=== PATIENT | female | born 1960 | race Caucasian/White ===

== ENCOUNTER 2021-05-31 09:22 | Outpatient (CLI) | payer BC, SELFPAY ==
[2021-05-31 10:22] LABS: Vitamin D,25 Hydroxy 66.5 ng/mL
[2021-05-31 10:47] LABS: AST(SGOT) 18 U/L (15-37); Alanine Aminotransfer ALT/SGPT 33 U/L (13-56); Albumin, Serum 3.8 g/dL (3.2-5.0); Alkaline Phosphatase 76 U/L (45-117); Anion Gap 8 (5-15); BUN 18 mg/dL (7-18); BUN/Creat Ratio 20.9 RATIO (10-20); Calcium,Total 8.7 mg/dL (8.5-10.1); Chloride 105 mmol/L (98-107); Cholesterol 179 mg/dL (200); Creatinine, Serum 0.86 mg/dL (0.55-1.02); EST Glomerular Filtration Rate 71 mL/min (>60); Est Glom Filt Rate - Afr Amer 86 mL/min (>60); Globulin 3.7 g/dL (2.2-4.2); Glucose 132 mg/dL (74-106); High Density Lipoprotein 64 mg/dL; Potassium 4.4 mmol/L (3.5-5.1); Protein, Total 7.5 g/dL (6.4-8.2); Sodium Level 139 mmol/L (136-145); Thyroid Stim Hormone (TSH) 3.06 uIU/mL (0.358-3.74); Triglycerides 79 mg/dL; Very Low Density Lipoprotein 16 mg/dL (5-40)
== END 2021-05-31 23:59 | disposition home or self-care (01) ==
LOC: BIMLAB 09:23
PROVIDERS: Referring Provider Nurse Practitioner Family; Visit Provider Nurse Practitioner Family
DX: E11.65 Type 2 diabetes mellitus with hyperglycemia (principal); E66.01 Morbid (severe) obesity due to excess calories; Z68.41 Body mass index [BMI] 40.0-44.9, adult
CPT/HCPCS: 36415; 80053; 80061; 82306; 84443

== ENCOUNTER → 2022-01-10 | Outpatient (CLI) | payer BC, SELFPAY ==
--- NOTE | 2022-01-10 11:36 | BD_ITS ---
STUDY: DUAL ENERGY X-RAY ABSORPTIOMETRY / DXA REASON FOR EXAM: Female, 61 years old. Post menopause TECHNIQUE: Bone Mineral Density (BMD) measurements of lumbar spine and bilateral hips were obtained. COMPARISON: None. FINDINGS: Lumbar Spine (L1-L4): g/cm2 (1.170) / T-score (1.1) / Z-score (2.7) Findings are suggestive of normal bone density with a low fracture risk. Left Femur Total: g/cm2 (1.243) / T-score (2.5) / Z-score (3.6) Left Femoral Neck: g/cm2 (0.947) / T-score (0.9) / Z-score (2.3) Right Femur Total: g/cm2 (1.181) / T-score (2.0) / Z-score (3.1) Right Femoral Neck: g/cm2 (0.978) / T-score (1.2) / Z-score (2.6) BD/Dexa Bone Density Study IMPRESSION: The patient is considered normal as outlined below according to World Radu Organization (WHO) criteria with a low fracture risk. Reference Information: The T-score is the number of standard deviations above or below the standard which is normal for young adults at their peak bone mineral density. The World Health Organization (WHO) interprets the T-scores as follows: Above -1 Normal bone density Between -1 and -2.5 Osteopenia Equal to / or below -2.5 Osteoporosis As a practical clinical guideline, osteopenia may be graded as follows: Mild -1 through -1.5 Moderate -1.6 through -2.0 Severe -2.1 through -2.4 The Z-score is the number of standard deviations above or below age-matched controls. A Z-score of less than -1.5 would be considered abnormal. References: 1. NIH Osteoporosis and Related Bone Diseases www osteo.org 2. International Society for Clinical Densitometry www iscd.org 3. National Osteoporosis Foundation www nof.org Electronically Signed: Ry Singh MD at 11:58 EDT ,
== END | disposition home or self-care (01) ==
LOC: OPBD 11:30
PROVIDERS: Referring Provider Nurse Practitioner Family; Visit Provider Nurse Practitioner Family
DX: Z78.0 Asymptomatic menopausal state (principal)
CPT/HCPCS: 77080

== ENCOUNTER → 2022-06-11 | Outpatient (CLI) | payer BC, SELFPAY ==
[2022-06-11 10:06] LABS: Microalbumin,Random Urine 27.6 mg/L (NO RANGE EST.); Microalbumin:Creatinine Ratio 42.1 mg/g CRE (<30 mg/g CRE)
[2022-06-11 10:24] LABS: Vitamin D,25 Hydroxy 46.9 ng/mL
[2022-06-11 10:45] LABS: ALB/GLOB Ratio 1.1 RATIO (0.9-2.4); AST(SGOT) 19 U/L (15-37); Alanine Aminotransfer ALT/SGPT 40 U/L (13-56); Alkaline Phosphatase 133 U/L (45-117); Anion Gap 9 (5-15); BUN 23 mg/dL (7-18); Calcium,Total 9.8 mg/dL (8.5-10.1); Chloride 97 mmol/L (98-107); Cholesterol 264 mg/dL (200); Creatinine, Serum 0.92 mg/dL (0.55-1.02); EST Glomerular Filtration Rate 65 mL/min (>60); Est Glom Filt Rate - Afr Amer 79 mL/min (>60); Globulin 3.8 g/dL (2.2-4.2); Glucose 390 mg/dL (74-106); High Density Lipoprotein 60 mg/dL; Potassium 4.7 mmol/L (3.5-5.1); Protein, Total 7.8 g/dL (6.4-8.2); Sodium Level 132 mmol/L (136-145); Thyroid Stim Hormone (TSH) 2.57 uIU/mL (0.358-3.74); Triglycerides 281 mg/dL; Very Low Density Lipoprotein 56 mg/dL (5-40)
== END | disposition home or self-care (01) ==
LOC: LAB 09:15
PROVIDERS: Referring Provider Nurse Practitioner Family; Visit Provider Nurse Practitioner Family
DX: E11.9 Type 2 diabetes mellitus without complications (principal)
CPT/HCPCS: 36415; 80053; 80061; 82043; 82306; 82570; 84443

== ENCOUNTER 2023-03-07 16:30 | Outpatient (RCR) | payer BC, SELFPAY ==
--- NOTE | 2023-01-21 08:15 | HP.PTEVAL ---
Patient's Visit Information Visit Information Visit Information: ROSE MARY NARANJO is a 62 year old F referred to Physical Therapy by Dr. Gus Marquez DO with a diagnosis of R hip OA. Date of Evaluation: 01/21/23 Physical Therapist: Sylvain Nguyen, DPT, OCS, CSCS Visit Plan Frequency: 2x /Week Duration: 4-6 Weeks Plan: 2x/week for 4-6 weeks starting with aquatic therapy for R hip ROm, stretch psoas and HS, strenvgth and funciton to I pool or HEP based on patient desire. Will continue manual therapy after pool if needed. Subjective Subjective: Arhtritis and bone spurs in R hip for two years bothering her. Worsening. Pain to 6/10 in am is worse. Standing too long is painful, sitting too long. Sleep is rough as it constantly wakes her up. Tries to sleep on l side but wakes up on R. She has pain meds at home and doc suggested glucosamine. Had injections with chiropractor in august which did not help. Employed at [employer] and is not bad but has to get up and walk around. limps much of time right now, sometimes not too bad usually when pain pill has kicked in. After moving for a while is better, dormancy bothers her. Basic ADLs, all getting done but sock on R foot is difficult, IR crossing leg is tough. Hobbies, gardening but has been unable to get on knees or use shovel b/c it hurts. Getting off ground is tough. Tried some ex with chrioppractor ROM legs and hips and back, SKC, was painful to do. Pain R hip lateral: Pain Intensity (Out of 10): 1 Pain Intensity Range: 0 and 6 Objective Objective: Walks I with R antalgia back to [facility] room. Trasers chair and bed I with a groan. Steps are reciprocal with one rail, poor confidence but able. R hip AROM IR 8 pain, er 45 pain, flexion 90 pain, extension 5 L hip IR 15, ER 65, flexion 110. tightness present in hip flexors B, HS -20 90/90 B. reflexes 1/3 patella and achilles sensation WNL to gross light touch in B LE strength ankle anad knee 4/5 B without pain, hip flexion 4- R and 4 L, abduction 3+ B, hip ext 3+ B, no real pain. + R hip scour. + FADDIR R , Slight + Jonathan. Balance/Special Test Scores Lower Extremity Functional Score: 29 Goals Goal 1:: sleep through night without waking due to pain Goal Time Frame: 4-6 Weeks Goal 2:: I appropriate HEP to minimize future problems(pool or gym or Home) Goal Time Frame: 4-6 Weeks Goal 3:: Put on R shoes and socks without pain Goal Time Frame: 4-6 Weeks Goal 4:: Pt feel 80% better in overall pain and funciton Goal Time Frame: 4-6 Weeks Goal 5:: LEFS score 55 Goal Time Frame: 4-6 Weeks Rehabilitation Potential Physical Therapy Diagnosis: Degenerative changes R hip effecting function Rehabilitation Potential: Good Anticipated Interventions Patient/Client Instruction: Educate patient on: Condition and Plan of Care For the Purpose of:: To decrease pain, To improve nutrient delivery to tissue, To improve muscle performance and motor function, To increase tolerance to activity/condition/position, To improve ability of physical actions for home/community/work/leisure and To improve gait and locomotor functions Therapeutic Exercise to Include: Strength training, Flexibilty training, Gait and locomotor training, In an aquatic setting , Passive ROM and Active ROM For the Purpose of:: To decrease pain, To increase ROM, To improve nutrient delivery to tissue, To improve muscle performance and motor function, To increase tolerance to activity/condition/position, To improve ability of physical actions for home/community/work/leisure, To improve gait and locomotor functions and To improve health of tissue Manual Therapy Techniques to Include: Mobilization and Passive ROM For the Purpose of:: To decrease pain, To increase ROM and To improve nutrient delivery to tissue Text: Thank you for the opportunity to evaluate your patient. For Medicare and Medicare HMO plans, please review the plan of care and approve it. It will need to be FAXED BACK to us at [phone] for Medicare purposes. For Medicare only, by signing this I certify the plan of care. Please let me know if there are questions or concerns regarding this plan of care. Physician Signature: Date:
--- NOTE | 2023-03-07 17:03 | HP.PTREVAL_ITS ---
Re-Evaluation Intro: Dr. Gus Marquez, DO, It has been my pleasure to treat ROSE MARY NARANJO over the last 10 visits for R hip OA. Please see the progress note below for an update on the physical therapy plan of care! Subjective Subjective: Not feeling a whole lot better overall. Still pretty bad in am. Got home exercises but not compliant alot. Feels good when gets out the pool. Lasts day or so. Sleeps better after exercises. can cross legs to put sock on now. Not alot of time for exercises. No f/u with doctor. Pt withouit a lot of time to exercise at home and is very busy, hard to commit to exercise but realizes she needs to find time to take care of herself. sleeping is still the main problem. Objective Objective/Function: R hip ROM very limited R compared to L in hip flexion 90 and ir barely neutral,both painful, also er painful. Tender just a bit over trochanter. Walks without antalgia today. Steps with pain R hip ascend and desending. Feels better after manual leg pull Plan Plan Plan: Pt to schedule/call doctor regarding main problem of night pain and lack of improvement. Will attempt to do HEP or possibly join a pool and continue2- 3x/week but noncommittal. Might beenfit from continued land based manual therapy and more aggressiv ehip strength if no other options from doctor(injection/meds etc) pt to call after doctor [place] [facility] [place] for 2-4 weeks if no other options for manual therapy and land ex. Balance/Gait/Functional tests Balance/Special Test Scores Lower Extremity Functional Score: 41 Goals Goals Goal 1:: sleep through night without waking due to pain Goal Time Frame: 4-6 Weeks Goal Progress: Not Progressing Goal 2:: I appropriate HEP to minimize future problems(pool or gym or Home) Goal Time Frame: 4-6 Weeks Goal Progress: Goal Met Goal 3:: Put on R shoes and socks without pain Goal Time Frame: 4-6 Weeks Goal Progress: still painful Goal 4:: Pt feel 80% better in overall pain and funciton Goal Time Frame: 4-6 Weeks Goal Progress: Slow Goal 5:: LEFS score 55 Goal Time Frame: 4-6 Weeks Goal Progress: Slow Anticipated Interventions Anticipated Interventions Patient/Client Instruction: Educate patient on: Condition and Plan of Care For the Purpose of:: To decrease pain, To improve nutrient delivery to tissue, To improve muscle performance and motor function, To increase tolerance to act ivity/condition/position, To improve ability of physical actions for home/community/work/leisure and To improve gait and locomotor functions Therapeutic Exercise to Include: Strength training, Flexibilty training, Gait and locomotor training, In an aquatic setting , Passive ROM and Active ROM For the Purpose of:: To decrease pain, To increase ROM, To improve nutrient delivery to tissue, To improve muscle performance and motor function, To increase tolerance to activity/condition/position, To improve ability of physical actions for home/community/work/leisure, To improve gait and locomotor functions and To improve health of tissue Manual Therapy Techniques to Include: Mobilization and Passive ROM For the Purpose of:: To decrease pain, To increase ROM and To improve nutrient delivery to tissue Re-Evaluation Ending Re-evaluation ending: Please do not hesitate to contact me at [phone] by phone or if you have questions or concerns regarding this new plan of care! Sincerely, Sylvain Nguyen, DPT, OCS, CSCS
--- NOTE | 2023-05-03 12:54 | HP.PT.NRP ---
Patient Information Patient Information: ROSE MARY NARANJO was seen in my office for initial evaluation on 01/21/23. The following Plan of Care was established for this patient: POC Established Initial Frequency: 2x /Week Initial Duration: 4-6 Weeks Anticipated Interventions Patient/Client Instruction: Educate patient on: Condition and Plan of Care For the Purpose of:: To decrease pain, To improve nutrient delivery to tissue, To improve muscle performance and motor function, To increase tolerance to activity/condition/position, To improve ability of physical actions for home/community/work/leisure and To improve gait and locomotor functions Therapeutic Exercise to Include: Strength training, Flexibilty training, Gait and locomotor training, In an aquatic setting , Passive ROM and Active ROM For the Purpose of:: To decrease pain, To increase ROM, To improve nutrient delivery to tissue, To improve muscle performance and motor function, To increase tolerance to activity/condition/position, To improve ability of physical actions for home/community/work/leisure, To improve gait and locomotor functions and To improve health of tissue Manual Therapy Techniques to Include: Mobilization and Passive ROM For the Purpose of:: To decrease pain, To increase ROM and To improve nutrient delivery to tissue Last Seen Last Seen: This patient was last seen in our office 03/04/23. Pertinent comments regarding their Physical therapy will appear below: Pt seen 9 visits of plan of care for aquatic therapy. She did not schedule or attend any further visits or her re-assessment. at this point, it has been over 6 weeks and I will discontinue due to nonattendance. At this point I will be discontinuing this patient from physical therapy. I would be happy to see this patient again in the future if found appropriate by the physician. Thank you! Sylvain Nguyen, DPT, OCS, CSCS Balance/Gait/Functional tests Balance/Special Test Scores Lower Extremity Functional Score: 41
== END 2023-03-07 19:00 | disposition home or self-care (01) ==
LOC: PT 16:30
PROVIDERS: Referring Provider Orthopaedic Surgery; Visit Provider Orthopaedic Surgery
DX: M16.11 Unilateral primary osteoarthritis, right hip (principal)
CPT/HCPCS: 97113; 97161; 97164

== ENCOUNTER → 2023-03-20 | Outpatient (CLI) | payer BC, SELFPAY ==
--- NOTE | 2023-03-20 07:47 | ECHOD_ITS ---
Reason For Study: CAD/ASHD Procedure This was a 2D Doppler, Color Flow transthoracic echocardiogram. Exam performed in department. Left Ventricle Normal LV size. Left ventricular systolic function is normal. The estimated ejection fraction is 65 %. Stage 2 diastolic dysfunction. No regional wall motion abnormalities noted. Right Ventricle Normal RV size. Normal systolic function. Atria Normal left atrium. Normal right atrium. Mitral Valve Normal mitral valve. Tricuspid Valve Normal tricuspid valve. Mild tricuspid valve insufficiency. Pulmonary artery systolic pressure is 24 mmHg. Aortic Valve Normal aortic valve. Pulmonic Valve Normal pulmonic valve. Great Vessels Normal aortic root. The pulmonary artery is normal size. Normal inferior vena cava. Pericardium/Pleural No pericardial effusion. MMode/2D Measurements & Calculations LVIDd: 4.4 cm IVSd: 1.1 cm LVOT diam: 1.9 cm LVIDs: 2.9 cm LVPWd: 1.1 cm LVOT area: 2.8 cm2 RVDd: 3.4 cm FS: 34.0 % Ao root diam: 3.5 cm LAV(MOD-bp): 53.5 ml LVAd ap4: 23.4 cm2 LAV(MOD-bp) Indexed: 24.7 ml/m2 LVLd ap4: 7.0 cm LAV(MOD-sp2): 76.6 ml EDV(MOD-sp4): 65.2 ml LAV(MOD-sp4): 37.8 ml EDV(sp4-el): 66.2 ml LVAs ap4: 11.8 cm2 LVLs ap4: 5.8 cm ESV(MOD-sp4): 21.9 ml ESV(sp4-el): 20.5 ml EF(MOD-sp4): 66.4 % EF(sp4-el): 69.0 % LVAd ap2: 23.2 cm2 SV(MOD-sp4): 43.3 ml SV(MOD-sp2): 42.7 ml LVLd ap2: 7.3 cm EDV(MOD-sp2): 66.6 ml EDV(sp2-el): 62.3 ml LVAs ap2: 12.4 cm2 LVLs ap2: 6.1 cm ESV(MOD-sp2): 24.0 ml ESV(sp2-el): 21.4 ml EF(MOD-sp2): 64.0 % SV(sp4-el): 45.6 ml LA dimension(2D): 3.3 cm LA A4 area: 16.5 cm2 RA A4 area: 17.3 cm2 TAPSE: 2.5 cm Time Measurements MV dec time: 0.21 sec Doppler Measurements & Calculations MV E max marquis: 70.0 cm/sec Lat Peak E' Marquis: 10.8 cm/sec Med Peak E' Marquis: 9.6 cm/sec MV A max marquis: 70.0 cm/sec E/E' lat: 6.5 E/E' med: 7.3 MV E/A: 1.0 Ao V2 max: 122.5 cm/sec LV V1 max: 83.5 cm/sec MV dec slope: 328.3 cm/sec2 Ao max P.0 mmHg LV V1 max P.8 mmHg Ao V2 mean: 88.5 cm/sec LV V1 mean P.5 mmHg Ao mean P.5 mmHg LV V1 mean: 58.2 cm/sec Ao V2 VTI: 33.3 cm LV V1 VTI: 20.6 cm AV (velocity ratio): 0.62 BEE(I,D): 1.7 cm2 BEE(V,D): 1.9 cm2 SV(LVOT): 57.5 ml PA V2 max: 88.8 cm/sec PI end-d marquis: 66.3 cm/sec PA max PG (full): 1.4 mmHg TR max marquis: 231.3 cm/sec TR max P.4 mmHg ECHO/Echo Complete Interpretation Summary Normal LV size. Left ventricular systolic function is normal. The estimated ejection fraction is 65 %. Stage 2 diastolic dysfunction. Ordering Physician: Guerrero Vera Referring Physician: Guerrero Vera MD Performed By: Karlee Lozoya, RUST
== END | disposition home or self-care (01) ==
LOC: CVS 07:45
PROVIDERS: PCP Internal Medicine Endocrinology, Diabetes & Metabolism; Referring Provider Internal Medicine Cardiovascular Disease; Visit Provider Internal Medicine Cardiovascular Disease
DX: I25.10 Atherosclerotic heart disease of native coronary artery without angina pectoris (principal); I25.84 Coronary atherosclerosis due to calcified coronary lesion; I10 Essential (primary) hypertension
CPT/HCPCS: 93306

== ENCOUNTER → 2023-04-03 | Outpatient (CLI) | payer BC, SELFPAY ==
--- OUTSIDE RECORDS SUMMARY | 2023-04-03 06:50 | XMS RPT_ITS | CCD ---
Author Name Unknown Address [address] [place] [address] Organization [facility] Care Team Providers Care Skiver Operator Name Role Phone Val Valadez Attending Unavailable Val Valadez Referring Unavailable Val Valadez Primary Care Unavailable Dalton, Rosamaria Unavailable Unavailable [place], Val Unavailable Unavailable Prasanna Bailon Unavailable Unavailable Prasanna Bailon Unavailable Unavailable Philip Gonzales Unavailable Unavailable Philip Clark Unavailable Unavailable Wilma López Unavailable Unavailable David Brooks Unavailable Unavailable Rupal Booker Unavailable Unavailable MonheimVal M Unavailable Unavailable [place], Rosamaria Unavailable Unavailable Monheim, Val Unavailable Unavailable Monheim, Val M Unavailable Unavailable Tourlas, Lambert Unavailable [phone] Unavailable Unavailable FLACO MULLINS Primary Care Unavailable SHIMA CHISHOLM Attending Unavailable Flaco Mullins APRN.CNP Primary Care Provider FLACO MULLINS Primary Care Unavailable Allergies Allergy Classification Reported Allergen(s) Allergy Type Date of Onset Reaction(s) Facility Fenofibrate (2 sources) Fenofibrate; Translations: [Antara CAPS] [facility]: HMG-CoA Reductase Inhibitors (statins) (4 sources) rosuvastatin; Translations: [Crestor TABS] [facility]: Sulfamethoxazole / Trimethoprim (2 sources) Sulfamethoxazole / Trimethoprim; Translations: [Bactrim TABS] Drug [facility]ergy [facility]a [facility] Work [facility]: Sulfonamides (antibiotic) (2 sources) Sulfamethoxazole; Translations: [sulfa] Drug Allergy [facility] Work Phone: (4 sources) Fenofibrate [facility] Work Phone: (4 sources) fluvastatin Drug [facility] Work Phone: (4 sources) rosuvastatin Drug Allergy [facility] Work Phone: (5 sources) Sulfamethoxazole / Trimethoprim Drug Allergy 03-11-20 22 Nausea, GI Upset [facility] (2 sources) Sulfonamides (Antibiotic) Allergy to drug (finding) [facility] Work Phone: (3 sources) Aspirin; Translations: [ASPIRIN] Drug Allergy 12-27-19 23 Intolerance [facility] (2 sources) Sulfamethoxazole / Trimethoprim; Translations: [SULFAMETHOXAZOLE-TR IMETHOPRIM] Drug Allergy 03-11-20 22 [facility] Medications Current Medications Medication Drug Class(es) Dates Sig (Normalized) Sig (Original) acetic acid 20 mg/ml otic solution (1 source) Start: 02-15-2023 End: 02-22-2023 acetic acid (VOSOL) 2 % otic solution Indications: Scaly skin Use 4 Drops in the right ear three times a day for 7 days. 5 mL 0 02/15/2023 02/22/2023 Active Completed/Discontinued Medications Medication Drug Class(es) Dates Sig (Normalized) Sig (Original) 200 actuat albuterol 0.09 mg/actuat metered dose inhaler (2 sources) beta2-Adrenergic Agonist Start: 06-10-2018 Ventolin HFA 108 (90 Base) MCG/ACT Inhalation Aerosol Solution use q4-6 hours if needed for wheezing Quantity: 1 Refills: 0 Val Valadez MD Start : 10-Jun-2018 Active 8 GM Inhaler azithromycin 250 mg oral tablet (1 source) Macrolide Antimicrobial Start: 05-29-2019 take 2 tablets by mouth once daily, then take 1 tablet by mouth, then take 1 tablet by mouth once daily Azithromycin 250 MG Oral Tablet TAKE 2 TABLETS ON DAY 1 THEN TAKE 1 TABLET A DAY FOR 4 DAYS. Quantity: 1 Refills: 0 Clif Bailon DOvaleria Start : 29-May-2019 Active 6 Tablet Box benzonatate 100 mg oral capsule (1 source) Non-narcotic Antitussive Start: 03-11-2022 take 1 capsule by mouth three times daily as needed benzonatate (TESSALON PERLE) 100 mg capsule Indications: Acute otitis media, right Take 1 capsule by mouth three times daily as needed. 30 capsule 0 03/11/2022 Active Problems Active Problems Problem Classification Problem Date Documented Da te Episodic/Chronic Adjustment disorders (2 sources) Family tension; Translations: [Unspecified family circumstance] Chronic Administrative/social admission (6 sources) Family tension; Translations: [Patient encounter status] Episodic Allergic reactions (6 sources) Allergy to substance; Translations: [Other allergy, other than to medicinal agents] Episodic Anal and rectal conditions (4 sources) Anal fissure; Translations: [Anal fissure] Episodic Coma; stupor; and brain damage (6 sources) Daytime somnolence; Translations: [Hypersomnia, unspecified] Episodic Diabetes mellitus without complication (12 sources) High hemoglobin A1c level; Translations: [Type 2 diabetes mellitus without complication] Chronic Disorders of lipid metabolism (20 sources) Hyperlipidemia; Translations: [Mixed hyperlipidemia] Resolved: 06-01-2014 Chronic Esophageal disorders (6 sources) Mehta's esophagus; 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] Chronic Essential hypertension (6 sources) Benign essential hypertension; Translations: [Benign essential hypertension] Chronic Influenza (1 source) Influenza due to unidentified influenza virus with other respiratory manifestations; Translations: [Influenza-like illness] Onset: 12-26-2022 Episodic Menopausal disorders (2 sources) Long-term current use of testosterone cypionate; Translations: [Long-term (current) use of other medications] Episodic Miscellaneous mental health disorders (6 sources) Dream anxiety disorder; Translations: [Other dysfunctions of sleep stages or arousal from sleep] Chronic Nonspecific chest pain (7 sources) Atypical chest pain; Translations: [Other chest pain] Onset: 12-26-2022 Resolved: 09-08-2013 Episodic Nutritional deficiencies (6 sources) Vitamin D deficiency; Translations: [Unspecified vitamin D deficiency] Chronic Nutritional deficiencies (6 sources) Cobalamin deficiency; Translations: [Other B-complex deficiencies] Episodic Other aftercare (2 sources) Drug therapy finding; Translations: [Long-term (current) use of other medications] Episodic Other and unspecified benign neoplasm (8 sources) History of polyp of colon; Translations: [History of colonic polyps] Episodic Other connective tissue disease (3 sources) Spasm of cervical paraspinous muscle; Translations: [Cervical paraspinal muscle spasm] Episodic Other connective tissue disease (3 sources) Disorder of abdominal wall; Translations: [Abdominal wall bulge] Episodic Other connective tissue disease (6 sources) Pain in thumb ; Translations: [History of Chronic thumb pain, bilateral] Episodic Other connective tissue disease (6 sources) Pain in toe; Translations: [Pain in limb] Episodic Other gastrointestinal disorders (6 sources) Constipation; Translations: [Constipation, unspecified] Episodic Other gastrointestinal disorders (4 sources) Diarrhea; Translations: [Diarrhea] Episodic Other lower respiratory disease (6 sources) Apnea; Translations: [Apnea] Episodic Other lower respiratory disease (2 sources) Cough; Translations: [Cough] Episodic Other nervous system disorders (6 sources) Carpal tunnel syndrome; Translations: [Carpal tunnel syndrome] Chronic Past or Other Problems Problem Classification Problem Date Documented Da te Episodic/Chronic Abdominal pain (6 sources) Tenderness of epigastrium; Translations: [Abdominal tenderness, epigastric] Resolved: 05-05-2018 Episodic Acute bronchitis (2 sources) Acute bronchitis; Translations: [Acute bronchitis] Episodic Conditions associated with dizziness or vertigo (8 sources) Benign paroxysmal positional vertigo; Translations: [Dizziness] Resolved: 06-01-2014 Episodic Diabetes mellitus with complications (4 sources) Type II diabetes mellitus uncontrolled; Translations: [Diabetes mellitus without mention of complication, type II or unspecified type, uncontrolled] Resolved: 08-19-2014 Chronic Gastrointestinal hemorrhage (6 sources) Rectal hemorrhage; Translations: [Hemorrhage of rectum and anus] Resolved: 06-01-2014 Episodic Genitourinary symptoms and ill-defined conditions (6 sources) Microscopic hematuria; Translations: [Microscopic hematuria] Resolved: 04-21-2014 Episodic Nausea and vomiting (6 sources) Nausea; Translations: [Nausea alone] Resolved: 06-01-2014 Episodic Other and unspecified benign neoplasm (10 sources) Benign neoplastic disease; Translations: [Benign neoplasm of unspecified site] Resolved: 06-01-2014 Episodic Other liver diseases (6 sources) Enzyme level - finding; Translations: [Nonspecific elevation of levels of transaminase or lactic acid dehydrogenase [LDH]] Resolved: 02-03-2018 Episodic Other lower respiratory disease (6 sources) H/O: pneumonia; Translations: [Personal history of pneumonia (recurrent)] Resolved: 06-10-2018 Episodic Other lower respiratory disease (18 sources) H/O: respiratory disease; Translations: [Personal history of other diseases of respiratory system] Resolved: 08-05-2018 Episodic Other lower respiratory disease (10 sources) H/O: bronchitis; Translations: [Personal history of other diseases of respiratory system] Resolved: 12-10-2018 Episodic Other nervous system disorders (6 sources) H/O: vertigo; Translations: [Personal history of other disorders of nervous system and sense organs] Resolved: 06-01-2014 Episodic Other nutritional; endocrine; and metabolic disorders (6 sources) Abnormal weight gain; Translations: [Abnormal weight gain] Resolved: 09-08-2013 Episodic Other screening for suspected conditions (not mental disorders or infectious disease) (2 sources) Elevated C-reactive protein; Translations: [Elevated high sensitivity C-reactive protein] Other upper respiratory disease (4 sources) Polyp of nasal cavity and/or nasal sinus; Translations: [Nasal polyp] Other upper respiratory infections (7 sources) Acute maxillary sinusitis; Translations: [Acute frontal sinusitis] Resolved: 05-22-2016 Episodic Residual codes; unclassified (4 sources) H/O: Disorder; Translations: [Personal history of other specified diseases] Resolved: 12-10-2018 Episodic Residual codes; unclassified (6 sources) Personal history of other specified conditions; Translations: [History of chest pain] Resolved: 05-28-2013 Episodic Results Test Name Value Interpretation Reference Range Facil ity Vital Signs Date Time Vital Sign Value Performing Clinician Facility 02-15-2023 11:29-0500 Body height 175.3 cm Lydia Oliva APRN.CNP Work Phone: [facility] 02-15-2023 11:29-0500 Body temperature 96.91 [degF] Lydia Oliva APRN.CNP Work Phone: [facility] 02-15-2023 11:29-0500 Body weight 106.41 kg Lydia Oliva GLOBAL CHIEF CREATIVE OFFICER.MACHINIST INSTRUCTOR Work Phone: [facility] 02-15-2023 11:29-0500 Diastolic blood pressure 84 mm[Hg] Lydia Oliva GLOBAL CHIEF CREATIVE OFFICER.MACHINIST INSTRUCTOR Work Phone: [facility] 02-15-2023 11:29-0500 Heart rate 57 /min Lydia Oliva GLOBAL CHIEF CREATIVE OFFICER.MACHINIST INSTRUCTOR Work Phone: [facility] 02-15-2023 11:29-0500 Respiratory rate 18 /min Lydia Oliva GLOBAL CHIEF CREATIVE OFFICER.MACHINIST INSTRUCTOR Work Phone: [facility] 02-15-2023 11:29-0500 SaO2% (BldA) [Mass fraction] 97 % Lydia Oliva GLOBAL CHIEF CREATIVE OFFICER.MACHINIST INSTRUCTOR Work Phone: [facility] 02-15-2023 11:29-0500 Systolic blood pressure 151 mm[Hg] Lydia Oliva GLOBAL CHIEF CREATIVE OFFICER.[facility] Work Phone: [facility] 09-09-2019 18:21-0400 BMI (Body Mass Index) 40.63 kg/m2 Rosamaria [place] [facility] Work Phone: 09-09-2019 18:21-0400 Body Temperature 98.5 [degF] Rosamaria [place] [facility] Work Phone: 09-09-2019 18:21-0400 Body weight 121.2 kg Rosamaria [place] [facility] Work Phone: 09-09-2019 18:21-0400 BP Diastolic 70 mm[Hg] Rosamaria [place] [facility] Work Phone: 09-09-2019 18:21-0400 BP Systolic 142 mm[Hg] Rosamaria [place] [facility] Work Phone: 09-09-2019 18:21-0400 BSA (Body Surface Area) 2.31 m2 Rosamaria [place] [facility] Work Phone: 09-09-2019 18:21-0400 Pulse (Heart Rate) 68 /min Rosamaria [place] [facility] Work Phone: 05-29-2019 13:13-0500 BMI (Body Mass Index) 42.27 kg/m2 Rosamaria [place] [facility] Work Phone: 05-29-2019 13:13-0500 Body Temperature 97.3 [degF] Rosamaria [place] [facility] Work Phone: 05-29-2019 13:13-0500 Body weight 126.1 kg Rosamaria [place] [facility] Work Phone: 05-29-2019 13:13-0500 BP Diastolic 78 mm[Hg] Rosamaria [place] [facility] Work Phone: 05-29-2019 13:13-0500 BP Systolic 124 mm[Hg] Rosamaria [place] [facility] Work Phone: 05-29-2019 13:13-0500 BSA (Body Surface Area) 2.35 m2 Rosamaria [place] [facility] Work Phone: 05-29-2019 13:13-0500 Pulse (Heart Rate) 72 /min Rosamaria [place] [facility] Work Phone: 08-05-2018 14:09-0400 BP Diastolic 84 mm[Hg] Rosamaria [place] [facility] Work Phone: Encounters Encounter Date Encounter Type Care Provider Facility Start: 02-15-2023 End: 02-15-2023 ambulatory [facility] Facility:[facility] Start: 02-15-2023 End: 02-15-2023 Patient encounter procedure Lydia Oliva APRN.MACHINIST INSTRUCTOR Work Phone: [facility] Procedures Date Procedure Procedure Detail Performing Clinician Start: 02-26-2020 Lipid 1996 panel - S isaiah or Plasma Lydia Oliva APRN.CNP Work Phone: Start: 09-09-2019 Follow-up visit Start: 09-09-2019 25 hydroxy includes fractions if performed Rosamaria Dalton Start: 09-09-2019 Albumin, Urine Spot Ali ce [place] Start: 09-09-2019 Blood count complete auto&auto difrntl wbc Rosamaria [place] Start: 09-09-2019 Comprehensive metabo lic 2000 panel Rosamaria Dalton Start: 09-09-2019 Hemoglobin glycosylated a1c Rosamaria [place] Start: 09-09-2019 Lipid panel Rosamaria Alfalfa on Start: 09-09-2019 MG Breast screening Ali ce Dalton Start: 09-09-2019 TSH WITH REFLEX TO F REE T4 IF ABNORMAL Rosamaria [place] Start: 09-09-2019 Urnls dip stick/tabl et rgnt auto w/o microscopy Rosamaria [place] Start: 05-29-2019 Follow-up visit Anal fissurectomy Rosamaria Alfalfa on Biopsy of breast Rosamaria Dento n Colonoscopy Rosamaria [place] Hysterectomy Rosamaria [place] Plan of Treatment Date Care Activity Detail Author Start: 03-07-2030 Urine microalbumin profile DTaP,Tdap,Td Vaccine (2 - Td or Tdap) [facility] Start: 12-26-2025 Diabetes Screening Diabetes Screenin g [facility] Start: 02-25-2025 Lipid 1996 panel - Serum or Plasma Lipid Screening [facility] Start: 11-23-2022 Covid-19 Vaccine ( season) Covid-19 Vaccine ( season) [facility] Start: 11-23-2022 Influenza vaccination Influenza Vacc ine (#1) [facility] Start: 03-25-2022 Depression Assessment Depression Ass essment [facility] Start: 09-09-2019 MG Breast screening Mamm - Scr eening Mammogram w/ Tomosynthesis -[facility] Work Phone: Start: 2018 RSV Vaccine (1 - 1-d ose 60+ series) RSV Vaccine (1 - 1-dose 60+ series) [facility] Start: 2008 Shingrix Vaccine (1 of 2) Shingrix Vaccine (1 of 2) [facility] Start: 11-27-2003 Cologuard (FIT-DNA) Cologuard (FIT-D NA) [facility] Start: 11-27-2003 Colonoscopy Colonoscopy [facility] Start: 11-27-2003 Colorectal Cancer Screening Colorectal Cancer Screening [facility] Start: 11-27-[address] [facility] Start: 11-27-2003 Fecal Occult Blood Fecal Occult Bloo d [facility] Start: 11-27-2003 Sigmoidoscopy Sigmoidoscopy [facility] Start: 1998 Mammography Mammogram Screening [facility] Start: 1988 HPV Testing HPV Testing [facility] Start: 11-27-1979 Pap Testing Pap Testing [facility] Start: 1976 Hepatitis C Screening Hepatitis C Sc reening [facility] Start: 1976 [facility] Work Phone: NEGATED: Highlighted row has been ruled out! Planned Goals not documented [facility] Work Phone: Immunizations Immunization Date Immunization Notes Care Provider Kody de la rosa 04-05-2022 influenza virus vaccine, unspecified formulation Lydia Oliva APRN.[facility] Work Phone: [facility] 03-07-2020 influenza, injectabl e, quadrivalent, preservative free; Translations: [Fluarix Quadrivalent 0.5 ML Intramuscular Suspension Prefilled Syringe] Lambert Colón Work Phone: [facility] Work Phone: Payers Date Payer Category Payer Unknown 2020 Unknown [id number] 1960 Unknown [id number] Private Health Insurance [id number] Social History Date Type Detail Facility Start: 12-27-2022 End: 02-15-2023 Orthodox Affiliation Baptism Orthodox Affiliation [facility] Work Phone: Medical Equipment Procedure Code Equipment Code Equipment Origin al Text Equipment Identifier Dates OneTouch Verio I n Vitro Strip Refills: 0 Start : 31-Mar-2018 Active Start: 03-31-2018 OneTouch Verio I n Vitro Strip Refills: 0 Start : 31-Mar-2018 Active Start: 03-31-2018 OneTouch Verio I n Vitro Strip Refills: 0 Start : 31-Mar-2018 Active Start: 03-31-2018 OneTouch Verio I n Vitro Strip Refills: 0 DO Start : 31-Mar-2018 Active Start: 03-31-2018 Functional Status Date Assessment Result Facility NEGATED: Highlighted row Functional performance Functional status health issues are not documented Disease [facility] Work Phone: Mental Status Date Assessment Result Facility NEGATED: Highlighted row Cognitive function [Interpretation] Cognitive status health issues are not documented Disease [facility] Work Phone: Progress note 02-15-2023 Note Date & Type Note Facility 02-15-2023 Note HNO ID: [id number] Author: Daria Daniels Service: ? Author Type: ? Type: Progress Notes Filed: 02/15/2023 12:01 PM Note Text: This note was created using Agileriter. Subjective Rose Mary Naranjo is a 62 year old female. HPI by patient: Rose Mary is a 62r year old presenting to the office with the complaint of right ear pain for 2 days Associated symptoms include fullness, pain, headache, ear burning, and recent blood on her pillow Denies Loss of hearing Covid Immunization Dates Overdue - Covid-19 Vaccine ( season) Overdue since 11/23/2022 04/05/2022 Imm Admin: COVID-19 vaccine, age 12+ yr, bivalent (PFIZER-BIONTECH) 02/18/2021 Imm Admin: COVID-19 original vaccine, age 12+ yr, monovalent (PFIZER-BIONTECH - PURPLE TOP) 07/01/2020 Imm Admin: COVID-19 original vaccine, age 12+ yr, monovalent (PFIZER-BIONTECH - PURPLE TOP) 06/10/2020 Imm Admin: COVID-19 original vaccine, age 12+ yr, monovalent (Apokalyyis-DiJiPOP - PURPLE TOP) Sick contacts: Denies Smoking history/second hand smoke: Former OTC ibuprofen, frequent peroxide rinses, tylenol, lavender oil N/a antibiotic use in the last 60 days. ALLERGIES Aspirin Intolerance Comment:Says she breaks out in sweat Sulfamethoxazole-Tr* GI Upset No family history on file. Social History Tobacco Use Smoking status: Former Types: Cigarettes Smokeless tobacco: Never Ear Pain Pertinent negatives include no chills or fever. Review of Systems Constitutional: Negative for chills and fever. HENT: Negative for sinus pressure and sinus pain. Objective BP 151/84 (BP Site: Right Arm, BP Position: Sitting, BP Cuff Size: Regular Adult) Pulse (!) 57 Temp 36.1 ?C (96.9 ?F) (Left Tympanic) Resp 18 Ht 175.3 cm (5' 9 ) Wt 106.4 kg (234 lb 9.6 oz) SpO2 97% BMI 34.64 kg/m? Physical Exam Constitutional: Appearance: Normal appearance. HENT: Left Ear: Tympanic membrane, ear canal and external ear normal. Ears: Comments: Erythematous and white scaly canal on right side. No noted drainage bilaterally Nose: Nose normal. Mouth/Throat: Mouth: Mucous membranes are dry. Cardiovascular: Rate and Rhythm: Normal rate. Pulmonary: Effort: Pulmonary effort is normal. Breath sounds: Normal breath sounds. Neurological: Mental Status: She is alert. Assessment and Plan (H66.91) Acute otitis media, right (primary encounter diagnosis) Plan: amoxicillin (AMOXIL) 875 mg tablet (R23.4) Scaly skin Plan: acetic acid (VOSOL) 2 % otic solution Patient with 2 day history of right ear pain with multiple home treatments. Patient to be provided amoxicillin for right otitis media and encouraged acetic acid to treat canal. The patient will pursue further outpatient evaluation with the primary care physician or another Urgent Care/Express Care as outlined in the after visit summary. The patient is agreeable to this plan of care and follow-up instructions have been explained in detail. The patient has received these instructions in written format and have expressed an understanding of the after visit summary. Education on viral vs bacterial infections. Most viral infections will last 10 days, sometimes 14. It is possible to have back to back viral infections. An antibiotic will not treat a virus. -Drink lots of fluids and get plenty of rest. -Make follow up with primary care for monitoring and resolution in symptoms. -Signs that warrant an ER evaluation: Sudden change/worsening in condition, lethargy, signs of dehydration, fever greater than 102 F that is not responding to Tylenol or ibuprofen (Motrin, Advil), drooling, difficulty swallowing, difficulty breathing, shortness of breath, chest pain, evidence of airway compromise (tripod position, neck extension, retractions), seizures, changes in mental status, or other concerns. Medical Decision Making: Medical Decision Making Level: 1 - N/A I spent a total of 20 minutes on the date of the service which included preparing to see the patient, [id number] patient care, completing clinical documentation, and communicating results to the patient/family/caregiver. Remove COVID19 association [facility] Progress note 02-15-2023 Note Date & Type Note Facility 02-15-2023 Note HNO ID: [id number] Author: Lydia Oliva APRN.MACHINIST INSTRUCTOR Service: ? Author Type: Nurse Practitioner Type: Progress Notes Filed: 02/15/2023 12:01 PM Note Text: This note was created using Agileriter. Subjective Rose Mary Naranjo is a 62 year old female. HPI by patient: Rose Mary Naranjo is a 62 year old presenting to the office with the complaint of right sided ear pain. Started several days ago. Associated symptoms include pain some bloody drainage from the ear. Has had a headache and some dizziness. Denies cough, uri symptoms, fever, and gi symptoms. Covid Immunization Dates Overdue - Covid-19 Vaccine ( season) Overdue since 11/23/2022 04/05/2022 Imm Admin: COVID-19 vaccine, age 12+ yr, bivalent (PFIZER-BIONTECH) 02/18/2021 Imm Admin: COVID-19 original vaccine, age 12+ yr, monovalent (PFIZER-BIONTECH - PURPLE TOP) 07/01/2020 Imm Admin: COVID-19 original vaccine, age 12+ yr, monovalent (PFIZER-BIONTECH - PURPLE TOP) 06/10/2020 Imm Admin: COVID-19 original vaccine, age 12+ yr, monovalent (PFIZER-BIONTECH - PURPLE TOP) Sick contacts: none. Smoking history/second hand smoke: none. OTC not helping. Is using peroxide and lavender oil in the ear. No antibiotic use in the last 60 days. ALLERGIES Aspirin Intolerance Comment:Says she breaks out in sweat Sulfamethoxazole-Tr* GI Upset No family history on file. Social History Tobacco Use Smoking status: Former Types: Cigarettes Smokeless tobacco: Never Active Ambulatory Problems No Active Ambulatory Problems Resolved Ambulatory Problems No Resolved Ambulatory Problems No Additional Past Medical History Review of Systems Constitutional: Negative. HENT: Positive for ear pain. Eyes: Negative. Respiratory: Negative. Cardiovascular: Negative. Gastrointestinal: Negative. Endocrine: Negative. Genitourinary: Negative. Musculoskeletal: Negative. Skin: Negative. Neurological: Negative. Hematological: Negative. Objective BP 151/84 (BP Site: Right Arm, BP Position: Sitting, BP Cuff Size: Regular Adult) Pulse (!) 57 Temp 36.1 ?C (96.9 ?F) (Left Tympanic) Resp 18 Ht 175.3 cm (5' 9 ) Wt 106.4 kg (234 lb 9.6 oz) SpO2 97% BMI 34.64 kg/m? Physical Exam Vitals reviewed. Constitutional: General: She is not in acute distress. Appearance: She is not ill-appearing, toxic-appearing or diaphoretic. HENT: Head: Normocephalic and atraumatic. Right Ear: Ear canal and external ear normal. Swelling (some swelling with white scaling/flakes to the canal) present. Tympanic membrane is erythematous. Left Ear: Tympanic membrane, ear canal and external ear normal. Nose: Nose normal. Right Sinus: No maxillary sinus tenderness or frontal sinus tenderness. Left Sinus: No maxillary sinus tenderness or frontal sinus tenderness. Mouth/Throat: Mouth: Mucous membranes are moist. Pharynx: Oropharynx is clear. No oropharyngeal exudate or posterior oropharyngeal erythema. Cardiovascular: Rate and Rhythm: Normal rate and regular rhythm. Pulmonary: Effort: Pulmonary effort is normal. Breath sounds: Normal breath sounds. Lymphadenopathy: Head: Right side of head: No submandibular or tonsillar adenopathy. Left side of head: No submandibular or tonsillar adenopathy. Cervical: No cervical adenopathy. Psychiatric: Behavior: Behavior is cooperative. Assessment and Plan (H66.91) Acute otitis media, right (primary encounter diagnosis) Plan: amoxicillin (AMOXIL) 875 mg tablet (R23.4) Scaly skin Plan: acetic acid (VOSOL) 2 % otic solution Right otitis media, will treat with amoxicillin. White scaly/flakes in canal. Stop using oil and peroxide in the ears. Use acetic acid to the right ear. -OTC tylenol/ibuprofen as directed on the bottle. -Make follow up with primary care for monitoring and resolution in symptoms, call today for a follow up appointment. May need to see ENT. -Signs that warrant an ER evaluation: Sudden change/worsening in condition, lethargy, signs of dehydration, fever greater than 102 F that is not responding to Tylenol or ibuprofen (Motrin, Advil), drooling, difficulty swallowing, difficulty breathing, shortness of breath, chest pain, evidence of airway compromise (tripod position, neck extension, retractions), seizures, changes in mental status, or other concerns. The patient will pursue further outpatient evaluation with the primary care physician or another Urgent Care/Express Care as outlined in the after visit summary. The patient is agreeable to this plan of care and follow-up instructions have been explained in detail. The patient has received these instructions in written format and have expressed an understanding of the after visit summary. Medical Decision Making: Level: 4 - Moderate I spent a total of 20 minutes on the date of the service which included preparing to see the patient, [id number] patient care, completing clinical documentation, obta (more content not included)... [facility] History of Present illness Narrative 02-15-2023 Draia Daniels - 02/15/2023 11:53 AM Lydia Izaguirre APRN.DOREEN - 02/15/2023 11:38 AM EST Note Date & Type Note Facility 02-15-2023 History of Presen t illness Narrative This note was created using Agileriter. Subjective Rose Mary Naranjo is a 62 year old female. HPI by patient: Rose Mary is a 62r year old presenting to the office with the complaint of right ear pain for 2 days Associated symptoms include fullness, pain, headache, ear burning, and recent blood on her pillow Denies Loss of hearing Covid Immunization Dates Overdue - Covid-19 Vaccine (5 - 2023-24 season) Overdue since 11/23/2022 04/05/2022 Imm Admin: COVID-19 vaccine, age 12+ yr, bivalent (PFIZER-BIONTECH) 02/18/2021 Imm Admin: COVID-19 original vaccine, age 12+ yr, monovalent (PFIZER-BIONTECH - PURPLE TOP) 07/01/2020 Imm Admin: COVID-19 original vaccine, age 12+ yr, monovalent (PFIZER-BIONTECH - PURPLE TOP) 06/10/2020 Imm Admin: COVID-19 original vaccine, age 12+ yr, monovalent (PFIZER-BIONTECH - PURPLE TOP) Sick contacts: Denies Smoking history/second hand smoke: Former OTC ibuprofen, frequent peroxide rinses, tylenol, lavender oil N/a antibiotic use in the last 60 days. ALLERGIES Aspirin Intolerance Comment:Says she breaks out in sweat Sulfamethoxazole-Tr* GI Upset No family history on file. Social History Tobacco Use Smoking status: Former Types: Cigarettes Smokeless tobacco: Never Ear Pain Pertinent negatives include no chills or fever. Review of Systems Constitutional: Negative for chills and fever. HENT: Negative for sinus pressure and sinus pain. Objective BP 151/84 (BP Site: Right Arm, BP Position: Sitting, BP Cuff Size: Regular Adult) Pulse (!) 57 Temp 36.1 C (96.9 F) (Left Tympanic) Resp 18 Ht 175.3 cm (5' 9 ) Wt 106.4 kg (234 lb 9.6 oz) SpO2 97% BMI 34.64 kg/m Physical Exam Constitutional: Appearance: Normal appearance. HENT: Left Ear: Tympanic membrane, ear canal and external ear normal. Ears: Comments: Erythematous and white scaly canal on right side. No noted drainage bilaterally Nose: Nose normal. Mouth/Throat: Mouth: Mucous membranes are dry. Cardiovascular: Rate and Rhythm: Normal rate. Pulmonary: Effort: Pulmonary effort is normal. Breath sounds: Normal breath sounds. Neurological: Mental Status: She is alert. Assessment and Plan (H66.91) Acute otitis media, right (primary encounter diagnosis) Plan: amoxicillin (AMOXIL) 875 mg tablet (R23.4) Scaly skin Plan: acetic acid (VOSOL) 2 % otic solution Patient with 2 day history of right ear pain with multiple home treatments. Patient to be provided amoxicillin for right otitis media and encouraged acetic acid to treat canal. The patient will pursue further outpatient evaluation with the primary care physician or another Urgent Care/Express Care as outlined in the after visit summary. The patient is agreeable to this plan of care and follow-up instructions have been explained in detail. The patient has received these instructions in written format and have expressed an understanding of the after visit summary. Education on viral vs bacterial infections. Most viral infections will last 10 days, sometimes 14. It is possible to have back to back viral infections. An antibiotic will not treat a virus. -Drink lots of fluids and get plenty of rest. -Make follow up with primary care for monitoring and resolution in symptoms. -Signs that warrant an ER evaluation: Sudden change/worsening in condition, lethargy, signs of dehydration, fever greater than 102 F that is not responding to Tylenol or ibuprofen (Motrin, Advil), drooling, difficulty swallowing, difficulty breathing, shortness of breath, chest pain, evidence of airway compromise (tripod position, neck extension, retractions), seizures, changes in mental status, or other concerns. Medical Decision Making: Medical Decision Making Level: 1 - N/A I spent a total of 20 minutes on the date of the service which included preparing to see the patient, [id number] patient care, completing clinical documentation, and communicating results to the patient/family/caregiver. Remove COVID19 association This note was created using Agileriter. Subjective Rose Mary Naranjo is a 62 year old female. HPI by patient: Rose Mary Naranjo is a 62 year old presenting to the office with the complaint of right sided ear pain. Started several days ago. Associated symptoms include pain some bloody drainage from the ear. Has had a headache and some dizziness. Denies cough, uri symptoms, fever, and gi symptoms. Covid Immunization Dates Overdue - Covid-19 Vaccine ( season) Overdue since 11/23/2022 04/05/2022 Imm Admin: COVID-19 vaccine, age 12+ yr, bivalent (e-Zassi) 02/18/2021 Imm Admin: COVID-19 original vaccine, age 12+ yr, monovalent (Apokalyyis-DiJiPOP - PURPLE TOP) 07/01/2020 Imm Admin: COVID-19 original vaccine, age 12+ yr, monovalent (PFIZER-BIONTECH - PURPLE TOP) 06/10/2020 Imm Admin: COVID-19 original vaccine, age 12+ yr, monovalent (PFIZER-BIONTECH - PURPLE TOP) Sick contacts: none. Smoking history/second hand smoke: none. OTC not helping. Is using peroxide and lavender oil in the ear. No antibiotic use in the last 60 days. ALLERGIES Aspirin Intolerance Comment:Says she breaks out in sweat Sulfamethoxazole-Tr* GI Upset No family history on file. Social History Tobacco Use Smoking status: Former Types: Cigarettes Smokeless tobacco: Never Active Ambulatory Problems No Active Ambulatory Problems Resolved Ambulatory Problems No Resolved Ambulatory Problems No Additional Past Medical History Review of Systems Constitutional: Negative. HENT: Positive for ear pain. Eyes: Negative. Respiratory: Negative. Cardiovascular: Negative. Gastrointestinal: Negative. Endocrine: Negative. Genitourinary: Negative. Musculoskeletal: Negative. Skin: Negative. Neurological: Negative. Hematological: Negative. Objective BP 151/84 (BP Site: Right Arm, BP Position: Sitting, BP Cuff Size: Regular Adult) Pulse (!) 57 Temp 36.1 C (96.9 F) (Left Tympanic) Resp 18 Ht 175.3 cm (5' 9 ) Wt 106.4 kg (234 lb 9.6 oz) SpO2 97% BMI 34.64 kg/m Physical Exam Vitals reviewed. Constitutional: General: She is not in acute distress. Appearance: She is not ill-appearing, toxic-appearing or diaphoretic. HENT: Head: Normocephalic and atraumatic. Right Ear: Ear canal and external ear normal. Swelling (some swelling with white scaling/flakes to the canal) present. Tympanic membrane is erythematous. Left Ear: Tympanic membrane, ear canal and external ear normal. Nose: Nose normal. Right Sinus: No maxillary sinus tenderness or frontal sinus tenderness. Left Sinus: No maxillary sinus tenderness or frontal sinus tenderness. Mouth/Throat: Mouth: Mucous membranes are moist. Pharynx: Oropharynx is clear. No oropharyngeal exudate or posterior oropharyngeal erythema. Cardiovascular: Rate and Rhythm: Normal rate and regular rhythm. Pulmonary: Effort: Pulmonary effort is normal. Breath sounds: Normal breath sounds. Lymphadenopathy: Head: Right side of head: No submandibular or tonsillar adenopathy. Left side of head: No submandibular or tonsillar adenopathy. Cervical: No cervical adenopathy. Psychiatric: Behavior: Behavior is cooperative. Assessment and Plan (H66.91) Acute otitis media, right (primary encounter diagnosis) Plan: amoxicillin (AMOXIL) 875 mg tablet (R23.4) Scaly skin Plan: acetic acid (VOSOL) 2 % otic solution Right otitis media, will treat with amoxicillin. White scaly/flakes in canal. Stop using oil and peroxide in the ears. Use acetic acid to the right ear. -OTC tylenol/ibuprofen as directed on the bottle. -Make follow up with primary care for monitoring and resolution in symptoms, call today for a follow up appointment. May need to see ENT. -Signs that warrant an ER evaluation: Sudden change/worsening in condition, lethargy, signs of dehydration, fever greater than 102 F that is not responding to Tylenol or ibuprofen (Motrin, Advil), drooling, difficulty swallowing, difficulty breathing, shortness of breath, chest pain, evidence of airway compromise (tripod position, neck extension, retractions), seizures, changes in mental status, or other concerns. The patient will pursue further outpatient evaluation with the primary care physician or another Urgent Care/Express Care as outlined in the after visit summary. The patient is agreeable to this plan of care and follow-up instructions have been explained in detail. The patient has received these instructions in written format and have expressed an understanding of the after visit summary. Medical Decision Making: Level: 4 - Moderate I spent a total of 20 minutes on the date of the service which included preparing to see the patient, [id number] patient care, completing clinical documentation, obtaining and/or reviewing separately obtained history, performing a medically appropriate examination, counseling and educating the patient/family/caregiver, and ordering medications, tests, or procedures. documented in this encounter [facility] Instructions 02-15-2023 Patient Instructions Note Date & Type Note Facility 02-15-2023 Instructions Lydia Oliva APRN.CNP - 02/15/2023 11:38 AM EST (H66.91) Acute otitis media, right (primary encounter diagnosis) Plan: amoxicillin (AMOXIL) 875 mg tablet (R23.4) Scaly skin Plan: acetic acid (VOSOL) 2 % otic solution Right otitis media, will treat with amoxicillin. White scaly/flakes in canal. Stop using oil and peroxide in the ears. Use acetic acid to the right ear. -OTC tylenol/ibuprofen as directed on the bottle. -Make follow up with primary care for monitoring and resolution in symptoms, call today for a follow up appointment. May need to see ENT. -Signs that warrant an ER evaluation: Sudden change/worsening in condition, lethargy, signs of dehydration, fever greater than 102 F that is not responding to Tylenol or ibuprofen (Motrin, Advil), drooling, difficulty swallowing, difficulty breathing, shortness of breath, chest pain, evidence of airway compromise (tripod position, neck extension, retractions), seizures, changes in mental status, or other concerns. documented in this encounter [facility] Progress note 01-05-2023 Note Date & Type Note Facility 01-05-2023 Note HNO ID: [id number] Author: Note, Interface Service: ? Author Type: ? Type: Progress Notes Filed: 01/05/2023 2:56 AM Note Text: Epic Scheduled Downtime: 01/05/2023 1:00:00 AM to 01/05/2023 1:28:00 AM [facility] Influenza virus A and B RNA and SARS-CoV-2 (COVID-19) N gene panel DARELL+probe (Resp) 03-11-2022 Note Date & Type Note Facility 03-11-2022 Influenza virus A and B RNA and SARS-CoV-2 (COVID-19) N gene panel DARELL+probe (Resp) COVID 19 RESULT: SARS-CoV-2 (Agent of COVID-19) Detected by RT-PCR or equivalent method. raghu [id number]_Irxtq [employer] (GIOVANNI)_EUA This test was developed and its performance characteristics determined by [facility] [place]. This test has been authorized by FDA under an Emergency Use Authorization (EUA). This test has been validated in accordance with the FDA's Guidance Document Policy for Diagnostics Testing in Laboratories Certified to Perform High Complexity Testing under CLIA prior to Emergency use Authorization for Coronavirus Disease 2019 during the Public Health Emergency issued on May 23, 2019. Test performed by [facility], [facility] [place], [address] [place] [address]. INFLUENZA A PCR: Negative for Influenza A by RT-PCR INFLUENZA B PCR: Negative for Influenza B by RT-PCR [facility] Progress note 03-11-2022 Note Date & Type Note Facility 03-11-2022 Note HNO ID: [id number] Author: Claudia Kelley PA-C Service: ? Author Type: Physician Manager Wound Care Type: Progress Notes Filed: 03/11/2022 10:33 AM Note Text: Surgical mask, face shield, N95, and gloves worn for all in-person care. 03/11/2022 Patient presents with: Cough: X 3 days headache ear ache sore throat SUBJECTIVE: This is a 61 year old that is here today for concern for runny nose, congestion, pressure, sore throat, PATEL, and cough x 3 days. Denies fever, chills, sweats, or fatigue. Patient denies wheezing, shortness of breath, increased WOB, or chest pain. Now complains of right ear pain. Left feels full. COVID exposure: none Influenza exposure: none RSV exposure: none Covid Immunization Dates Overdue - COVID-19 VACCINE (4 - Booster for Pfizer series) Overdue since 04/15/2021 02/18/2021 Imm Admin: COVID-19 original vaccine, age 12+ yr, monovalent (PFIZER-BIONTECH - PURPLE TOP) 07/01/2020 Imm Admin: COVID-19 original vaccine, age 12+ yr, monovalent (PFIZER-BIONTECH - PURPLE TOP) 06/10/2020 Imm Admin: COVID-19 original vaccine, age 12+ yr, monovalent (PFIZER-BIONTECH - PURPLE TOP) COVID vaccine: yes History of COVID: - Influenza vaccine: yes Asthma: none Pneumonia: none Tobacco: none Pain on scale of 0-10 with 0 being no pain and 10 being greatest pain: 0 Nothing makes the symptoms better. Nothing makes them worse. Self-treatment:. Tylenol sinus, mucinex The severity is mild and the symptoms are not improving. The patient did not have a similar problem in the last 3 months. The patient did not take any antibiotics in the last 3 months. Barriers to learning: none. Reviewed meds, OTCs, herbals or supplements. Reviewed allergies, medications, social history, and past medical history. No past medical history on file. ALLERGIES Sulfamethoxazole-Trimethoprim MEDICATIONS Current Outpatient Medications Medication Sig cholecalciferol (VITAMIN D3) 50 mcg (2,000 unit) tablet Take 2,000 Int'l Units by mouth once daily. TRULICITY 3 mg/0.5 mL pen injector Inject 0.5 mL subcutaneously one time a week. losartan (COZAAR) 100 mg tablet Take 100 mg by mouth once daily. metFORMIN (GLUCOPHAGE) 1,000 mg tablet Take 1,000 mg by mouth twice daily. No current facility-administered medications for this visit. Medications and allergies reviewed by this provider. SOCIAL HISTORY Social History Tobacco Use Smoking status: Former Types: Cigarettes Smokeless tobacco: Never REVIEW OF SYSTEMS Review of Systems ROS: constitutional: fatigue, HENT-sinus symptoms, Eyes- neg, heart-neg, respiratory-Cough, GI-neg, -neg, skin-neg, Allergy- neg, lymph-neg, neuro-neg, psych-neg- All systems neg except as noted above in HPI. OBJECTIVE: BP 145/85 Pulse 79 Temp 36.7 ?C (98.1 ?F) (Temporal) Wt 122.5 kg (270 lb) SpO2 95% . Vital signs reviewed by this provider. Physical Exam Vitals reviewed. Constitutional: General: She is not in acute distress. Appearance: Normal appearance. She is well-developed and normal weight. She is not ill-appearing, toxic-appearing or diaphoretic. HENT: Head: Normocephalic and atraumatic. No right periorbital erythema or left periorbital erythema. Salivary Glands: Right salivary gland is not diffusely enlarged or tender. Left salivary gland is not diffusely enlarged or tender. Right Ear: Ear canal and external ear normal. A middle ear effusion is present. Tympanic membrane is injected, erythematous and bulging. Left Ear: Tympanic membrane, ear canal and external ear normal. Nose: Congestion and rhinorrhea present. Rhinorrhea is clear. Right Sinus: No maxillary sinus tenderness or frontal sinus tenderness. Left Sinus: No maxillary sinus tenderness or frontal sinus tenderness. Mouth/Throat: Lips: No lesions. Mouth: Mucous membranes are moist. No oral lesions. Dentition: No gum lesions. Tongue: No lesions. Tongue does not deviate from midline. Palate: No mass and lesions. Pharynx: Oropharynx is clear. No pharyngeal swelling, oropharyngeal exudate, posterior oropharyngeal erythema or uvula swelling. Tonsils: No tonsillar exudate or tonsillar abscesses. Eyes: General: Lids are normal. No scleral icterus. Right eye: No discharge. Left eye: No discharge. Extraocular Movements: Extraocular movements intact. Conjunctiva/sclera: Conjunctivae normal. Pupils: Pupils are equal, round, and reactive to light. Cardiovascular: Rate and Rhythm: Normal rate and regular rhythm. Heart sounds: Normal heart sounds. Pulmonary: Effort: Pulmonary effort is normal. Breath sounds: Normal breath sounds and air entry. Musculoskeletal: Cervical back: Full passive range of motion without pain. No spinous process tenderness or muscular tenderness. Lymphadenopathy: Head: Right side of head: No submental, submandibular, tonsillar, preauricular or posterior auricular adenopathy. Left side of head: No submental, submandibu (more content not included)... [facility] Evaluation note Note Date & Type Note Facility documented in this encounter [facility] Summary Purpose Family History No Family History Records Found Grandmother Name Dates Details Family history of Hearing lo ss, mixed, bilateral(389.22, H90.6) Status:Active Family history of malignant neoplasm of cervix uteri(V16.49, Z80.49) Status:Active Grandmother Name Dates Details Family history of type 2 jimbo betes mellitus(V18.0, Z83.3) Status:Active uncle Name Dates Details Family history of Hearing lo ss, mixed, bilateral(389.22, H90.6) Status:Active cousin Name Dates Details Family history of type 1 jimbo betes mellitus(V18.0, Z83.3) Status:Active Mother Name Dates Details Family history of Hearing lo ss, mixed, bilateral(389.22, H90.6) Status:Active Family history of hypothyroi dism(V18.19, Z83.49) Status:Active Family history of hyperthyro idism(V18.19, Z83.49) Status:Active Family history of Parkinson' s disease dementia(332.0, G20) Status:Active Father Name Dates Details Family history of malignant neoplasm of urinary bladder(V16.52, Z80.52) Status:Active Family history of chronic ob structive pulmonary disease(V17.6, Z82.5) Status:Active Brother Name Dates Details Family history of colon canc er(V16.0, Z80.0) Status:Active Grandmother Name Dates Details Family history of Hearing lo ss, mixed, bilateral(389.22, H90.6) Status:Active Family history of malignant neoplasm of cervix uteri(V16.49, Z80.49) Status:Active Grandmother Name Dates Details Family history of type 2 jimbo betes mellitus(V18.0, Z83.3) Status:Active uncle Name Dates Details Family history of Hearing lo ss, mixed, bilateral(389.22, H90.6) Status:Active cousin Name Dates Details Family history of type 1 jimbo betes mellitus(V18.0, Z83.3) Status:Active Mother Name Dates Details Family history of Parkinson' s disease dementia(332.0, G20) Status:Active Family history of Hearing lo ss, mixed, bilateral(389.22, H90.6) Status:Active Family history of hypothyroi dism(V18.19, Z83.49) Status:Active Family history of hyperthyro idism(V18.19, Z83.49) Status:Active Father Name Dates Details Family history of malignant neoplasm of urinary bladder(V16.52, Z80.52) Status:Active Family history of chronic ob structive pulmonary disease(V17.6, Z82.5) Status:Active Brother Name Dates Details Family history of colon canc er(V16.0, Z80.0) Status:Active Grandmother Name Dates Details Family history of Hearing lo ss, mixed, bilateral(389.22, H90.6) Status:Active Family history of malignant neoplasm of cervix uteri(V16.49, Z80.49) Status:Active Grandmother Name Dates Details Family history of type 2 jimbo betes mellitus(V18.0, Z83.3) Status:Active uncle Name Dates Details Family history of Hearing lo ss, mixed, bilateral(389.22, H90.6) Status:Active cousin Name Dates Details Family history of type 1 jimbo betes mellitus(V18.0, Z83.3) Status:Active Mother Name Dates Details Family history of Hearing lo ss, mixed, bilateral(389.22, H90.6) Status:Active Family history of hypothyroi dism(V18.19, Z83.49) Status:Active Family history of hyperthyro idism(V18.19, Z83.49) Status:Active Family history of Parkinson' s disease dementia(332.0, G20) Status:Active Father Name Dates Details Family history of malignant neoplasm of urinary bladder(V16.52, Z80.52) Status:Active Family history of chronic ob structive pulmonary disease(V17.6, Z82.5) Status:Active Brother Name Dates Details Family history of colon canc er(V16.0, Z80.0) Status:Active Grandmother Name Dates Details Family history of Hearing lo ss, mixed, bilateral(389.22, H90.6) Status:Active Family history of malignant neoplasm of cervix uteri(V16.49, Z80.49) Status:Active Grandmother Name Dates Details Family history of type 2 jimbo betes mellitus(V18.0, Z83.3) Status:Active uncle Name Dates Details Family history of Hearing lo ss, mixed, bilateral(389.22, H90.6) Status:Active cousin Name Dates Details Family history of type 1 jimbo betes mellitus(V18.0, Z83.3) Status:Active Mother Name Dates Details Family history of Hearing lo ss, mixed, bilateral(389.22, H90.6) Status:Active Family history of hypothyroi dism(V18.19, Z83.49) Status:Active Family history of hyperthyro idism(V18.19, Z83.49) Status:Active Family history of Parkinson' s disease dementia(332.0, G20) Status:Active Father Name Dates Details Family history of malignant neoplasm of urinary bladder(V16.52, Z80.52) Status:Active Family history of chronic ob structive pulmonary disease(V17.6, Z82.5) Status:Active Brother Name Dates Details Family history of colon canc er(V16.0, Z80.0) Status:Active Unknown Family Member Name Dates Details Hearing loss, mixed, bilater al: Mother, Maternal Grandmother, Maternal Uncle Status:Active Denies Family history of Men iere's disease: Grandparent(V19.3, Z83.52) Status: Family history of malignant neoplasm of urinary bladder: Father(V16.52, Z80.52) Status:Active Family history of chronic ob structive pulmonary disease: Father(V17.6, Z82.5) Status:Active Family history of type 2 jimbo betes mellitus: Paternal Grandmother(V18.0, Z83.3) Status:Active Family history of type 1 jmibo betes mellitus: Cousin(V18.0, Z83.3) Status:Active Family history of hypothyroi dism: Mother(V18.19, Z83.49) Status:Active Family history of hyperthyro idism: Mother(V18.19, Z83.49) Status:Active Family history of colon canc er: Brother(V16.0, Z80.0) Status:Active Family history of malignant neoplasm of cervix uteri: Maternal Grandmother(V16.49, Z80.49) Status:Active Parkinson's disease dementia : Mother Status:Active Unknown Family Member Name Dates Details Hearing loss, mixed, bilater al: Mother, Maternal Grandmother, Maternal Uncle Status:Active Denies Family history of Men iere's disease: Grandparent(V19.3, Z83.52) Status: Family history of malignant neoplasm of urinary bladder: Father(V16.52, Z80.52) Status:Active Family history of chronic ob structive pulmonary disease: Father(V17.6, Z82.5) Status:Active Family history of type 2 jimbo betes mellitus: Paternal Grandmother(V18.0, Z83.3) Status:Active Family history of type 1 jimbo betes mellitus: Cousin(V18.0, Z83.3) Status:Active Family history of hypothyroi dism: Mother(V18.19, Z83.49) Status:Active Family history of hyperthyro idism: Mother(V18.19, Z83.49) Status:Active Family history of colon canc er: Brother(V16.0, Z80.0) Status:Active Family history of malignant neoplasm of cervix uteri: Maternal Grandmother(V16.49, Z80.49) Status:Active Parkinson's disease dementia : Mother Status:Active Advance Directives No Advanced Directives Records FoundNo Advanced Directives Records FoundNo Advanced Directives Records FoundNo Advanced Directives Records FoundNo Advanced Directives Records FoundNo Advanced Directives Records Found Additional Source Comments INFORMATION SOURCE (unrecogn ized section and content) DATE CREATED AUTHOR AUTHOR'S ORGANIZ ATION 11/28/2018 [facility] DATE CREATED AUTHOR AUTHOR'S ORGANIZ ATION 03/15/2020 [employer] DATE CREATED AUTHOR AUTHOR'S ORGANIZ ATION 04/01/2020 [facility] DATE CREATED AUTHOR AUTHOR'S ORGANIZ ATION 01/06/2023 [facility] DATE CREATED AUTHOR AUTHOR'S ORGANIZ ATION 02/16/2023 [facility] Source Comments (unrecognize d section and content) In the event this informatio n is protected by the Federal Confidentiality of Alcohol and Drug Abuse Patient Records regulations: The Federal rules restrict any use of the information to criminally investigate or prosecute any alcohol or drug abuse patient.[facility] Reason for Visit (unrecogniz ed section and content) Care Teams (unrecognized sec tion and content) FOR RECORDS PERTAINING TO PATIENTS WHO ARE OR HAVE BEEN ENROLLED IN A CHEMICAL DEPENDENCY/SUBSTANCEABUSE PROGRAM, SOME INFORMATION MAY BE OMITTED. This clinical summary was aggregated from multiple sources. Caution should be exercised in using it in the provision of clinical care. This summary normalizes information from multiple sources, and as a consequence, information in this document may materially change the coding, format and clinical context of patient data. In addition, data may be omitted in some cases. CLINICAL DECISIONS SHOULD BE BASED ON THE PRIMARY CLINICAL RECORDS. [facility] [employer] [facility]. provides no warranty or guarantee of the accuracy or completeness of information in this document.
--- NOTE | 2023-04-03 13:19 | STRESSREP ---
Stress Test Report Pharmacologic myocardial perfusion stress test. 62-year-old lady with a history of chest pain Resting EKG demonstrates [sinus bradycardia] with a rate of 51 bpm. Resting blood pressure is 138/94 mmHg. 0.4 mg of regadenoson was infused per usual protocol followed by rapid intravenous saline flush injection. Continuous EKG monitoring was performed. The maximum heart rate was 77 bpm which was 49% of max impacted heart rate the maximum workload was 1 metabolic equivalent. At rest there were no ST or T wave changes noted to suggest ischemia and at peak infusion nonspecific ST changes were noted which did not meet the criteria for ischemia. No clinical angina is noted. The final blood pressure was 130/82 mmHg. Myocardial perfusion protocol. 14.3 mCi of technetium 99m sestamibi was injected at rest. 0.4 mg of regadenoson was infused per usual protocol. At peak infusion 44.6 mCi of technetium 99m sestamibi was injected stress images were obtained stress and rest images were reconstructed and compared in the short axis vertical long and horizontal long axis. Gated images were also obtained. Perfusion SPECT analysis: Review of the stress images demonstrate normal uptake of tracer noted in all areas of the myocardium. The resting images similar demonstrated normal uptake of tracer noted in all areas of the myocardium. No areas of reversibility are noted to suggest ischemia and no previous infarct is noted. Gated SPECT analysis: The gated ejection fraction is 74%. Conclusion: [Normal] pharmacologic myocardial perfusion stress test. Preserved ejection fraction.
== END | disposition home or self-care (01) ==
PROVIDERS: PCP Internal Medicine Endocrinology, Diabetes & Metabolism; Referring Provider Internal Medicine Cardiovascular Disease; Visit Provider Internal Medicine Cardiovascular Disease
DX: I25.10 Atherosclerotic heart disease of native coronary artery without angina pectoris (principal); I25.84 Coronary atherosclerosis due to calcified coronary lesion
CPT/HCPCS: 78452; 93017; A9500; A4216; J2785

== ENCOUNTER → 2023-09-24 | Outpatient (CLI) | payer BC, SELFPAY ==
--- NOTE | 2023-09-24 10:06 | ART_ITS ---
Reason For Study: PVD Procedure A bilateral lower extremity continuous wave Doppler with analog waveform analysis,segmental pressures,and ankle brachial indexes without exercise. Left Segmental Pressures Left brachial= 144mmHg. Left posterior tibial artery = 180mmHg. Left dorsalis pedis artery = 171mmHg. Left digit = 129 mmHg. The left dorsalis pedis waveforms are triphasic. The left posterior tibial artery waveforms are triphasic. Right Segmental Pressures Right brachial= 148mmHg. Right posterior tibial artery = 178mmHg. Right dorsalis pedis artery = 174mmHg. Right digit = 118 mmHg. The right dorsalis pedis waveforms are triphasic. The right posterior tibial artery waveforms are triphasic. Indices The right ankle brachial index by the dorsalis pedis is 1.18. The right ankle brachial index by the posterior tibial artery is 1.2. The right digital-brachial index is .8. The left ankle brachial index by the dorsalis pedis is 1.16. The left ankle brachial index by the posterior tibial artery is 1.22. The left digital-brachial index is .87. VL/Lower Ext Art Exam w/o Exercis Interpretation Summary Right GARETT 1.2, normal. TBI and Doppler/PVR waveforms of the right leg normal at rest. Left GARETT 1.22, normal. TBI and Doppler/PVR waveforms of the left leg normal at rest. Ordering Physician: Damian Grover Referring Physician: DAMIAN GROVER DPM Performed By: Eduin Martinez RVT
--- NOTE | 2023-09-24 10:06 | VDLE_ITS ---
Reason For Study: pain RIGHT LEFT CFV is compressible, spontaneous, phasic, CFV is compressible, spontaneous, phasic, competent and demonstrates normal competent, and demonstrates normal augmentation. augmentation. FV is compressible, spontaneous, phasic, FV is compressible, spontaneous, phasic, competent and demonstrates normal competent and demonstrates normal augmentation. augmentation. POP V is compressible, spontaneous, phasic, POP V is compressible, spontaneous, phasic, competent and demonstrates normal competent and demonstrates normal augmentation. augmentation. T/P Trunk is compressible. T/P Trunk is compressible. PTV is compressible. PTV is compressible. RT PerV is compressible. LT PerV is compressible. SFJ is competent and measures .65 cm. SFJ is competent and measures .61 cm. GSV proximal thigh measures .52 x .49 cm. GSV proximal thigh measures .4 x .44 cm. GSV at knee measures .42 x .41 cm. GSV at knee measures .32 x .31 cm. GSV INCOMPETENT throughout for greater than GSV above knee is competent. 0.5 seconds. GSV below knee is INCOMPETENT for greater SSV proximal calf is competent and than 0.5 seconds. measures .26 x .28 cm. SSV proximal calf is competent and ASV proximal thigh is INCOMPETENT for greater measures .25 x .24 cm. than 0.5 seconds and measures .42 x .41 cm. ASV proximal calf is INCOMPETENT for greater ASV proximal calf is INCOMPETENT for greater than 0.5 seconds and measures .19 x .19 cm. than 0.5 seconds and measures .3 x .32 cm. Procedure This is a venous duplex using B-mode, color flow and spectral Doppler. Exam performed in department. The exam was diagnostic. VL/Venous Duplex US - Anibal Extrem Interpretation Summary Deep veins of the bilateral lower extremities are patent and compressible segme ntally. There is no evidence of bilateral lower extremity deep vein thrombosis. The bilateral great saphenous veins appear patent and compressible segmentally. Positive for reflux in the right great saphenous vein throughout, accessory sap henous vein in the thigh, accessory saphenous vein in the calf. Positive for reflux in the left great saphenous vein below the knee, accessory saphenous vein in the calf. Ordering Physician: Ander Grover Referring Physician: Andre Grover Performed By: Eduin Martinez RVT
== END | disposition home or self-care (01) ==
LOC: CVS 10:04
PROVIDERS: Referring Provider Podiatrist Foot & Ankle Surgery; Visit Provider Podiatrist Foot & Ankle Surgery
DX: I73.89 Other specified peripheral vascular diseases (principal); M79.662 Pain in left lower leg; M79.661 Pain in right lower leg
CPT/HCPCS: 93923; 93970

== ENCOUNTER → 2023-11-04 | Outpatient (CLI) | payer BC, SELFPAY ==
[2023-11-04 10:38] LABS: Vitamin D,25 Hydroxy 51.4 ng/mL
[2023-11-04 11:50] LABS: ALB/GLOB Ratio 1.1 RATIO (0.9-2.4); AST(SGOT) 21 U/L (15-37); Alanine Aminotransfer ALT/SGPT 23 U/L (13-56); Albumin, Serum 3.6 g/dL (3.2-5.0); Alkaline Phosphatase 81 U/L (45-117); Anion Gap 5 (5-15); BUN 16 mg/dL (7-18); BUN/Creat Ratio 21.5 RATIO (10-20); Chloride 106 mmol/L (98-107); Cholesterol 179 mg/dL (200); Creatinine, Serum 0.74 mg/dL (0.55-1.02); EST Glomerular Filtration Rate 83 mL/min (>60); Est Glom Filt Rate - Afr Amer 101 mL/min (>60); Globulin 3.4 g/dL (2.2-4.2); Glucose 101 mg/dL (74-106); High Density Lipoprotein 78 mg/dL; Potassium 4.6 mmol/L (3.5-5.1); Sodium Level 137 mmol/L (136-145); Thyroid Stim Hormone (TSH) 2.72 uIU/mL (0.358-3.74); Triglycerides 176 mg/dL; Very Low Density Lipoprotein 35 mg/dL (5-40)
[2023-11-04 12:24] LABS: Microalbumin,Random Urine < 5.0 mg/L (NO RANGE EST.)
== END | disposition home or self-care (01) ==
LOC: LAB 09:22
PROVIDERS: Referring Provider Nurse Practitioner Family; Visit Provider Nurse Practitioner Family
DX: E11.9 Type 2 diabetes mellitus without complications (principal)
CPT/HCPCS: 36415; 80053; 80061; 82043; 82306; 82570; 84443

== ENCOUNTER → 2023-12-10 | Outpatient (CLI) | payer MEDICARE, OTHER, SELFPAY ==
--- NOTE | 2023-12-10 13:26 | CT_ITS ---
CT BILATERAL LOWER EXTREMITY WITH 3-D IMAGING CLINICAL INDICATION: Templating for right EUGENIO TECHNIQUE: Axial CT images of the bilateral lower extremity was performed without IV contrast material. Coronal and sagittal reformats were provided. The protocol utilizes one or more of the following dose reduction techniques: automated exposure control, adjustment of mA and/or kV according to patient size, and/or use of iterative reconstruction technique. RADIATION DOSAGE (If Supplied By Facility): CTDIvol = ( 13.88 ) mGy, DLP = ( 977.51 ) mGycm COMPARISON: Pelvis and right hip radiographs dated 08/28/2023. FINDINGS: Bones: There is severe degenerative arthrosis of the right hip joint with severe joint space narrowing, marginal osteophyte formation, and subchondral sclerosis. There is a chronic appearing nondisplaced sagittally oriented fracture through the superolateral rim of the right acetabulum (axial series 2 images 292-301). Unremarkable knee joints bilaterally. Osseous structures are intact without evidence of acute fracture or dislocation. No lytic or blastic osseous masses. There is degenerative disc disease at L5-S1. Soft Tissues: The deep soft tissue structures are unremarkable. The superficial soft tissues are unremarkable without evidence of edema, hematoma, or foreign body. CT/Extremity Lower without Contra IMPRESSION: Severe degenerative arthrosis of the right hip joint. Chronic appearing nondisplaced sagittally oriented fracture through the superolateral rim of the right acetabulum. Electronically Signed: Elvin Abreu MD at 14:08 EDT ,
== END | disposition home or self-care (01) ==
LOC: CT 13:25
PROVIDERS: PCP Family Medicine; Referring Provider Orthopaedic Surgery; Visit Provider Orthopaedic Surgery
DX: M16.11 Unilateral primary osteoarthritis, right hip (principal)
CPT/HCPCS: 73700

== ENCOUNTER 2024-01-07 05:26 | Day surgery (SDC) | payer MEDICARE, OTHER, SELFPAY ==
--- NOTE | 2023-12-19 10:34 | EKG12_ITS ---
Test Reason : PRE OP Blood Pressure : / mmHG Vent. Rate : 057 BPM Atrial Rate : 057 BPM P-R Int : 182 ms QRS Dur : 088 ms QT Int : 394 ms P-R-T Axes : 026 -22 024 degrees QTc Int : 383 ms Sinus bradycardia Otherwise normal ECG Confirmed by Matthew Jeknins ([id number]), state editor KERRI SERNA ([id number]) on 12/20/2023 6:02:56 AM Referred By: Gus Marquez Confirmed By:Matthew Jenkins
[2023-12-19 11:25] LABS: Absolute Lymphocyte Count 2.01 X10^3/uL (0.83-4.51); Absolute Neutrophil Count 2.9 X10^3/uL (2.0-7.7); Basophil# 0.04 X10^3/uL; Basophil% 0.7 % (0-1); Eosinophil# 0.08 X10^3/uL; Eosinophils% 1.5 % (0-5); Hematocrit 40.4 % (37-47); Hemoglobin 13.7 g/dL (12.0-15.0); Lymphocyte # 2.01 X10^3/ul (0.83-4.51); Lymphocyte % 37.2 % (19-41); Mean Corp Hgb Conc 33.9 g/dL (32-36); Mean Corpuscular Volume 94.4 fL (81-99); Mean Platelet Vol. 8.9 fl (6.2-12.0); Monocyte# 0.36 X10^3/uL; Monocyte% 6.7 % (0-10); NRBC Flagged by Analyzer 0 % (0-5); Neutrophil # 2.89 X10^3/uL (2.7-7.7); Neutrophil % 53.5 % (47-70); Platelet Count 284 K/mm3 (150-450); RBC Distribution Width CV 11.9 % (11.6-14.6); Red Blood Count 4.28 M/mm3 (4.2-5.4); White Blood Count 5.4 K/mm3 (4.4-11.0)
[2023-12-19 11:45] LABS: Anion Gap 4 (5-15); BUN 19 mg/dL (7-18); BUN/Creat Ratio 21.3 RATIO (10-20); Calcium,Total 9.2 mg/dL (8.5-10.1); Chloride 105 mmol/L (98-107); Creatinine, Serum 0.89 mg/dL (0.55-1.02); EST Glomerular Filtration Rate 68 mL/min (>60); Est Glom Filt Rate - Afr Amer 82 mL/min (>60); Glucose 113 mg/dL (74-106); Magnesium 2.3 mg/dL (1.6-2.6); Potassium 4.6 mmol/L (3.5-5.1); Sodium Level 137 mmol/L (136-145)
[2023-12-19 11:53] LABS: Hemoglobin A1c 5.6 % (3.8-5.6)
[2023-12-19 12:23] LABS: International Normalized Ratio 1.1; Prothrombin Time (Protime)PT. 13.8 SECONDS (11.7-14.9)
[2023-12-19 12:24] LABS: Partial Thromboplast Time 27.5 Seconds (24.1-36.2)
[2023-12-20 04:07] LABS: Fructosamine 239 umol/L (0-285)
[2024-01-07] VITALS (14 sets, daily range): BP systolic 97–114; BP diastolic 58–78; PULSE 52–77; RESP 11–18; TEMP 36.1–36.3; O2SAT 95–100; BMI 34.2
--- NOTE | 2024-01-07 | IMM_PTH ---
PATHOLOGY RESULTS PATIENT: ROSE MARY NARANJO LOC: [facility] [place] U#:[id number] AGE/SX: 63/F ROOM: RE01/07/[address]: Dr. Gus Marquez DO : 1960 BED: DIS: 01/07/2024 SPEC #: [id number] RECD: 01/10/24 11:42 STATUS: DONNA REQ #: [id number] NICK: 01/07/24 00:[address]: Gus Marquez DEPT: IMMUNOHISTOCHEMISTRY RECD BY: Manuel Oropeza ENTERED: 01/10/24 11:43 SP TYPE: IMMUNO OTHR DR: Isabela Blank MD Tissues: Hip, NOS Procedures: BCL-2 (add) CD20 (add) CD45 (add) CD5 (add) CD79A (add) CD3 (initial) PHYSICIAN & INSTITUTION [address] [address] SPECIMEN INFORMATION: Tissue Source: Right hip Clinical Info: Osteoarthritis of right hip Specimen Number: [id number] CPT code: 41339,79373t5 METHODOLOGY: Deparaffinized sections of prefer/formalin-fixed tissue or PAP/DQ stained slides are incubated with monoclonal/polyclonal antibodies/oligonucleotide probes. Localization is made via biotin free immunoperoxidase method. Appropriate controls are performed and reacted as expected. Results on target cell population are indicated in the following table: RESULTS: ANTIBODY / CLONE RESULT Block # 12 CD3 (PS1) positive CD5 (SP10) positive CD20 (L26) positive, focal CD45 (RP2/18) positive CD79a (11E3) positive, focal BCL-2 (bcl-2/100/D5) negative These tests were developed and their performance characteristics determined by [facility]. They may not have been cleared or approved by the U.S. Food and Drug Administration. The FDA has determined that such clearance or approval is not necessary. The above immunohistochemical/dualISH markers are ordered and reviewed by the Pathologist. INTERPRETATION: Right hip, bone and tissue, total hip replacement: Polytypical (benign) lymphoid aggregates. 01/13/2024
--- NOTE | 2024-01-07 | HIP_PTH ---
PATHOLOGY RESULTS PATIENT: ROSE MARY NARANJO LOC: [facility] – [place] U#:[id number] AGE/SX: 63/F ROOM: RE01/07/[address]: Dr. Gus Marquez DO : 1960 BED: DIS: 01/07/2024 SPEC #: [id number] RECD: 01/07/24 10:11 STATUS: DONNA REMely #: [id number] NICK: 01/07/24 00:[address]: Gus Marquez DEPT: SURGICAL PATHOLOGY RECD BY: Abdullahi Dos Santos ENTERED: 01/07/24 11:15 SP TYPE: TOTAL HIP OTHR DR: Isabela Blank MD Tissues: Hip, NOS Procedures: Decalcification bone/plaque Surgery Specimen Level IV HEADER OPERATION: Right total hip replacement robotic arm assist PRE-OP DIAGNOSIS: Osteoarthritis of right hip TISSUE SUBMITTED: Bone and soft tissue right hip MICROSCOPIC DIAGNOSIS Bone and tissue of right hip, total hip resection: Severe degenerative joint disease. Rare benign lymphoid aggregates. See comment. AM: 01/10/2024 COMMENT Immunohistochemistry ([id number]) supports the above diagnosis. MICROSCOPIC DESCRIPTION Slides are reviewed. GROSS DESCRIPTION Received is one container labeled with the patient's name and designated bone and soft tissue right hip. The specimen consists of a murphy femoral head with portion of femoral neck. The femoral head measures 4.5 x 4.5 x 4.5 cm and the femoral neck measures up to 1.5 cm in length. The articular surface displays prominent osteophyte formation, eburnation and bone erosion. Also present in the specimen container is soft tissue that entirely consists of bone reamings measuring in aggregate 4.5 x 4.5 x 1.0 cm. Cyber Security Instructor sections are submitted in two cassettes as follows: 1 - bone remaining after decalcification, 2 - femoral head after decalcification. 01/07/2024 TC:5 CPT: 62513, 69079
--- OUTSIDE RECORDS SUMMARY | 2024-01-07 05:29 | XMS RPT_ITS | CCD ---
Author Organization [facility] Care Team Providers Care Microphone Boom Operator Name Role Phone Val Willams Attending Unavailable Val Willams Referring Unavailable Val Willams Primary Care Unavailable Dalton, Rosamaria Unavailable Unavailable Emiheim, Val Unavailable Unavailable Prasanna Bailon Unavailable Unavailable Prasanna Bailon Unavailable Unavailable Philip Gonzales Unavailable Unavailable Philip Clark Unavailable Unavailable Wilma López Unavailable Unavailable David Brooks Unavailable Unavailable Rupal Booker Unavailable Unavailable EmiheimVal Unavailable Unavailable [place], Rosamaria Unavailable Unavailable Monheim, Val Unavailable Unavailable MonRobby daleen M Unavailable Unavailable Tourchiki, Lambert Unavailable [phone] Unavailable Unavailable FLACO MULLINS Primary Care Unavailable SHIMA CHISHOLM Attending Unavailable Harpreet ARRIETA.Flaco LOGAN Primary Care Provider FLACO MULLINS Primary Care Unavailable SELF Referring Unavailable FLACO MULLINS Primary Care Unavailable Allergies Allergy Classification Reported Allergen(s) Allergy Type Date of Onset Reaction(s) Facility Fenofibrate (2 sources) Fenofibrate; Translations: [Antara CAPS] Drug Allergy [facility] Work Phone: HMG-CoA Reductase Inhibitors (statins) (4 sources) rosuvastatin; Translations: [Crestor TABS] Drug Allergy [facility] Work Phone: Sulfamethoxazole / Trimethoprim (2 sources) Sulfamethoxazole / Trimethoprim; Translations: [Bactrim TABS] [email or web address] Work Phone: Sulfonamides (antibiotic) (2 sources) Sulfamethoxazole; Translations: [sulfa] Drug Allergy [facility] [employer] Work Phone: (4 sources) Fenofibrate Drug [facility]ergy [facility] Work Phone: (4 sources) fluvastatin Drug Allergy [facility] Work Phone: (4 sources) rosuvastatin Drug Allergy [facility] Work Phone: (6 sources) Sulfamethoxazole / Trimethoprim Drug Allergy 03-11-20 22 Nausea, GI Upset [facility] (2 sources) Sulfonamides (Antibiotic) Allergy to drug (finding) [facility] Work Phone: (4 sources) Aspirin; Translations: [ASPIRIN] Drug Allergy 12-27-19 23 Intolerance [facility] (2 sources) Sulfamethoxazole / Trimethoprim; Translations: [SULFAMETHOXAZOLE-TR IMETHOPRIM] Drug Allergy 03-11-20 22 [facility] Rep[facility] Medications Current Medications Medication Drug Class(es) Dates Sig (Normalized) Sig (Original) acetic acid 20 mg/ml otic solution (1 source) Start: 02-15-2023 End: 02-22-2023 acetic acid (VOSOL) 2 % otic solution Indications: Scaly skin Use 4 Drops in the right ear three times a day for 7 days. 5 mL 0 02/15/2023 02/22/2023 Active Comment on above: Use 4 Drops in the r ight ear three times a day for 7 days. amoxicillin 875 mg oral tablet (1 source) Penicillin-class Antibacterial Start: 02-15-2023 End: 02-25-2023 take 1 tablet by mouth twice daily amoxicillin (AMOXIL) 875 mg tablet Indications: Acute otitis media, right Take 1 tablet by mouth two times a day for 10 days. 20 tablet 0 02/15/2023 02/25/2023 Active Comment on above: Take 1 tablet by arleth th two times a day for 10 days. Inhalational Spacing Device (1 source) Start: 06-12-2023 End: 06-12-2023 Inhalational Spacing Device Indications: URI with cough and congestion 1 Device one time only for 1 dose. 1 Each 0 06/12/2023 06/12/2023 Active Comment on above: 1 Device one time on ly for 1 dose. Completed/Discontinued Medications Medication Drug Class(es) Dates Sig (Normalized) Sig (Original) [id number] 200 actuat albuterol 0.09 mg/actuat metered dose inhaler (3 sources) beta2-Adrenergic Agonist Start: 06-12-2023 take 2 puff(s) by inhalation every four hours as needed for wheezing albuterol HFA (PROVENTIL HFA, VENTOLIN HFA) 90 mcg/actuation inhaler Indications: URI with cough and congestion Inhale 2 Puffs as instructed every 4 hours as needed for wheezing/shortnes s of breath. 1 Each 0 06/12/2023 Active Start: 06-10-2018 Ventolin HFA 1 08 (90 Base) MCG/ACT Inhalation Aerosol Solution use q4-6 hours if needed for wheezing Quantity: 1 Refills: 0 Val Willams MD Start : 10-Jun-2018 Active 8 GM Inhaler Comment on above: Inhale 2 Puffs as in structed every 4 hours as needed for wheezing/shortness of breath. azithromycin 250 mg oral tablet (1 source) Macrolide Antimicrobial Start: 2019 take 2 tablets by mouth once daily, then take 1 tablet by mouth, then take 1 tablet by mouth once daily Azithromycin 250 MG Oral Tablet TAKE 2 TABLETS ON DAY 1 THEN TAKE 1 TABLET A DAY FOR 4 DAYS. Quantity: 1 Refills: 0 Prasanna Bailon DO Start : 29-May-2019 Active 6 Tablet Box benzocaine 15 mg / menthol 3.6 mg oral lozenge (1 source) Standardized Chemical Allergen Start: 2023 benzocaine-menthol (CEPACOL) 15-3.6 mg lozg Indications: URI with cough and congestion Use 1 Lozenge as instructed every 2 hours as needed. 18 Lozenge 0 06/12/2023 Active Comment on above: Use 1 Lozenge as ins tructed every 2 hours as needed. benzonatate 100 mg oral capsule (2 sources) Non-narcotic Antitussive Start: 2021 take 1 capsule by mouth three times daily as needed benzonatate (TESSALON PERLE) 100 mg capsule Indications: Acute otitis media, right Take 1 capsule by mouth three times daily as needed. 30 capsule 0 03/11/2022 Active Comment on above: Take 1 capsule by [facility] three times daily as needed. cholecalciferol 0.05 mg oral tablet (8 sources) Vitamin D Start: 2018 cholecalciferol (VITAMIN D3) 50 mcg (2,000 unit) tablet Take 2,000 Int'l Units by mouth once daily. 0 11/25/2018 Active take 1 capsule by mouth once yojana ly Vitamin D3 50 MCG (2000 UT) Oral Capsule TAKE 1 CAPSULE Daily Quantity: 0 Refills: 0 Ordered: 01-Sep-2013 DO Active Comment on above: Take 2,000 Int'l Uni ts by mouth once daily. codeine phosphate 2 mg/ml / promethazine hydrochloride 1.25 mg/ml oral solution (1 source) Opioid Agonist, Phenothiazine Start: 020 take 5 mL by mouth every six hours as needed Promethazine-Codei ne 6.25-10 MG/5ML Oral Syrup TAKE 5 ML EVERY 6 HOURS NEEDED. Quantity: 120 Refills: 0 Prasanna Bailon DO Start : 29-May-2019 Active 0.5 ml dulaglutide 3 mg/ml auto-injector (2 sources) GLP-1 Receptor Agonist Start: 019 inject 1.5 mg by subcutaneous injection every week Trulicity 1.5 MG/0.5ML Subcutaneous Solution Pen-injector Inject 1.5mg once per week, subcutaneous. Quantity: 1 Refills: 5 Prasanna Bailon DO Start : 10-Dec-2018 Active 4 x 0.5 ML Pen esomeprazole 20 mg delayed release oral capsule (6 sources) Proton Pump Inhibitor Start: 016 take 1 capsule by mouth once Esomeprazole Magnesium 20 MG Oral Capsule Delayed Release TAKE 1 CAPSULE ONCE DAILY.she buys otc Quantity: 30 Refills: 11 Ordered: 03-Feb-2018 Val Willams MD Start : 12-Jan-2016 Active for barretts esophagus fexofenadine hydrochloride 180 mg oral tablet (6 sources) Histamine-1 Receptor Antagonist Start: 017 take 1 tablet by mouth once daily as needed Fexofenadine HCl - 180 MG Oral Tablet TAKE 1 TABLET DAILY NEEDED FOR ALLERGIES. Quantity: 90 Refills: 3 Ordered: 03-Feb-2018 Val Willams MD Start : 22-May-2016 Active fluticasone propionate 0.05 mg/actuat metered dose nasal spray (9 sources) Corticosteroid Start: 024 take 1 spray(s) nasal route twice daily fluticasone (FLONASE) 50 mcg/actuation nasal spray Indications: URI with cough and congestion Use 1 Lyons in each nostril two times a day. 1 Each 0 06/12/2023 Active Start: 03-11-2022 End: 06-12-2023 take 2 spray(s) nasal route once daily fluticasone (FLONASE) 50 mcg/actuation nasal spray Indications: Acute otitis media, right Use 2 Sprays in each nostril once daily. 1 Each 0 03/11/2022 06/12/2023 Discontinued Start: 01-22-2012 take 2 spray(s) nasa l route once daily Fluticasone Propionate 50 MCG/ACT Nasal Suspension USE 2 SPRAYS IN EACH NOSTRIL ONCE DAILY Quantity: 1 Refills: 5 Ordered: 19-Apr-2016 Val Willams MD Start : 22-Jan-2012 Active Comment on above: Use 2 Sprays in each nostril once daily. Use 1 Lyons in each nostril two times a day. glutamine 500 mg oral capsule (6 sources) Amino Acid Start: 8 take 1 capsule by mouth twice daily L-Glutamine 500 MG Oral Capsule she takes from dr calr jiménez do 1 bid Quantity: 60 Refills: 0 Ordered: 05-Aug-2018 Val Willams MD Start : 07-Oct-2017 Active loratadine 10 mg oral tablet (1 source) Start: 4 take 1 tablet by mouth once daily as needed loratadine (CLARITIN) 10 mg tablet Indications: URI with cough and congestion Take 1 tablet by mouth once daily as needed (for allergy symptoms). 14 tablet 0 06/12/2023 Active Comment on above: Take 1 tablet by arleth th once daily as needed (for allergy symptoms). losartan potassium 100 mg oral tablet (8 sources) Angiotensin 2 Receptor Sangeeta Start: 2 take 1 tablet by mouth once daily losartan (COZAAR) 100 mg tablet Take 100 mg by mouth once daily. 0 02/12/2022 Active Start: 06-01-2014 take 1 tablet by arleth th once daily Losartan Potassium 100 MG Oral Tablet TAKE 1 TABLET BY MOUTH EVERY DAY Quantity: 90 Refills: 1 Ordered: 25-Aug-2020 Lambert Colón MD Start : 01-Jun-2014 Active Comment on above: Take 100 mg by mouth once daily. magnesium oxide 500 mg oral capsule (4 sources) Start: 12-10-2018 Magnesium 500 MG CAPS TAKE 1 CAPSULE Daily Quantity: 0 Refills: 0 Ordered: 10-Dec-2018 DO Start : 10-Dec-2018 Active metFORMIN hydrochloride 1000 mg oral tablet (8 sources) Biguanide Start: 02-02-2022 take 1 tablet by mouth twice daily metFORMIN (GLUCOPHAGE) 1,000 mg tablet Take 1,000 mg by mouth twice daily. 0 02/02/2022 Active Start: 02-04-2017 take 4 tablets by mo uth once daily in the evening metFORMIN HCl ER 500 MG Oral Tablet Extended Release 24 Hour TAKE 4 TABLETS BY MOUTH DAILY IN THE EVENING Quantity: 360 Refills: 1 Ordered: 22-Sep-2020 Lambert Colón MD Start : 04-Feb-2017 Active Comment on above: Take 1,000 mg by arleth th twice daily. MOUNJARO 7.5 mg/0.5 mL pen injector (2 sources) Start: 023 inject 7.5 mg by subcutaneous injection every week MOUNJARO 7.5 mg/0.5 mL pen injector 7.5 mg (0.5 mL) subcutaneously every week 0 01/04/2023 Active Comment on above: 7.5 mg (0.5 mL) subc utaneously every week pitavastatin calcium 2 mg oral tablet (6 sources) HMG-CoA Reductase Inhibitor Start: 018 take 1 tablet by mouth once daily Livalo 2 MG Oral Tablet 1 tablet daily Quantity: 90 Refills: 1 Ordered: 09-Sep-2019 Prasanna Sanderson DO Start : 03-Feb-2018 Active Start: 02-03-2018 take 1 tablet by arleth th every other day Livalo 2 MG Oral Tablet 1 tab every other day, takes 4 days per week Quantity: 30 Refills: 5 Prasanna Bailon DO Start : 03-Feb-2018 Active polyethylene glycol 3350 49275 mg powder for oral solution (4 sources) Osmotic Laxative Start: 12-10-2018 MiraLax 17 GM /SCOOP Oral Powder 2 capfuls with 1 tpsp metamucil daily per dr talavera Quantity: 1 Refills: 3 Ordered: 10-Dec-2018 Val Willams MD Start : 10-Dec-2018 Active Start: 12-10-2018 MiraLax 17 GM/ SCOOP Oral Powder 2 capfuls with 1 tpsp metamucil daily per dr talavera Quantity: 1 Refills: 3 Val Willams MD Start : 10-Dec-2018 Active 765 GM Bottle Start: 12-10-2018 MiraLax Oral P owder 2 capfuls with 1 tpsp metamucil daily per dr talavera Quantity: 1 Refills: 3 Val Willams MD Start : 10-Dec-2018 Active 765 GM Bottle Precision Xtra w/Device Kit (4 sources) Start: 03-27-2018 Precision Xtra w/Device Kit USE DIRECTED. TESTS ONCE DAILY Quantity: 1 Refills: 0 Rosamaria Hoffman MD Start : 27-Mar-2018 Active psyllium 3400 mg powder for oral suspension (4 sources) Start: 12-10-2018 Metamucil 48.5 7 % Oral Powder 1 tbsp daily with 2 caps of miralax daily er dr gonzales Quantity: 1 Refills: 1 Ordered: 10-Dec-2018 Val Willams MD Start : 10-Dec-2018 Active Start: 12-10-2018 take 2 capsules by m out once daily Metamucil 48.57 % Oral Powder 1 tbsp daily with 2 caps of miralax daily er dr gonzales Quantity: 1 Refills: 1 Val Willams MD Start : 10-Dec-2018 Active 822 GM Bottle TRULICITY 3 mg/0.5 mL pen injector (2 sources) Start: 02-16-2022 inject 0.5 mL by subcutaneous injection every week TRULICITY 3 mg/0.5 mL pen injector Inject 0.5 mL subcutaneously one time a week. 0 02/16/2022 Active Comment on above: Inject 0.5 mL subcutaneously one time a week. vitamin b12 1 mg oral tablet (6 sources) Vitamin B12 Start: 02-22-2012 Vitamin B-12 1000 MCG Oral Tablet TAKE 1 TABLET DAILY.. Quantity: 30 Refills: 6 Ordered: 03-Feb-2018 Val Willams MD Start : 22-Feb-2012 Active Problems Active Problems Problem Classification Problem [...] tunnel syndrome; Translations: [Carpal tunnel syndrome] Chronic Comment on above: Bilateral; Other nervous system disorders (6 sources) Tingling of skin; Translations: [Disturbance of skin sensation] Episodic Other nervous system disorders (6 sources) Numbness of hand; Translations: [Disturbance of skin sensation] Episodic Other non-traumatic joint disorders (6 sources) Mass of knee; Translations: [Other symptoms referable to joint, lower leg] Episodic Other nutritional; endocrine; and metabolic disorders (3 sources) Severe obesity; Translations: [Morbid obesity] Chronic Other nutritional; endocrine; and metabolic disorders (1 source) Morbid (severe) obesity due to excess calories; Translations: [Class 3 severe obesity due to excess calories with serious comorbidity and body mass index (BMI) of 40.0 to 44.9 in adult] Chronic Other nutritional; endocrine; and metabolic disorders (4 sources) Morbid obesity; Translations: [Morbid obesity] Chronic Other nutritional; endocrine; and metabolic disorders (2 sources) Body mass index 40+ - severely obese; Translations: [Body Mass Index 40.0-44.9, adult] Chronic Other nutritional; endocrine; and metabolic disorders (6 sources) History of clinical finding in subject; Translations: [Personal history of other endocrine, metabolic, and immunity disorders] Resolved: 08-05-2018 Episodic Other screening for suspected conditions (not mental disorders or infectious disease) (11 sources) Encounter for screening mammogram for malignant neoplasm of breast; Translations: [C-reactive protein abnormal] Onset: 04-07-2018 Episodic Other skin disorders (6 sources) Loss of hair; Translations: [Alopecia, unspecified] Episodic Other skin disorders (1 source) Scaly skin; Translations: [Changes in skin texture] 02-15-2023 Episodic Other upper respiratory disease (3 sources) Allergic rhinitis; Translations: [Allergic rhinitis] Chronic Other upper respiratory disease (3 sources) Nasal congestion; Translations: [Chronic nasal congestion] Episodic Other upper respiratory disease (2 sources) Polyp of nasal cavity and/or nasal sinus; Translations: [Unspecified nasal polyp] Episodic Other upper respiratory infections (8 sources) Acute maxillary sinusitis; Translations: [Acute frontal sinusitis] Resolved: 05-22-2016 06-12-2023 Episodic Otitis media and related conditions (20 sources) Dysfunction of eustachian tube; Translations: [Acute right otitis media] Resolved: 05-22-2016 02-15-2023 Episodic Residual codes; unclassified (6 sources) Obstructive sleep apnea syndrome; Translations: [Obstructive sleep apnea (adult)(pediatric)] Chronic Comment on above: Uses CPAP; Residual codes; unclassified (6 sources) Needs influenza immunization; Translations: [Need for prophylactic vaccination and inoculation against influenza] Episodic Residual codes; unclassified (6 sources) Other specified health status; Translations: [Statin intolerance] Episodic Residual codes; unclassified (6 sources) Disturbance in sleep behavior; Translations: [Sleep disturbance, unspecified] Episodic Viral infection (1 source) Acute viral disease; Translations: [Acute viral syndrome] Episodic Past or Other Problems Problem Classification Problem [...] cavity and/or nasal sinus; Translations: [Nasal polyp] Residual codes; unclassified (4 sources) H/O: Disorder; Translations: [Personal history of other specified diseases] Resolved: 12-10-2018 Episodic Residual codes; unclassified (6 sources) Personal history of other specified conditions; Translations: [History of chest pain] Resolved: 05-28-2013 Episodic Comment on above: right up neear shoul koko, thru to back-post prandial -checking gb us; Superficial injury; contusion (6 sources) Blister of foot; Translations: [Blister of foot without infection] Resolved: 01-21-2014 Episodic Unclassified (20 sources) History of clinical finding in subject; Translations: [History of cough] Resolved: 05-29-2019 Unclassified (10 sources) Patient encounter status; Translations: [Visit for screening mammogram] Unclassified (4 sources) Drug therapy finding; Translations: [High risk medication use] Unclassified (4 sources) Long-term current use of testosterone cypionate; Translations: [Long-term current use of testosterone cypionate] NEGATED: Highlighted row has not occurred!Residual codes; unclassified (20 sources) Disease Episodic Results Test Name Value Interpretation Reference Range Facility CNOV 06-12-2023 CNOV Office Visit ([facility] ) -- ROSE MARY NARANJO ([id number]) 1960 F Date Time Provider Department 06/12/23 9:50 AM ALISIA POWERS During your visit today, we recorded the following information about you: Temperature Pulse Blood pressure Weight 100.7 degrees 84/minute 143/77 102.9 kg Alisia Powers APRN.BREAD PACKER 06/12/2023 10:20 AM Addendum [facility] ADDRESS: [address] [place] [address] PHONE: [phone] FOLLOW UP: Call your primary care provider today or tomorrow to establish a follow up appointment. Should your symptoms worsen, report to the emergency department for re-evaluation. -Cepacol cough drops for sore throat -OTC analgesics like Tylenol and Ibuprofen for pain -Intranasal saline irrigation to provide symptomatic relief -Intranasal corticosteroids like Flonase to decrease inflammation in nasal passages -Use humidifiers at night time -Increase fluid intake -OTC antihistamines like Claritin or Zyrtec as directed on the box to dry up nasal secretion ER precautions for worsening symptoms Patient education: Cough, runny nose, and the common cold (The Basics) What causes cough, runny nose, and other symptoms of the common cold? -- These symptoms are usually caused by a viral infection. Lots of viruses can take hold inside your nose, mouth, throat, or lungs, and cause cold symptoms. Most people get over a cold without lasting problems. Even so, having a cold can be uncomfortable. And if your child has a cold, it can be hard to know when the symptoms call for a trip to the doctor. What are the symptoms of the common cold? -- The symptoms include: ?Sneezing ?Coughing ?Sniffling and runny nose ?Sore throat ?Chest congestion In children, the common cold can also cause a fever. But adults do not usually get a fever when they have a cold. How can I tell if I have a cold or the flu? -- The common cold and the flu both cause many of the same symptoms. But they also have some important differences. This table can help you tell the difference between a cold and the flu. Is it a cold or the flu? Cold Flu Symptoms Fever Rare Usual; high (100?F to 102?F; occasionally higher, especially in young children); lasts 3 to 4 days Headache Rare Common General aches, pains Slight Usual; often severe Fatigue, weakness Sometimes Usual; can last up to 2 to 3 weeks Extreme exhaustion Never Usual; at the beginning of the illness Stuffy nose Common Sometimes Sneezing Usual Sometimes Sore throat Common Sometimes Chest discomfort, cough Mild to moderate; hacking cough Common; can become severe When should I call the doctor or nurse? -- Most people who have a cold do not need to see the doctor or nurse. But you should call your doctor or nurse if you have: ?A fever of more than 100.4? F (38? C) that comes with shaking chills, loss of appetite, or trouble breathing ?A fever and also have lung disease, such as emphysema or asthma ?A cough that lasts longer than 10 days ?Chest pain when you cough, trouble breathing, or coughing up blood If you are older than 75, you should also call your doctor or nurse any time you get a long-lasting cough. Take your child to the emergency room if he or she: ?Becomes confused or stops responding to you ?Has trouble breathing or has to work hard to breathe Call your child's doctor or nurse if he or she: ?Refuses to drink anything for a long time ?Is younger than 4 months ?Has a fever and is not acting like him- or herself ?Has a cough that lasts for more than 2 weeks and is not getting any better ?Has a stuffed or runny nose that gets worse or does not get better after 2 weeks ?Has red eyes or yellow goop coming out of his or her eyes ?Has ear pain, pulls at his or her ears, or shows other signs of having an ear infection What can I do to feel better? -- If you are a teenager or an adult, you can try cough and cold medicines that you can get without a prescription. These medicines might help with your symptoms. But they won't cure your cold, or help you get well faster. If you decide to try nonprescription cold medicines, be sure to follow the directions on the label. Do not combine 2 or more medicines that have acetaminophen in them. If you take too much acetaminophen, the drug can damage your liver. Also, if you have a heart condition, or you take prescription medicines, ask your pharmacist if it is safe to take the cold medicine you have in mind. What should I know if my child has a cold? -- In children, the common cold is often more severe than it is in adults. It also lasts longer. Plus, children often get a fever during the first 3 days of a cold. Are cough and cold medicines safe for children? -- If your child is younger than 6, you should not give him or her any cold medicines. These medicines (more content not included)... Normal [facility] COVID AND INFLUENZA A/B AND RSV NAAT, ROUTINEon 06-12-2023 SARS-CoV-2 (COVID-19) RNA DARELL+probe Ql (Unsp spec) COVID 19 RESULT: Not detected The method used is RT-PCR or an equivalent NAAT method. Reference Range (the expected result in uninfected individuals): Not detected INFLUENZA A PCR: Not detected INFLUENZA B PCR: Not detected RSV PCR: Not detected Normal [facility] Comment on above: Performed By: #### C VFLRS #### [facility] CLIA [id number] [address] [place] [address] [place] COVID & INFLUENZA A/B & RSV NAAT, ROUTINEon 06-12-2023 FLUAV RNA DARELL+probe Ql (Unsp spec) Not detected Not Detected [facility] FLUBV RNA DARELL+probe Ql (Unsp spec) Not detected Not Detected [facility] RSV A RNA DARELL+probe Ql (Unsp spec) Not detected Not Detected [facility] SARS-CoV-2 (COVID-19) RNA DARELL+probe Ql (Resp) Not detected See comment [facility] CNOVon 02-15-2023 CNOV Office Visit ([facility] ) -- ROSE MARY NARANJO ([id number]) 1960 F Date Time Provider Department 02/15/23 11:25 AM LYDIA OLIVA During your visit today, we recorded the following information about you: Temperature Pulse Respiration Blood pressure 96.9 degrees 57/minute 18/minute 151/84 Weight Height 106.4 kg 1.753 m Lydia Oliva APRN.BREAD PACKER 02/15/2023 11:48 AM Addendum (H66.91) Acute otitis media, right (primary encounter [...] changes in mental status, or other concerns. Lydia Oliva APRN.BREAD PACKER 02/15/2023 12:01 PM Signed This note was created using Communication Scienceriter. Subjective Rose Mary Naranjo is a 62 [...] scaly/flakes in canal. Stop using oil and p (more content not included)... Normal [facility] 12-26-2022 [facility] HNO ID: [id number] Author: Mimi Marx RT(R) Service: Radiology Author Type: Technologist Type: Allied [facility] Filed: 12/26/2022 12:41 PM Note Text: Radiology Service Progress Note PATIENT NAME: Rose Mary Naranjo DATE OF SERVICE: December 26, 2022 TIME: 12:41 PM PATIENT IDENTITY VERIFICATION COMPLETED USING TWO (2) IDENTIFIERS: Name and Date of confirmed by patient verbally and Name and Date of confirmed by identification band. FALL SCREENING: Has the patient had 2 falls in the last year or 1 fall with injury or currently using an Ambulatory Assistive Device (Walker, Cane, Wheelchair, Crutches, etc.)? Emergency Room Patient: Screened in ED PATIENT GENDER DATA: Female. status: : No status: NO. PATIENT RELEVANT IMPLANT DATA REVIEWED: Not Applicable RADIOLOGY DEPARTMENT: CT; Exam(s) Completed: PE Study PERIPHERAL IV DATA: Inpatient: see LDA documentation SIGNED BY: RT Crystal(R) December 26, 2022 12:41 PM [facility] HNO ID: [id number] Author: Shani Tariq Tech Service: ? Author Type: Seed Cleaning Machine Operator Type: Allied Health Filed: 12/26/2022 11:35 AM Note Text: Radiology Service Progress Note PATIENT NAME: Rose Mary Naranjo DATE OF SERVICE: December 26, 2022 TIME: 11:35 AM PATIENT IDENTITY VERIFICATION COMPLETED USING TWO (2) IDENTIFIERS: Name and Date of confirmed by patient verbally and Name and Date of confirmed by identification band. FALL SCREENING: Has the patient had 2 falls in the last year or 1 fall with injury or currently using an Ambulatory Assistive Device (Walker, Cane, Wheelchair, Crutches, etc.)? Emergency Room Patient: Screened in ED PATIENT GENDER DATA: Female. status: : No status: N/A PATIENT RELEVANT IMPLANT DATA REVIEWED: Not Applicable RADIOLOGY DEPARTMENT: General X-ray: Exam(s) Completed: Chest X-Ray PERIPHERAL IV DATA: Not applicable SIGNED BY: Alvino Corbin December 26, 2022 11:35 AM [facility] CBC W Auto Differential pane l (Bld)on 12-26-2022 Basophils (Bld) [#/Vol] 10*3/uL Normal <0.11 [facility] Comment on above: Order Comment: Speci men Type: BLOOD SPECIMENOrdering Facility: [facility] Address: [address] [place] [address] Performed By: #### 5 7021-8 ####[facility]ATORYCLIA [id number] [address] [place] Basophils/100 WBC (Bld) 0.3 % Normal [facility] Comment on above: Order Comment: Speci men Type: BLOOD SPECIMENOrdering Facility: [facility] Address: [address] [place] [address] Performed By: #### 5 7021-8 ####[facility]ORATORYCLIA [id number] [address] [place] Differential cell count method Nom (Bld) Auto Normal [facility] Comment on above: Order Comment: Speci men Type: BLOOD SPECIMENOrdering Facility: [facility] Address: [address] [address] Performed By: #### 5 7021-8 ####[facility] LABORATORYCLIA [id number] [place] [address] [place] Eosinophils (Bld) [#/Vol] 0.14 10*3/uL Normal <0.46 [facility] Comment on above: Order Comment: Speci men Type: BLOOD SPECIMENOrdering Facility: [facility] Address: [address] [place] [address] Performed By: #### 5 7021-8 ####[facility]ORATORYCLIA [id number] [address] [place] Eosinophils/100 WBC (Bld) 2.0 % Normal [facility] Comment on above: Order Comment: Speci men Type: BLOOD SPECIMENOrdering Facility: [facility] Address: [address] [place] [address] Performed By: #### 5 7021-8 ####[facility]ORATORYCLIA [id number] [address] [place] Erythrocyte distribution width (RBC) [Ratio] 11.9 % Normal 11.5-15.0 [facility] Comment on above: Order Comment: Speci men Type: BLOOD SPECIMENOrdering Facility: [facility] Address: [address] [place] [address] Performed By: #### 5 7021-8 ####[facility]ORATORYCLIA [id number] [address] [place] Hematocrit (Bld) [Volume fraction] 40.1 % Normal 36.0-46.0 [facility] Comment on above: Order Comment: Speci men Type: BLOOD SPECIMENOrdering Facility: [facility] Address: [address] [place] [address] Performed By: #### 5 7021-8 ####[facility]ORATORYCLIA [id number] [address] [place] Hemoglobin (Bld) [Mass/Vol] 14.1 g/dL Normal 11.5-15.5 [facility] Comment on above: Order Comment: Speci men Type: BLOOD SPECIMENOrdering Facility: [facility] Address: [address] [address] Performed By: #### 5 7021-8 ####[facility]ORATORYCLIA [id number] [address] [place] Immature granulocytes (Bld) [#/Vol] 10*3/uL Normal <0.10 [facility] Comment on above: Order Comment: Speci men Type: BLOOD SPECIMENOrdering Facility: [facility] Address: [address] [place] [address] Performed By: #### 5 7021-8 ####[facility] LABORATORYCLIA [id number] [address] Immature granulocytes/100 WBC (Bld) 0.3 % Normal [facility] Comment on above: Order Comment: Speci men Type: BLOOD SPECIMENOrdering Facility: [facility] Address: [address] [place] [address] Performed By: #### 5 7021-8 ####[facility] LABORATORYCLIA [id number] [place] [address] [place] Lymphocytes (Bld) [#/Vol] 1.69 10*3/uL Normal 1.00-4.00 [facility] Comment on above: Order Comment: Speci men Type: BLOOD SPECIMENOrdering Facility: [facility] Address: [address] [place] [address] Performed By: #### 5 7021-8 ####[facility] LABORATORYCLIA [id number] [address] [place] Lymphocytes/100 WBC (Bld) 24.1 % Normal [facility] Comment on above: Order Comment: Speci men Type: BLOOD SPECIMENOrdering Facility: [facility] Address: [address] [place] [address] Performed By: #### 5 7021-8 ####[facility] LABORATORYCLIA [id number] [place] [address] [place] MCH (RBC) [Entitic mass] 32.9 pg Normal 26.0-34.0 [facility] Comment on above: Order Comment: Speci men Type: BLOOD SPECIMENOrdering Facility: [facility] Address: [address] [place] [address] Performed By: #### 5 7021-8 ####[facility] LABORATORYCLIA [id number] [address] MCHC (RBC) [Mass/Vol] 35.2 g/dL Normal 30.5-36.0 [facility] Comment on above: Order Comment: Speci men Type: BLOOD SPECIMENOrdering Facility: [facility] Address: [address] [place] [address] Performed By: #### 5 7021-8 ####[facility] LABORATORYCLIA [id number] [address] MCV (RBC) [Entitic vol] 93.7 fL Normal 80.0-100.0 [facility] Comment on above: Order Comment: Speci men Type: BLOOD SPECIMENOrdering Facility: [facility] Address: [address] [place] [address] Performed By: #### 5 7021-8 ####[facility] LABORATORYCLIA [id number] [address] Monocytes (Bld) [#/Vol] 0.39 10*3/uL Normal <0.87 [facility] Comment on above: Order Comment: Speci men Type: BLOOD SPECIMENOrdering Facility: [facility] Address: [address] [place] [address] Performed By: #### 5 7021-8 ####[facility] LABORATORYCLIA [id number] [address] Monocytes/100 WBC (Bld) 5.6 % Normal [facility] Comment on above: Order Comment: Speci men Type: BLOOD SPECIMENOrdering Facility: [facility] Address: [address] [place] [address] Performed By: #### 5 7021-8 ####[facility] LABORATORYCLIA [id number] [address] [place] Neutrophils (Bld) [#/Vol] 4.75 10*3/uL Normal 1.45-7.50 [facility] Comment on above: Order Comment: Speci men Type: BLOOD SPECIMENOrdering Facility: [facility] Address: [address] [place] [address] Performed By: #### 5 7021-8 ####[facility] LABORATORYCLIA [id number] [place] [address] [place] Neutrophils/100 WBC (Bld) 67.7 % Normal [facility] Comment on above: Order Comment: Speci men Type: BLOOD SPECIMENOrdering Facility: [facility] Address: [address] [place] [address] Performed By: #### 5 7021-8 ####[facility]ORATORYCLIA [id number] [address] [place] Nucleated RBC (Bld) [#/Vol] 10*3/uL Normal <0.01 [facility] Comment on above: Order Comment: Speci men Type: BLOOD SPECIMENOrdering Facility: [facility] Address: [address] [place] [address] Performed By: #### 5 7021-8 ####[facility] LABORATORYCLIA [id number] [address] Nucleated RBC/100 WBC (Bld) [Ratio] 0.0 /100 WBC Normal [facility] Comment on above: Order Comment: Speci men Type: BLOOD SPECIMENOrdering Facility: [facility] Address: [address] [place] [address] Performed By: #### 5 7021-8 ####[facility]ORATORYCLIA [id number] [address] [place] Platelet mean volume (Bld) [Entitic vol] 9.1 fL Normal 9.0-12.7 [facility] Comment on above: Order Comment: Speci men Type: BLOOD SPECIMENOrdering Facility: [facility] Address: [address] [place] [address] Performed By: #### 5 7021-8 ####[facility] LABORATORYCLIA [id number] [place] [address] [place] Platelets (Bld) [#/Vol] 274 10*3/uL Normal 150-400 [facility] Comment on above: Order Comment: Speci men Type: BLOOD SPECIMENOrdering Facility: [facility] Address: [address] [address] Performed By: #### 5 7021-8 ####[facility]ATORYCLIA [id number] [place] [address] [place] RBC (Bld) [#/Vol] 4.28 10*6/uL Normal 3.90-5.20 [facility] Comment on above: Order Comment: Speci men Type: BLOOD SPECIMENOrdering Facility: [facility] Address: [address] [place] [address] Performed By: #### 5 7021-8 ####[facility]ATORYCLIA [id number] [address] WBC (Bld) [#/Vol] 7.01 10*3/uL Normal 3.70-11.00 [facility] Comment on above: Order Comment: Speci men Type: BLOOD SPECIMENOrdering Facility: [facility] Address: [address] [place] [address] Performed By: #### 5 7021-8 ####[facility]ATORYCLIA [id number] [address] [place] CK SerPl-cCncon 12-26-2022 CK [Catalytic activity/Vol] 54 U/L Normal 42-196 [facility] Comment on above: Order Comment: Speci men Type: BLOOD SPECIMEN [facility] Address: [address] [address] Performed By: #### 2 157-6, 16368-2, [id number], 14783-0 #### [facility] CLIA [id number] [address] OF [facility] CT CHEST W IVCON PEon 2022 CT CHEST W IVCON PE * * *Final Report* * * DATE OF EXAM: Dec 26 2022 12:44PM [facility] 0540 - CT CHEST W IVCON PE / PROCEDURE REASON: Pulmonary embolism (PE) suspected, high prob * * * * Physician Interpretation * * * * EXAMINATION: CHEST CT WITH CONTRAST (PULMONARY EMBOLISM PROTOCOL) CLINICAL HISTORY: Pulmonary embolism suspected Technique: Spiral CT acquisition of the chest from the thoracic inlet to the upper abdomen following IV contrast. Axial 1 and 3 mm thick slices plus coronal and sagittal reformatted images. MQ: CTCP_5 Contrast: [address] Radiation dose: Integrated Dose-length product (DLP) for this visit = 830 mGy*cm CT Dose Reduction Employed: Automated exposure control(AEC) and iterative recon Comparison: Same day chest x-ray RESULT: Limitations: None. Evaluation for thromboembolic disease: - Right heart chambers: No thromboembolic disease. - Main pulmonary arteries: No thromboembolic disease. - Lobar pulmonary arteries: No thromboembolic disease. - Segmental pulmonary arteries: No thromboembolic disease. - Subsegmental pulmonary arteries: No thromboembolic disease. - Additional pulmonary artery findings: The main pulmonary artery is normal in caliber. Lines, tubes, and devices: None. Lung parenchyma and airways: Subcentimeter calcified right mid cranial. Mild scattered air trapping and atelectatic changes. No consolidation. No suspicious pulmonary nodule. The central airways are patent. Pleural space: No pleural effusion. No pleural thickening. Lower neck, lymph nodes, and mediastinum: The imaged thyroid gland is normal. No lymphadenopathy in the supraclavicular, axillary, mediastinal, or hilar regions. Heart, pericardium, and thoracic vessels: The thoracic aorta is normal in caliber. The cardiac chambers are normal in size. Coronary artery atherosclerotic calcifications are noted, although the study is not optimized for coronary assessment. No pericardial effusion or thickening. Bones and soft tissues: Degenerative changes. Upper abdomen: No abnormality in the imaged upper abdomen. Technology Project Manager (topogram) images: No additional findings. IMPRESSION: No CT evidence of pulmonary embolism. Research Programmer: PSCB Transcribe Date/Time: Dec 26 2022 1:02P Dictated by : JOSEFINA MILES MD This examination was interpreted and the report reviewed and electronically signed by: JOSEFINA MILES MD on Dec 26 2022 1:07PM EST [id number] Normal [facility] Comprehensive metabolic 2000 panelon 12-26-2022 Albumin [Mass/Vol] 4.1 g/dL Normal 3.9-4.9 [facility] Comment on above: Order Comment: Speci men Type: BLOOD SPECIMEN [facility] Address: [address] [address] Performed By: #### 2 157-6, 32042-6, [id number], #### [facility] CLIA [id number] [address] [place] ALP [Catalytic activity/Vol] 67 U/L Normal 34-123 [facility] Comment on above: Order Comment: Speci men Type: BLOOD SPECIMEN [facility] Address: [address] [address] Performed By: #### 2 157-6, 35651-5, [id number], #### [facility] CLIA [id number] [address] STATES OF [facility] ALT [Catalytic activity/Vol] 15 U/L Normal 7-38 [facility] Comment on above: Order Comment: Speci men Type: BLOOD SPECIMEN [facility] Address: [address] [address] Performed By: #### 2 157-6, 92905-0, [id number], #### [facility] CLIA [id number] [address] Anion gap [Moles/Vol] 8 mmol/L Low 9-18 [facility] Comment on above: Order Comment: Speci men Type: BLOOD SPECIMEN [facility] Address: [address] [address] Performed By: #### 2 157-6, 47481-5, [id number], 47628-1 #### [facility] CLIA [id number] [address] [place] AST [Catalytic activity/Vol] 17 U/L Normal 13-35 [facility] Comment on above: Order Comment: Speci men Type: BLOOD SPECIMEN [facility] Address: [address] [address] Performed By: #### 2 157-6, 03855-3, [id number], 88327-1 #### [facility] CLIA [id number] [address] [place] [address] [place] Bilirubin [Mass/Vol] 0.6 mg/dL Normal 0.2-1.3 [facility] Comment on above: Order Comment: Speci men Type: BLOOD SPECIMEN [facility] Address: [address] [place] [address] Performed By: #### 2 157-6, 14178-8, [id number], #### [facility] CLIA [id number] [address] [place] [address] [place] Calcium [Mass/Vol] 9.3 mg/dL Normal 8.5-10.2 [facility] Comment on above: Order Comment: Speci men Type: BLOOD SPECIMEN [facility] Address: [address] [place] [address] Performed By: #### 2 157-6, 96229-3, [id number], #### [facility] CLIA [id number] [address] [place] [address] [place] Chloride [Moles/Vol] 105 mmol/L Normal 97-105 [facility] Comment on above: Order Comment: Speci men Type: BLOOD SPECIMEN [facility] Address: [address] [place] [address] Performed By: #### 2 157-6, 85815-6, [id number], #### [facility] CLIA [id number] [address] [place] [address] [place] CO2 [Moles/Vol] 26 mmol/L Normal 22-30 [facility] Comment on above: Order Comment: Speci men Type: BLOOD SPECIMEN [facility] Address: [address] [place] [address] Performed By: #### 2 157-6, 55689-2, [id number], 99974-3 #### [facility] CLIA [id number] [address] [place] [address] [place] Creatinine [Mass/Vol] 0.79 mg/dL Normal 0.58-0.96 [facility] Comment on above: Order Comment: Speci men Type: BLOOD SPECIMEN [facility] Address: [address] [id number] Performed By: #### 2 157-6, 63234-1, [id number], 92238-6 #### [facility] CLIA [id number] [address] OF [facility] Creatinine and Glomerular filtration rate.predicted panel (S/P/Bld) 84 mL/min/1.73m??? Normal >=60 [facility] Comment on above: Order Comment: Isak bales Type: BLOOD SPECIMEN [facility] Address: [address] [place], [place] [id number] Result Comment: Radha mated Glomerular Filtration Rate (eGFR) is calculated using the 2020 CKD-EPI creatinine equation. This equation utilizes serum creatinine, sex, and age as parameters. The creatinine assay has traceable calibration to isotope dilution-mass spectrometry. Refer to KDIGO guidelines for clinical interpretation. In patients with unstable renal function, e.g. those with acute kidney injury, the eGFR may not accurately reflect actual GFR. Performed By: #### 2 157-6, 87791-5, [id number], 77599-5 #### [facility] CLIA [id number] [address] [place] [address] [place] Glucose [Mass/Vol] 103 mg/dL High 74-99 [facility] Comment on above: Order Comment: Isak bales Type: BLOOD SPECIMEN [facility] Address: [address] [place], [place] [id number] Result Comment: The [place] Diabetes Association (ADA) provides guidance for cutoff values for fasting glucose and random glucose. The ADA defines fasting as no caloric intake for at least 8 hours. Fasting plasma glucose results between 100 to 125 mg/dL indicate increased risk for diabetes (prediabetes). Fasting plasma glucose results greater than or equal to 126 mg/dL meet the criteria for diagnosis of diabetes. In the absence of unequivocal hyperglycemia, results should be confirmed by repeat testing. In a patient with classic symptoms of hyperglycemia or hyperglycemic crisis, random plasma glucose results greater than or equal to 200 mg/dL meet the criteria for diagnosis of diabetes. Reference: Standards of Medical Care in Diabetes 2016, [place] [employer] Association. Diabetes Care. 2016.39(Suppl 1). Performed By: #### 2 157-6, 47417-5, KWS8134, 58387-6 #### [facility] CLIA [id number] [address] [place] [address] [place] Potassium [Moles/Vol] 4.2 mmol/L Normal 3.7-5.1 [facility] Comment on above: Order Comment: Speci men Type: BLOOD SPECIMEN [facility] Address: [address] [place] [address] Performed By: #### 2 157-6, 74799-4, [id number], 71155-9 #### [facility] CLIA [id number] [address] [place] [address] [place] Protein [Mass/Vol] 6.9 g/dL Normal 6.3-8.0 [facility] Comment on above: Order Comment: Speci men Type: BLOOD SPECIMEN [facility] Address: [address] [place] [address] Performed By: #### 2 157-6, 32681-8, [id number], 20562-3 #### [facility] CLIA [id number] [address] [place] [address] [place] Sodium [Moles/Vol] 139 mmol/L Normal 136-144 [facility] Comment on above: Order Comment: Speci men Type: BLOOD SPECIMEN [facility] Address: [address] [place] [address] Performed By: #### 2 157-6, 90156-7, [id number], 45026-1 #### [facility] CLIA [id number] [address] [place] [address] [place] Urea nitrogen [Mass/Vol] 17 mg/dL Normal 7-21 [facility] Comment on above: Order Comment: Speci men Type: BLOOD SPECIMEN [facility] Address: [address] [place] [address] Performed By: #### 2 157-6, 18658-7, [id number], 42923-8 #### [facility] CLIA [id number] [address] [place] D dimer FEU PPP-mCncon 12-26 Fibrin D-dimer FEU (PPP) [Mass/Vol] 800 ng/mL FEU High <500 [facility] Comment on above: Order Comment: Speci men Type: BLOOD SPECIMENOrdering Facility: [facility] Address: [address] [place] [address] Performed By: #### 4 8065-7, 03588-7 ####[facility]ORYCLIA [id number] [place], [place] [address] [place] [address] [place] ECG COMPLETEon 12-26-2022 ECG COMPLETE Ventricular Rate : 6 9 BPM Atrial Rate : 69 BPM P-R Interval : 192 ms QRS Duration : 90 ms Q-T Interval : 392 ms QTC Calculation(Bazett) : 420 ms Calculated P [place] : 15 degrees Calculated R [place] : -17 degrees Calculated T [place] : -3 degrees NORMAL SINUS RHYTHM POSSIBLE ANTERIOR INFARCT , AGE UNDETERMINED ABNORMAL ECG 1125 12/26/22 NO OLD EKGS Confirmed by DO CHISHOLM ALAN ([id number]), multimedia editor LARA RAMON ([id number]) on 12/27/2022 6:21:58 AM NAME : ROSE MARY NARANJO PID : [id number] : 1960 Gender : Female Race : ORD : [id number] Procedure Date : Dec 26 2022 11:20:44 Edit Date : Dec 27 2022 06:22:01 Diagnosis: NORMAL SINUS RHYTHM POSSIBLE ANTERIOR INFARCT , AGE UNDETERMINED ABNORMAL ECG 1125 12/26/22 NO OLD EKGS Confirmed by DO CHISHOLM ALAN ([id number]), multimedia editor LARA RAMON ([id number]) on 12/27/2022 6:21:58 AM Test Reason : Chest Pain Location : 1 : ER ED Overread By : DO CHISHOLM ALAN Edited By : LARA RAMON Referred By : , Acquired by : Aliyah maria [facility] ED NOTEon 12-26-2022 ED NOTE HNO ID: [id number] Author: Jay Rutledge RN Service: ? Author Type: Registered Nurse Type: ED Notes Filed: 12/26/2022 11:29 AM Note Text: Pt presents to ED with chest pain from urgent care. Pt reports she has had a sore throat for a few days associated with cough and chest pain. Went to urgent care and was sent here. Stss he has a hx of barretts esophagus but that this pain is more consistent with her previous pneumonia. Pt reports her pain also goes to her back. Denies SOB with it. [facility] ED PROV NOTEon 12-26-2022 ED PROV NOTE HNO ID: [id number] Author: Shima Chisholm DO Service: Emergency Medicine Author Type: Physician Type: ED Provider Notes Filed: 12/26/2022 1:30 PM Note Text: ED Provider Note Patient Name: Rose Mary Naranjo : 1960 SERVICE DATE: 12/26/22 History No chief complaint on file. This pleasant 62-year-old female patient referred to ED from [facility] for chest pain. She actually is a burning sensation. She has congestion. Some pain in her back. No history of aneurysm in self or her father had an aneurysm. She has never had a DVT or PE. Nor has she had any hemoptysis with this episode of illness. One of her coworkers was ill with COVID. However she did do home test which were negative. No abdominal pain. No extremity pain or swelling. No significant dyspnea. She does have chest pain. No past medical history on file. No past surgical history on file. No family history on file. Social History Tobacco Use - Smoking status: Former Types: Cigarettes - Smokeless tobacco: Never Substance and Sexual Activity - Alcohol use: Not on file - Drug use: Not on file - Sexual activity: Not on file ALLERGIES Allergen Reactions - Sulfamethoxazole-Tr* GI Upset Review of Systems Constitutional: Negative for activity change and appetite change. HENT: Negative for congestion, drooling, rhinorrhea, sore throat, trouble swallowing and voice change. Eyes: Negative for photophobia, pain and visual disturbance. Respiratory: Positive for cough. Negative for chest tightness and shortness of breath. Cardiovascular: Positive for chest pain. Negative for leg swelling. Gastrointestinal: Negative for abdominal pain, blood in stool, constipation, diarrhea, nausea and vomiting. Genitourinary: Negative for decreased urine volume, dysuria, flank pain, frequency, hematuria and urgency. Musculoskeletal: Positive for myalgias. Negative for back pain, joint swelling and neck pain. Skin: Negative for rash. Neurological: Negative for dizziness, weakness, light-headedness and headaches. Hematological: Negative for adenopathy. Psychiatric/Behavioral: The patient is not nervous/anxious. Physical Exam Vitals BP Pulse Temp Temp src Resp SpO2 Weight Height -- -- -- -- -- -- -- -- Physical Exam Vitals and nursing note reviewed. Constitutional: General: She is not in acute distress. Appearance: She is well-developed. HENT: Head: Normocephalic. Nose: Nose normal. Eyes: General: No scleral icterus. Right eye: No discharge. Left eye: No discharge. Conjunctiva/sclera: Conjunctivae normal. Pupils: Pupils are equal, round, and reactive to light. Neck: Trachea: No tracheal deviation. Cardiovascular: Rate and Rhythm: Normal rate and regular rhythm. Heart sounds: Normal heart sounds. No murmur heard. Pulmonary: Effort: Pulmonary effort is normal. No respiratory distress. Breath sounds: Normal breath sounds. No wheezing. Chest: Chest wall: No tenderness. Abdominal: General: Bowel sounds are normal. There is no distension. Palpations: Abdomen is soft. There is no mass. Tenderness: There is no abdominal tenderness. There is no guarding or rebound. Musculoskeletal: General: No tenderness. Normal range of motion. Cervical back: Normal range of motion and neck supple. Right upper leg: No tenderness. Left upper leg: No tenderness. Lymphadenopathy: Cervical: No cervical adenopathy. Skin: General: Skin is warm and dry. Findings: No rash. Neurological: Mental Status: She is alert and oriented to person, place, and time. Cranial Nerves: Cranial nerves 2-12 are intact. Sensory: Sensation is intact. Motor: Motor function is intact. Coordination: Coordination is intact. Deep Tendon Reflexes: Reflexes are normal and symmetric. Diagnostic Testing ED Labs Ordered and Reviewed - No data to display Procedures ED Course / Clinical Impression Clinical Impressions as of 12/26/22 1328 Chest pain, unspecified type Influenza-like illness COVID-19 test performed per [facility] [place] policy for suspected COVID community exposure. MDM / Disposition / Plan 62-year-old female patient presents ED. Referred to ED from [facility] for evaluation. She has influenza-like illness. But also has some chest pain. No history of DVT or PE. Work-up will be initiated including chest x-ray, EKG laboratory studies. Patient will closely observed in the ED pending results. Viral swabs ordered. EKG as below with no old EKGs available to her comparison Results for orders placed or performed during the hospital encounter of 12/26/22 -COMP METABOLIC PANEL: Result Value Ref Range Protein, Total 6.9 6.3 - 8.0 g/dL Albumin 4.1 3.9 - 4.9 g/dL Calcium, Total 9.3 8.5 - 10.2 mg/dL Bilirubin, Total 0.6 0.2 - 1.3 mg/dL Alkaline Phosphatase 67 34 - 123 U/L AST 17 13 - 35 U/L ALT 15 7 - 38 U/L Glucose 103 (H) 74 - 99 mg/dL BUN 17 7 - 21 m (more content not included)... Normal [facility] FLUABV+SARS-CoV-2+RSV Pnl Re sp DARELL+probeon 12-26-2022 FLUABV+SARS-CoV-2 +RSV Pnl Resp DARELL+probe COVID 19 RESULT: Not detected The method used is RT-PCR or an equivalent NAAT method. Reference Range(the expected result in uninfected individuals): Not detected INFLUENZA A PCR: Not detected INFLUENZA B PCR: Not detected RSV PCR: Not detected Normal [facility] Comment on above: Performed By: #### 9 5941-1 #### [facility] CLIA [id number] [address] [place] Fibrin D-dimer FEU (PPP) [Ma ss/Vol]on 12-26-2022 D DIMER AGE-RELATED CUTOFF 640 ng/mL FEU Normal [facility] Comment on above: Order Comment: Isak bales Type: BLOOD SPECIMENOrdering Facility: [facility] Address: [address] [place] [address] Performed By: #### 4 8065-7, 79538-8 ####[facility] [id number] [address] OF [place] HIGH SENSITIVITY TROPONIN T (INITIAL)on 12-26-2022 Troponin T.cardiac High sensitivity method [Mass/Vol] <6 Normal <12 [facility] Comment on above: Order Comment: Isak bales Type: BLOOD SPECIMEN [facility] Address: [address] Result Comment: When assessing risk for acute coronary syndromes: In patients undergoing blood draw greater than or equal to 2 hours from symptom onset, with history of very low to moderate risk and non-ischemic ECG, an initial hs-Troponin T less than 12 ng/L AND a 1 hour delta hs-Troponin T less than 3 ng/L should be considered very low risk for 30 day MACE. Performed By: #### 2 157-6, 61937-0, [id number], 96557-0 #### [facility] CLIA [id number] [address] [place] [address] [place] HIGH SENSITIVITY TROPONIN T (SECOND)on 12-26-2022 Troponin T.cardiac High sensitivity method [Mass/Vol] <6 Normal <12 [facility] Comment on above: Order Comment: Isak bales Type: BLOOD SPECIMENOrdering Facility: [facility] Address: [address] [place] [address] Result Comment: When assessing risk for acute coronary syndromes: In patients undergoing blood draw greater than or equal to 2 hours from symptom onset, with history of very low to moderate risk and non-ischemic ECG, an initial hs-Troponin T less than 12 ng/L AND a 1 hour delta hs-Troponin T less than 3 ng/L should be considered very low risk for 30 day MACE. Performed By: #### L [id number] ####[facility] [id number] [place] [address] OF [place] Magnesium SerPl-mCncon 12-26 Magnesium [Mass/Vol] 2.1 mg/dL Normal 1.7-2.3 [facility] Comment on above: Order Comment: Isak bales Type: BLOOD SPECIMEN [facility] Address: [address] [place] [id number] Performed By: #### 2 157-6, 63903-6, [id number], 09995-4 #### [facility] CLIA [id number] [address] [place] [address] [place] PT panel Coag (PPP)on 2022 INR Coag (PPP) [Relative time] 1.0 {INR} Normal 0.9-1.3 [facility] Comment on above: Order Comment: Isak bales Type: BLOOD SPECIMENOrdering Facility: [facility] Address: [place] [address] Result Comment: Loida min K Antagonist (VKA) Therapeutic Range: INR 2 to 3 (Target INR of 2.5) Note: For patients treated with VKA drugs, such as warfarin, the [place] [employer] 2012 Guideline recommends a therapeutic INR range of 2 to 3 (target INR of 2.5). This recommendation includes high-risk patients with antiphospholipid syndrome with previous arterial or venous thromboembolism, current-generation mechanical or bioprosthetic aortic heart valve replacement. Note: Patients with mechanical aortic valve replacement and additional risk factors for thromboembolic events (atrial fibrillation, previous thromboembolism, LV dysfunction, hypercoagulable conditions) or an older generation mechanical AVR (i.e., ball in-Cage) or any mechanical MVR should have a INR therapeutic range of 2.5 to 3.5 (target INR of 3). Bella GH, et al. Chest 2012, 141:7S-47S Poli RA, et al. [facility] 2017, 70: 252-289 Performed By: #### 4 8065-7, 77854-8 ####[facility] [id number] [place] [address] [place] PT Coag (PPP) [Time] 10.9 s Normal 9.7-13.0 [facility] Comment on above: Order Comment: Isak bales Type: BLOOD SPECIMENOrdering Facility: [facility] Address: [place] [address] Performed By: #### 4 8065-7, 38379-2 ####[facility] [id number] [place] [id number] [place] XR CHEST 1V FRONTAL PORTon 1 XR CHEST 1V FRONTAL PORT * * *Final Report* * * DATE OF EXAM: Dec 26 2022 11:32AM MDX [id number] - XR CHEST 1V FRONTAL PORT / PROCEDURE REASON: Chest pain * * * * Physician Interpretation * * * * EXAMINATION: CHEST RADIOGRAPH (PORTABLE SINGLE VIEW AP) Exam Date/Time: 12/26/2022 11:32 AM CLINICAL HISTORY: Chest pain MQ: XCPR_5 Comparison: None RESULT: Lines, tubes, and devices: None. Lungs and pleura: No focal consolidation. No discernible pleural effusion or pneumothorax. Cardiomediastinal silhouette: Normal cardiomediastinal silhouette. IMPRESSION: No acute radiographic abnormality Research Programmer: AVA Transcribe Date/Time: Dec 26 2022 11:50A Dictated by : JOSEFINA MILES MD This examination was interpreted and the report reviewed and electronically signed by: JOSEFINA MILES MD on Dec 26 2022 11:50AM EST [id number] Normal [facility] THYROXINE,FREEon 04-01-2020 THYROXINE,FREE 1.03 ng/dL Normal 0.78 - 1.48 [facility] Comment on above: Result Comment: Thyr oxine Free testing is performed using different testing methodology at [facility] than at other [facility]. Direct result comparisons should only be made within the same method. Performed By: #### T 4FRE #### [facility] [address] [place] [address] TRIIODOTHYRONINE,FREEon TRIIODOTHYRONINE, FREE 3.3 pg/mL Normal 2.3 - 4.2 [facility] Comment on above: Performed By: #### T 3FRE #### [facility] [address] [place] [address] 50+ Yearson 03-07-2020 50+ Years Diagnoses/Problems Assessed Annual physical exam (V70.0) (Z00.00) Mehta's esophagus (530.85) (K22.70) Type 2 diabetes mellitus (250.00) (E11.9) Benign essential hypertension (401.1) (I10) Obstructive apnea (327.23) (G47.33) Uses CPAP Hyperlipidemia (272.4) (E78.5) Morbid obesity (278.01) (E66.01) Body mass index (BMI) of 40.0 to 44.9 in adult (V85.41) (Z68.41) Orders Hyperlipidemia LDL, Direct, Serum; Status:Active; Requested for:13Jun2020; Perform:Lab Services - Lab To Draw (Blood Test); Due:11Sep2020;Ordered; For:Hyperlipidemia; Ordered By:Lambert Colón; Morbid obesity, Type 2 diabetes mellitus T3 - Free Triiodothyronine, Serum; Status:Active; Requested for:07Mar2020; Perform:Lab Services - Lab To Draw (Blood Test); Due:05Jun2020;Ordered; For:Morbid obesity, Type 2 diabetes mellitus; Ordered By:Lambert Colón; T4 - Free Thyroxine, Serum; Status:Active; Requested for:07Mar2020; Perform:Lab Services - Lab To Draw (Blood Test); Due:05Jun2020;Ordered; For:Morbid obesity, Type 2 diabetes mellitus; Ordered By:Lambert Colón; PMH: Flu vaccine need Administered: Fluarix Quadrivalent 0.5 ML Intramuscular Suspension Prefilled Syringe For: PMH: Flu vaccine need; Ordered By:Lambert Colón; Effective Date:07Mar2020; Administered by: Carol Oleary SECOND STEWARD: 03/07/2020 4:56:00 PM; Last Updated By: Carol Oleary; 03/07/2020 5:01:23 PM Administered: Pneumococcal polysaccharide vaccine, 23 valent For: PMH: Flu vaccine need; Ordered By:Lambert Colón; Effective Date:07Mar2020; Administered by: Carol Oleary SECOND STEWARD: 03/07/2020 4:58:00 PM; Last Updated By: Carol Oleary; 03/07/2020 5:01:23 PM Administered: Tdap (Boostrix) For: PMH: Flu vaccine need; Ordered By:Lambert Colón; Effective Date:07Mar2020; Administered by: Carol Oleary SECOND STEWARD: 03/07/2020 4:57:00 PM; Last Updated By: Carol Oleary; 03/07/2020 5:01:23 PM Type 2 diabetes mellitus Hemoglobin A1C; Status:Active; Requested for:13Jun2020; Perform:Lab Services - Lab To Draw (Blood Test); Due:11Sep2020;Ordered; For:Type 2 diabetes mellitus; Ordered By:Lambert Colón; Provider Impressions Pt would like FT4 and FT3 checked Counseled pt on foods to eat and foods to avoid + 150 min of exercise per week Instructed pt to make a f/u appt in 4 mos Labs prior next appt Counseled pt on warning signs of when to present back to clinic earlier and/or ER Tdap, flu shot and PPSV23 were given to pt today Chief Complaint Annual physical History of Present Illness Pt here for annual exam She denies any vision changes Counseled pt on seeing the eye dr at least once a yr Would like flu shot, PPSV23 and Tdap today UTD on colonoscopy - last one 2018 - follows w/ Dr Gonzales UTD on mammo - last 2018 - wants to do them every 2 yrs She denies any adverse rxns to any of her meds - she states to be complaint w/ her meds Reviewed recent labs w/ pt LDL slightly elevated DM2 has worsened - A1c 7.2 - previously 6.2 - pt states her diet has been poor Mehta's stable - follows w/ GI Dr Gonzales HTN - controlled Denies headaches, vision changes, lightheadedness, dizziness, chest pain, palpitations or dyspnea SAL[place]OR stable Using CPAP Helps her sleep through the night Review of Systems A complete ROS is neg, except as stated above. Active Problems Problems Anal fissure (565.0) (K60.2) Mehta's esophagus (530.85) (K22.70) Benign essential hypertension (401.1) (I10) Carpal tunnel syndrome (354.0) (G56.00) Bilateral Class 3 severe obesity due to excess calories with serious comorbidity and body mass index (BMI) of 40.0 to 44.9 in adult (278.01,V85.41) (E66.01,Z68.41) Constipation (564.00) (K59.00) Daytime somnolence (780.54) (R40.0) Diarrhea (787.91) (R19.7) Dysfunction of right eustachian tube (381.81) (H69.81) Elevated high sensitivity C-reactive protein (790.95) (R79.82) Encounter for weight loss counseling (V65.3) (Z71.3) History of Essential hypertriglyceridemia (272.1) (E78.1) Eustachian tube dysfunction (381.81) (H69.80) Hair thinning (704.00) (L65.9) Has stopped breathing (786.03) (R06.81) High risk medication use (V58.69) (Z79.899) History of edema (V13.89) (Z87.898) Hyperlipidemia (272.4) (E78.5) Long-term current use of testosterone cypionate (V58.69) (Z79.890) Mixed hyperlipidemia (272.2) (E78.2) History of Multiple adenomatous polyps (229.9) (D36.9) Nasal polyp (471.9) (J33.9) Need for prophylactic vaccination and inoculation against influenza (V04.81) (Z23) Nightmares (307.47) (F51.5) Obstructive apnea (327.23) (G47.33) Uses CPAP Pain in toes of both feet (729.5) (M79.674,M79.675) History of Right acute serous otitis media (381.01) (H65.01) Screening for breast cancer (V76.10) (Z12.39) Sleep disturbances (780.50) (G47.9) Statin intolerance (995.27) (Z78.9) Stress at home (V61.9) (F43.9) Thumb numbness (782.0) (R20.0) Tingling (782.0) (R20.2) Visit for screening mammogram (V76.12) (Z12.31) Vitamin B12 deficiency (266.2) (E53.8) Vitamin D deficiency (268.9) (E55.9) Past Medical History Problems History of Abnormal weight gain (783.1) (R63.5) Resolved Date: 08 Sep 2013 History of Acute frontal sinusitis (461.1) (J01.10) Resolved Date: 22 May 2016 History of Acute right otitis media (382.9) (H66.91) Resolved Date: 22 May 2016 History of Allergy to poison susana (V15.09) (Z91.09) History of Atypical chest pain (786.59) (R07.89) Resolved Date: 08 Sep 2013 History of Benign paroxysmal positional vertigo (386.11) (H81.10) Resolved Date: 01 Jun 2014 History of Blister of foot, right (917.2) (S90.821A) Resolved Date: 21 Jan 2014 History of Diabetes mellitus type II, uncontrolled (250.02) (E11.65) Resolved Date: 19 Aug 2014 History of Elevated transaminase level (790.4) (R74.01) Resolved Date: 03 Feb 2018 cem mildly elevated ast alt at outside lab fall 2016 when weight and a1c were up History of Epigastric abdominal tenderness without rebound tenderness (789.66) (R10.816) Resolved Date: 05 May 2018 History of Essential hypertriglyceridemia (272.1) (E78.1) Resolved Date: 01 Jun 2014 History of acute bronchitis (V12.69) (Z87.09) Resolved Date: 08 Sep 2013 History of acute bronchitis (V12.69) (Z87.09) Resolved Date: 10 Dec 2018 History of acute sinusitis (V12.69) (Z87.09) Resolved Date: 21 Apr 2014 History of chest pain (V13.89) (Z87.898) Resolved Date: 28 May 2013 right up neear shoulder, thru to back-post prandial -checking us History of cough Resolved Date: 07 Oct 2017 History of cough Resolved Date: 05 Aug 2018 History of cough Resolved Date: 29 May 2019 History of dizziness (V13.89) (Z87.898) Resolved Date: 10 Dec 2018 History of edema (V13.89) (Z87.898) Resolved Date: 14 Jun 2015 History of fever (V13.89) (Z87.898) Resolved Date: 05 Aug 2018 History of hyperglycemia (V12.29) (Z86.39) History of paranasal sinus congestion (V12.69) (Z87.09) Resolved Date: 05 Aug 2018 History of pneumonia (V12.61) (Z87.01) Resolved Date: 10 Jun 2018 History of postnasal drip (V13.89) (Z87.898) Resolved Date: 05 Aug 2018 History of vertigo (V12.49) (Z87.898) Resolved Date: 01 Jun 2014 History of Mass of knee, left (719.66) (R22.42) History of Microscopic hematuria (599.72) (R31.29) Resolved Date: 21 Apr 2014 History of Mild nausea (787.02) (R11.0) Resolved Date: 01 Jun 2014 History of Multiple adenomatous polyps (229.9) (D36.9) Resolved Date: 01 Jun 2014 History of Rectal bleeding (569.3) (K62.5) Resolved Date: 01 Jun 2014 History of Right acute serous otitis media (381.01) (H65.01) Resolved Date: 22 May 2016 Surgical History Problems History of Anal fissurectomy History of Breast biopsy History of Colonoscopy History of Hysterectomy Total - everyone gone per pt - due to fibroids History of Tonsillectomy Family History Mother Family history of hyperthyroidism (V18.19) (Z83.49) Family history of hypothyroidism (V18.19) (Z83.49) Family history of Hearing loss, mixed, bilateral Family history of Parkinson's disease dementia Father Family history of chronic obstructive pulmonary disease (V17.6) (Z82.5) Family history of malignant neoplasm of urinary bladder (V16.52) (Z80.52) Brother Family history of colon cancer (V16.0) (Z80.0) Grandparent Denied: Family history of Meniere's disease Maternal Grandmother Family history of malignant neoplasm of cervix uteri (V16.49) (Z80.49) Family history of Hearing loss, mixed, bilateral Paternal Grandmother Family history of type 2 diabetes mellitus (V18.0) (Z83.3) Maternal Uncle Family history of Hearing loss, mixed, bilateral Cousin Family history of type 1 diabetes mellitus (V18.0) (Z83.3) Social History Problems Former smoker (V15.82) (Z87.891) 1ppd for 5-6 years, stopped in the Occasional alcohol use Worship Affiliation [employer] does not want a blood transfusion-will bring in paper Stress at home (V61.9) (F43.9) Allergies Medication Antara CAPS Adverse Reaction; Myalgia; Recorded By: Val Willams; 01/22/2012 11:10:07 AM Bactrim TABS Suspect; Nausea; Recorded By: Val Willams; 01/22/2012 10:47:12 AM said she had a sulfa drug for sinuses and it caused nausea Crestor TABS Adverse Reaction; Myalgia; Recorded By: Val Willams; 02/11/2013 11:03:09 AM fluvastatin Adverse Reaction; Myalgia; Recorded By: Val Willams; 06/01/2014 9:31:45 AM achy on thei even at 20mg 5 days per week, and 2 days off sulfa Recorded By: Carol Oleary; 01/21/2019 3:23:54 PM Current Meds Medication NameInstruction Esomeprazole Magnesium 20 MG Oral Capsule Delayed ReleaseTAKE 1 CAPSULE ONCE DAILY.she buys otc Fexofenadine HCl - 180 MG Oral TabletTAKE 1 TABLET DAILY NEEDED FOR ALLERGIES. Fluticasone Propionate 50 MCG/ACT Nasal SuspensionUSE 2 SPRAYS IN EACH NOSTRIL ONCE DAILY L-Glutamine 500 MG Oral Capsuleshe takes from dr carl jiménez do 1 bid Livalo 2 MG Oral Tablet1 tablet daily Losartan Potassium 100 MG Oral TabletTAKE 1 TABLET BY MOUTH EVERY DAY Magnesium 500 MG CAPSTAKE 1 CAPSULE Daily Metamucil 48.57 % Oral Powder1 tbsp daily with 2 caps of miralax daily er dr gonzales metFORMIN HCl ER 500 MG Oral Tablet Extended Release 24 HourTake 4 tabs po daily in the evening MiraLax 17 GM/SCOOP Oral Powder2 capfuls with 1 tpsp metamucil daily per dr sadaf Yusuf In Vitro Strip Precision Xtra w/Device KitUSE DIRECTED. TESTS ONCE DAILY Vitamin B-12 1000 MCG Oral TabletTAKE 1 TABLET DAILY.. Vitamin D3 50 MCG (1999 [place]) Oral CapsuleTAKE 1 CAPSULE Daily Vitals Vital Signs Recorded: [id number] 03:22PM Heart Rate60 Yxnxydsj524 Nxwpkxmbu74 Height5 ft 7.75 in Nhuqlm091 lb BMI Vsakcguuvn55.35 BSA Calculated2.36 Physical Exam Documented vital signs: Reviewed. General: No acute distress. Eye: Pupils are equal, round and reactive to light, Extraocular movements are intact, Normal conjunctiva. HENT: Normocephalic, Oral mucosa is moist, No pharyngeal erythema. Neck: Supple, Non-tender, No lymphadenopathy. Respiratory: Lungs are clear to auscultation, Respirations are non-labored, Breath sounds are equal, Symmetrical chest wall expansion. Cardiovascular: Normal rate, Regular rhythm, No murmur. Gastrointestinal: Soft, Non-tender, Non-distended, Normal bowel sounds. Musculoskeletal: Normal range of motion. Normal strength. Normal gait. Integumentary: Warm, Dry, [place], No rash. Neurologic: Alert, Oriented, No focal deficits. Cognition and Speech: Speech clear and coherent. Psychiatric: Cooperative, Appropriate mood AND affect. Results/Data Comprehensive Metabolic [id number] 10:67YBiq-VIRTLZ-DhchrPrasanna Edwards Test NameResultFlagReference Glucose, Anqtx269 mg/dLH74 - 99 Sodium, Xgert226 mmol/L136 - 145 POTASSIUM4.9 mmol/L3.5 - 5.3 Chloride, Xcgbu716 mmol/L98 - 107 Bicarbonate, Serum24 mmol/L21 - 32 Anion Gap, Serum16 mmol/L10 - 20 Blood Urea Nitrogen, Serum18 mg/dL6 - 23 CREATININE0.62 mg/dLSee Below Reference Range: 0.50 - 1.05 Calcium, Serum9.7 mg/dL8.6 - 10.6 Albumin, Serum4.5 g/dL3.4 - 5.0 ALKALINE JOWLIHHISKX20 U/L33 - 136 Protein, Total Serum7.0 g/dL6.4 - 8.2 Bilirubin, Serum Total0.5 mg/dL0.0 - 1.2 ALT (SGPT), Serum42 U/L7 - 45 Patients treated with Sulfasalazine may generate falsely decreased results for ALT. GFR Non >60 mL/min/1.73m2>60 GFR >60 mL/min/1.73m2>60 CALCULATIONS OF ESTIMATED GFR ARE PERFORMED USING THE MDRD STUDY EQUATION FOR THE IDMS-TRACEABLE CREATININE METHODS. CLIN CHEM 2007;53:766-72 AST27 U/L9 - 39 Hemoglobin [id number] 10:27DQdg-BHJCNQ-HxqpxPrasanna Edwards Test NameResultFlagReference Hemoglobin A1C, Level7.2 % Diagnosis of Diabetes-Adults Non-Diabetic: < or = 5.6% Increased risk for developing diabetes: 5.7-6.4% Diagnostic of diabetes: > or = 6.5% . Monitoring of Diabetes Age (y) Therapeutic Goal (%) Adults: >18 <7.0 Pediatrics: 13-18 <7.5 7-12 <8.0 0- 6 7.5-8.5 [place] [employer]. Diabetes Care 33(S1), Mar 2009. Estimated Average Ifhlesb057 MG/DL Lipid Fpjgw56Wkz0181 10:32MKee-BDJRBQ-ClbndPrasnana Edwards Test NameResultFlagReference Cholesterol, Ndujl086 mg/dL0 - 199 . AGE DESIRABLE BORDERLINE HIGH HIGH 0-19 Y 0 - 169 170 - 199 >/= 200 20-24 Y 0 - 189 190 - 224 >/= 225 >24 Y 0 - 199 200 - 239 >/= 240 All ranges are based on fasting samples. Specific therapeutic targets will vary based on patient-specific cardiac risk. . Pediatric guidelines reference:Pediatrics 2011, 128(S5). Adult guidelines reference: NCEP ATPIII Guidelines, SUZANNE 2001, 258:2486-97 . Venipuncture immediately after or during the administration of Metamizole may lead to falsely low results. Testing should be performed immediately prior to Metamizole dosing. HDL Cholesterol, Serum61.4 mg/dL . AGE VERY LOW LOW NORMAL HIGH 0-19 Y < 35 < 40 40-45 ---- 20-24 Y ---- < 40 >45 ---- >24 Y ---- < 40 40-60 >60 . Cholesterol/HDL Ratio3.2 REF VALUES DESIRABLE < 3.4 HIGH RISK > 5.0 LDL, Bqgpr635 mg/dLH0 - 99 . NEAR BORD AGE DESIRABLE OPTIMAL HIGH HIGH VERY HIGH 0-19 Y 0 - 109 --- 110-129 >/= 130 ---- 20-24 Y 0 - 119 --- 120-159 >/= 160 ---- >24 Y 0 - 99 100-129 130-159 160-189 >/=190 . VLDL, Serum25 mg/dL0 - 40 Triglycerides, Xvnlc320 mg/dL0 - 149 . AGE DESIRABLE BORDERLINE HIGH HIGH VERY HIGH 0 D-90 D 19 - 174 ---- ---- ---- 91 D- 9 Y 0 - 74 75 - 99 >/= 100 ---- 10-19 Y 0 - 89 90 - 129 >/= 130 ---- 20-24 Y 0 - 114 115 - 149 >/= 150 ---- >24 Y 0 - 149 150 - 199 200- 499 >/= 500 . Venipuncture immediately after or during the administration of Metamizole may lead to falsely low results. Testing should be performed immediately prior to Metamizole dosing. TSH WITH REFLEX TO FREE T4 IF [id number] 10:18GKxd-XUCMTZ-FehwpPrasanna Edwards Test NameResultFlagReference Thyroid Stimulating Hormone, Serum2.19 mIU/LSee Below Reference Range: 0.44 - 3.98 TSH testing is performed using different testing methodology at [facility] than at other [facility]. Direct result comparisons should only be made within the same method. Complete Blood Count + Betioevrdzno56Qhj5530 10:25IDas-FQWRNS-IwarhPrasanna Edwards Test NameResultFlagReference White Blood Cell Count6.6 x10E9/L4.4 - 11.3 Red Blood Cell Count4.30 x10E12/LSee Below Reference Range: 4.00 - 5.20 Nucleated Erythrocyte Count0.0 /100 WBC0.0-0.0 Nhwhdxiuas66.8 g/dLSee Below Reference Range: 12.0 - 16.0 HCT42.7 %See Below Reference Range: 36.0 - 46.0 MCV99 fL80 - 100 MCHC32.3 g/dLSee Below Reference Range: 32.0 - 36.0 Platelet Kxaam477 x10E9/L150 - 450 RDW-CV12.1 %See Below Reference Range: 11.5 - 14.5 Neutrophil %48.3 %See Below Reference Range: 40.0 - 80.0 % Automated Immature Gran0.8 %0.0 - 0.9 Immature Granulocyte Count (IG) includes promyelocytes, myelocytes and metamyelocytes but does not include bands. Percent differential counts (%) should be interpreted in the context of the absolute cell counts (cells/L). Lymphocyte %35.0 %See Below Reference Range: 13.0 - 44.0 Monocyte %5.8 %2.0 - 10.0 Eosinophil %8.9 %0.0 - 6.0 Basophil %1.2 %0.0 - 2.0 Neutrophil Count3.19 x10E9/LSee Below Reference Range: 1.20 - 7.70 Lymphocyte Count2.31 x10E9/LSee Below Reference Range: 1.20 - 4.80 Monocyte Count0.38 x10E9/LSee Below Reference Range: 0.10 - 1.00 Eosinophil Count0.59 x10E9/LSee Below Reference Range: 0.00 - 0.70 Basophil Count0.08 x10E9/LSee Below Reference Range: 0.00 - 0.10 Vitamin D 25-Iiijbva80Huk2614 10:23NHtw-GZVPST-AwrwvPrasanna Edwards Test NameResultFlagReference Vitamin D 25-Hydroxy, Level73 ng/mL . DEFICIENCY: < 20 NG/ML INSUFFICIENCY: 20-29 NG/ML SUFFICIENCY: 30-100 NG/ML THIS ASSAY ACCURATELY QUANTIFIES THE SUM OF VITAMIN D3, 25-HYDROXY AND VIT D2,25-HYDROXY. Comprehensive Metabolic Jgrxb24Zxp1283 10:43VUvv-GWNKCS-DbgvuPrasanna Edwards Test NameResultFlagReference Glucose, Znpya251 mg/dLH74 - 99 Sodium, Bzwlt356 mmol/L136 - 145 POTASSIUM4.9 mmol/L3.5 - 5.3 Chloride, Cuwxn111 mmol/L98 - 107 Bicarbonate, Serum24 mmol/L21 - 32 Anion Gap, Serum16 mmol/L10 - 20 Blood Urea Nitrogen, Serum18 mg/dL6 - 23 CREATININE0.62 mg/dLSee Below Reference Range: 0.50 - 1.05 Calcium, Serum9.7 mg/dL8.6 - 10.6 Albumin, Serum4.5 g/dL3.4 - 5.0 ALKALINE JLVRRMFQAPM09 U/L33 - 136 Protein, Total Serum7.0 g/dL6.4 - 8.2 Bilirubin, Serum Total0.5 mg/dL0.0 - 1.2 ALT (SGPT), Serum42 U/L7 - 45 Patients treated with Sulfasalazine may generate falsely decreased results for ALT. GFR Non >60 mL/min/1.73m2>60 GFR >60 mL/min/1.73m2>60 CALCULATIONS OF ESTIMATED GFR ARE PERFORMED USING THE MDRD STUDY EQUATION FOR THE IDMS-TRACEABLE CREATININE METHODS. CLIN CHEM 2007;53:766-72 AST27 U/L9 - 39 Hemoglobin [id number] 10:52YRaj-KMOFEQ-JuksvPrasanna Edwards Test NameResultFlagReference Hemoglobin A1C, Level7.2 % Diagnosis of Diabetes-Adults Non-Diabetic: < or = 5.6% Increased risk for developing diabetes: 5.7-6.4% Diagnostic of diabetes: > or = 6.5% . Monitoring of Diabetes Age (y) Therapeutic Goal (%) Adults: >18 <7.0 Pediatrics: 13-18 <7.5 7-12 <8.0 0- 6 7.5-8.5 [place] [employer]. Diabetes Care 33(S1), Mar 2009. Estimated Average Uyvbwhx777 MG/DL Lipid Kpjjz39Clu4379 10:89ILsc-PLJFVY-ZdekuPrasanna Edwards Test NameResultFlagReference Cholesterol, Fubun977 mg/dL0 - 199 . AGE DESIRABLE BORDERLINE HIGH HIGH 0-19 Y 0 - 169 170 - 199 >/= 200 20-24 Y 0 - 189 190 - 224 >/= 225 >24 Y 0 - 199 200 - 239 >/= 240 All ranges are based on fasting samples. Specific therapeutic targets will vary based on patient-specific cardiac risk. . Pediatric guidelines reference:Pediatrics 2011, 128(S5). Adult guidelines reference: NCEP ATPIII Guidelines, SUZANNE 2001, 258:2486-97 . Venipuncture immediately after or during the administration of Metamizole may lead to falsely low results. Testing should be performed immediately prior to Metamizole dosing. HDL Cholesterol, Serum61.4 mg/dL . AGE VERY LOW LOW NORMAL HIGH 0-19 Y < 35 < 40 40-45 ---- 20-24 Y ---- < 40 >45 ---- >24 Y ---- < 40 40-60 >60 . Cholesterol/HDL Ratio3.2 REF VALUES DESIRABLE < 3.4 HIGH RISK > 5.0 LDL, Okyys390 mg/dLH0 - 99 . NEAR BORD AGE DESIRABLE OPTIMAL HIGH HIGH VERY HIGH 0-19 Y 0 - 109 --- 110-129 >/= 130 ---- 20-24 Y 0 - 119 --- 120-159 >/= 160 ---- >24 Y 0 - 99 100-129 130-159 160-189 >/=190 . VLDL, Serum25 mg/dL0 - 40 Triglycerides, Sbajm014 mg/dL0 - 149 . AGE DESIRABLE BORDERLINE HIGH HIGH VERY HIGH 0 D-90 D 19 - 174 ---- ---- ---- 91 D- 9 Y 0 - 74 75 - 99 >/= 100 ---- 10-19 Y 0 - 89 90 - 129 >/= 130 ---- 20-24 Y 0 - 114 115 - 149 >/= 150 ---- >24 Y 0 - 149 150 - 199 200- 499 >/= 500 . Venipuncture immediately after or during the administration of Metamizole may lead to falsely low results. Testing should be performed immediately prior to Metamizole dosing. TSH WITH REFLEX TO FREE T4 IF [id number] 10:36XUbt-NEPEDY-Gfpve Cliflisandraclaudy Test NameResultFlagReference Thyroid Stimulating Hormone, Serum2.19 mIU/LSee Below Reference Range: 0.44 - 3.98 TSH testing is performed using different testing methodology at [facility] than [facility]. Direct result comparisons should only be made within the same method. Complete Blood Count + Ihtqststmrnu19Wyc9163 10:14DCue-WOVCTB-IriqkPrasanna Edwards Test NameResultFlagReference White Blood Cell Count6.6 x10E9/L4.4 - 11.3 Red Blood Cell Count4.30 x10E12/LSee Below Reference Range: 4.00 - 5.20 Nucleated Erythrocyte Count0.0 /100 WBC0.0-0.0 Uwjmxdqugv32.8 g/dLSee Below Reference Range: 12.0 - 16.0 HCT42.7 %See Below Reference Range: 36.0 - 46.0 MCV99 fL80 - 100 MCHC32.3 g/dLSee Below Reference Range: 32.0 - 36.0 Platelet Hndji628 x10E9/L150 - 450 RDW-CV12.1 %See Below Reference Range: 11.5 - 14.5 Neutrophil %48.3 %See Below Reference Range: 40.0 - 80.0 % Automated Immature Gran0.8 %0.0 - 0.9 Immature Granulocyte Count (IG) includes promyelocytes, myelocytes and metamyelocytes but does not include bands. Percent differential counts (%) should be interpreted in the context of the absolute cell counts (cells/L). Lymphocyte %35.0 %See Below Reference Range: 13.0 - 44.0 Monocyte %5.8 %2.0 - 10.0 Eosinophil %8.9 %0.0 - 6.0 Basophil %1.2 %0.0 - 2.0 Neutrophil Count3.19 x10E9/LSee Below Reference Range: 1.20 - 7.70 Lymphocyte Count2.31 x10E9/LSee Below Reference Range: 1.20 - 4.80 Monocyte Count0.38 x10E9/LSee Below Reference Range: 0.10 - 1.00 Eosinophil Count0.59 x10E9/LSee Below Reference Range: 0.00 - 0.70 Basophil Count0.08 x10E9/LSee Below Reference Range: 0.00 - 0.10 Vitamin D 25-Cvjonrt01Jej6406 10:52QIcf-DNPAXI-JvhotPrasanna Sanderson Test NameResultFlagReference Vitamin D 25-Hydroxy, Level73 ng/mL . DEFICIENCY: < 20 NG/ML INSUFFICIENCY: 20-29 NG/ML SUFFICIENCY: 30-100 NG/ML THIS ASSAY ACCURATELY QUANTIFIES THE SUM OF VITAMIN D3, 25-HYDROXY AND VIT D2,25-HYDROXY. 'Scores and Scales' Signatures Electronically signed by : Lambert Colón MD; Mar 15 2020 12:08AM EST (Author) Normal Touchworks CBC AND DIFFERENTIALon 02-26 % AUTOMATED IMMATURE GRAN 0.8 % Normal 0.0 - 0.9 [facility] Comment on above: Result Comment: Olga ture Granulocyte Count (IG) includes promyelocytes, myelocytes and metamyelocytes but does not include bands. Percent differential counts (%) should be interpreted in the context of the absolute cell counts (cells/L). Performed By: #### C BCDF #### [facility] [address] [place] [address] Basophils (Bld) [#/Vol] 0.08 10*3/uL Normal 0.00 - 0.10 [facility] Comment on above: Performed By: #### C BCDF #### [facility] [address] [place] [address] Basophils/100 WBC (Bld) 1.2 % Normal 0.0 - 2.0 [facility] Comment on above: Performed By: #### C BCDF #### [facility] [address] [place] [address] Eosinophils (Bld) [#/Vol] 0.59 10*3/uL Normal 0.00 - 0.70 [facility] Comment on above: Performed By: #### C BCDF #### [facility] [address] [place] [address] Eosinophils/100 WBC (Bld) 8.9 % Normal 0.0 - 6.0 [facility] Comment on above: Performed By: #### C BCDF #### [facility] [address] [place] [address] Erythrocyte distribution width (RBC) [Ratio] 12.1 % Normal 11.5 - 14.5 [facility] Comment on above: Performed By: #### C BCDF #### [facility] [address] [place] [address] Hematocrit (Bld) [Volume fraction] 42.7 % Normal 36.0 - 46.0 [facility] Comment on above: Performed By: #### C BCDF #### [facility] [address] [place] [address] Hemoglobin (Bld) [Mass/Vol] 13.8 g/dL Normal 12.0 - 16.0 [facility] Comment on above: Performed By: #### C BCDF #### [facility] [address] [place] [address] Lymphocytes (Bld) [#/Vol] 2.31 10*3/uL Normal 1.20 - 4.80 [facility] Comment on above: Performed By: #### C BCDF #### [facility] [address] [place] [address] Lymphocytes/100 WBC (Bld) 35.0 % Normal 13.0 - 44.0 [facility] Comment on above: Performed By: #### C BCDF #### [facility] [address] [place] [address] MCHC (RBC) [Mass/Vol] 32.3 g/dL Normal 32.0 - 36.0 [facility] Comment on above: Performed By: #### C BCDF #### [facility] [address] [place] [address] MCV (RBC) [Entitic vol] 99 fL Normal 80 - 100 [facility] Comment on above: Performed By: #### C BCDF #### [facility] [address] [place] [address] Monocytes (Bld) [#/Vol] 0.38 10*3/uL Normal 0.10 - 1.00 [facility] Comment on above: Performed By: #### C BCDF #### [facility] [address] [place] [address] Monocytes/100 WBC (Bld) 5.8 % Normal 2.0 - 10.0 [facility] Comment on above: Performed By: #### C BCDF #### [facility] [address] [place] [address] Neutrophils (Bld) [#/Vol] 3.19 10*3/uL Normal 1.20 - 7.70 [facility] Comment on above: Performed By: #### C BCDF #### [facility] [address] [place] [address] Neutrophils/100 WBC (Bld) 48.3 % Normal 40.0 - 80.0 [facility] Comment on above: Performed By: #### C BCDF #### [facility] [address] [place] [address] Nucleated RBC/100 WBC (Bld) [Ratio] 0.0 /100 WBC Normal 0.0-0.0 [facility] Comment on above: Performed By: #### C BCDF #### [facility] [address] [place] [address] Platelets (Bld) [#/Vol] 284 10*3/uL Normal 150 - 450 [facility] Comment on above: Performed By: #### C BCDF #### [facility] [address] [place] [address] RBC (Bld) [#/Vol] 4.30 x10E12/L Normal 4.00 - 5.20 [facility] Comment on above: Performed By: #### C BCDF #### [facility] [address] [place] [address] WBC (Bld) [#/Vol] 6.6 10*3/uL Normal 4.4 - 11.3 [facility] Comment on above: Performed By: #### C BCDF #### [facility] [address] [place] [address] COMPREHENSIVE PANELon 2019 Albumin [Mass/Vol] 4.5 g/dL Normal 3.4 - 5.0 [facility] Comment on above: Performed By: #### T HYDS #### [facility] [address] [place] [address] ALP [Catalytic activity/Vol] 68 U/L Normal 33 - 136 [facility] Comment on above: Performed By: #### T HYDS #### [facility] [address] [place] [address] ALT [Catalytic activity/Vol] 42 U/L Normal 7 - 45 [facility] Comment on above: Result Comment: Sera ents treated with Sulfasalazine may generate falsely decreased results for ALT. Performed By: #### T HYDS #### [facility] [address] [place] [address] Anion gap [Moles/Vol] 16 mmol/L Normal 10 - 20 [facility] Comment on above: Performed By: #### T HYDS #### [facility] [address] [place] [address] AST [Catalytic activity/Vol] 27 U/L Normal 9 - 39 [facility] Comment on above: Performed By: #### T HYDS #### [facility] [address] [place] [address] Bilirubin [Mass/Vol] 0.5 mg/dL Normal 0.0 - 1.2 [facility] Comment on above: Performed By: #### T HYDS #### [facility] [address] [place] [address] Calcium [Mass/Vol] 9.7 mg/dL Normal 8.6 - 10.6 [facility] Comment on above: Performed By: #### T HYDS #### [facility] [address] [place] [address] Chloride [Moles/Vol] 104 mmol/L Normal 98 - 107 [facility] Comment on above: Performed By: #### T HYDS #### [facility] [address] [place] [address] Creatinine [Mass/Vol] 0.62 mg/dL Normal 0.50 - 1.05 [facility] Comment on above: Performed By: #### T HYDS #### [facility] [address] [place] [address] GFR- AM. >60 Normal >60 [facility] Comment on above: Result Comment: CALC ULATIONS OF ESTIMATED GFR ARE PERFORMED USING THE MDRD STUDY EQUATION FOR THE IDMS-TRACEABLE CREATININE METHODS. CLIN CHEM 2007;53:766-72 Performed By: #### T HYDS #### [facility] [address] [place] [address] GFR-NON AM. >60 Normal >60 [facility] Comment on above: Performed By: #### T HYDS #### [facility] [address] [place] [address] Glucose [Mass/Vol] 139 mg/dL High 74 - 99 [facility] Comment on above: Performed By: #### T HYDS #### [facility] [address] [place] [address] HCO3 (Bld) [Moles/Vol] 24 mmol/L Normal 21 - 32 [facility] Comment on above: Performed By: #### T HYDS #### [facility] [address] [place] [address] Potassium [Moles/Vol] 4.9 mmol/L Normal 3.5 - 5.3 [facility] Comment on above: Performed By: #### T HYDS #### [facility] [address] [place] [address] Protein [Mass/Vol] 7.0 g/dL Normal 6.4 - 8.2 [facility] Comment on above: Performed By: #### T HYDS #### [facility] [address] [place] [address] Sodium [Moles/Vol] 139 mmol/L Normal 136 - 145 [facility] Comment on above: Performed By: #### T HYDS #### [facility] [address] [place] [address] Urea nitrogen [Mass/Vol] 18 mg/dL Normal 6 - 23 [facility] Comment on above: Performed By: #### T HYDS #### [facility] [address] [place] [address] HEMOGLOBIN A1Con 02-27-2020 HbA1c (Bld) [Mass fraction] 7.2 % Normal [facility] Comment on above: Result Comment: Diag nosis of Diabetes-Adults Non-Diabetic: < or = 5.6% Increased risk for developing diabetes: 5.7-6.4% Diagnostic of diabetes: > or = 6.5% . Monitoring of Diabetes Age (y) Therapeutic Goal (%) Adults: >18 <7.0 Pediatrics: 13-18 <7.5 7-12 <8.0 0- 6 7.5-8.5 [place] [employer]. Diabetes Care 33(S1), Mar 2009. Performed By: #### H BA1E #### [facility] [address] [place] [address] HbA1c (Bld) [Mass fraction] 160 MG/DL Normal [facility] Comment on above: Performed By: #### H BA1E #### [facility] [address] [place] [address] LIPID PANEL (CORONARY RISK 2 )on 02-27-2020 Cholesterol [Mass/Vol] 194 mg/dL Normal 0 - 199 [facility] Comment on above: Result Comment: . AGE DESIRABLE BORDERLINE HIGH HIGH 0-19 Y 0 - 169 170 - 199 >/= 200 20-24 Y 0 - 189 190 - 224 >/= 225 >24 Y 0 - 199 200 - 239 >/= 240 All ranges are based on fasting samples. Specific therapeutic targets will vary based on patient-specific cardiac risk. . Pediatric guidelines reference:Pediatrics 2011, 128(S5). Adult guidelines reference: NCEP ATPIII Guidelines, SUZANNE 2001, 258:2486-97 . Venipuncture immediately after or during the administration of Metamizole may lead to falsely low results. Testing should be performed immediately prior to Metamizole dosing. Performed By: #### L IPID #### [facility] [address] [place] [address] Cholesterol in HDL [Mass/Vol] 61.4 mg/dL Normal [facility] Comment on above: Result Comment: . AGE VERY LOW LOW NORMAL HIGH 0-19 Y < 35 < 40 40-45 ---- 20-24 Y ---- < 40 >45 ---- >24 Y ---- < 40 40-60 >60 . Performed By: #### L IPID #### [facility] [address] [place] [address] Cholesterol in LDL [Mass/Vol] 108 mg/dL High 0 - 99 [facility] Comment on above: Result Comment: . NEAR BORD AGE DESIRABLE OPTIMAL HIGH HIGH VERY HIGH 0-19 Y 0 - 109 --- 110-129 >/= 130 ---- 20-24 Y 0 - 119 --- 120-159 >/= 160 ---- >24 Y 0 - 99 100-129 130-159 160-189 >/=190 . Performed By: #### L IPID #### [facility] [address] [place] [address] Cholesterol in VLDL [Mass/Vol] 25 mg/dL Normal 0 - 40 [facility] Comment on above: Performed By: #### L IPID #### [facility] [address] [place] [address] Cholesterol.total /Cholesterol in HDL [Mass ratio] 3.2 {ratio} Normal [facility] Comment on above: Result Comment: REF VALUES DESIRABLE < 3.4 HIGH RISK > 5.0 Performed By: #### L IPID #### [facility] [address] [place] [address] Triglyceride [Mass/Vol] 125 mg/dL Normal 0 - 149 [facility] Comment on above: Result Comment: . AGE DESIRABLE BORDERLINE HIGH HIGH VERY HIGH 0 D-90 D 19 - 174 ---- ---- ---- 91 D- 9 Y 0 - 74 75 - 99 >/= 100 ---- 10-19 Y 0 - 89 90 - 129 >/= 130 ---- 20-24 Y 0 - 114 115 - 149 >/= 150 ---- >24 Y 0 - 149 150 - 199 200- 499 >/= 500 . Venipuncture immediately after or during the administration of Metamizole may lead to falsely low results. Testing should be performed immediately prior to Metamizole dosing. Performed By: #### L IPID #### [facility] [address] [place] [address] TSH WITH REFLEX TO FREE T4 I F ABNORMALon 02-27-2020 TSH Qn 2.19 m[IU]/L Normal 0.44 - 3.98 [facility] Comment on above: Result Comment: TSH testing is performed using different testing methodology at [facility] than at other [facility]. Direct result comparisons should only be made within the same method. Performed By: #### T HYDS #### [facility] [address] [place] [address] VITAMIN D, 25-HYDROXYon VITAMIN D, 25-HYDROXY 73 ng/mL Normal [facility] Comment on above: Result Comment: . DEFICIENCY: < 20 NG/ML INSUFFICIENCY: 20-29 NG/ML SUFFICIENCY: 30-100 NG/ML THIS ASSAY ACCURATELY QUANTIFIES THE SUM OF VITAMIN D3, 25-HYDROXY AND VIT D2,25-HYDROXY. Performed By: #### V TDOH #### [facility] [address] [place] [address] COMPREHENSIVE PANELon 2019 Albumin [Mass/Vol] 4.4 g/dL Normal 3.4 - 5.0 [facility] Comment on above: Performed By: #### C MP #### [facility] [address] [place] [address] ALP [Catalytic activity/Vol] 57 U/L Normal 33 - 136 [facility] Comment on above: Performed By: #### C MP #### [facility] [address] [place] [address] ALT [Catalytic activity/Vol] 30 U/L Normal 7 - 45 [facility] Comment on above: Result Comment: Sera ents treated with Sulfasalazine may generate falsely decreased results for ALT. Performed By: #### C MP #### [facility] [address] [place] [address] Anion gap [Moles/Vol] 14 mmol/L Normal 10 - 20 [facility] Comment on above: Performed By: #### C MP #### [facility] [address] [place] [address] AST [Catalytic activity/Vol] 21 U/L Normal 9 - 39 [facility] Comment on above: Performed By: #### C MP #### [facility] [address] [place] [address] Bilirubin [Mass/Vol] 0.6 mg/dL Normal 0.0 - 1.2 [facility] Comment on above: Performed By: #### C MP #### [facility] [address] [place] [address] Calcium [Mass/Vol] 10.1 mg/dL Normal 8.6 - 10.6 [facility] Comment on above: Performed By: #### C MP #### [facility] [address] [place] [address] Chloride [Moles/Vol] 104 mmol/L Normal 98 - 107 [facility] Comment on above: Performed By: #### C MP #### [facility] [address] [place] [address] Creatinine [Mass/Vol] 0.76 mg/dL Normal 0.50 - 1.05 [facility] Comment on above: Performed By: #### C MP #### [facility] [address] [place] [address] GFR- AM. >60 Normal >60 [facility] Comment on above: Result Comment: CALC ULATIONS OF ESTIMATED GFR ARE PERFORMED USING THE MDRD STUDY EQUATION FOR THE IDMS-TRACEABLE CREATININE METHODS. CLIN CHEM 2007;53:766-72 Performed By: #### C MP #### [facility] [address] [place] [address] GFR-NON AM. >60 Normal >60 [facility] Comment on above: Performed By: #### C MP #### [facility] [address] [place] [address] Glucose [Mass/Vol] 106 mg/dL High 74 - 99 [facility] Comment on above: Performed By: #### C MP #### [facility] [address] [place] [address] HCO3 (Bld) [Moles/Vol] 28 mmol/L Normal 21 - 32 [facility] Comment on above: Performed By: #### C MP #### [facility] [address] [place] [address] Potassium [Moles/Vol] 4.5 mmol/L Normal 3.5 - 5.3 [facility] Comment on above: Performed By: #### C MP #### [facility] [address] [place] [address] Protein [Mass/Vol] 6.7 g/dL Normal 6.4 - 8.2 [facility] Comment on above: Performed By: #### C MP #### [facility] [address] [place] [address] Sodium [Moles/Vol] 141 mmol/L Normal 136 - 145 [facility] Comment on above: Performed By: #### C MP #### [facility] [address] [place] [address] Urea nitrogen [Mass/Vol] 21 mg/dL Normal 6 - 23 [facility] Comment on above: Performed By: #### C MP #### [facility] [address] [place] [address] HEMOGLOBIN A1Con 08-28-2019 HbA1c (Bld) [Mass fraction] 6.2 % Normal [facility] Comment on above: Result Comment: Diag nosis of Diabetes-Adults Non-Diabetic: < or = 5.6% Increased risk for developing diabetes: 5.7-6.4% Diagnostic of diabetes: > or = 6.5% . Monitoring of Diabetes Age (y) Therapeutic Goal (%) Adults: >18 <7.0 Pediatrics: 13-18 <7.5 7-12 <8.0 0- 6 7.5-8.5 [place] [employer]. Diabetes Care 33(S1), Mar 2009. Performed By: #### H BA1E #### [facility] [address] [place] [address] HbA1c (Bld) [Mass fraction] 131 MG/DL Normal [facility] Comment on above: Performed By: #### H BA1E #### [facility] [address] [place] [address] Hemoglobin A1Con 08-28-2019 HbA1c (Bld) [Mass fraction] 6.2 % [employer] [email or web address] Work Phone: Comment on above: Diagnosis of Diabete s-Adults Non-Diabetic: < or = 5.6% Increased risk for developing diabetes: 5.7-6.4% Diagnostic of diabetes: > or = 6.5%. Monitoring of Diabetes Age (y) Therapeutic Goal (%) Adults: >18 <7.0 Pediatrics: 13-18 <7.5 7-12 <8.0 0- 6 7.5-8.5 [place] [employer]. Diabetes Care 33(S1), Mar 2009. HbA1c (Bld) [Mass fraction] 131 {MG/DL} [email or web address] Work Phone: LIPID PANEL (CORONARY RISK 2 )on 08-28-2019 Cholesterol [Mass/Vol] 202 mg/dL High 0 - 199 [facility] Comment on above: Result Comment: . AGE DESIRABLE BORDERLINE HIGH HIGH 0-19 Y 0 - 169 170 - 199 >/= 200 20-24 Y 0 - 189 190 - 224 >/= 225 >24 Y 0 - 199 200 - 239 >/= 240 All ranges are based on fasting samples. Specific therapeutic targets will vary based on patient-specific cardiac risk. . Pediatric guidelines reference:Pediatrics 2011, 128(S5). Adult guidelines reference: NCEP ATPIII Guidelines, SUZANNE 2001, 258:2486-97 . Venipuncture immediately after or during the administration of Metamizole may lead to falsely low results. Testing should be performed immediately prior to Metamizole dosing. Performed By: #### L IPID #### [facility] [id number] [place] [address] Cholesterol in HDL [Mass/Vol] 62.8 mg/dL Normal [facility] Comment on above: Result Comment: . AGE VERY LOW LOW NORMAL HIGH 0-19 Y < 35 < 40 40-45 ---- 20-24 Y ---- < 40 >45 ---- >24 Y ---- < 40 40-60 >60 . Performed By: #### L IPID #### [facility] [id number] [place] [address] Cholesterol in LDL [Mass/Vol] 123 mg/dL High 0 - 99 [facility] Comment on above: Result Comment: . NEAR BORD AGE DESIRABLE OPTIMAL HIGH HIGH VERY HIGH 0-19 Y 0 - 109 --- 110-129 >/= 130 ---- 20-24 Y 0 - 119 --- 120-159 >/= 160 ---- >24 Y 0 - 99 100-129 130-159 160-189 >/=190 . Performed By: #### L IPID #### [facility] [id number] [place] [address] Cholesterol in VLDL [Mass/Vol] 16 mg/dL Normal 0 - 40 [facility] Comment on above: Performed By: #### L IPID #### [facility] [id number] [place] [address] Cholesterol.total /Cholesterol in HDL [Mass ratio] 3.2 {ratio} Normal [facility] Comment on above: Result Comment: REF VALUES DESIRABLE < 3.4 HIGH RISK > 5.0 Performed By: #### L IPID #### [facility] [id number] [place] [address] Triglyceride [Mass/Vol] 80 mg/dL Normal 0 - 149 [facility] Comment on above: Result Comment: . AGE DESIRABLE BORDERLINE HIGH HIGH VERY HIGH 0 D-90 D 19 - 174 ---- ---- ---- 91 D- 9 Y 0 - 74 75 - 99 >/= 100 ---- 10-19 Y 0 - 89 90 - 129 >/= 130 ---- 20-24 Y 0 - 114 115 - 149 >/= 150 ---- >24 Y 0 - 149 150 - 199 200- 499 >/= 500 . Venipuncture immediately after or during the administration of Metamizole may lead to falsely low results. Testing should be performed immediately prior to Metamizole dosing. Performed By: #### L IPID #### [facility] [id number] [place] [address] Lipid Panelon 08-28-2019 Cholesterol [Mass/Vol] 202 mg/dL above high threshold 0 - 199 [facility] Work Phone: Comment on above: . AGE DESIRABLE BORD NICK HIGH HIGH 0-19 Y 0 - 169 170 - 199 >/= 200 20-24 Y 0 - 189 190 - 224 >/= 225 >24 Y 0 - 199 200 - 239 >/= 240 All ranges are based on fasting samples. Specific therapeutic targets will vary based on patient-specific cardiac risk.. Pediatric guidelines reference:Pediatrics 2011, 128(S5). Adult guidelines reference: NCEP ATPIII Guidelines, SUZANNE 2001, 258:2486-97. Venipuncture immediately after or during the administration of Metamizole may lead to falsely low results. Testing should be performed immediately prior to Metamizole dosing. Cholesterol in HDL [Mass/Vol] 62.8 mg/dL [employer] Work Phone: Comment on above: . AGE VERY LOW LOW N ORMAL HIGH 0-19 Y < 35 < 40 40-45 ---- 20- 24 Y ---- < 40 >45 ---- >24 Y ---- < 40 40-60 >60. Cholesterol in LDL [Mass/Vol] 123 mg/dL above high threshold 0 - 99 [employer] Work Phone: Comment on above: . NEAR BORD AGE DEAN RABLE OPTIMAL HIGH HIGH VERY HIGH 0-19 Y 0 - 109 --- 110-129 >/= 130 ---- 20-24 Y 0 - 119 --- 120-159 >/= 160 ---- >24 Y 0 - 99 100-129 130-159 160-189 >/=190. Cholesterol.total /Cholesterol in HDL [Mass ratio] 3.2 {ratio} [employer] Work Phone: Comment on above: REF VALUESDESIRABLE < 3.4HIGH RISK > 5.0 Triglyceride [Mass/Vol] 80 mg/dL 0 - 149 [employer] Work Phone: Comment on above: . AGE DESIRABLE BORD NICK HIGH HIGH VERY HIGH 0 D-90 D 19 - 174 ---- ---- ----91 D- 9 Y 0 - 74 75 - 99 >/= 100 ---- 10-19 Y 0 - 89 90 - 129 >/= 130 ---- 20-24 Y 0 - 114 115 - 149 >/= 150 ---- >24 Y 0 - 149 150 - 199 200- 499 >/= 500. Venipuncture immediately after or during the administration of Metamizole may lead to falsely low results. Testing should be performed immediately prior to Metamizole dosing. Lipid Panel 16 mg/dL 0 - 40 [email or web address] Work Phone: Metabolic Panelon 08-28-2019 ALP [Catalytic activity/Vol] 57 U/L 33 - 136 [facility] Work Phone: Anion gap [Moles/Vol] 14 mmol/L 10 - 20 [facility] Work Phone: Bilirubin [Mass/Vol] 0.6 mg/dL 0.0 - 1.2 [facility] Work Phone: Calcium [Mass/Vol] 10.1 mg/dL 8.6 - 10.6 [facility] Work Phone: Chloride [Moles/Vol] 104 mmol/L 98 - 107 [facility] Work Phone: CO2 [Moles/Vol] 28 mmol/L 21 - 32 [facility] Work Phone: Creatinine [Mass/Vol] 0.76 mg/dL See Below [facility] Work Phone: Comment on above: Reference Range: 0.5 0 - 1.05 Glucose [Mass/Vol] 106 mg/dL above high threshold 74 - 99 [facility] Work Phone: Potassium [Moles/Vol] 4.5 mmol/L 3.5 - 5.3 [facility] Work Phone: Protein [Mass/Vol] 6.7 g/dL 6.4 - 8.2 [facility] Work Phone: Sodium [Moles/Vol] 141 mmol/L 136 - 145 [facility] Work Phone: Urea nitrogen [Mass/Vol] 21 mg/dL 6 - 23 [facility] Work Phone: Otheron 08-28-2019 Albumin BCP dye [Mass/Vol] 4.4 g/dL 3.4 - 5.0 [facility] Work Phone: ALT With P-5'-P [Catalytic activity/Vol] 30 U/L 7 - 45 [facility] Work Phone: Comment on above: Patients treated wit h Sulfasalazine may generate falsely decreased results for ALT. AST With P-5'-P [Catalytic activity/Vol] 21 U/L 9 - 39 [facility] Work Phone: >60 >60 [facility] Work Phone: Comment on above: CALCULATIONS OF RAHDA MATED GFR ARE PERFORMED USING THE MDRD STUDY EQUATION FOR THE IDMS-TRACEABLE CREATININE METHODS. CLIN CHEM 2007;53:766-72 Operative Reporton 9 Operative Report [facility] OPERATIVE RECORD ROSE MARY NARANJO [facility] [id number] [facility] JÚNIOR VASQUEZ MD [id number] SURGEON: Júnior Vasquez MD DATE OF OPERATION: 11/25/2018 PREOPERATIVE DIAGNOSIS: Anal fissure. POSTOPERATIVE DIAGNOSIS: Anal fissure. PROCEDURE: Exam under anesthesia with anal dilation and chemical sphincter denervation with Botox injection, perirectal nerve block. DESCRIPTION OF PROCEDURE: The patient was brought to operating room, placed on the operating table in the supine position. General anesthesia. Moved in lithotomy position. We proceeded with exam under anesthesia. 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 At that time, we proceeded with manual dilation of the sphincter with speculums. After dilation of the sphincter, we proceeded with chemical denervation of the sphincter using injection of Botox solution into the internal sphincter muscles. It was done on the base of the fissure as well as at 1 and 2 o'clock position as well as 3 and 9 o'clock position. Additional injection of 20 units of the Botox was done at the 6 o'clock position. Total was 60 units of Botox. When it was done, we proceeded with a perirectal nerve block which was done with direct injection of solution of lidocaine and Marcaine into perirectal space in 4 quadrants. The patient tolerated the procedure well. Was transferred to the recovery room in stable condition. ____ JÚNIOR VASQUEZ MD VD/Martha /[id number] Normal [facility] Anesthesiaon 11-25-2018 Anesthesia Patient: SHRUTI NARANJO Age: 57 years Sex: Female : 1960 Associated Diagnoses: None Author: IDANIA WINTERS MD DIAGNOSIS: Anal fissure Preoperative Information Procedure/ Case: . NPO greater than 8 hours. Anesthesia history Patient's history: negative. Family's history: negative. Review of Systems ALL SYSTEMS REVIEWED: CV, PULM, GI, , NEURO, HEPATIC, HEME, ENDO, PSYCH, MS HISTORY/ROS:HTN, NIDDM, HL, OBESITY, SALVADOR USES CPAP Health Status Allergies: Allergies (4) Active Reaction Antara (fenofibrate) Bactrim nausea Crestor myalgia fluvastatin myalgia Current medications: Home Medications (7) Active cholecalciferol 2000 intl units oral tablet 2,000 intl_unit = 1 tabs, ORAL, DAILY cyanocobalamin 1000 mcg sublingual tablet 2,000 mcg = 2 tabs, Sublingual, DAILY Herbal Supplement L-Glutamic Acid 500 mg, ORAL, DAILY Livalo 2 mg oral tablet 2 mg = 1 tabs, ORAL, EVERY OTHER DAY losartan 100 mg oral tablet 100 mg = 1 tabs, ORAL, DAILY metFORMIN 500 mg oral tablet, extended release 500 mg = 1 tabs, ORAL, DAILY WITH SUPPER LABORATORY DATA Chemistry BMP Plus Mag No qualifying data available. Hematology CBC brief [address] No qualifying data available. Coagulation PT INR [address] No qualifying data available. Test No qualifying data available. Histories Past Medical History: No qualifying data available Procedure history: No active procedure history items have been selected or recorded. Social History Social & Psychosocial Habits No Data Available . Physical Examination VITALS Vital Signs (last value in last 48 hours) Temperature Temporal Artery: 36 degC Low (11/25/18 13:45:00) Respiratory Rate: 16 br/min (11/25/18 13:45:00) Heart Rate Monitored: 56 bpm Low (11/25/18 13:45:00) Systolic Blood Pressure: 133 mmHg (11/25/18 13:45:00) Diastolic Blood Pressure: 85 mmHg (11/25/18 13:45:00) SpO2: 95 % (11/25/18 13:45:00)Height and Weight (last value in last 48 hours) Height/Length Dosin.26 cm (11/25/18 13:45:00) Weight Dosin kg (11/25/18 13:45:00) General: Alert and oriented. Airway: Mallampati classification: II (soft palate, fauces, uvula visible). Respiratory: Lungs are clear to auscultation. Cardiovascular: Normal rate, Regular rhythm. Review / Management ECG interpretation: REVIEWED. Assessment and Plan [place] [employer] Anesthesiologists (ASA) physical status classification: Class III. Anesthetic Preoperative Plan Premedication: intravenous. Anesthetic technique: General anesthesia, balanced technique.. Induction: intravenously, Balanced technique. Maintenance airway: Laryngeal mask airway. Special techniques: Warming device. Special monitoring: Standard ASA monitors.. Postoperative pain management: Per surgeon. Risks discussed: all listed but not limited to.. Informed consent: signed by patient. Notes: Ethnicity: Non , white Language: Serbian Email: Refused Smoking:NONE Betablocker:NONE. Normal [facility] OR Nursing Record - Main Trinh n 11-25-2018 OR Nursing Record - Main OR OR Nursing Record - Main OR Summary Primary Physician: JÚNIOR VASQUEZ MD Finalized Date/Time: 11/25/18 17:41:29 Pt. Name: ROSE MARY NARANJO /Sex: 1960 Female Med Rec #: [id number] Physician: Financial #: [id number] Pt. Type: A Room/Bed: / Admit/Disch: 11/25/18 13:39:07 - Institution: Transport to OR - Main OR Entry 1 By Flaco Stone RN Date/Time Leaving 11/25/18 15:47:00 Preop Siderails Up? Yes Last Modified By: Flaco Stone RN 11/25/18 15:59:55 Case Times - Main OR Entry 1 Patient In Room Time 11/25/18 15:48:00 Out Room Time 11/25/18 16:20:00 Anesthesia Facility Times Induction Time 11/25/18 15:49:00 Stop Time 11/25/18 16:19:00 [place] Protocol Yes Completed Surgery Start Time 11/25/18 16:07:00 Stop Time 11/25/18 16:19:00 Last Modified By: Flaco Stone RN 11/25/18 16:25:19 Surgical Procedures - Main OR Entry 1 Procedure Rectal Procedure Modifiers None Surgeon Procedure RECTAL EXAM UNDER Primary Procedure Yes Description ANESTHESIA WITH BOTOX INJECTION, Primary Surgeon JÚNIOR VASQUEZ MD Start 11/25/18 16:07:00 Stop 11/25/18 16:19:00 Anesthesia Type General Surgical Service SN - General Last Modified By: Aspen Wyatt RN 11/25/18 17:41:26 Case Attendance - Main OR Entry 1 Entry 2 Entry 3 Case Attendee JÚNIOR VASQUEZ MD, MD, KATERIN CANCINO PA-C Performed Surgeon Primary Anesthesiologist Primary TAMIR Primary Time In 11/25/18 15:48:00 11/25/18 15:48:00 11/25/18 15:48:00 Time Out 11/25/18 16:20:00 11/25/18 16:20:00 11/25/18 16:20:00 Procedure Rectal Procedure(None) Rectal Procedure(None) Rectal Procedure(None) Last Modified By: Flaco Stone RN 11/25/18 Flaco Stone RN 11/25/18 Flaco Stone RN 11/25/18 16:25:21 16:25:21 16:25:21 Entry 4 Entry 5 Case Attendee Flaco Stone RN, Emilee Role Performed Weight Checker Primary Scrub Primary Time In 11/25/18 15:48:00 11/25/18 15:48:00 Time Out 11/25/18 16:20:00 11/25/18 16:20:00 Procedure Rectal Procedure(None) Rectal Procedure(None) Last Modified By: Flaco Stone RN 11/25/18 Flaco Stone RN 11/25/18 16:25:21 16:25:21 General Case Data - Main OR Entry 1 Case Information OR OR 08 Schedule Type Scheduled Case Level Level 4 Wound Class Clean-Contaminated Specialty SN - General ASA Class 3 Procedure History Yes Documented Diagnosis Preop Diagnosis ANAL FISSURE Postop Diagnosis ANAL FISSURE Last Modified By: Flaco Stone RN 11/25/18 16:19:11 Delays - Main OR Entry 1 Delay Reason Prior Case Delay Last Modified By: Flaco Stone RN 11/25/18 16:04:12 Patient Positioning - Main OR Entry 1 Procedure Rectal Procedure(None) Body Position Lithotomy Left Arm Position Extended on padded arm Right Arm Position Extended on padded arm board board Left Leg Position Secured in Stirrup Right Leg Position Secured in Stirrup Feet Uncrossed? Yes Press Points Checked Yes By IDANIA WINTERS MD, Snow Positioning Devices SCDs Knee High, Pillow Flaco BAUER under Head, Stirrups, Candy Cane, Padded Armboard Last Modified By: Flaco Stone RN 11/25/18 16:07:48 Skin Prep - Main OR Entry 1 Procedure Rectal Procedure(None) Prep Area RECTUM Prep Agents Betadine Solution By KATERIN ARANDA PA-C Hair Removal Last Modified By: Flaco Stone RN 11/25/18 16:07:44 Counts Verification - Main OR Entry 1 Entry 2 Count Type Initial Final Closing Count Participants Flaco Stone RN, Flaco Stone RN, Zimmerman ST, Ruthy GARG, Ruthy Count Status Correct Correct Items Counted Sponges, Sharps Sponges, Sharps Surgeon Notified n/a Yes Closing Count Correct Last Modified By: Flaco Stone RN 11/25/18 Flaco Stone RN 11/25/18 16:08:14 16:10:16 Counts Action Taken - Main OR NOT APPLICABLE Entry 1 Surgeon Notified No Count Incorrect Last Modified By: Cautery - Main OR Entry 1 ESU Type [facility] Cut Setting 35 Coag Setting 35 Grounding Pad Yes Needed? Grounding Pad Site Right Thigh Grounding Pad Site Yes Dry /Intact Pre-Op? Grounding Pad Site Yes Dry / Intact PostOp? Last Modified By: Flaco Stone RN 11/25/18 16:10:24 Catheters, Drains, Tubes - Main OR NOT APPLICABLE Entry 1 Last Modified By: Medication Administration - Main OR Entry 1 Medication Other, See Comments Dose 100 units By JÚNIOR VASQUEZ MD Last Modified By: Flaco Stone RN 11/25/18 16:09:10 General Comments: 100 UNITS BOTOX Cultures & Specimens - Main OR NOT APPLICABLE Entry 1 Last Modified By: Skin Assessment - Main OR Entry 1 Skin Integrity at Intact Skin Abnormality at No Incision Site: Incision Site: General/Overall WNL Skin Integrity: Last Modified By: Flaco Stone RN 11/25/18 16:09:33 Surgical Irrigation - Main OR Entry 1 Irrigant Saline Last Modified By: Flaco Stone RN 11/25/18 16:09:36 X-Rays and Images - Main OR NOT APPLICABLE Entry 1 Last Modified By: Patient Care Devices - Main OR Entry 1 Equipment Type SCD Equipment Setting BILAT KNEE HIGH ON Last Modified By: Flaco Stone RN 11/25/18 16:09:23 Dressing/Packing - Main OR Entry 1 Wound Closure Not applicable Type Dressing Items Mesh Underwear, ABD pad Last Modified By: Flaco Stone RN 11/25/18 16:14:38 Departure from OR - Main OR Entry 1 Present on Depart Oxygen Post-op Destination PACU Report Given To Anju Bryant RN Last Modified By: Flaco Stone RN 11/25/18 16:25:27 Case Comments Finalized By: Asepn Wyatt RN Document Signatures Signed By: Flaco Stone RN 11/25/18 16:25 Aspen Wyatt RN 11/25/18 17:41 Normal [facility] PACU Phase I - Main ORon PACU Phase I - Main OR PACU Phase I - Main OR Summary Primary Physician: JÚNIOR VASQUEZ MD Finalized Date/Time: 11/25/18 17:26:53 Pt. Name: MARCELLA ROSE MARY Topete/Sex: 1960 Female Med Rec #: [id number] Physician: Financial #: [id number] Pt. Type: A Room/Bed: / Admit/Disch: 11/25/18 13:39:07 - Institution: PACU I - Case Times - Main OR Entry 1 In PACU I 11/25/18 16:23:00 Ready for Transfer 11/25/18 17:25:00 Last Modified By: Anju Bryant RN 11/25/18 17:26:51 Finalized By: Anju Bryant RN Document Signatures Signed By: Anju Bryant RN 11/25/18 17:26 Normal [facility] PACU Phase II - Main ORon PACU Phase II - Main OR PACU Phase II - Main OR Summary Primary Physician: JÚNIOR VASQUEZ MD Finalized Date/Time: 11/25/18 18:57:37 Pt. Name: MARCELLAROSE MARY SANDOVAL/Sex: 1960 Female Med Rec #: [id number] Physician: Financial #: [id number] Pt. Type: A Room/Bed: / Admit/Disch: 11/25/18 13:39:07 - Institution: PACU II - Case Times - Main OR Entry 1 In PACU II 11/25/18 17:26:00 Ready for PACU II 11/25/18 18:50:00 Discharge Discharge from PACU 11/25/18 18:57:00 II Last Modified By: Klaudia Rashid RN 11/25/18 18:57:35 Finalized By: Klaudia Rashid RN Document Signatures Signed By: Klaudia Rashid RN 11/25/18 18:57 Normal [facility] POC Glucoseon 11-25-2018 Glucose [Mass/Vol] 98 mg/dL Normal 72-100 [facility] Comment on above: Performed By: #### 1 [id number] #### [facility] [address] [place] [address] Auto Service Writer: Rustam Howard MD Glucose [Mass/Vol] 93 mg/dL Normal 72-100 [facility] Comment on above: Performed By: #### 1 [id number] #### [facility] [address] [place] [address] Auto Service Writer: Rustam Howard MD Preop - Main ORon 11-25-2018 Preop - Main OR Preop - Main OR Summ sujey Primary Physician: JÚNIOR VASQUEZ MD Finalized Date/Time: 11/25/18 14:14:32 Pt. Name: MARCELLA ROSE MARY Yoselyn/Sex: 1960 Female Med Rec #: [id number] Physician: Financial #: [id number] Pt. Type: A Room/Bed: / Admit/Disch: 11/25/18 13:39:07 - Institution: Preop - Case Times - Main OR Entry 1 Patient Arrival Time 11/25/18 13:48:00 Patient Ready for 11/25/18 14:14:00 Surgery Last Modified By: Rachael Patrick RN 11/25/18 14:14:31 Finalized By: Rachael Patrick RN Document Signatures Signed By: Rachael Patrick RN 11/25/18 14:14 Normal [facility] Hematologyon 08-05-2018 Hematocrit (Bld) [Volume fraction] 44.2 % See Below [facility] Work Phone: Comment on above: Reference Range: 36. 0 - 46.0 Hemoglobin (Bld) [Mass/Vol] 14.6 g/dL See Below [facility] Work Phone: Comment on above: Reference Range: 12. 0 - 16.0 MCV (RBC) [Entitic vol] 97 fL 80 - 100 [facility] Work Phone: Platelets (Bld) [#/Vol] 280 {x10E9/L} 150 - 450 [facility] Work Phone: RBC (Bld) [#/Vol] 4.56 {x10E12/L} See Below [facility] Work Phone: Comment on above: Reference Range: 4.0 0 - 5.20 WBC (Bld) [#/Vol] 6.9 {x10E9/L} 4.4 - 11.3 [facility] Work Phone: WBC (Bld) [#/Vol] 0.0 {/100_WBC} 0.0-0.0 [facility] Internal [facility] Work Phone: IO Hgb A1Con 08-05-2018 HbA1c (Bld) [Mass fraction] 5.8 % Significant change down 4.4-6.4% [facility] Work Phone: Lipid Panelon 08-05-2018 Cholesterol [Mass/Vol] 180 mg/dL 0 - 199 [facility] Work Phone: Comment on above: . AGE DESIRABLE BORD NICK HIGH HIGH 0-19 Y 0 - 169 170 - 199 >/= 200 20-24 Y 0 - 189 190 - 224 >/= 225 >24 Y 0 - 199 200 - 239 >/= 240 All ranges are based on fasting samples. Specific therapeutic targets will vary based on patient-specific cardiac risk.. Pediatric guidelines reference:Pediatrics 2011, 128(S5). Adult guidelines reference: NCEP ATPIII Guidelines, SUZANNE 2001, 258:2486-97. Venipuncture immediately after or during the administration of Metamizole may lead to falsely low results. Testing should be performed immediately prior to Metamizole dosing. Cholesterol in HDL [Mass/Vol] 69.5 mg/dL [facility] Work Phone: Comment on above: . AGE VERY LOW LOW N ORMAL HIGH 0-19 Y < 35 < 40 40-45 ---- 20- 24 Y ---- < 40 >45 ---- >24 Y ---- < 40 40-60 >60. Cholesterol in LDL [Mass/Vol] 91 mg/dL 0 - 99 [facility] Work Phone: Comment on above: . NEAR BORD AGE DEAN RABLE OPTIMAL HIGH HIGH VERY HIGH 0-19 Y 0 - 109 --- 110-129 >/= 130 ---- 20-24 Y 0 - 119 --- 120-159 >/= 160 ---- >24 Y 0 - 99 100-129 130-159 160-189 >/=190. Cholesterol.total /Cholesterol in HDL [Mass ratio] 2.6 {ratio} [facility] Work Phone: Comment on above: REF VALUESDESIRABLE < 3.4HIGH RISK > 5.0 Triglyceride [Mass/Vol] 96 mg/dL 0 - 149 [facility] Work Phone: Comment on above: . AGE DESIRABLE BORD NICK HIGH HIGH VERY HIGH 0 D-90 D 19 - 174 ---- ---- ----91 D- 9 Y 0 - 74 75 - 99 >/= 100 ---- 10-19 Y 0 - 89 90 - 129 >/= 130 ---- 20-24 Y 0 - 114 115 - 149 >/= 150 ---- >24 Y 0 - 149 150 - 199 200- 499 >/= 500. Venipuncture immediately after or during the administration of Metamizole may lead to falsely low results. Testing should be performed immediately prior to Metamizole dosing. Lipid Panel 19 mg/dL 0 - 40 [facility] Work Phone: Metabolic Panelon 08-05-2018 ALP [Catalytic activity/Vol] 60 U/L 33 - 110 [facility] Work Phone: Anion gap [Moles/Vol] 13 mmol/L 10 - 20 [facility] Work Phone: Bilirubin [Mass/Vol] 0.8 mg/dL 0.0 - 1.2 [facility] Work Phone: Calcium [Mass/Vol] 10.0 mg/dL 8.6 - 10.6 [facility] Work Phone: Chloride [Moles/Vol] 103 mmol/L 98 - 107 [facility] Work Phone: CO2 [Moles/Vol] 28 mmol/L 21 - 32 [facility] Work Phone: Creatinine [Mass/Vol] 0.74 mg/dL See Below [facility] Work Phone: Comment on above: Reference Range: 0.5 0 - 1.05 Glucose [Mass/Vol] 112 mg/dL above high threshold 74 - 99 [facility] Work Phone: Potassium [Moles/Vol] 4.7 mmol/L 3.5 - 5.3 [facility] Work Phone: Protein [Mass/Vol] 7.4 g/dL 6.4 - 8.2 [facility] Work Phone: Sodium [Moles/Vol] 139 mmol/L 136 - 145 [facility] Work Phone: Urea nitrogen [Mass/Vol] 18 mg/dL 6 - 23 [facility] Work Phone: Otheron 08-05-2018 Albumin BCP dye [Mass/Vol] 4.3 g/dL 3.4 - 5.0 [facility] Work Phone: ALT With P-5'-P [Catalytic activity/Vol] 34 U/L 7 - 45 [facility] Work Phone: Comment on above: Patients treated wit h Sulfasalazine may generate falsely decreased results for ALT. AST With P-5'-P [Catalytic activity/Vol] 21 U/L 9 - 39 [facility] Work Phone: Erythrocyte distribution width (RBC) [Ratio] 12.9 % See Below [facility] Work Phone: Comment on above: Reference Range: 11. 5 - 14.5 MCHC (RBC) [Mass/Vol] 33.0 g/dL See Below [facility] [facility] Work Phone: Comment on above: Reference Range: 32. 0 - 36.0 >60 >60 [facility] Work Phone: Comment on above: CALCULATIONS OF RADHA MATED GFR ARE PERFORMED USING THE MDRD STUDY EQUATION FOR THE IDMS-TRACEABLE CREATININE METHODS. CLIN CHEM 2007;53:[id number] Vitamin B12, Serumon 019 Cobalamin (Vitamin B12) [Mass/Vol] 782 pg/mL 211 - 911 [facility] Work Phone: Vitamin D 25-Hydroxyon 08-05 Calcidiol [Mass/Vol] 24 ng/mL Abnormal [facility] Work Phone: Comment on above: .DEFICIENCY: < 20 NG /MLINSUFFICIENCY: 20-29 NG/MLOPTIMUM LEVEL: 30-80 NG/MLPOSSIBLE TOXICITY: > 80 NG/MLTHIS ASSAY ACCURATELY QUANTIFIES THE SUM OFVITAMIN D3, 25-HYDROXY AND VIT D2,25-HYDROXY. DIGITAL MAMM SCREENING W/ TO [place] 04-07-2018 DIGITAL MAMM SCREENING W/ [place] Patient Name: ROSE MARY NARANJO STUDY: DIGITAL MAMM SCREENING W/ CHULA; 04/07/2018 7:51 am ACCESSION NUMBER(S): [id number] ORDERING CLINICIAN: VAL WILLAMS INDICATION: Screening. Benign right core biopsy. COMPARISON: 05/29/2016, 12/07/2013 FINDINGS: 2D and tomosynthesis images were reviewed at 1 mm slice thickness. The breast tissue is almost entirely fatty. No suspicious masses or calcifications are identified. IMPRESSION: No mammographic evidence of malignancy. BI-RADS CATEGORY: Category: 1 - Negative. Recommendation: 1 Year Screening. For any future breast imaging appointments, please call [phone]). Patient letter sent SNORM Electronically signed by: ALLYSON SCHOFIELD MD Normal [facility] Vital Signs Date Time Vital Sign Value Performing Clinician Facility 06-12-2023 10:040 Body temperature 100.71 [degF] Alisia Powers APRN.DOREEN Work Phone: [facility] 06-12-2023 10:010400 Body weight 102.9 kg Alisia Powers APRN.DOREEN Work Phone: [facility] 06-12-2023 10:01-0400 Diastolic blood pressure 77 mm[Hg] Alisia Sroka CASINO MANAGER.BREAD PACKER Work Phone: [facility] 06-12-2023 10:01-0400 Heart rate 84 /min Alisia Sroka CASINO MANAGER.BREAD PACKER Work Phone: [facility] 06-12-2023 10:01-0400 SaO2% (BldA) [Mass fraction] 99 % Alisia Sroka CASINO MANAGER.BREAD PACKER Work Phone: [facility] 06-12-2023 10:01-0400 Systolic blood pressure 143 mm[Hg] Alisia Sroka CASINO MANAGER.BREAD PACKER Work Phone: [facility] 02-15-2023 11:29-0500 Body height 175.3 cm Lydia Oliva CASINO MANAGER.BREAD PACKER Work Phone: [facility] 02-15-2023 11:29-0500 Body temperature 96.91 [degF] Lydia Oliva CASINO MANAGER.BREAD PACKER Work Phone: [facility] 02-15-2023 11:29-0500 Body weight 106.41 kg Lydia Oliva CASINO MANAGER.BREAD PACKER Work Phone: [facility] 02-15-2023 11:29-0500 Diastolic blood pressure 84 mm[Hg] Lydia Oliva CASINO MANAGER.BREAD PACKER Work Phone: [facility] 02-15-2023 11:29-0500 Heart rate 57 /min Lydia Oliva CASINO MANAGER.BREAD PACKER Work Phone: [facility] 02-15-2023 11:29-0500 Respiratory rate 18 /min Lydia Oliva CASINO MANAGER.BREAD PACKER Work Phone: [facility] 02-15-2023 11:29-0500 SaO2% (BldA) [Mass fraction] 97 % Lydia Oliva CASINO MANAGER.BREAD PACKER Work Phone: [facility] 02-15-2023 11:29-0500 Systolic blood pressure 151 mm[Hg] Lydia Oliva CASINO MANAGER.BREAD PACKER Work Phone: [facility] 09-09-2019 18:21-0400 BMI (Body Mass Index) 40.63 kg/m2 Rosamaria [place] [facility] Work Phone: 09-09-2019 18:21-0400 Body Temperature 98.5 [degF] Rosamaria [place] [facility] Work Phone: 09-09-2019 18:21-0400 Body weight 121.2 kg Rosamaria [place] [facility] Work Phone: 09-09-2019 18:21-0400 BP Diastolic 70 mm[Hg] Rosamaria Dalton [facility] Work Phone: 09-09-2019 18:21-0400 BP Systolic 142 mm[Hg] Rosamaria [place] [facility] Work Phone: 09-09-2019 18:21-0400 BSA (Body Surface Area) 2.31 m2 Rosamaria Dalton [facility] Work Phone: 09-09-2019 18:21-0400 Pulse (Heart Rate) 68 /min Rosamaria Dalton [facility] Work Phone: 05-29-2019 13:13-0500 BMI (Body Mass Index) 42.27 kg/m2 Rosamaria Dalton [facility] Work Phone: 05-29-2019 13:13-0500 Body Temperature 97.3 [degF] Rosamaria Dalton [facility] Work Phone: 05-29-2019 13:13-0500 Body weight 126.1 kg Rosamaria [place] [facility] Work Phone: 05-29-2019 13:13-0500 BP Diastolic 78 mm[Hg] Rosamaria [place] [facility] Work Phone: 05-29-2019 13:13-0500 BP Systolic 124 mm[Hg] Rosamaria Enriquezon [facility] Work Phone: 05-29-2019 13:13-0500 BSA (Body Surface Area) 2.35 m2 Rosamaria [place] [facility] Work Phone: 05-29-2019 13:13-0500 Pulse (Heart Rate) 72 /min Rosamaria Dalton [facility] Work Phone: 08-05-2018 14:09-0400 BP Diastolic 84 mm[Hg] Rosamaria [place] [facility] Work Phone: Comment on above: Location: LUE; Position: Sitting 08-05-2018 14:09-0400 BP Systolic 128 mm[Hg] Rosamaria Dalton [facility] Work Phone: Comment on above: Location: LUE; Position: Sitting 08-05-2018 13:05-0400 BMI (Body Mass Index) 38.47 kg/m2 Rosamaria Dalton [facility] Work Phone: 08-05-2018 13:05-0400 Body weight 118.16 kg Rosamaria [place] [facility] Work Phone: 08-05-2018 13:05-0400 BP Diastolic 68 mm[Hg] Rosamaria Dalton [facility] Work Phone: 08-05-2018 13:05-0400 BP Systolic 102 mm[Hg] Rosamaria Dalton [facility] Work Phone: 08-05-2018 13:05-0400 BSA (Body Surface Area) 2.31 m2 Rosamaria [place] [facility] Work Phone: 08-05-2018 13:05-0400 Height 175.26 cm Rosamaria [place] [facility] Work Phone: 08-05-2018 13:05-0400 Pulse (Heart Rate) 60 /min Rosamaria Hoffman [facility] Work Phone: Comment on above: Quality: Regular 08-05-2018 13:05-0400 Respiratory Rate 20 /min [facility]amaria Hoffman [facility] Work Phone: 08-05-2018 13:05-0400 1 1 Rosamaria Hoffman [facility] Work Phone: Comment on above: Pain Scale 07-14-2018 15:34-0400 Height 175.26 cm Rosamaria Hoffman [facility] Work Phone: Encounters Encounter Date Encounter Type Care Provider Facility Start: 06-12-2023 End: 06-12-2023 ambulatory [facility] Facility:[facility] Start: 06-12-2023 End: 06-12-2023 Patient encounter procedure Alisia Powers APRN.BREAD PACKER Work Phone: [facility] Comment on above: URI with cough and c ongestion (Primary Dx) Start: 02-15-2023 End: 02-15-2023 ambulatory [facility] Facility:[facility] Start: 02-15-2023 End: 02-15-2023 Patient encounter procedure Lydia Oliva APRN.BREAD PACKER Work Phone: [facility] Comment on above: Acute otitis media, right (Primary Dx); Scaly skin Start: 12-26-2022 End: 12-26-2022 Emergency department patient visit [facility] Facility:[facility] Start: 09-22-2020 Rx Renewal Lambert chapin Work Phone: [facility] Work Phone: Start: 08-25-2020 AUDIT Lambert chapin Work Phone: [facility] Work Phone: Start: 09-09-2019 Patient encounter procedure Rosamaria Hoffman [facility] Work Phone: Start: 05-29-2019 Patient encounter procedure Rosamaria [place] [facility] Work Phone: Start: 03-11-2019 Patient encounter procedure Rosamaria Dalton [facility] Work Phone: Start: 01-21-2019 Patient encounter procedure Rosamaria [place] [facility] Work Phone: Start: 12-24-2018 Patient encounter procedure Rosamaria [place] [facility] Work Phone: Start: 12-10-2018 Patient encounter procedure Rosamaria Dalton [facility] Work Phone: Start: 11-19-2018 Patient encounter procedure Rosamaria [place] [facility] Work Phone: Start: 08-05-2018 Patient encounter procedure [facility]amaria [place] [facility] Work Phone: Start: 06-10-2018 Patient encounter procedure Rosamaria [place] [facility] Work Phone: Start: 05-05-2018 Patient encounter procedure Rosamaria [place] [facility] Work Phone: Start: 04-07-2018 Patient encounter procedure Val Willams Facility:[id number] Start: 02-03-2018 Patient encounter procedure [facility]amaria Dalton [facility] Work Phone: Start: 10-07-2017 Patient encounter procedure Rosamaria [place] [facility] Work Phone: Start: 05-22-2017 Patient encounter procedure [facility]amaria Dalton [facility] Work Phone: Start: 03-14-2017 Patient encounter procedure [facility]amaria Dalton [facility] Work Phone: Start: 02-04-2017 Patient encounter procedure Rosamaria [place] [facility] Work Phone: Patient encounter procedure Lambert Colón Work Phone: [facility] Work Phone: Procedures Date Procedure Procedure Detail Performing Clinician Start: 06-12-2023 COVID & INFLUENZA A/ B & RSV NAAT, ROUTINE Alisia Gio CASINO MANAGER.BREAD PACKER Work Phone: Start: 02-26-2020 Lipid 1996 panel - S isaiah or Plasma Lydia Oliva CASINO MANAGER.BREAD PACKER Work Phone: Start: 09-09-2019 Follow-up visit Start: 09-09-2019 25 hydroxy includes fractions if performed Rosamaria [place] Start: 09-09-2019 Albumin, Urine Spot Ali ce [place] Start: 09-09-2019 Blood count complete auto&auto difrntl wbc Rosamaria [place] Start: 09-09-2019 Comprehensive metabo lic 2000 panel Rosamaria [place] Start: 09-09-2019 Hemoglobin glycosylated a1c Rosamaria [place] Start: 09-09-2019 Lipid panel Rosamaria Cowlitz on Start: 09-09-2019 MG Breast screening Ali ce Dalton Start: 09-09-2019 TSH WITH REFLEX TO F REE T4 IF ABNORMAL Rosamaria Dalton Start: 09-09-2019 Urnls dip stick/tabl et rgnt auto w/o microscopy Rosamaria [place] Start: 05-29-2019 Follow-up visit Anal fissurectomy Rosamaria [place] on Biopsy of breast Rosamaria Dento n Colonoscopy Rosamaria [place] Hysterectomy Rosamaria Dalton Comment on above: Total - everyone sergey e per pt - due to fibroids; Tonsillectomy Rosamaria [place] Plan of Treatment Date Care Activity Detail Author Start: 03-07-2030 Urine microalbumin profile DTaP,Tdap,Td Vaccine (2 - Td or Tdap) [facility] Start: 12-26-2025 Diabetes Screening Diabetes Screenin g [facility] Start: 02-25-2025 Lipid 1996 panel - Serum or Plasma Lipid Screening [facility] Start: 02-25-2025 Lipid panel Lipid Screening [facility] Start: 03-25-2023 Depression Assessment Depression Ass essment [facility] Start: 11-23-2022 Covid-19 Vaccine (2022- season) Covid-19 Vaccine (2022-24 season) [facility] Start: 11-23-2022 Influenza vaccination Influenza Vacc ine (#1) [facility] Start: 03-25-2022 Depression Assessment Depression Ass essment [facility] Start: 09-09-2019 MG Breast screening Mamm - Scr eening Mammogram w/ Tomosynthesis [facility] Start: 2018 RSV Vaccine (1 - 1-d ose 60+ series) RSV Vaccine (1 - 1-dose 60+ series) [facility] Start: 2008 Shingrix Vaccine (1 of 2) Shingrix Vaccine (1 of 2) [facility] Start: 11-27-2003 Cologuard (FIT-DNA) Cologuard (FIT-D NA) [facility] Start: 11-27-2003 Colonoscopy Colonoscopy [facility] Start: 11-27-2003 Colorectal Cancer Screening Colorectal Cancer Screening [facility] Start: 11-27-[address] Colonography [facility] Start: 11-27-2003 Fecal Occult Blood Fecal Occult Bloo d [facility] Start: 11-27-2003 Screening for malign ant neoplasm of colon [facility] Start: 11-27-2003 Sigmoidoscopy Sigmoidoscopy [facility] Start: 1998 Mammography Mammogram Screening [facility] Start: 1998 Screening for malign ant neoplasm of breast Mammogram Screening [facility] Start: 1988 HPV Testing HPV Testing [facility] Start: 1988 Screening for malign ant neoplasm of cervix HPV Testing [facility] Start: 11-27-1979 Pap Testing Pap Testing [facility] Start: 11-27-1979 Screening for malign ant neoplasm of cervix Pap Testing [facility] Start: 1976 Hepatitis C Screening Hepatitis C [facility] Start: 1976 Hepatitis C screening Hepatitis C [facility] Start: 1976 HIV Screening HIV Screening [facility] Start: 1976 HIV screening HIV Screening [facility] Dillan [facility] Work Phone: NEGATED: Highlighted row has been ruled out! Planned Goals not documented [facility] Work Phone: Immunizations Immunization Date Immunization Notes Care Provider Kody de la rosa 04-05-2022 influenza virus vaccine, unspecified formulation Lydia Oliva APRN.[facility] Work Phone: [facility] 03-07-2020 influenza, injectabl e, quadrivalent, preservative free; Translations: [Fluarix Quadrivalent 0.5 ML Intramuscular Suspension Prefilled Syringe] [facility] Work Phone: [facility] Work Phone: Comment on above: Series: 03-07-2020 pneumococcal polysaccharide vaccine, 23 valent; Translations: [Pneumococcal polysaccharide vaccine, 23 valent] [facility] Work Phone: Comment on above: Series: 03-07-2020 tetanus toxoid, redu princess diphtheria toxoid, and acellular pertussis vaccine, adsorbed; Translations: [Tdap (Boostrix)] Lambert Tourlas Work Phone: [facility] Work Phone: Comment on above: Series: 12-10-2018 influenza, injectabl e, quadrivalent, preservative free; Translations: [Fluzone Quadrivalent 0.5 ML Intramuscular Suspension] Rosamaria Hoffman [facility] Work Phone: Comment on above: Series: 02-03-2018 influenza, injectabl e, quadrivalent, preservative free; Translations: [Flulaval Quadrivalent 0.5 ML Intramuscular Suspension Prefilled Syringe] Rosamaria Hoffman [facility] [employer] Work Phone: Comment on above: Series: 02-04-2017 influenza, injectabl e, quadrivalent, preservative free; Translations: [Fluzone Quadrivalent 0.5 ML Intramuscular Suspension] Rosamaria Hoffman [facility] Work Phone: Comment on above: Series: 01-12-2016 influenza, injectabl e, quadrivalent, preservative free; Translations: [Fluzone Quadrivalent 0.5 ML Intramuscular Suspension] Rosamaria Hoffman [facility] Work Phone: Comment on above: Series: 01-14-2015 influenza, injectabl e, quadrivalent, preservative free; Translations: [Flulaval Quadrivalent 0.5 ML SUSP] Rosamaria Hoffman [facility] Work Phone: Comment on above: Series: 12-22-2013 influenza, injectabl e, quadrivalent, preservative free; Translations: [Fluarix Quadrivalent 0.5 ML SUSP] Rosamaria Hoffman [facility] Work Phone: Comment on above: Series: Payers Date Payer Category Payer Unknown 2020 Unknown [id number] 1960 Unknown [id number] Private Health Insurance [id number] Social History Date Type Detail Facility Start: 12-27-2022 End: 02-15-2023 Worship Affiliation [employer] Worship Affiliation [employer] [facility] Work Phone: Comment on above: does not want a bloo d transfusion-will bring in paper; Start: 03-11-2022 [facility] History of tobacco use Current smoker [facility] History of tobacco use Cigarette Smoker C [facility] Start: 03-11-2022 Tobacco use and exposure Smokeless tobacco non-user [facility] Start: 12-27-2022 End: 02-15-2023 Tobacco use panel [facility] National Score (1-100), lower number is lower risk 51 [facility] Start: 1960 Sex Assigned At Not on file [facility] NEGATED: Highlighted row - - [facility] Work Phone: Medical Equipment Procedure Code Equipment [...] status health issues are not documented Disease [facility] Work Phone: Mental Status Date Assessment Result Facility NEGATED: Highlighted row Cognitive function [Interpretation] Cognitive status health issues are not documented Disease [facility] Work Phone: Progress note 06-12-2023 Note Date & Type Note Facility 06-12-2023 Note HNO ID: [id number] Author: ALISIA POWERS APRN.BREAD PACKER Service: ? Author Type: Nurse Practitioner Type: Progress Notes Filed: 06/12/2023 10:24 Note Text: SHAYNA Naranjo is a 62 year old female. Patient is being seen today for chief complaint of Viral Syndrome (Symptoms for 4 days cough and sore throat 4 weeks but today the symptoms are worse, otc mucinex X3 days daytime cold and flu) Review of Systems Constitutional: Positive for chills and fever. HENT: Positive for congestion, ear pain, sinus pressure, sinus pain and sore throat. Negative for drooling, trouble swallowing and voice change. Respiratory: Positive for cough. Negative for shortness of breath. Cardiovascular: Negative for chest pain. Gastrointestinal: Negative for abdominal pain. BP 143/77 Pulse 84 Temp (!) 38.2 ?C (100.7 ?F) Wt 102.9 kg (226 lb 13.7 oz) SpO2 99% BMI 33.50 kg/m? HISTORIES No past medical history on file. No past surgical history on file. Current Outpatient Medications on File Prior to Visit Medication Sig MOUNJARO 7.5 mg/0.5 mL pen injector 7.5 mg (0.5 mL) subcutaneously every week cholecalciferol (VITAMIN D3) 50 mcg (2,000 unit) tablet Take 2,000 Int'l Units by mouth once daily. losartan (COZAAR) 100 mg tablet Take 100 mg by mouth once daily. metFORMIN (GLUCOPHAGE) 1,000 mg tablet Take 1,000 mg by mouth twice daily. fluticasone (FLONASE) 50 mcg/actuation nasal spray Use 2 Sprays in each nostril once daily. TRULICITY 3 mg/0.5 mL pen injector Inject 0.5 mL subcutaneously one time a week. (Patient not taking: Reported on 02/15/2023) benzonatate (TESSALON PERLE) 100 mg capsule Take 1 capsule by mouth three times daily as needed. (Patient not taking: Reported on 02/15/2023) No current facility-administered medications on file prior to visit. ALLERGIES Allergen Reactions Aspirin Intolerance Says she breaks out in sweat Sulfamethoxazole-Tr* GI Upset Physical Exam Constitutional: Appearance: Normal appearance. She is not toxic-appearing. HENT: Right Ear: Tympanic membrane, ear canal and external ear normal. Left Ear: Tympanic membrane, ear canal and external ear normal. Nose: Congestion present. Mouth/Throat: Pharynx: Posterior oropharyngeal erythema present. No oropharyngeal exudate. Eyes: Pupils: Pupils are equal, round, and reactive to light. Cardiovascular: Rate and Rhythm: Normal rate and regular rhythm. Pulses: Normal pulses. Pulmonary: Effort: Pulmonary effort is normal. Breath sounds: Normal breath sounds. Musculoskeletal: Cervical back: Normal range of motion and neck supple. Skin: General: Skin is warm. Neurological: General: No focal deficit present. Mental Status: She is alert. ASSESSMENT/PLAN: 1. URI with cough and congestion - ICD9: 465.9, ICD10: J06.9 - Discussed viral etiology and rationale for treatment. - Symptomatic treatment with prn analgesia - Supportive care with fluids and rest - COVID AND INFLUENZA A/B AND RSV NAAT, ROUTINE - ALBUTEROL SULFATE HFA 90 MCG/ACTUATION AEROSOL INHALER - INHALATIONAL SPACING DEVICE - BENZOCAINE 15 MG-MENTHOL 3.6 MG LOZENGES - FLUTICASONE PROPIONATE 50 MCG/ACTUATION NASAL SPRAY,SUSPENSION - LORATADINE 10 MG TABLET Red flags reviewed with patient, verbalizes understanding and agrees with plan Follow up with PCP Alisia Powers APRN.BREAD PACKER [facility] History of Present illness Narrative 06-12-2023 Alisia Powers APRN.BREAD PACKER - 06/12/2023 10:08 AM EDT Note Date & Type Note Facility 06-12-2023 History of Presen t illness Narrative SHAYNA Naranjo is a 62 year old female. Patient is being seen today for chief complaint of Viral Syndrome (Symptoms for 4 days cough and sore throat 4 weeks but today the symptoms are worse, otc mucinex X3 days daytime cold and flu) Review of Systems Constitutional: Positive for chills and fever. HENT: Positive for congestion, ear pain, sinus pressure, sinus pain and sore throat. Negative for drooling, trouble swallowing and voice change. Respiratory: Positive for cough. Negative for shortness of breath. Cardiovascular: Negative for chest pain. Gastrointestinal: Negative for abdominal pain. BP 143/77 Pulse 84 Temp (!) 38.2 C (100.7 F) Wt 102.9 kg (226 lb 13.7 oz) SpO2 99% BMI 33.50 kg/m HISTORIES No past medical history on file. No past surgical history on file. Current Outpatient Medications on File Prior to Visit Medication Sig MOUNJARO 7.5 mg/0.5 mL pen injector 7.5 mg (0.5 mL) subcutaneously every week cholecalciferol (VITAMIN D3) 50 mcg (2,000 unit) tablet Take 2,000 Int'l Units by mouth once daily. losartan (COZAAR) 100 mg tablet Take 100 mg by mouth once daily. metFORMIN (GLUCOPHAGE) 1,000 mg tablet Take 1,000 mg by mouth twice daily. fluticasone (FLONASE) 50 mcg/actuation nasal spray Use 2 Sprays in each nostril once daily. TRULICITY 3 mg/0.5 mL pen injector Inject 0.5 mL subcutaneously one time a week. (Patient not taking: Reported on 02/15/2023) benzonatate (TESSALON PERLE) 100 mg capsule Take 1 capsule by mouth three times daily as needed. (Patient not taking: Reported on 02/15/2023) No current facility-administered medications on file prior to visit. ALLERGIES Allergen Reactions Aspirin Intolerance Says she breaks out in sweat Sulfamethoxazole-Tr* GI Upset Physical Exam Constitutional: Appearance: Normal appearance. She is not toxic-appearing. HENT: Right Ear: Tympanic membrane, ear canal and external ear normal. Left Ear: Tympanic membrane, ear canal and external ear normal. Nose: Congestion present. Mouth/Throat: Pharynx: Posterior oropharyngeal erythema present. No oropharyngeal exudate. Eyes: Pupils: Pupils are equal, round, and reactive to light. Cardiovascular: Rate and Rhythm: Normal rate and regular rhythm. Pulses: Normal pulses. Pulmonary: Effort: Pulmonary effort is normal. Breath sounds: Normal breath sounds. Musculoskeletal: Cervical back: Normal range of motion and neck supple. Skin: General: Skin is warm. Neurological: General: No focal deficit present. Mental Status: She is alert. ASSESSMENT/PLAN: 1. URI with cough and congestion - ICD9: 465.9, ICD10: J06.9 - Discussed viral etiology and rationale for treatment. - Symptomatic treatment with prn analgesia - Supportive care with fluids and rest - COVID & INFLUENZA A/B & RSV NAAT, ROUTINE - ALBUTEROL SULFATE HFA 90 MCG/ACTUATION AEROSOL INHALER - INHALATIONAL SPACING DEVICE - BENZOCAINE 15 MG-MENTHOL 3.6 MG LOZENGES - FLUTICASONE PROPIONATE 50 MCG/ACTUATION NASAL SPRAY,SUSPENSION - LORATADINE 10 MG TABLET Red flags reviewed with patient, verbalizes understanding and agrees with plan Follow up with PCP Alisia Powers APRN.BREAD PACKER documented in this encounter [facility] Instructions 06-12-2023 Patient Instructions Note Date & Type Note Facility 06-12-2023 Instructions Alisia Powers APRN.BREAD PACKER - 06/12/2023 9:55 AM EDT [facility] ADDRESS: [address] [place] [address] PHONE: [phone] FOLLOW UP: Call your primary care provider today or tomorrow to establish a follow up appointment. Should your symptoms worsen, report to the emergency department for re-evaluation. -Cepacol cough drops for sore throat -OTC analgesics like Tylenol and Ibuprofen for pain -Intranasal saline irrigation to provide symptomatic relief -Intranasal corticosteroids like Flonase to decrease inflammation in nasal passages -Use humidifiers at night time -Increase fluid intake -OTC antihistamines like Claritin or Zyrtec as directed on the box to dry up nasal secretion ER precautions for worsening symptoms Patient education: Cough, runny nose, and the common cold (The Basics) What causes cough, runny nose, and other symptoms of the common cold? -- These symptoms are usually caused by a viral infection. Lots of viruses can take hold inside your nose, mouth, throat, or lungs, and cause cold symptoms. Most people get over a cold without lasting problems. Even so, having a cold can be uncomfortable. And if your child has a cold, it can be hard to know when the symptoms call for a trip to the doctor. What are the symptoms of the common cold? -- The symptoms include: ?Sneezing ?Coughing ?Sniffling and runny nose ?Sore throat ?Chest congestion In children, the common cold can also cause a fever. But adults do not usually get a fever when they have a cold. How can I tell if I have a cold or the flu? -- The common cold and the flu both cause many of the same symptoms. But they also have some important differences. This table can help you tell the difference between a cold and the flu. Is it a cold or the flu? Cold Flu Symptoms Fever Rare Usual; high (100 F to 102 F; occasionally higher, especially in young children); lasts 3 to 4 days Headache Rare Common General aches, pains Slight Usual; often severe Fatigue, weakness Sometimes Usual; can last up to 2 to 3 weeks Extreme exhaustion Never Usual; at the beginning of the illness Stuffy nose Common Sometimes Sneezing Usual Sometimes Sore throat Common Sometimes Chest discomfort, cough Mild to moderate; hacking cough Common; can become severe When should I call the doctor or nurse? -- Most people who have a cold do not need to see the doctor or nurse. But you should call your doctor or nurse if you have: ?A fever of more than 100.4 F (38 C) that comes with shaking chills, loss of appetite, or trouble breathing ?A fever and also have lung disease, such as emphysema or asthma ?A cough that lasts longer than 10 days ?Chest pain when you cough, trouble breathing, or coughing up blood If you are older than 75, you should also call your doctor or nurse any time you get a long-lasting cough. Take your child to the emergency room if he or she: ?Becomes confused or stops responding to you ?Has trouble breathing or has to work hard to breathe Call your child's doctor or nurse if he or she: ?Refuses to drink anything for a long time ?Is younger than 4 months ?Has a fever and is not acting like him- or herself ?Has a cough that lasts for more than 2 weeks and is not getting any better ?Has a stuffed or runny nose that gets worse or does not get better after 2 weeks ?Has red eyes or yellow goop coming out of his or her eyes ?Has ear pain, pulls at his or her ears, or shows other signs of having an ear infection What can I do to feel better? -- If you are a teenager or an adult, you can try cough and cold medicines that you can get without a prescription. These medicines might help with your symptoms. But they won't cure your cold, or help you get well faster. If you decide to try nonprescription cold medicines, be sure to follow the directions on the label. Do not combine 2 or more medicines that have acetaminophen in them. If you take too much acetaminophen, the drug can damage your liver. Also, if you have a heart condition, or you take prescription medicines, ask your pharmacist if it is safe to take the cold medicine you have in mind. What should I know if my child has a cold? -- In children, the common cold is often more severe than it is in adults. It also lasts longer. Plus, children often get a fever during the first 3 days of a cold. Are cough and cold medicines safe for children? -- If your child is younger than 6, you should not give him or her any cold medicines. These medicines are not safe for young children. Even if your child is older than 6, cough and cold medicines are unlikely to help. Never give aspirin to any child younger than 18 years old. In children, aspirin can cause a life-threatening condition called Duke syndrome. When giving your child acetaminophen or other nonprescription medicines, never give more than the recommended dose. How long will I be sick? -- Colds usually last 3 to 7 days in adults and 10 days in children, but some people have symptoms for up to 2 weeks. Can the common cold lead to more serious problems? -- In some cases, yes. In some people having a cold can lead to: ?Pneumonia or bronchitis (infections of the lungs) ?Ear infections ?Worsening of asthma symptoms ?Sinus infections How can I keep from getting another cold? -- The most important thing you can do is to wash your hands often with soap and water. Alcohol hand rubs work well, too. The germs that cause the common cold can live on tables, door handles, and other surfaces for at least 2 hours. You never know when you might be touching germs. That's why it's so important to clean your hands often. documented in this encounter [facility] Progress note 02-15-2023 Note Date & Type Note Facility 02-15-2023 Note HNO ID: [id number] Author: Daria Daniels Service: ? Author Type: ? Type: Progress Notes Filed: 02/15/2023 12:01 PM Note Text: This note was created using Communication Scienceriter. Subjective Rose Mary Naranjo is a 62 [...] which included preparing to see the patient, [id number] patient care, completing clinical documentation, and communicating results to the patient/family/caregiver. Remove COVID19 association [facility] Progress note 02-15-2023 Note Date & Type Note Facility 02-15-2023 Note HNO ID: [id number] Author: Lydia Oliva APRN.BREAD PACKER Service: ? Author Type: Nurse Practitioner Type: Progress Notes Filed: 02/15/2023 12:01 PM Note Text: This note was created using DoubleDutch. Subjective Rose Mary Naranjo is a 62 [...] which included preparing to see the patient, [id number] patient care, completing clinical documentation, obta (more content not included)... [facility] History of Present illness Narrative 02-15-2023 Daria Daniels - 02/15/2023 11:53 AM Lydia Izaguirre APRN.DOREEN - 02/15/2023 11:38 AM EST Note Date & Type Note Facility 02-15-2023 History of Presen t illness Narrative This note was created using Communication Scienceriter. Subjective Rose Mary Naranjo is a 62 [...] Admin: COVID-19 vaccine, age 12+ yr, bivalent ([employer]) 02/18/2021 Imm Admin: COVID-19 original vaccine, age 12+ yr, monovalent ([employer] - PURPLE TOP) 07/01/2020 Imm Admin: COVID-19 [...] which included preparing to see the patient, [id number] patient care, completing clinical documentation, and communicating results to the patient/family/caregiver. Remove COVID19 association This note was created using DoubleDutch. Subjective Rose Mary Naranjo is a 62 [...] which included preparing to see the patient, [id number] patient care, completing clinical documentation, obtaining and/or reviewing separately obtained history, performing a medically appropriate examination, counseling and educating the patient/family/caregiver, and ordering medications, tests, or procedures. documented in this encounter [facility] Instructions 02-15-2023 Patient Instructions Note Date & [...] or other concerns. documented in this encounter [facility] Progress note 01-05-2023 Note Date & Type Note Facility 01-05-2023 Note HNO ID: [id number] Author: Note, Interface Service: ? Author Type: ? Type: Progress Notes Filed: 01/05/2023 2:56 AM Note Text: Epic Scheduled Downtime: 01/05/2023 1:00:00 AM to 01/05/2023 1:28:00 AM [facility] Evaluation note Note Date & Type Note Facility Evaluation note Diagnosis Acute otitis media, right- Primary Unspecified otitis media Scaly skin documented in this encounter [facility] Evaluation note Note Date & Type Note Facility Evaluation note Diagnosis URI with cough and congestion- Primary documented in this encounter [facility] Summary Purpose Family History No Family History [...] ized section and content) DATE CREATED AUTHOR 04/26/2018 [facility] DATE CREATED AUTHOR AUTHOR'S ORGANIZ ATION 11/28/2018 [facility] DATE CREATED AUTHOR AUTHOR'S ORGANIZ ATION 03/15/2020 [employer] DATE CREATED AUTHOR AUTHOR'S ORGANIZ ATION 04/01/2020 [facility] DATE CREATED AUTHOR AUTHOR'S ORGANIZ ATION 01/06/2023 [facility] DATE CREATED AUTHOR AUTHOR'S ORGANIZ ATION 06/13/2023 [facility] Source Comments (unrecognize d section and content) In the event this informatio n is protected by the Federal Confidentiality of Alcohol and Drug Abuse Patient Records regulations: The Federal rules restrict any use of the information to criminally investigate or prosecute any alcohol or drug abuse patient[facility] event this information is protected by the Federal Confidentiality of Alcohol and Drug Abuse Patient Records regulations: The Federal rules restrict any use of the information to criminally investigate or prosecute any alcohol or drug abuse patient.[facility] Reason for Visit (unrecogniz ed section and content) Reason Comments Ear Pain Started a couple day s ago, right ear pain with blood, pain level 10/10, has taken tylenol and ibuprofen, sinus congestion, Reason Comments Viral Syndrome Symptoms for 4 days cough and sore throat 4 weeks but today the symptoms are worse, otc mucinex X3 days daytime cold and flu. Care Teams (unrecognized sec tion and content) Microphone Boom Operator Relationship Specialty Start Date End Date Flaco Mullins, CASINO MANAGER.BREAD PACKER [address] [facility] [address] [place], [place] [id number] PCP - General Internal Medicine 12/26/22 Microphone Boom Operator Relationship Specialty Start Date End Date Flaco Mullins, CASINO MANAGER.BREAD PACKER [address] [facility] [address] [place], [place] [id number] PCP - General Internal Medicine 12/26/22 FOR RECORDS PERTAINING TO PATIENTS WHO ARE [...] BE BASED ON THE PRIMARY CLINICAL RECORDS. [facility] [employer] provides no warranty or guarantee of the accuracy or completeness of information in this document.
[2024-01-07] MEDS: Magnesium 1 GM over 15 mins IV (06:15)
[2024-01-07] MEDS: Lactated Ringers 1,000 ML 999 ML IV (06:24)
[2024-01-07] MEDS: Scopolamine 1mg/72hr Patch 1 PATCH TD (06:25)
[2024-01-07] MEDS: Acetaminophen 500 MG Tablet 1000 MG PO ×2 (06:27→13:35)
[2024-01-07] MEDS: Gabapentin 600 MG Tablet PO (06:28)
[2024-01-07] MEDS: Insulin Lispro 100 UNIT/ML INSULN.PEN SC (07:03)
[2024-01-07 07:06] LABS: Bedside Glucose 182 mg/dL (74-106)
--- NOTE | 2024-01-07 07:11 | PCM.PRE.AN2 ---
ASA Classification* ASA Classification ASA Classification: 2 Assessment & Plan Anesthesia* Anesthesia Assessment Anesthesia Assessment: Discussed sedation and/or anesthesia options, risks, benefits, and alternatives with patient/parents/legal guardian/POA. Questions invited. The patient/parents/legal guardian/POA seems to understand and agrees to proceed with anesthesia plan. Reviewed the physical assessment, medical history, allergy history and patient home medications list prior to surgery/procedure/anesthetic and documented any changes. Performed airway and anesthesia risk assessments. Anesthesia Type Anesthesia Type: Spinal (see written pre anesthesia record for full assessment) Anesthesia Focused Assessment* Temperature: 97 F Pulse Rate: 66 Blood Pressure: 114/78 Respiratory Rate: 18 Pulse Ox: 99 Airway Assessment Mouth opens: >3 cm Mallampati Score: II Focused Labs Anesthesia Preop lab: CBC WBC 5.4 K/mm3 (4.4-11.0) 12/19/23 10:58 RBC 4.28 M/mm3 (4.2-5.4) 12/19/23 10:58 Hgb 13.7 g/dL (12.0-15.0) 12/19/23 10:58 Hct 40.4 % (37-47) 12/19/23 10:58 Plt Count 284 K/mm3 (150-450) 12/19/23 10:58 CHEMISTRY Potassium 4.6 mmol/L (3.5-5.1) 12/19/23 10:58 Sodium 137 mmol/L (136-145) 12/19/23 10:58 Magnesium 2.3 mg/dL (1.6-2.6) 12/19/23 10:58 BUN 19 mg/dL (7-18) H 12/19/23 10:58 Creatinine 0.89 mg/dL (0.55-1.02) 12/19/23 10:58 Glucose 113 mg/dL (74-106) H 12/19/23 10:58 POC Glucose 182 mg/dL (74-106) H 01/07/24 06:07 TSH 2.72 uIU/mL (0.358-3.74) 11/04/23 09:26 COAG PT 13.8 SECONDS (11.7-14.9) 12/19/23 10:58 Pre-Assessment Diagnosis/Proposed Procedure Planned Operative Procedure(s): (R) ERAS Right Total Hip Replacement Robotic Arm Assisted Anesthesia History 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 When Was Last Pacemaker Check QUESTION #4 FULL TEXT: You/Your Family Experience fever (hyperthermia) with Anesthesia Last Oral Intake Last Oral intake: Last Oral Intake NPO since 00:00 01/07/24 06:29 Meds taken in AM with sips of Yes 01/07/24 06:29 water? Meds patient instructed to take am of surgery PONV PONV - pipeline integrity engineer: PONV - pipeline integrity engineer Female Yes 12/17/23 08:13 HX of Motion Sickness Yes 12/17/23 08:13 HX of N/V After Surgery No 12/17/23 08:13 Non-Smoker Yes 12/17/23 08:13 Duration of Surgery greater Yes 12/17/23 08:13 than 60 minutes Number of Risk Factors 4 12/17/23 08:13 PONV Score Severe Risk 12/17/23 08:13 Height & Weight Height & Weight: Anesthesia: Height & Weight Height 5 ft 9 in 01/07/24 06:29 Weight: 105.052 kg 01/07/24 06:29 Body Mass Index (BMI) 34.2 01/07/24 06:29 Respiratory Assessment Respiratory Assessment - pipeline integrity engineer: Respiratory Tract Infection Hx - pipeline integrity engineer Hx Respiratory Tract Infection No 12/17/23 08:13 STOP Sleep Apnea STOP Sleep Apnea - pipeline integrity engineer: STOP Sleep Apnea - pipeline integrity engineer Hx Hypertension Yes 12/17/23 08:13 Hx Sleep Apnea Yes 12/17/23 08:13 CPAP Yes: DOESN'T WEAR 12/17/23 08:13 BIPAP No 12/17/23 08:13 Do you snore loudly (louder than talking or can be heard Do you often feel tired/ fatigued/ sleepy during daytime? Has anyone observed you stop breathing during sleep? STOP Results Positive 12/17/23 08:13 QUESTION #5 FULL TEXT : Do you snore loudly (louder than talking or can be heard through closed doors)? 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 Specify any problems Hx of Preganancy in last 3 No 12/17/23 08:13 Months Nurse Filling Out Transfusion [facility] 12/17/23 08:13 & Questions: Date: 12/17/23 12/17/23 08:13 Time: 08:12/17/23 08:13 Patient unable to answer at this time (ie. confused, unrespo /Reproduction History /Reproductive History - pipeline integrity engineer: /Reproductive Hx- pipeline integrity engineer Hx Now Gestational Age (in weeks): EDC: Hx Hx Para Hx Section SAB Active Medications Active Medications: Current Medications Generic Name Dose Route Start Last Admin Trade Name Freq PRN Reason Stop Dose Admin Acetaminophen 1,000 mg 01/07/24 07:30 01/07/24 06:27 Acetaminophen 500 Mg Tablet PO 01/07/24 07:31 1,000 mg X1 ONE Administration Dexamethasone Sodium Phosphate 10 mg 01/07/24 07:30 Dexamethasone 10 Mg/Ml Vial IV 01/07/24 07:31 X1 ONE Gabapentin 600 mg 01/07/24 07:30 01/07/24 06:28 Gabapentin 600 Mg Tablet PO 01/07/24 07:31 600 mg X1 ONE Administration Lactated Ringer's 1,000 mls @ 999 mls/hr 01/07/24 07:30 01/07/24 06:24 IV 01/07/24 08:30 999 mls/hr .Q1H1M HAILEY Administration Tranexamic Acid 2,000 mg/ 120 mls @ 660 mls/hr 01/07/24 07:30 Sodium Chloride IV 01/07/24 07:40 X1 ONE Lactated Ringer's 1,000 mls @ 125 mls/hr 01/07/24 07:30 IV 01/07/24 15:29 .Q8H HAILEY Magnesium Sulfate 1 gm/ 102 mls @ 408 mls/hr 01/07/24 07:30 01/07/24 06:15 Dextrose IV 01/07/24 07:44 408 mls/hr X1 ONE Administration Cefazolin Sodium 2 gm/ N/A 20 mls @ 400 mls/hr 01/07/24 07:30 IV 01/07/24 07:32 PREOP ONE Insulin Human Lispro 1 - 6 unit 01/07/24 07:30 01/07/24 07:03 Insulin Lispro 100 Unit/Ml Insuln.Pen SC 1 units Q4H PRN PRN Administration BG>/= 180, SEE PROTOCOL Protocol Scopolamine HBr 1 patch 01/07/24 07:30 01/07/24 06:25 Scopolamine 1mg/72hr Patch TD 01/07/24 07:31 1 patch X1 ONE Administration PFSH Medical History Wears glasses Post-menopausal Alcohol use Ambulates with cane Arthritis High cholesterol Gastric reflux Former smoker CPAP (continuous positive airway pressure) dependence Sleep apnea History of stress test History of echocardiogram Cardiology follow-up encounter Obesity Mixed hyperlipidemia Vitamin deficiency GERD (gastroesophageal reflux disease) Pneumonia Hormone deficiency Hypertriglyceridemia Hypercholesterolemia Hypertension Diabetes Carpal tunnel syndrome UTI (urinary tract infection) History of back problems Adrenal disorder Home Medications ?Medication ?Instructions ?Recorded ?Last Taken ?Type cyanocobalamin (vitamin B-12) 5,000 mcg PO DAILY 08/09/20 01/04/24 History 1,000 mcg capsule esomeprazole magnesium 20 mg 20 mg PO BID 08/09/20 01/06/24 History capsule,delayed release magnesium glycinate 100 mg (as 500 mg PO DAILY 08/09/20 01/06/24 History glycinate) tablet losartan 100 mg tablet 100 mg PO DAILY #90 tabs 08/29/23 01/07/24 04:50 Rx rosuvastatin 5 mg tablet 5 mg PO DAILY #90 tabs 08/29/23 01/07/24 04:50 Rx Juice Plus OMEGA 3 BLEND 3 ea PO DAILY 12/17/23 01/04/24 History Juice Plus VEGETABLE BLEND 4 ea PO DAILY 12/17/23 01/04/24 History melatonin 10 mg capsule 20 mg PO QHS 12/17/23 01/04/24 History tirzepatide 7.5 mg/0.5 mL 7.5 mg (0.5 mL) subcut QWEEK #2 mL 12/18/23 12/24/23 Rx subcutaneous pen injector (Bismarkunchristianro) Allergy/AdvReac Type Severity Reaction Status Date / Time aspirin Allergy Mild Nausea Verified 01/07/24 06:20 gluten Allergy Mild Nausea Verified 01/07/24 06:20 Sulfa (Sulfonamide Allergy Mild Nausea Verified 01/07/24 06:20 Antibiotics) Family History Mother Angina pectoris, unspecified Arthritis Heart disease Parkinson disease Grandfather Angina pectoris, unspecified Myocardial infarction Heart disease Father Asthma Respiratory disease Skin cancer Grandmother Asthma Arthritis Cancer Cervical cancer Diabetes Hypertension Hypercholesterolemia Ovarian cancer H/O ulcer disease Sister Lung cancer Skin cancer Other Thyroid disorder Uterine cancer Surgical History H/O: hysterectomy History of tonsillectomy Social History Smoking Status: Former smoker alcohol intake: current alcohol intake frequency: a few times a week Alcohol type: wine substance use type: does not use what type of physical activity do you participate in: other details: gardening Review of Systems (Anesthesia) ROS Narrative System reviewed and no additional complaints, except as documented.
--- NOTE | 2024-01-07 07:12 | PCM.HP.BLA ---
History and Physical Date of Admission: 01/07/24 [facility] [address] [place] [address] OFFICE VISIT Date of Service: 11/22/23 MR#: [id number] Acct: [id number] Name: ROSE MARY NARANJO Rep #: [id number] : 1960 Provider: Dr. Gus aMrquez DO Age/Sex: 62/F Location: [facility] [place] Status: Signed Intake Vital Signs 11/04/2407:44 11/21/2408:09 Height 5 ft 9 in 5 ft 9 in Weight: 228 lb 224 lb 8 oz BMI 33.6 33.1 BP 136/82 H Blood Pressure Location Lt brachial Position Sitting Pulse 71 Pulse Source Monitor Pulse Oximetry (%) 96 Oxygen Delivery Method room air Intake Visit Reasons: RIGHT HIP Accompanied by: Self Is patient in pain?: Yes Pain scale (1-10): 8 Allergies aspirin Allergy (Mild, Verified 11/22/23 09:09) Nauseagluten Allergy (Mild, Verified 11/22/23 09:09) NauseaSulfa (Sulfonamide Antibiotics) Allergy (Mild, Verified 11/22/23 09:09) Nausea Medications ?Medication ?Instructions ?Recorded ?Confirmed ?Type alpha lipoic acid 600 mg capsule 600 mg PO DAILY 08/09/20 11/22/23 History cyanocobalamin (vitamin B-12) 1,360 mcg PO .1-2 08/09/20 11/22/23 History 1,000 mcg capsule esomeprazole magnesium 20 mg 20 mg PO DAILY 08/09/20 11/22/23 History capsule,delayed release magnesium glycinate 100 mg (as 400 mg PO DAILY 08/09/20 11/22/23 History glycinate) tablet vitamin D3 250 mcg (10,000 1 cap PO BID 08/09/20 11/22/23 History unit)-vitamin K2 45 mcg capsule tirzepatide 7.5 mg/0.5 mL 7.5 mg (0.5 mL) subcut QWEEK #2 mL 04/23/23 11/22/23 Rx subcutaneous pen injector ([place]) losartan 100 mg tablet 100 mg PO DAILY #90 tabs 08/29/23 11/22/23 Rx rosuvastatin 5 mg tablet 5 mg PO DAILY #90 tabs 08/29/23 11/22/23 Rx gabapentin 100 mg capsule 100 mg PO TID PRN 11/04/23 11/22/23 History PFSH Medical History Obesity Mixed hyperlipidemia Vitamin deficiency GERD (gastroesophageal reflux disease) Pneumonia Hormone deficiency Hypertriglyceridemia Hypercholesterolemia Hypertension Diabetes Carpal tunnel syndrome UTI (urinary tract infection) History of back problems Adrenal disorder Surgical History H/O: hysterectomy History of tonsillectomy Family History Mother Angina pectoris, unspecified Arthritis Heart disease Parkinson diseaseGrandfather Angina pectoris, unspecified Myocardial infarction Heart diseaseFather Asthma Respiratory disease Skin cancerGrandmother Asthma Arthritis Cancer Cervical cancer Diabetes Hypertension Hypercholesterolemia Ovarian cancer H/O ulcer diseaseSister Lung cancer Skin cancerOther Thyroid disorder Uterine cancer Social History Smoking Status: Former smoker alcohol intake: current alcohol intake frequency: a few times a week Alcohol type: wine substance use type: does not use what type of physical activity do you participate in: other details: gardening HPI RIGHT HIP Details: This documentation accurately reflects the service provided and the decisions made by me, Dr. Gus Marquez, DO 11/22/23 0755. Part of today?s visit was documented by [ ], acting as scribe. ROSE MARY NARANJO is a 62 year old F here today for Right hip pain. Patient would like to discuss surgery with you and why her hip has gotten this bad so fast. Patient states Dr Pritchard gave her injections, but they did not help. The last injection was 11/12/23 and her lumbar spine she is not sure the exact date of her hip injection but states it did help slightly with her sleeping but did not provide significant relief. Significant groin pain with any movement patient is taking Ibuprofen and Tylenol Arthritis, that helps some. Patient state ice makes it worse and moist heat helps. Ortho Exam General General: Yes no acute distress Neurologic: Yes alert and Yes oriented x3 Psychologic: Yes reasonable and appropriate Right Hip Skin: No Ecchymosis, No soft tissue swelling and No Erythema internal rotation @90 degree flexion: 0 degrees external rotation @90 degree extension: 20 degrees Special Tests: Yes C sign HIP: IR / ER with immediate pain in groin weakness with hip flexion and abduction secondary to pain No gross motor or sensory deficits no significant edema mild varicose veins Head: Normocephalic Atraumatic Chest: symmetrical rise, non-labored breathing, no audible wheeze Abdomen: no guarding, non-rigid Supplemental Info 08/28/2023 x-ray right hip: Moderate hip arthrosis joint space narrowing and spurring 01/07/2023 x-ray right hip: Moderate hip arthrosis joint space narrowing and spurring 01/07/2023 x-ray lumbar spine: Multilevel endplate spondylosis and degenerative disc disease most pronounced L5-S1 Coding Level of Care Code Off vis,est,level 4 Diagnoses Primary osteoarthritis of right hip M16.11 Osteoarthritis type: primary Laterality: right Assessment and Plan Assessment and Plan (1) OA (osteoarthritis) of hip: Status: Acute Qualifiers: Osteoarthritis type: primary Laterality: right Qualified Code(s): M16.11 - Unilateral primary osteoarthritis, right hip Plan Educated patient on anatomy and etiology of her hip. She does have significant hip arthrosis and she also has lumbar spine pathology I do think that both are contributing to her pain however the hip arthritis is most likely causing her significant pain in her groin and medial thigh. Discussed treatment options are do nothing, physical therapy, anti-inflammatory and EUGENIO. Discussed Risks, benefits and alternatives of surgery reviewed including but not limited to bleeding, infection, nerve, foot drop, artery and/or tissue damage, fracture, VTE, leg length discrepancy, dislocation, need for hip precautions, continued pain and expected post-operative course. Educated patient about the robotic technology and explained that I am still doing the surgery. Informed patient that she will be up and walking the same day. Advised patient that she will need clearance from her PCP. We will need to get CT scan and confirmed that her last hip injection was 3 months or greater from tentative surgery date of January 06, 2024 same-day surgery She does need to stop all NSAIDs 7 days prior to surgery. Follow up at 2 week post-op or sooner if pain, swelling, numbness or associated symptoms, or concerns develop. All questions answered. Patient in agreement of plan. 11/22/23 0950 <Electronically signed by Gus Marquez DO> Date Gus Marquez DO Cosigner Signature: Date (if applicable) I have examined the patient and the H&P has been reviewed. There are no clinical changes since date of exam.
[2024-01-07] MEDS: Cefazolin 2 GM in Syringe IV (07:35)
[2024-01-07] MEDS: TRANEXAMIC ACID 2,000 MG in 0.9% Normal Saline (100mL Bag) 100 ML 660 MG IV (07:42)
[2024-01-07] MEDS: dexAMETHasone 10 MG/ML Vial IV (07:47)
--- NOTE | 2024-01-07 09:52 | RAD_ITS ---
INDICATION: POST OP EXAMINATION/TECHNIQUE: X-RAY - RIGHT XR Hip Unilateral with Pelvis when performed; 2-3 Views COMPARISON: 08/28/2023. FINDINGS: No acute fracture or malalignment. No blastic or lytic lesions. Degenerative changes of the left hip. Status post total right hip arthroplasty in satisfactory position. RAD/Hip Min 2 Views (Portable) IMPRESSION: Status post total right hip arthroplasty in satisfactory position. Electronically Signed: Prasanna Pratt MD at 21:56 EDT ,
--- NOTE | 2024-01-07 09:57 | OP.PCM_ITS ---
Operative Report Date of Procedure: 01/07/24 Preoperative diagnosis: Right hip DJD Postoperative diagnosis: Same Procedure: CT-guided Makoplasty assisted right total hip arthroplasty Implants: Tony Accolade II stem size 4, 132 degree neck angle 0 head neck length 50 mm Trident II acetabular shell with 40 mm cancellous screw 32mm ce ramic head, 10 degree Trident X3 polyethylene insert. Start and stop time dictated by nursing. Anesthesia: Spinal EBL: 100 cc Complications: None Condition: Stable to PACU video production assistant : Dependency Case Manager Hi Colunga. My physician workers compensation claims assistant was a vital part of this case. He was important in appropriate retraction during the case, and protection of soft tissues during procedure. His intimate knowledge of the case and my steps aided in safe and expedient completion of the procedure as well as appropriate position of the extremity during the case. He was also vital in assisting with closure under my direct supervision. Second assist: Alyce Redding, held retractors Indication for procedure: This is a 63-year-old female who has had long-standing arthrosis of the hip who has failed conservative treatment and wished to undergo total hip arthroplasty. We did discuss operative versus nonoperative intervention including risks of bleeding, infection , nerve artery tissue damage, need for further surgery, fracture, leg length discrepancy dislocation blood clot and need for postoperative physical therapy and postoperative expectations. An informed consent was signed. Procedure: Patient was met in the preoperative holding area once again the operative extremity was identified by both patient and physician and was marked. Patient was met by anesthesia . Anesthesia was started. patient was then positioned in the lateral decubitus position on a well-padded pegboard with an axillary roll. All bony prominences were checked and padded. The patient was prepped and draped in the usual sterile fashion. A timeout was called to ensure the proper patient procedure and extremity were being contemplated. Anatomic landmarks were palpated and marked for a standard posterior lateral approach. Prior to this the ASIS was palpated and 3 fingerbreadths proximal to this 3 pins were placed at a 45 degree angle into the iliac crest with good purchase, stab incisions were made with a 15 blade into the skin prior to placement. The Makoplasty array was then secured. A 10 blade scalpel was used to make a posterior incision through the skin and subcutaneous tissue. retractors were used and electrocautery was used to maintain meticulous hemostasis and dissect full-thickness flaps until the gluteal fascia was reached. The gluteal fascia was incised in line with the gluteal fibers. The bursal tissue was then freed from the underside and a Charnley retractor was placed. The femoral trochanteric checkpoint was placed and leg length was assessed using the trochanteric checkpoint and an EKG lead that was placed on the knee prior to prepping the leg .the fat pad was then elevated off of the external rotators with electrocautery and the external rotators were dissected off of the greater trochanter including the piriformis and were tagged with #1 Ethibond for later repair. The joint capsule opened with posterior trapdoor technique. The hip was surgically dislocated. The measurement on the preoperative CT from the top of the lesser trochanter to the femoral neck cut was marked Hohmann was placed around the lesser trochanter. A neck cutting guide was used to aleyda the neck w ith a Bovie and an oscillating saw was used complete the femoral neck cut. The femoral head was then removed and sized. We then turned our attention to the acetabulum. A Bovie was used to make a perforation in the anterior joint capsule and a Calderon retractor was placed this was repeated in the 6 o'clock position and a wide nilam was placed there. With a long handled knife the labral and pulvinar tissue were removed. We then registered the acetabulum with the pointing array and confirmed our landmarks. Once the socket was thoroughly prepared and labral tissue and pulvinar was removed we single reamed with the robotic arm. We then used the robotic arm to position the acetabular implant and impacted it into place under robotic guidance. We then proceeded to place a posterior superior screw by drilling first measuring and inserting the screw. We then inserted a trial liner. And turned our attention back to the femur at this point a femoral elevator was used. As well as a pointed wide Hohmann around the lesser trochanter and a Hohmann to help retract the gluteus medius. A box chisel was used to remove excess lateral neck followed by a canal finder and a lateralizing reamer. This was followed by sequential broaches. Attention was made of the version within the canal based on preoperative templating. Once the final broach was seated we then trialed reduced the hip it was determined that a 132 degree neck angle with a low 0 neck length was the appropriate size. We then checked stability with shuck testing as well as flexion and internal rotation. then proceeded with hip extension and checked leg lengths at the knees and heels as well as with the trochanteric checkpoint and knee EKG lead. At this point trials were removed. A liner was inserted to the cup. The femoral stem was inserted. We re-trialed and then proceeded to impact the femoral head onto the Manas taper. We then surgically reduce the hip check stability again and leg lengths and were satisfied. Betadine rinse was allowed to sit for 5 minutes while everyone changed their gloves. Thorough irrigation was performed. Followed by closure of the external rotators with #2 FiberWire followed by closure of gluteal fascia with #1 Ethibond. 0 Vicryl fat stitches and 2-0 Vicryl subcutaneous stitches and marek in the skin. [place] were placed in the skin pin sites over the iliac crest and dressed with a Mepilex dressing. The main incision was dressed with a Mepilex ag dressing and an abduction pillow was placed. Patient tolerated the procedure well there was no intraoperative complications all counts were correct and the patient was brought back to the PACU in stable condition
[2024-01-07 10:21] LABS: Bedside Glucose 106 mg/dL (74-106)
--- NOTE | 2024-01-07 10:26 | DCINST_ITS ---
Discharge Instructions Diet Discharge Diet: No restrictions Activity Weight Bearing Status: Full weight bearing Dressing / Incision Call your doctor if you observe: Shortness of breath and Chest pain Additional Dressing/Incision Instructions:: Do not shower 72hrs. Begin daily showering warm water antibacterial soap postop day #3( 72hrs Post-operatively) and then daily. Leave the dressing on for 72 hours postoperatively then may remove prior to first shower and change dressing daily after this until no drainage for 2 consecutive days then may leave open to air. Follow hip precautions that were reviewed in hospital. Wear compression stockings, may remove at night. Start physical therapy as directed in hospital. Follow prescriptions instructions do not take any other pain medication or differ dosing without consulting your physician. Do not take oral NSAIDs until blood thinner has been completed , then may begin the day after completion if needed . Call Dr. Marquez's office with any concerns. Follow Up Care Please Follow Up With: Gus Marquez DO When: 2 weeks Test Results: Test results from this visit will be discussed in further detail at your follow- up appointment, if applicable. Discharge Plan Admission Primary Reason for Your Visit: Right total hip arthroplasty Attending Provider: Gus Marquez Primary Care Provider: Isabela Blank Instructions Print Language: Faroese Discharge Orders/Prescriptions Prescriptions: New acetaminophen 500 mg tablet 1,000 mg PO Q6H Qty: 90 0RF cephalexin 500 mg capsule 1,000 mg PO Q8H Qty: 4 0RF Rx Instructions: Take 2 tabs before you go to bed and 2 tabs after 5 AM morning after surgery when you wake up Eliquis 2.5 mg tablet 2.5 mg PO BID Qty: 42 0RF Rx Instructions: Begin morning after surgery. oxycodone 5 mg tablet 5 - 10 mg PO Q6H PRN (Reason: pain) 7 Days Qty: 60 0RF Continued magnesium glycinate 100 mg tablet 500 mg PO DAILY esomeprazole magnesium 20 mg capsule,delayed release(DR/EC) 20 mg PO BID cyanocobalamin (vitamin B-12) 1,000 mcg capsule 5,000 mcg PO DAILY Juice Plus VEGETABLE BLEND 4 ea PO DAILY Juice Plus OMEGA 3 BLEND 3 ea PO DAILY melatonin 10 mg capsule 20 mg PO QHS losartan 100 mg tablet 100 mg PO DAILY Qty: 90 3RF rosuvastatin 5 mg tablet 5 mg PO DAILY Qty: 90 3RF Mounjaro 7.5 mg/0.5 mL pen injector 7.5 mg subcut QWEEK Qty: 2 5RF Patient Comments: LAST DOSE WILL BE December Other Ambulatory Orders: 12 Lead EKG (Routine) Timeframe: 20231219 Location: None Selected Ordered By: Dr. Gus Marquez Referrals / Follow Up: Care Physician,No Primary [Non-Staff] - Disposition Disposition (needs filled in before D/C Order can be placed): Home, Self Care
--- NOTE | 2024-01-07 11:40 | PCM.POST.ANE ---
Anesthesia: Postop Eval I Current Vital Signs Temperature: 96.9 F Pulse Rate: 54 Blood Pressure: 101/66 Respiratory Rate: 18 Pulse Ox: 98 Oxygen Delivery Method: Room Air Assessment Airway patent: Yes Spontaneous unlabored respirations: Yes Mental status: Awake and Calm nausea: No Vomiting: No Anesthesia Complication: No Fluid Hydration Crystalloid volume administer (ml): 1,300 Total IV fluid infused: 1,300 Progress Note Post-operative progress note: NEGATIVE MOTOR; SENSORY LEVEL T10 Anesthesia document: Postop Eval 1 completed: Yes
[2024-01-07] MEDS: oxyCODONE 5 MG Tablet PO (12:17)
[2024-01-07] MEDS: Cefazolin 2 GM in 0.9% Normal Saline (100mL Bag) 100 ML IV (13:35)
== END 2024-01-07 16:04 | disposition home or self-care (01) ==
LOC: SDC 05:27 → AC 05:31
PROVIDERS: PCP Family Medicine; Referring Provider Orthopaedic Surgery; Visit Provider Orthopaedic Surgery
PROC: 8E0Y0CZ Robotic Assisted Procedure of Lower Extremity, Open Approach (ICD-10-PCS; CPT 27130; principal; 2024-01-07 07:00)
DX: M16.11 Unilateral primary osteoarthritis, right hip (principal); E11.9 Type 2 diabetes mellitus without complications; E78.2 Mixed hyperlipidemia; I10 Essential (primary) hypertension; Z90.710 Acquired absence of both cervix and uterus; Z87.891 Personal history of nicotine dependence; M51.26 Other intervertebral disc displacement, lumbar region; K21.9 Gastro-esophageal reflux disease without esophagitis; G47.30 Sleep apnea, unspecified; Z79.899 Other long term (current) drug therapy; E66.9 Obesity, unspecified; Z87.440 Personal history of urinary (tract) infections; Z82.49 Family history of ischemic heart disease and other diseases of the circulatory system
CPT/HCPCS: 27130; 01214; 36415; 73502; 80048; 82962; 82985; 83036; 83735; 85025; 85610; 85730; 87081; 88305; 88311; 88341; 88342; 93005; 97162; C1713; C1776; J7120; J2405; J3475

== ENCOUNTER → 2024-02-11 | Outpatient (CLI) | payer MEDICARE, OTHER, SELFPAY ==
[2024-02-11 14:28] LABS: Hematocrit 39.6 % (37-47); Hemoglobin 13.5 g/dL (12.0-15.0); Mean Corp Hgb Conc 34.1 g/dL (32-36); Mean Corpuscular Hgb 32.1 pg (27.0-32.0); Mean Corpuscular Volume 94.1 fL (81-99); Platelet Count 283 K/mm3 (150-450); RBC Distribution Width CV 11.9 % (11.6-14.6); RBC Distribution Width SD 40.9 fl (35.1-43.9); Red Blood Count 4.21 M/mm3 (4.2-5.4); White Blood Count 7.1 K/mm3 (4.4-11.0)
[2024-02-11 15:03] LABS: Anion Gap 4 (5-15); BUN 18 mg/dL (7-18); BUN/Creat Ratio 24.8 RATIO (10-20); Calcium,Total 9.2 mg/dL (8.5-10.1); Chloride 108 mmol/L (98-107); Creatinine, Serum 0.73 mg/dL (0.55-1.02); EST Glomerular Filtration Rate 86 mL/min (>60); Est Glom Filt Rate - Afr Amer 104 mL/min (>60); Glucose 93 mg/dL (74-106); Potassium 4.3 mmol/L (3.5-5.1); Sodium Level 140 mmol/L (136-145)
== END | disposition home or self-care (01) ==
LOC: LAB 14:05
PROVIDERS: PCP Family Medicine; Referring Provider Nurse Practitioner Gerontology; Visit Provider Nurse Practitioner Gerontology
DX: R53.83 Other fatigue (principal)
CPT/HCPCS: 36415; 80048; 85027

== ENCOUNTER → 2024-07-07 | Outpatient (CLI) | payer MEDICARE, OTHER, SELFPAY ==
--- NOTE | 2024-07-07 12:30 | BD_ITS ---
PROCEDURE: DEXA BONE DENSITY STUDY 07/07/2024 REASON FOR EXAM: F, age 63 y/o . Postmenopausal. TECHNIQUE: DXA scan of the lumbar spine and left hip, using make and model. REFERENCE LINKS: ISCD Adult Positions COMPARISON: Comparison is made with prior study dated January 10, 2022. FINDINGS: BMD and T-SCORES Lumbar spine: 1.095 g/cm2, T-Score 0.4 L1 through L4 Change from prior: Loss of 6.4% Left femoral neck: 0.9 5 5 g/cm2, T-Score 1.0 Femoral neck comparison data not recommended for monitoring change. Left total hip: 1.182 g/cm2, T-Score 2.0 Change from prior: Loss of 4.9% Fracture Risk Calculation: FRAX (10-year Fracture Risk) Score: FRAX scores should never be reported in a patient with osteoporosis on DEXA or for any patient that is on bone medication. The patient doesmeet the pharmacological treatment recommendations for prevention of osteoporosis BD/Dexa Bone Density Study IMPRESSION: NORMAL T-SCORES. Recommend follow-up as clinically warranted. Reading Location: [place] [id number]
== END | disposition home or self-care (01) ==
LOC: OPBD 12:25
PROVIDERS: PCP Family Medicine; Referring Provider Family Medicine; Visit Provider Family Medicine
DX: Z78.0 Asymptomatic menopausal state (principal)
CPT/HCPCS: 77080

== ENCOUNTER → 2024-12-21 | Outpatient (CLI) | payer MEDICARE, OTHER, SELFPAY ==
--- NOTE | 2024-12-21 14:30 | BI_ITS ---
EXAM: SCRN MAMM (CAD)W/CHULA BILAT DATE: 12/21/2024 CLINICAL HISTORY: F, Age 64 y/o , SCREENING FOR BREAST CANCER Routine screening TECHNIQUE: Procedure Code: [id number] Modality: MG Procedure: SCRN MAMM (CAD)W/CHULA BILAT COMPARISON: Prior exam(s) dated 04/07/2018. FINDINGS: TISSUE DENSITY: The breasts are almost entirely fatty. Bilateral Breast Mammographic Findings: No significant masses, calcifications or other abnormalities are identified. No interval change BI/SCRN MAMM (CAD)W/CHULA BILAT IMPRESSION: Stable screening mammogram, no suspicious findings OVERALL FINAL ASSESSMENT BI-RADS 1: NEGATIVE. RECOMMENDATION: Routine annual follow-up in 1 Year Additional Recommendation none A letter with findings and recommendations will be mailed to the patient. Reading Location: [id number]
== END | disposition home or self-care (01) ==
LOC: OPBI 14:23
PROVIDERS: PCP Family Medicine
DX: Z12.31 Encounter for screening mammogram for malignant neoplasm of breast (principal)
CPT/HCPCS: 77063; 77067

== ENCOUNTER → 2025-02-26 | Outpatient (CLI) | payer MEDICARE, OTHER, SELFPAY ==
--- OUTSIDE RECORDS SUMMARY | 2025-02-26 15:33 | XMS RPT_ITS | CCD ---
Author Organization [facility] Care Team Providers Care Nurse Case Management Name Role Phone Val Willams Attending Unavailable EmiheimVal Referring Unavailable Monheim Val M Primary Care Unavailable [place], Rosamaria Unavailable Unavailable Monheim, Val Unavailable Unavailable Prasanna Bailon Unavailable Unavailable Prasanna Bailon Unavailable Unavailable Philip Gonzales Unavailable Unavailable Philip Clark Unavailable Unavailable Wilma López Unavailable Unavailable David Brooks Unavailable Unavailable Rupal Booker Unavailable Unavailable MonheimVal M Unavailable Unavailable [place], Rosamaria Unavailable Unavailable Monheim, Val Unavailable Unavailable Monheim, Val M Unavailable Unavailable Lambert Colón Unavailable Unavailable Unavailable RENE Lopez Attending Provider RENE Lopez Attending Provider Care Physician, No Primary Primary Care Provider Unavailable Care Physician, No Primary Referring Provider Un available FLACO LOPEZ Primary Care Unavailable SHIMA CHISHOLM Attending Unavailable Harpreet DUDE RANCH MANAGERFlaco GARCIA Primary Care Provider Care Physician, No Primary Primary Care Provider Unavailable Care Physician, No Primary Referring Provider Un available Dr. Franc Villela Attending Provider Dr. Guerrero Vera Attending Provider Dr. Gus Marquez Attending Provider [phone] LIZETTE Givens Attending Provider Unavail able Dr. Bear Joshua Primary Care Provider Iker DIALLO, IMANI-C Arin Attending Provider Dr. Guerrero Vera Referring Provider [phone] Dr. Guerrero Vera Other Provider FLACO LOPEZ Primary Care Unavailable SELF Referring Unavailable FLACO LOPEZ Primary Care Unavailable Harpreet TASSEL CLIPPER-C, Flaco Attending Provider Abhay MONIQUE, Isabela Primary Care Provider [phone] Abhay MONIQUE, Isabela Referring Provider Isabela Blank MD Attending Provider Abhay MONIQUE, Isabela Primary Care Physician [phone] [place] TASSEL CLIPPER-C, Pedro Attending Physician Jose Juanorrow TASSEL CLIPPER-C, Pedro Referring Provider Iker TASSEL CLIPPER, Arin Attending Unavailable Iker TASSEL CLIPPER, Arin Referring Unavailable Abhay, Chalon Primary Care Unavailable Gus Marquez Attending Unavailable Abhay, Chalon Primary Care Unavailable Care Physician, No Primary Referring Unava ilable Care Physician, No Primary Referring Unava ilable Iker TASSEL CLIPPER, Arin Attending Unavailable Abhay, Chalon Primary Care Unavailable Guerrero Vera Attending Unavailable Abhay, Chalon Primary Care Unavailable Abhay, Chalon Referring Unavailable Abhay, Chalon Primary Care Unavailable Flaco Lopez Attending Unavailable Andre Grover Attending Unavailable Abhay, Chalon Primary Care Unavailable Abhay, Chalon Primary Care Unavailable [place] TASSEL CLIPPER, Pedro Attending [facility] Pedro Referring Unavailable Abhay, Chalon Attending Unavailable Abhay, Chalon Referring Unavailable Abhay, Chalon Primary Care Unavailable Allergies Allergy Classification Reported Allergen(s) Allergy Type Date of Onset Reaction(s) Facility Fenofibrate (2 sources) Fenofibrate; Translations: [Antara CAPS] Drug Allergy Myalgia [facility] Work Phone: HMG-CoA Reductase Inhibitors (statins) (4 sources) rosuvastatin; Translations: [Crestor TABS] Drug Allergy Myalgia [facility] Work Phone: Sulfamethoxazole / Trimethoprim (2 sources) Sulfamethoxazole / Trimethoprim; Translations: [Bactrim TABS] Drug Allergy Nausea [facility] Work Phone: Sulfonamides (antibiotic) (2 sources) Sulfamethoxazole; Translations: [sulfa] Drug Allergy [facility] Work Phone: (4 sources) Fenofibrate [facility]: (4 sources) fluvastatin [facility] (4 sources) rosuvastatin Drug [facility]ergy [facility] Work [facility]: (6 sources) Sulfamethoxazole / Trimethoprim Drug Allergy 03-11-20 22 Nausea, GI Upset [facility] (2 sources) Sulfonamides (Antibiotic) Allergy to drug (finding) [facility] Work Phone: (10 sources) Aspirin; Translations: [ASPIRIN] Drug Allergy 12-27-19 23 Intolerance [facility] (2 sources) Sulfamethoxazole / Trimethoprim; Translations: [SULFAMETHOXAZOLE-T RIMETHOPRIM] Drug Allergy 03-11-20 22 [facility] (5 sources) Sulfonamides (Antibiotic) Allergy to substance 02-19-20 23 Nausea [facility] (5 sources) Wheat gluten extract Drug Allergy 02-19-20 23 Nausea [facility] (1 source) Gluten Drug allergy (disorder) 05-04-19 25 [facility] (1 source) Sulfonamides (Antibiotic) Drug allergy (disorder) 05-04-19 25 [facility] Medications Current Medications Medication Drug [...] on above: Take 1 tablet by arleth two times a day for 10 days. esomeprazole 20 mg delayed release oral capsule (13 sources) Proton Pump Inhibitor Start: 08-09-2020 take 1 capsule by mouth twice daily Start: 01-12-2016 take 20 mg by mouth once daily Esomeprazole Magnesium Active 20 MG PO DAILY August 08, 2020 11:00pm Inhalational Spacing Device (1 source) Start: 06-12-2023 End: 06-12-2023 Inhalational Spacing Device Indications: URI with cough and congestion 1 Device one time only for 1 dose. 1 Each 0 06/12/2023 06/12/2023 Active Comment on above: 1 Device one time on ly for 1 dose. magnesium glycinate 100 mg oral tablet (7 sources) Start: 08-09-2020 Start: 08-09-2020 take 400 mg by mouth once stephen y Magnesium Glycinate Active 400 MG PO DAILY August 08, 2020 11:00pm melatonin 10 mg oral capsule (2 sources) Start: 12-17-2023 take 2 capsules by m outh at bedtime Tirzepatide (2 sources) Start: 12-09-2024 Start: 12-09-2024 End: 12-09-2024 Tirzepatide (Mounjaro) 12.5 mg/0.5 mL pen injector Discontinued 12.5 mg SC EVERY WEEK 2 December 09, 2024 12:00am December 09, 2024 9:17am Diabetes mellitus Type 2 diabetes mellitus with hyperglycemia Tirzepatide (Mounjaro) 10 mg/0.5 mL pen injector (1 source) Start: 05-04-2024 Tirzepatide (Mounjaro) 10 mg/0.5 mL pen injector Active 10 mg SC EVERY WEEK 2 May 04, 2024 1:00am vitamin b12 1 mg oral capsule (13 sources) Vitamin B12 Start: 08-09-2020 take 5 capsules by mouth once daily Start: 08-09-2020 Cyanocobalamin (Vitamin B-12) Active 1360 MCG PO .1-2 August 08, 2020 11:00pm Start: 02-22-2012 Vitamin B-12 1 000 MCG Oral Tablet TAKE 1 TABLET DAILY.. Quantity: 30 Refills: 6 Ordered: 03-Feb-2018 Val Willams MD Start : 22-Feb-2012 Active Vitamin D3-Vitamin K2 (5 sources) Start: 08-09-2020 take 1 capsule by mouth twice daily Vitamin D3-Vitamin K2 Active 1 CAP PO TWICE A DAY August 08, 2020 11:00pm Start: 08-09-2020 take 1 capsule by mo ut twice daily Vitamin D3-Vitamin K2 Active 1 CAP PO TWICE A DAY August 09, 2020 12:00am Completed/Discontinued Medications Medication Drug Class(es) Dates Sig (Normalized) Sig (Original) acetaminophen 500 mg oral tablet (2 sources) Start: 01-07-2024 End: 05-04-2024 take 2 tablets by mouth every six hours Acetaminophen 500 mg tablet Discontinued 1000 mg PO EVERY 6 HOURS 90 0 January 07, 2024 12:00am May 04, 2024 4:21pm pain [id number] actuat albuterol 0.09 mg/actuat metered dose inhaler (3 sources) beta2-Adrenergic Agonist Start: 06-12-2023 take 2 puff(s) by inhalation every four hours as needed for wheezing albuterol HFA (PROVENTIL HFA, VENTOLIN HFA) 90 mcg/actuation inhaler Indications: URI with cough and congestion Inhale 2 Puffs as instructed every 4 hours as needed for wheezing/shortness of breath. 1 Each 0 06/12/2023 Active Start: 06-10-2018 Ventolin HFA 1 08 (90 Base) MCG/ACT Inhalation Aerosol Solution use q4-6 hours if needed for wheezing Quantity: 1 Refills: 0 Val Willams MD Start : 10-Jun-2018 Active 8 GM Inhaler Comment on above: Inhale 2 Puffs as in structed every 4 hours as needed for wheezing/shortness of breath. apixaban 2.5 mg oral tablet (2 sources) Factor Xa Inhibitor Start: End: take 1 tablet by mouth twice daily in the morning Apixaban (Eliquis) 2.5 mg tablet Discontinued 2.5 mg PO TWICE A DAY 42 0 January 07, 2024 12:00am February 11, 2024 2:34pm Begin morning after surgery. azithromycin 250 mg oral tablet (1 source) Macrolide Antimicrobial Start: 020 take 2 tablets by mouth once daily, then take 1 tablet by mouth, then take 1 tablet by mouth once daily Azithromycin 250 MG Oral Tablet TAKE 2 TABLETS ON DAY 1 THEN TAKE 1 TABLET A DAY FOR 4 DAYS. Quantity: 1 Refills: 0 Prasanna Bailon DO Start : 29-May-2019 Active 6 Tablet Box bamboo (6 sources) Start: End: bamboo Discontinued PO June 11, 2022 12:00am January 07, 2023 9:08am Start: 06-11-2022 End: 01-07-2023 bamboo Discontinued PO June 10, 2022 11:00pm January 07, 2023 8:08am Start: 06-11-2022 bamboo Active PO June 11, 2022 12:00am benzocaine 15 mg / menthol 3.6 mg oral lozenge (1 source) Standardized Chemical Allergen Start: 06-12-2023 benzocaine-menthol (CEPACOL) 15-3.6 mg lozg Indications: URI with cough and congestion Use 1 Lozenge as instructed every 2 hours as needed. 18 Lozenge 0 06/12/2023 Active Comment on above: Use 1 Lozenge as ins tructed every 2 hours as needed. benzonatate 100 mg oral capsule (2 sources) Non-narcotic Antitussive Start: 03-11-2022 take 1 capsule by mouth three times daily as needed benzonatate (TESSALON PERLE) 100 mg capsule Indications: Acute otitis media, right Take 1 capsule by mouth three times daily as needed. 30 capsule 0 03/11/2022 Active Comment on above: Take 1 capsule by [facility] three times daily as needed. black ignacio extract (7 sources) Start: 08-09-2020 End: 11-22-2023 take 4 capsules by mouth twice daily black ignacio extract Discontinued 2800 mg PO TWICE A DAY 0 August 09, 2020 12:00am November 22, 2023 9:09am 4 caps, BID Start: 08-09-2020 End: 11-22-2023 take 4 capsules by mouth twice daily black ignacio extract Discontinued 2800 mg PO TWICE A DAY August 09, 2020 12:00am November 22, 2023 9:09am 4 caps, BID Start: 08-09-2020 take 4 capsules by m outh twice daily black ignacio extract Active 2800 MG PO TWICE A DAY August 08, 2020 11:00pm 4 caps, BID Start: 08-09-2020 take 4 capsules by m outh twice daily black ignacio extract Active 2800 MG PO TWICE A DAY August 09, 2020 12:00am 4 caps, BID cephalexin 500 mg oral capsule (2 sources) Cephalosporin Antibacterial Start: 01-07-2024 End: 01-20-2024 Cephalexin 500 mg capsule Discontinued 1000 mg PO Q8H 4 0 January 07, 2024 12:00am January 20, 2024 10:25am Take 2 tabs before you go to bed and 2 tabs after 5 AM morning after surgery when you wake up cetirizine hydrochloride 10 mg oral tablet (7 sources) Histamine-1 Receptor Antagonist Start: 08-09-2020 End: 01-07-2023 take 1 tablet by mouth once daily Cetirizine 10 mg tablet Discontinued 10 mg PO DAILY August 09, 2020 12:00am January 07, 2023 9:08am cholecalciferol 0.05 mg oral tablet (8 sources) Vitamin D Start: 11-25-2018 cholecalciferol (VITAMIN D3) 50 mcg (2,000 unit) [...] solution (1 source) Opioid Agonist, Phenothiazine Start: 05-29-19 take 5 mL by mouth every six hours as needed Promethazine-Codeine 6.25-10 MG/5ML Oral Syrup TAKE 5 ML EVERY 6 HOURS NEEDED. Quantity: 120 Refills: 0 Prasanna Bailon DO Start : 29-May-2019 Active Dulaglutide (20 sources) GLP-1 Receptor Agonist Start: 12-12-19 End: 06-12-19 23 Dulaglutide (Trulicity) 3 mg/0.5 mL pen injector Discontinued 3 mg SC EVERY WEEK 2 5 December 11, 2021 12:00am June 11, 2022 8:47am Diabetes mellitus Type 2 diabetes mellitus without complications Start: 12-11-2021 End: 06-11-2022 Dulaglutide (Trulicity) 3 mg /0.5 mL pen injector Discontinued 3 mg SC EVERY WEEK 2 December 11, 2021 12:00am June 11, 2022 8:47am Start: 12-11-2021 End: 06-11-2022 Dulaglutide (Trulicity) 3 mg /0.5 mL pen injector Discontinued 3 MG SC EVERY WEEK 2 December 10, 2021 11:00pm June 11, 2022 7:47am Start: 12-11-2021 End: 06-11-2022 Dulaglutide (Trulicity) 3 mg /0.5 mL pen injector Discontinued 3 MG SC EVERY WEEK 2 December 11, 2021 12:00am June 11, 2022 8:47am Start: 12-11-2021 Dulaglutide (T rulicity) 3 mg/0.5 mL pen injector Active 3 MG SC EVERY WEEK 2 December 11, 2021 12:00am Start: 07-10-2021 End: 07-10-2021 Dulaglutide (Trulicity) 3 mg /0.5 mL pen injector Discontinued 3 mg SC EVERY WEEK 2 3 July 10, 2021 12:00am July 10, 2021 11:45am Start: 07-10-2021 End: 07-10-2021 Dulaglutide (Trulicity) 3 mg /0.5 mL pen injector Discontinued 3 mg SC EVERY WEEK 2 July 10, 2021 12:00am July 10, 2021 11:45am Start: 07-10-2021 End: 07-10-2021 Dulaglutide (Trulicity) 3 mg /0.5 mL pen injector Discontinued 3 MG SC EVERY WEEK 2 July 09, 2021 11:00pm July 10, 2021 10:45am Start: 07-10-2021 End: 07-10-2021 Dulaglutide (Trulicity) 3 mg /0.5 mL pen injector Discontinued 3 MG SC EVERY WEEK 2 July 10, 2021 12:00am July 10, 2021 11:45am Start: 06-27-2021 End: 12-11-2021 Dulaglutide (Trulicity) 1.5 mg/0.5 mL pen injector Discontinued 1.5 mg SC EVERY WEEK 2 3 November 10, 2021 7:56am December 11, 2021 8:38am Start: 05-31-2021 End: 06-27-2021 Dulaglutide (Trulicity) 0.75 mg/0.5 mL pen injector Discontinued 0.75 mg SC EVERY WEEK 2 0 May 31, 2021 1:00am June 27, 2021 8:11am Start: 01-24-2021 End: 05-31-2021 Dulaglutide (Trulicity) 3 mg /0.5 mL pen injector Discontinued 3 mg SC EVERY WEEK 2 3 January 24, 2021 12:00am May 31, 2021 10:09am Start: 01-24-2021 End: 05-31-2021 Dulaglutide (Trulicity) 3 mg /0.5 mL pen injector Discontinued 3 mg SC EVERY WEEK 2 January 24, 2021 12:00am May 31, 2021 10:09am Start: 01-24-2021 End: 05-31-2021 Dulaglutide (Trulicity) 3 mg /0.5 mL pen injector Discontinued 3 MG SC EVERY WEEK 2 January 23, 2021 11:00pm May 31, 2021 9:09am Start: 01-24-2021 End: 05-31-2021 Dulaglutide (Trulicity) 3 mg /0.5 mL pen injector Discontinued 3 MG SC EVERY WEEK 2 January 24, 2021 12:00am May 31, 2021 10:09am Start: 11-25-2020 End: 01-24-2021 Dulaglutide (Trulicity) 1.5 mg/0.5 mL pen injector Discontinued 1.5 mg SC EVERY WEEK 2 4 November 25, 2020 12:00am January 24, 2021 8:43am Start: 12-10-2018 inject 1.5 mg by sub cutaneous injection every week Trulicity 1.5 MG/0.5ML Subcutaneous Solution Pen-injector Inject 1.5mg once per week, subcutaneous. Quantity: 1 Refills: 5 Prasanna Bailon DO Start : 10-Dec-2018 Active 4 x 0.5 ML Pen etodolac 500 mg oral tablet (10 sources) Nonsteroidal Anti-inflammatory Drug Start: 05-06-2023 End: 08-28-2023 take 1 tablet by mouth every twelve hours as needed Etodolac 500 mg tablet Discontinued 500 mg PO Q12H as needed May 06, 2023 1:00am August 28, 2023 3:47pm Start: 01-16-2023 End: 11-04-2023 take 1 tablet by mouth twice daily Etodolac 500 mg tablet Discontinued 500 mg PO TWICE A DAY 60 0 May 06, 2023 9:51am November 04, 2023 8:49am Do not take in conjunction with other NSAID. Tylenol is okay. fexofenadine hydrochloride 180 mg oral tablet (6 sources) Histamine-1 Receptor Antagonist Start: 05-22-2016 take 1 tablet by mouth once daily as needed Fexofenadine HCl - 180 MG Oral Tablet TAKE 1 TABLET DAILY NEEDED FOR ALLERGIES. Quantity: 90 Refills: 3 Ordered: 03-Feb-2018 Val Willams MD Start : 22-May-2016 Active fluticasone propionate 0.05 mg/actuat metered dose nasal spray (9 sources) Corticosteroid Start: 06-12-2023 take 1 spray(s) nasal route twice daily fluticasone (FLONASE) 50 mcg/actuation nasal spray Indications: URI with cough and congestion Use 1 Whiting in each nostril two times a day. [...] in each nostril once daily. Use 1 Whiting in each nostril two times a day. gabapentin 100 mg oral capsule (2 sources) Anti-epileptic Agent Start: 11-04-19 End: 12-17-19 take 1 capsule by mouth three times daily as needed Gabapentin 100 mg capsule Discontinued 100 mg PO THREE TIMES A DAY as needed November 04, 2023 12:00am December 17, 2023 8:10am glimepiride 4 mg oral tablet (7 sources) Sulfonylurea Start: 11-26-19 End: 06-01-19 take 1 tablet by mouth twice daily Glimepiride 4 mg tablet Discontinued 4 mg PO TWICE A DAY November 25, 2020 12:00am May 31, 2021 10:09am glutamine 500 mg oral capsule (13 sources) Amino Acid Start: 10-08-19 End: 10-12-19 take 1 capsule by mouth twice daily Glutamine (L-Glutamine) 500 mg capsule Discontinued 500 mg PO TWICE A DAY August 09, 2020 12:00am October 11, 2022 8:51am Juice Plus OMEGA 3 BLEND (2 sources) Start: 12-17-19 End: 05-04-19 Juice Plus OMEGA 3 BLEND Discontinued 3 NMA PO DAILY December 17, 2023 12:00am May 04, 2024 4:21pm Juice Plus VEGETABLE BLEND (2 sources) Start: 12-17-19 End: 05-04-19 25 Juice Plus VEGETABLE BLEND Discontinued 4 NMA PO DAILY December 17, 2023 12:00am May 04, 2024 4:21pm loratadine 10 mg oral tablet (1 source) Start: 06-12-19 take 1 tablet by mouth once daily as needed loratadine (CLARITIN) 10 mg tablet Indications: URI with cough and congestion Take 1 tablet by mouth once daily as needed (for allergy symptoms). 14 tablet 0 06/12/2023 Active Comment on above: Take 1 tablet by [facility] once daily as needed (for allergy symptoms). losartan potassium 100 mg oral tablet (20 sources) Angiotensin 2 Receptor Sangeeta Start: 06-02-19 End: 08-29-19 take 1 tablet by mouth once daily Losartan 100 mg tablet Discontinued 100 mg PO DAILY 90 1 February 12, 2022 2:53pm June 11, 2022 9:00am Comment on above: Take 100 mg by mouth once daily. magnesium oxide 500 mg oral capsule (4 sources) Start: 12-11-19 Magnesium 500 MG CAPS TAKE 1 CAPSULE Daily Quantity: 0 Refills: 0 Ordered: 10-Dec-2018 DO Start : 10-Dec-2018 Active metFORMIN hydrochloride 1000 mg oral tablet (20 sources) Biguanide Start: 11-26-19 End: 08-28-19 24 take 1 tablet by mouth twice daily Metformin 1,000 mg tablet Discontinued 1000 mg PO TWICE A DAY 60 3 May 10, 2022 9:46am June 11, 2022 9:00am Start: 08-09-2020 End: 11-25-2020 take 2 tablets by mouth once daily Metformin 1,000 mg tablet Discontinued 2000 mg PO DAILY August 09, 2020 12:00am November 25, 2020 3:25pm Start: 08-09-2020 End: 11-25-2020 take 2000 mg by mouth once daily Metformin Discontinued 2000 MG PO DAILY August 08, 2020 11:00pm November 25, 2020 2:25pm Start: 02-04-2017 take 4 tablets by mo [facility] once daily in the evening metFORMIN HCl ER 500 MG Oral Tablet Extended Release 24 Hour TAKE 4 TABLETS BY MOUTH DAILY IN THE EVENING Quantity: 360 Refills: 1 Ordered: 22-Sep-2020 Lambert Colón MD Start : 04-Feb-2017 Active Comment on above: Take 1,000 mg by arleth twice daily. MOUNJARO 7.5 mg/0.5 mL pen injector (2 sources) Start: 2022 inject 7.5 mg by subcutaneous injection every week MOUNJARO 7.5 mg/0.5 mL pen injector 7.5 mg (0.5 mL) subcutaneously every week 0 01/04/2023 Active Comment on above: 7.5 mg (0.5 mL) subc utaneously every week oxyCODONE hydrochloride 5 mg oral tablet (2 sources) Opioid Agonist Start: 2023 End: 2023 take 5-10 mg by mouth every six hours as needed for pain Oxycodone 5 mg tablet Discontinued 5 - 10 mg PO EVERY 6 HOURS as needed for pain 60 7 0 January 07, 2024 January 20, 2024 10:25am Other acute postprocedural pain Other acute postprocedural pain pitavastatin calcium 2 mg oral tablet (6 sources) HMG-CoA Reductase Inhibitor Start: 2017 take 1 tablet by mouth once daily Livalo 2 MG Oral Tablet 1 tablet daily Quantity: 90 Refills: 1 Ordered: 09-Sep-2019 [id number] Bailon DO Start : 03-Feb-2018 Active Start: 02-03-2018 take 1 tablet by arleth th every other day Livalo 2 MG Oral Tablet 1 tab every other day, takes 4 days per week Quantity: 30 Refills: 5 Prasanna Bailon DO Start : 03-Feb-2018 Active polyethylene glycol 3350 67198 mg powder for oral solution (4 sources) [...] Rosamaria Hoffman MD Start : 27-Mar-2018 Active pregnenolone 50 mg oral tablet (7 sources) Start: 08-09-2020 End: 12-11-2021 take 50 mg by mouth twice daily pregnenolone Discontinued 50 mg PO TWICE A DAY 0 August 09, 2020 12:00am December 11, 2021 8:29am psyllium 3400 mg powder for oral suspension (4 sources) Start: 12-10-2018 Metamucil 48.5 7 % Oral Powder 1 tbsp daily with 2 caps of miralax daily er dr gonzales Quantity: 1 Refills: 1 Ordered: 10-Dec-2018 Val Willams MD Start : 10-Dec-2018 Active Start: 12-10-2018 take 2 capsules by m outh once daily Metamucil 48.57 % Oral Powder 1 tbsp daily with 2 caps of miralax daily er dr gonzales Quantity: 1 Refills: 1 Val Willams MD Start : 10-Dec-2018 Active 822 GM Bottle rosuvastatin calcium 5 mg oral tablet (13 sources) HMG-CoA Reductase Inhibitor Start: 06-11-2022 End: 08-29-2023 take 1 tablet by mouth once daily Rosuvastatin 5 mg tablet Discontinued 5 mg PO DAILY January 11, 2023 12:33pm August 29, 2023 10:21am Hypercholesterolemia Pure hypercholesterolemia, unspecified thioctic acid 600 mg oral capsule (7 sources) Start: 08-09-2020 End: 12-17-2023 take 1 capsule by mouth once daily Alpha Lipoic Acid 600 mg capsule Discontinued 600 mg PO DAILY August 09, 2020 12:00am December 17, 2023 8:04am Tirzepatide (2 sources) Start: 06-11-2022 End: 08-01-2022 Tirzepatide (Mounjaro) 2.5 mg/0.5 mL pen injector Discontinued 2.5 mg SC EVERY WEEK 2 21 04June 11, 2022 8:59am August 01, 2022 9:17am Diabetes mellitus Obesity Type 2 diabetes mellitus without complications Obesity, unspecified Start: 06-11-2022 End: 06-11-2022 Tirzepatide (Mounjaro) 2.5 m g/0.5 mL pen injector Discontinued 2.5 mg SC EVERY WEEK 2 21 04June 11, 2022 12:00am June 11, 2022 9:00am Diabetes mellitus Obesity Type 2 diabetes mellitus without complications Obesity, unspecified Tirzepatide (3 sources) Start: 12-18-2023 End: 05-04-2024 Tirzepatide (Mounjaro) 7.5 m g/0.5 mL pen injector Discontinued 7.5 mg SC EVERY WEEK 2 December 18, 2023 1:11pm May 04, 2024 4:34pm Diabetes mellitus Type 2 diabetes mellitus without complications Start: 04-23-2023 End: 12-18-2023 Tirzepatide (Mounjaro) 7.5 m g/0.5 mL pen injector Discontinued 7.5 mg SC EVERY WEEK 2 April 23, 2023 1:00pm December 18, 2023 1:11pm Diabetes mellitus Type 2 diabetes mellitus without complications Start: 10-11-2022 End: 04-23-2023 Tirzepatide (Mounjaro) 7.5 m g/0.5 mL pen injector Discontinued 7.5 mg SC EVERY WEEK 2 October 11, 2022 12:00am April 23, 2023 1:00pm Diabetes mellitus Type 2 diabetes mellitus without complications Tirzepatide (1 source) Start: 05-04-2024 End: 12-09-2024 Tirzepatide (Mounjaro) 10 mg /0.5 mL pen injector Discontinued 10 mg SC EVERY WEEK 2 May 04, 2024 1:00am December 09, 2024 9:16am Diabetes mellitus Type 2 diabetes mellitus with hyperglycemia Tirzepatide (2 sources) Start: 05-29-2023 End: 08-28-2023 Tirzepatide (Mounjaro) 5 mg/ 0.5 mL pen injector Discontinued 5 mg SC EVERY WEEK 2 May 29, 2023 1:00am August 28, 2023 3:47pm Diabetes mellitus Type 2 diabetes mellitus with hyperglycemia Start: 08-01-2022 End: 10-11-2022 Tirzepatide (Mounjaro) 5 mg/ 0.5 mL pen injector Discontinued 5 mg SC EVERY WEEK 2 August 01, 2022 12:00am October 11, 2022 8:56am Diabetes mellitus Type 2 diabetes mellitus with hyperglycemia Tirzepatide (Mounjaro) 2.5 mg/0.5 mL pen injector (10 sources) Start: 06-11-2022 End: 08-01-2022 Tirzepatide (Mounjaro) 2.5 mg/0.5 mL pen injector Discontinued 2.5 mg SC EVERY WEEK 2 June 11, 2022 8:59am August 01, 2022 9:17am Start: 06-11-2022 End: 08-01-2022 Tirzepatide (Mounjaro) 2.5 m g/0.5 mL pen injector Discontinued 2.5 MG SC EVERY WEEK 2 June 11, 2022 7:59am August 01, 2022 8:17am Start: 06-11-2022 Tirzepatide (M ounjaro) 2.5 mg/0.5 mL pen injector Active 2.5 MG SC EVERY WEEK 2 June 11, 2022 8:59am Start: 06-11-2022 End: 06-11-2022 Tirzepatide (Mounjaro) 2.5 m g/0.5 mL pen injector Discontinued 2.5 mg SC EVERY WEEK 2 June 11, 2022 12:00am June 11, 2022 9:00am Start: 06-11-2022 End: 06-11-2022 Tirzepatide (Mounjaro) 2.5 m g/0.5 mL pen injector Discontinued 2.5 MG SC EVERY WEEK 2 June 10, 2022 11:00pm June 11, 2022 8:00am Start: 06-11-2022 End: 06-11-2022 Tirzepatide (Mounjaro) 2.5 m g/0.5 mL pen injector Discontinued 2.5 MG SC EVERY WEEK 2 June 11, 2022 12:00am June 11, 2022 9:00am Tirzepatide (Mounjaro) 5 mg/ 0.5 mL pen injector (5 sources) Start: 05-29-2023 End: 08-28-2023 Tirzepatide (Mounjaro) 5 mg/ 0.5 mL pen injector Discontinued 5 mg SC EVERY WEEK 2 May 29, 2023 1:00am August 28, 2023 3:47pm Start: 08-01-2022 End: 10-11-2022 Tirzepatide (Mounjaro) 5 mg/ 0.5 mL pen injector Discontinued 5 mg SC EVERY WEEK August 01, 2022 12:00am October 11, 2022 8:56am Start: 08-01-2022 End: 10-11-2022 Tirzepatide (Mounjaro) 5 mg/ 0.5 mL pen injector Discontinued 5 MG SC EVERY WEEK July 31, 2022 11:00pm October 11, 2022 7:56am Tirzepatide (Mounjaro) 7.5 mg/0.5 mL pen injector (7 sources) Start: 12-18-2023 End: 05-04-2024 Tirzepatide (Mounjaro) 7.5 mg/0.5 mL pen injector Discontinued 7.5 mg SC EVERY WEEK 2 December 18, 2023 1:11pm May 04, 2024 4:34pm Start: 04-23-2023 End: 12-18-2023 Tirzepatide (Mounjaro) 7.5 m g/0.5 mL pen injector Discontinued 7.5 mg SC EVERY WEEK 2 April 23, 2023 1:00pm December 18, 2023 1:11pm Start: 04-23-2023 Tirzepatide (M ounjaro) 7.5 mg/0.5 mL pen injector Active 7.5 MG SC EVERY WEEK 2 April 23, 2023 12:00pm Start: 10-11-2022 End: 04-23-2023 Tirzepatide (Mounjaro) 7.5 m g/0.5 mL pen injector Discontinued 7.5 mg SC EVERY WEEK 2 October 11, 2022 12:00am April 23, 2023 1:00pm Start: 10-11-2022 End: 04-23-2023 Tirzepatide (Mounjaro) 7.5 m g/0.5 mL pen injector Discontinued 7.5 MG SC EVERY WEEK 2 October 10, 2022 11:00pm April 23, 2023 12:00pm Start: 10-11-2022 Tirzepatide (M ounjaro) 7.5 mg/0.5 mL pen injector Active 7.5 MG SC EVERY WEEK 2 October 10, 2022 11:00pm traMADol hydrochloride 50 mg oral tablet (2 sources) Opioid Agonist Start: 01-20-2024 End: 05-04-2024 take 50-100 mg by mouth every eight hours as needed for pain Tramadol 50 mg tablet Discontinued 50 - 100 mg PO Q8H as needed for pain 42 0 January 20, 2024 12:00am May 04, 2024 4:22pm TRULICITY 3 mg/0.5 mL pen injector (2 sources) Start: 02-16-2022 inject 0.5 mL by subcutaneous injection every week TRULICITY 3 mg/0.5 mL pen injector Inject 0.5 mL subcutaneously one time a week. 0 02/16/2022 Active Comment on above: Inject 0.5 mL subcut aneously one time a week. Vitamin D3-Vitamin K2 250 mcg (10,000 unit)-45 mcg capsule (2 sources) Start: 08-09-2020 End: 12-17-2023 take 1 capsule by mouth twice daily Vitamin D3-Vitamin K2 250 mcg (10,000 unit)-45 mcg capsule Discontinued 1 NMA PO TWICE A DAY August 09, 2020 12:00am December 17, 2023 8:09am Zinc (6 sources) Start: 06-11-2022 End: 10-11-2022 zinc Discontinued PO June 11, 2022 12:00am October 11, 2022 8:51am Start: 06-11-2022 End: 10-11-2022 zinc Discontinued PO May 232022 11:00pm October 11, 2022 7:51am Start: 06-11-2022 zinc Active PO June 11, 2022 12:00am Problems Active Problems Problem Classification Problem Date [...] sources) Daytime somnolence; Translations: [Hypersomnia, unspecified] Episodic Coronary atherosclerosis and other heart disease (8 sources) Calcification of coronary artery; Translations: [Atherosclerotic heart disease of minto coronary artery without angina pectoris] 02-18-2023 Chronic Diabetes mellitus with complications (5 sources) Type II diabetes mellitus uncontrolled; Translations: [Diabetes mellitus without mention of complication, type II or unspecified type, uncontrolled] Onset: 05-04-2024 Resolved: 08-19-2014 Chronic Diabetes mellitus without complication (20 sources) High hemoglobin A1c level; Translations: [Type 2 diabetes mellitus without complication] Onset: 05-04-2024 Chronic Disorders of lipid metabolism (20 sources) Hyperlipidemia; Translations: [Mixed hyperlipidemia] Resolved: 06-01-2014 08-09-2020 Chronic Esophageal disorders (13 sources) Mehta's esophagus; 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] 08-09-2020 Chronic Essential hypertension (19 sources) Benign essential hypertension; Translations: [Benign essential [...] Cobalamin deficiency; Translations: [Other B-complex deficiencies] Episodic Osteoarthritis (11 sources) Osteoarthritis of hip; Translations: [Osteoarthritis of hip, unspecified] 01-07-2023 Chronic Other aftercare (2 sources) Drug therapy finding; Translations: [Long-term (current) use of other medications] Episodic Other aftercare (2 sources) Follow-up status; Translations: [Encounter for other orthopedic aftercare] 01-20-2024 Episodic Other and unspecified benign neoplasm (8 sources) History of polyp of colon; Translations: [History of colonic polyps] Episodic Other connective tissue disease (2 sources) History of total hip arthroplasty; Translations: [Presence of right artificial hip joint] 02-17-2024 Chronic Other connective tissue disease (1 source) Presence of right artificial hip joint; Translations: [Presence of right artificial hip joint] Onset: 02-17-2024 Chronic Other connective tissue disease (3 sources) Spasm [...] Translations: [Cough] Episodic Other nervous system disorders (13 sources) Carpal tunnel syndrome; Translations: [Carpal tunnel syndrome] 08-09-2020 Chronic Comment on above: Bilateral; Other nervous system disorders (6 sources) Tingling of skin; Translations: [Disturbance of skin sensation] Episodic Other nervous system disorders (6 sources) Numbness of hand; Translations: [Disturbance of skin sensation] Episodic Other nervous system disorders (2 sources) Acute postoperative pain; Translations: [Other acute postprocedural pain] 01-07-2024 Episodic Other non-traumatic joint disorders (6 sources) Mass of knee; Translations: [Other symptoms referable to joint, lower leg] Episodic Other non-traumatic joint disorders (5 sources) Hip pain; Translations: [Pain in right hip] 01-07-2023 Episodic Other non-traumatic joint disorders (3 sources) Pain in right hip; Translations: [Pain in joint, pelvic region and thigh] 01-07-2023 Episodic Other nutritional; endocrine; and metabolic disorders [...] Chronic Other nutritional; endocrine; and metabolic disorders (8 sources) Obesity; Translations: [Obesity, unspecified] 01-24-2021 Chronic Other nutritional; endocrine; and metabolic disorders (2 sources) Obesity, unspecified; Translations: [Obesity, unspecified] Chronic Other nutritional; endocrine; and metabolic disorders (6 sources) History of clinical finding in subject; Translations: [Personal history of other endocrine, metabolic, and immunity disorders] Resolved: 08-05-2018 Episodic Other screening for suspected conditions (not mental disorders or infectious disease) (12 sources) Encounter for screening mammogram for malignant neoplasm of breast; Translations: [C-reactive protein abnormal] Onset: 04-07-2018 Episodic Other skin disorders (6 sources) Loss of hair; Translations: [Alopecia, unspecified] Episodic Other skin disorders (7 sources) Skin tag; Translations: [Other hypertrophic disorders of the skin] 05-31-2021 Episodic Other skin disorders (1 source) Scaly skin; Translations: [Changes in skin texture] 02-15-2023 Episodic Other upper respiratory disease (3 sources) Allergic rhinitis; Translations: [Allergic rhinitis] Chronic Other upper respiratory disease (2 sources) Seasonal allergy; Translations: [Other seasonal allergic rhinitis] 08-09-2020 Chronic Other upper respiratory disease (3 sources) [...] sleep behavior; Translations: [Sleep disturbance, unspecified] Episodic Residual codes; unclassified (2 sources) Postmenopausal state; Translations: [Asymptomatic menopausal state] 12-11-2021 Episodic Spondylosis; intervertebral disc disorders; other back problems (13 sources) Other intervertebral disc displacement, lumbar region; Translations: [Herniation of intervertebral disc of lumbar spine] 10-11-2022 Chronic Viral infection (1 source) Acute viral disease; [...] positional vertigo; Translations: [Dizziness] Resolved: 06-01-2014 Episodic Gastrointestinal hemorrhage (6 sources) Rectal hemorrhage; Translations: [Hemorrhage of rectum and anus] Resolved: 06-01-2014 Episodic Genitourinary symptoms and ill-defined conditions (6 sources) Microscopic hematuria; Translations: [Microscopic hematuria] Resolved: 04-21-2014 Episodic Malaise and fatigue (3 sources) Fatigue; Translations: [Other fatigue] Onset: 03-12-2024 02-11-2024 Episodic Nausea and vomiting (6 sources) Nausea; Translations: [Nausea alone] Resolved: 06-01-2014 Episodic Other aftercare (1 source) Encounter for other orthopedic aftercare; Translations: [Encounter for other orthopedic aftercare] Onset: 02-17-2024 Episodic Other and unspecified benign neoplasm (10 [...] thru to back-post prandial -checking gb us; Residual codes; unclassified (2 sources) Asymptomatic menopausal state; Translations: [Asymptomatic postmenopausal status (age-related) (natural)] Onset: 07-10-2024 Episodic Superficial injury; contusion (6 sources) Blister of [...] Test Name Value Interpretation Reference Range Facility Breast imaging reportOrdered By: Kyle Carter on 12-24-2024 Study report [facility] Imaging Services [address] [place], [place] [id number] SCRN MAMM (CAD)W/CHULA BILAT MR#: [id number] Acct: [id number] Name: ROSE MARY NARANJO Rep #: [id number] : 1960 F 64 From: Carlton Carter MD PCP: Dr. Isabela Blank MD Status: REG CL I Study:SCRN MAMM (CAD)W/CHULA BILAT Date of Exa m: 12/21/24 Exam# [id number] Ordering Dr: Pedro Barajas NP [facility] EXAM: SCRN MAMM (CAD)W/CHULA BILAT DATE: 12/21/2024 CLINICAL HISTORY: F, Age 64 y/o , SCREENING FOR BREAST CANCER Routine screening TECHNIQUE: Procedure Code: BISMWCADBTOM Modality: MG Procedure: SCRN MAMM (CAD)W/CHULA BILAT COMPARISON: Prior exam(s) dated 04/07/2018. FINDINGS: TISSUE DENSITY: The breasts are almost entirely fatty. Bilateral Breast Mammographic Findings: No significant masses, calcifications or other abnormalities are identified. No interval change BI/SCRN MAMM (CAD)W/CHULA BILAT IMPRESSION: Stable screening mammogram, no suspicious findings OVERALL FINAL ASSESSMENT BI-RADS 1: NEGATIVE. RECOMMENDATION: Routine annual follow-up in 1 Year Additional Recommendation none A letter with findings and recommendations will be mailed to the patient. Reading Location: [facility] CC: Pedro Barajas; Dr. Isabela Blank MD ~ Credit Controller: Signed [facility] SCRN MAMM (CAD)W/CHULA BILATo n 12-21-2024 SCRN MAMM (CAD)W/CHULA BILAT [facility] Imaging Services [address] [place] [address] SCRN MAMM (CAD)W/CHULA BILAT MR#: [id number] Acct: [id number] Name: ROSE MARY NARANJO Rep #: [id number] : 1960 F 64 From: Kyle Carter MD PCP: Dr. Isabela Blank MD Status: [facility] Study: SCRN MAMM (CAD)W/CHULA BILAT Date of Exam: 11/24 12/17 Exam# [id number] Ordering Dr: Pedro Barajas NP [facility] -C EXAM: SCRN MAMM (CAD)W/CHULA BILAT DATE: 12/21/2024 CLINICAL HISTORY: F, Age 64 y/o , SCREENING FOR BREAST CANCER Routine screening TECHNIQUE: Procedure Code: BISMWCADBTOM Modality: MG Procedure: SCRN MAMM (CAD)W/CHULA BILAT COMPARISON: Prior exam(s) dated 04/07/2018. FINDINGS: TISSUE DENSITY: The breasts are almost entirely fatty. Bilateral Breast Mammographic Findings: No significant masses, calcifications or other abnormalities are identified. No interval change BI/SCRN MAMM (CAD)W/CHULA BILAT IMPRESSION: Stable screening mammogram, no suspicious findings OVERALL FINAL ASSESSMENT BI-RADS 1: NEGATIVE. RECOMMENDATION: Routine annual follow-up in 1 Year Additional Recommendation none A letter with findings and recommendations will be mailed to the patient. Reading Location: [id number] CC: Pedro DIALLO [facility] [place]; Dr. Isabela Blank MD Credit Controller: Signed [facility] Bone density reportOrdered B y: Ry Singh on 07-07-2024 Study report Skeletal system DXA [facility] Imaging Services [address] [place] [id number] Dexa Bone Density Study MR#: [id number] Acct: [id number] Name: ROSE MARY NARANJO Rep #: [id number] : 1960 F 63 From: Keegan Singh MD PCP: Dr. Isabela Blank MD Status: REG CL I Study:Dexa Bone Density Study Date of Exam: 07/07/24 Exam# [id number] Ordering Dr: Annika Blank MD PROCEDURE: DEXA BONE DENSITY STUDY 07/07/2024 REASON FOR EXAM: F, age 63 y/o . Postmenopausal. TECHNIQUE: DXA scan of the lumbar spine and left hip, using make and model. REFERENCE LINKS: ISCD Adult Positions COMPARISON: Comparison is made with prior study dated January 10, 2022. FINDINGS: BMD and T-SCORES Lumbar spine: 1.095 g/cm2, T-Score 0.4 L1 through L4 Change from prior: Loss of 6.4% Left femoral neck: 0.9 5 5 g/cm2, T-Score 1.0 Femoral neck comparison data not recommended for monitoring change. Left total hip: 1.182 g/cm2, T-Score 2.0 Change from prior: Loss of 4.9% Fracture Risk Calculation: FRAX (10-year Fracture Risk) Score: FRAX scores should never be reported in a patient with osteoporosis on DEXA or for any patient that is on bone medication. The patient doesmeet the pharmacological treatment recommendations for prevention of osteoporosis BD/Dexa Bone Density Study IMPRESSION: NORMAL T-SCORES. Recommend follow-up as clinically warranted. Reading Location: [place] [address] CC: Dr. Isabela Blank MD ~ Credit Controller: Signed [facility] Dexa Bone Density Studyon Dexa Bone Density Study [facility] Imaging Services [address] [place] [address] Dexa Bone Density Study MR#: [id number] Acct: [id number] Name: ROSE MARY NARANJO Rep #: [id number] : 1960 F 63 From: Ry negrete MD PCP: Dr. Isabela Blank MD Status: REG CLI Study: Dexa Bone Density Study Date of Exam: 07/07/24 Exam# [id number] Ordering Dr: Isabela Blank MD PROCEDURE: DEXA BONE DENSITY STUDY 07/07/2024 REASON FOR EXAM: F, age 63 y/o . Postmenopausal. TECHNIQUE: DXA scan of the lumbar spine and left hip, using make and model. REFERENCE LINKS: ISCD Adult Positions COMPARISON: Comparison is made with prior study dated January 10, 2022. FINDINGS: BMD and T-SCORES Lumbar spine: 1.095 g/cm2, T-Score 0.4 L1 through L4 Change from prior: Loss of 6.4% Left femoral neck: 0.9 5 5 g/cm2, T-Score 1.0 Femoral neck comparison data not recommended for monitoring change. Left total hip: 1.182 g/cm2, T-Score 2.0 Change from prior: Loss of 4.9% Fracture Risk Calculation: FRAX (10-year Fracture Risk) Score: FRAX scores should never be reported in a patient with osteoporosis on DEXA or for any patient that is on bone medication. The patient doesmeet the pharmacological treatment recommendations for prevention of osteoporosis BD/Dexa Bone Density Study IMPRESSION: NORMAL T-SCORES. Recommend follow-up as clinically warranted. Reading Location: [place] [address] CC: Dr. Isabela Blank MD Credit Controller: Signed [facility] Endocrinology Visit Reporton 05-04-2024 Endocrinology Visit Report [facility] [address] [place] [address] OFFICE VISIT Date of Service: 05/04/24 MR#: [id number] Acct: [id number] Name: ROSE MARY NARANJO Rep #: [id number] : 1960 Provider: RENE acosta Age/Sex: 63/F Location: [facility] Status: Signed Intake Vital Signs 11/04/23 08:44 02/11/24 13:33 05/04/24 15:17 Height 5 ft 9 in 5 ft 9 in 5 ft 9 in Weight: 232 lb 240 lb 8 oz BMI 34.2 35.5 BP 157/89 H 136/85 H Blood Pressure Location Lt brachial Rt brachial Position Sitting Sitting Respiration 18 Pulse 73 68 Pulse Source Monitor Monitor Pulse Oximetry (%) 97 97 Oxygen Delivery Method room air Intake Visit Reasons: 6 M FU Chief Complaint: f/u diabetes Is patient in pain?: No Allergies aspirin Allergy (Mild, Verified 05/04/24 15:21) Nausea gluten Allergy (Mild, Verified 05/04/24 15:21) Nausea Sulfa (Sulfonamide Antibiotics) Allergy (Mild, Verified 05/04/24 15:21) Nausea Medications ???Medication ???Instructions ???Recorded ???Confirmed ???Type cyanocobalamin (vitamin B-12) 5,000 mcg PO DAILY 08/09/20 History 1,000 mcg capsule esomeprazole magnesium 20 mg 20 mg PO BID 08/09/20 05/04/24 His tory capsule,delayed release magnesium glycinate 100 mg (as 500 mg PO DAILY 08/09/20 05/04/24 History glycinate) tablet losartan 100 mg tablet 100 mg PO DAILY #90 tabs 08/29/23 05/04/24 Rx rosuvastatin 5 mg tablet 5 mg PO DAILY #90 tabs 08/29/23 Rx melatonin 10 mg capsule 20 mg PO QHS 12/17/23 05/04/24 His tory tirzepatide 10 mg/0.5 mL 10 mg (0.5 mL) subcut QWEEK #2 mL 05/04/24 05/04/24 Rx subcutaneous pen injector (Mounjaro) Have you fallen in the past year?: No PFSH Medical History Wears glasses Post-menopausal Alcohol use Ambulates with cane Arthritis High cholesterol Gastric reflux Former smoker CPAP (continuous positive airway pressure) dependence Sleep apnea History of stress test History of echocardiogram Cardiology follow-up encounter Obesity Mixed hyperlipidemia Vitamin deficiency GERD (gastroesophageal reflux disease) Pneumonia Hormone deficiency Hypertriglyceridemia Hypercholesterolemia Hypertension Diabetes Carpal tunnel syndrome UTI (urinary tract infection) History of back problems Adrenal disorder Surgical History History of total right hip replacement H/O: hysterectomy History of tonsillectomy Family History Mother Angina pectoris, unspecified Arthritis Heart disease Parkinson disease Grandfather Angina pectoris, unspecified Myocardial infarction Heart disease Father Asthma Respiratory disease Skin cancer Grandmother Asthma Arthritis Cancer Cervical cancer Diabetes Hypertension Hypercholesterolemia Ovarian cancer H/O ulcer disease Sister Lung cancer Skin cancer Other Thyroid disorder Uterine cancer Social History Smoking Status: Former smoker alcohol intake: current alcohol intake frequency: a few times a week Alcohol type: wine substance use type: does not use what type of physical activity do you participate in: other details: gardening HPI HPI Chief Complaint: f/u diabetes Details: ROSE MARY NARANJO, is a 63 F who presents to the office today for evaluation and management of diabetes. A1C today is 5.9%, increased from 11/04/23 at 5.4%. She has gained 12 lbs since that time. Currently taking Mounjaro 7.5 mg qweek- tolerating well. She right hip arthroplasty this past fall, she is recovering well and reports significant improvement in symptoms. BP controlled. Currently taking losartan 100 mg once daily. She takes a daily statin. Labs are up to date and unremarkable. Denies any acute concerns. ROS Const Constitutional: Positive for weight change (gain); No fatigue ENT ENT: No dizziness/vertigo Cardio Cardiology: No chest pain at rest, chest pain with exertion, shortness of breath or palpitations Skin Skin: No wounds Endo Endocrine: Positive for weight change (gain); No fatigue Exam Const General: cooperative, healthy appearing, comfortable and no acute distress Nutritional Appearance: obese Orientation: alert, awake and oriented x3 HENMT Head: normal to inspection Ears: hearing grossly normal bilaterally Nose: external nose normal Face and sinus: normal facial exam Eyes General: appearance normal, both eyes and all related structures Alignment and Position: alignment normal Sclera: sclerae normal Neck Neck: normal visual inspection Chest Chest (more content not included)... [facility] - Hematology and Cell countsOrdered By: Flaco Lopez on 05-04-2024 HbA1c (Bld) [Mass fraction] 5.9 % 4.2-6.3 [facility] HIP, UNI W/ Pelvis 2-3 Views on 02-17-2024 HIP, UNI W/ Pelvis 2-3 Views [facility] [address] [place] [address] HIP, UNI W/ Pelvis 2-3 Views MR#: [id number] Acct: [id number] Name: ROSE MARY NARANJO Rep #: [id number] : 1960 F 63 From: Amirah Roberts MD PCP: Dr. Isabela Blank MD Status: DEP AMB Study: HIP, UNI W/ Pelvis 2-3 Views Date of Exam: Exam# [id number] Ordering Dr: Gus Marquez DO [id number] INDICATION: post-op R EUGENIO EXAMINATION/TECHNIQUE: X-RAY - XR Hip Unilateral with Pelvis when performed; 2-3 Views COMPARISON: January 07, 2024 FINDINGS: PELVIC BONES: No displaced fracture, destructive or sclerotic lesions. Note that overlapping bowel shadows may however obscure fine detail. Sacroiliac joints are unremarkable. No widening of the pubic symphysis. HIPS: There is a stable right total hip arthroplasty in place. The alignment is anatomic. No suspicious bony lesions are seen. There are stable degenerative changes of the left hip. SOFT TISSUES: No soft tissue swelling or gas. RAD/HIP, UNI W/ Pelvis 2-3 Views IMPRESSION: Stable total hip right arthroplasty, grossly anatomic in alignment. Electronically Signed: Amirah Roberts MD at 10:50 EST , CC: Dr. Isabela Blank MD; Dr. Gus Marquez DO Credit Controller: Signed [facility] Orthopedic Visit Reporton Orthopedic Visit Report [facility] [address] [place] [address] [place] [address] OFFICE VISIT Date of Service: 02/17/24 MR#: [id number] Acct: [id number] Name: ROSE MARY NARANJO Rep #: [id number] : 1960 Provider: Dr. Gus elder DO Age/Sex: 63/F Location: [facility] Status: Signed Intake Vital Signs 11/22/23 09:09 02/11/24 13:33 Height 5 ft 9 in 5 ft 9 in Weight: 232 lb BMI 34.2 BP 157/89 H Blood Pressure Location Lt brachial Position Sitting Respiration 18 Pulse 73 Pulse Source Monitor Pulse Oximetry (%) 97 Intake Visit Reasons: right hip Chief Complaint: 6 week post op Allergies aspirin Allergy (Mild, Verified 02/17/24 10:22) Nausea gluten Allergy (Mild, Verified 02/17/24 10:22) Nausea Sulfa (Sulfonamide Antibiotics) Allergy (Mild, Verified 02/17/24 10:22) Nausea Medications ???Medication ???Instructions ???Recorded ???Confirmed ???Type cyanocobalamin (vitamin B-12) 5,000 mcg PO DAILY 08/09/20 02/17/24 History 1,000 mcg capsule esomeprazole magnesium 20 mg 20 mg PO BID 08/09/20 02/17/24 History capsule,delayed release magnesium glycinate 100 mg (as 500 mg PO DAILY 08/09/20 02/17/24 History glycinate) tablet losartan 100 mg tablet 100 mg PO DAILY #90 tabs 08/29/23 02/17/24 Rx rosuvastatin 5 mg tablet 5 mg PO DAILY #90 tabs 08/29/23 02/17/24 Rx Juice Plus OMEGA 3 BLEND 3 ea PO DAILY 12/17/23 02/17/24 History Juice Plus VEGETABLE BLEND 4 ea PO DAILY 12/17/23 02/17/24 History melatonin 10 mg capsule 20 mg PO QHS 12/17/23 02/17/24 History tirzepatide 7.5 mg/0.5 mL 7.5 mg (0.5 mL) subcut QWEEK #2 mL 12/18/23 02/17/24 Rx subcutaneous pen injector (Joe) acetaminophen 500 mg tablet 1,000 mg (2 x 500 mg) PO Q6H pain 01/07/24 02/17/24 Rx #90 tabs tramadol 50 mg tablet 50 - 100 mg (1 - 2 x 50 mg) PO Q8H 01/20/24 02/17/24 Rx PRN pain #42 tabs Have you fallen in the past year?: Yes PFSH Medical History Wears glasses Post-menopausal Alcohol use Ambulates with cane Arthritis High cholesterol Gastric reflux Former smoker CPAP (continuous positive airway pressure) dependence Sleep apnea History of stress test History of echocardiogram Cardiology follow-up encounter Obesity Mixed hyperlipidemia Vitamin deficiency GERD (gastroesophageal reflux disease) Pneumonia Hormone deficiency Hypertriglyceridemia Hypercholesterolemia Hypertension Diabetes Carpal tunnel syndrome UTI (urinary tract infection) History of back problems Adrenal disorder Surgical History History of total right hip replacement H/O: hysterectomy History of tonsillectomy Family History Mother Angina pectoris, unspecified Arthritis Heart disease Parkinson disease Grandfather Angina pectoris, unspecified Myocardial infarction Heart disease Father Asthma Respiratory disease Skin cancer Grandmother Asthma Arthritis Cancer Cervical cancer Diabetes Hypertension Hypercholesterolemia Ovarian cancer H/O ulcer disease Sister Lung cancer Skin cancer Other Thyroid disorder Uterine cancer Social History Smoking Status: Former smoker alcohol intake: current alcohol intake frequency: a few times a week Alcohol type: wine substance use type: does not use what type of physical activity do you participate in: other details: gardening HPI right hip Details: This documentation accurately reflects the service provided and the decisions made by me, Dr. Gus Marquez, DO 02/17/24 08. Part of today???s visit was documented by Annalee KUHN, acting as scribe. ROSE MARY NARANJO is a 63 year old F here today for 6 weeks postop right total hip arthroplasty date of surgery 01/07/2024. Patient is doing well, she does have some soreness in the hip along with some soreness at her incision site. She is ambulating with a cane. Patient is in physical therapy which she states is going very well. She does take tramadol for pain when she had overdone it. She would like to discuss her limitations. Ortho Exam General General: Yes no acute distress Neurologic: Yes alert and Yes oriented x3 Psychologic: Yes reasonable and appropriate Right Hip Skin: No Ecchymosis, No soft tissue swelling and No Erythema HIP: Incisions well-approximated and healing over fine without any drainage there is slight induration that is slightly tender. She is neurovascular intact right lower extremity no significant swelling compartments are soft neurovascular intact Supplemental Info 02/17/2024 x-ray right hip: Status post total hip arth (more content not included)... Normal [facility] Basic Metabolic Profile (BMP )on 02-11-2024 BUN/CRE 24.8 RATIO High 10- [facility] Comment on above: Performed By: #### L 100.0500, L500.2500 #### [facility] [address] [place], [address] CA,Total 9.2 mg/dL Normal 8.5-10.1 [facility] Comment on above: Performed By: #### L 100.0500, L500.2500 #### [facility] [address] [place], [address] Chloride [Moles/Vol] 108 mmol/L High 98-107 [facility] Comment on above: Performed By: #### L 100.0500, L500.2500 #### [facility] [address] [place], [address] CO2 [Moles/Vol] 28.0 mmol/L Normal 21.0-32.0 [facility] Comment on above: Performed By: #### L 100.0500, L500.2500 #### [facility] [address] [place], [address] Creatinine [Mass/Vol] 0.73 mg/dL Normal 0.55-1.02 [facility] Comment on above: Result Comment: The validity of the calculated GFR GFRAA in patients over 70 years has not been determined. Clinical correlation is essential. Performed By: #### L 100.0500, L500.2500 #### [facility] [address] [place], [address] EST GFR - AA 104 mL/min Normal >60 [facility] Comment on above: Result Comment: Afri can [place] GFR Calc Performed By: #### L 100.0500, L500.2500 #### [facility] [address] [place], [address] GAP 4 Low 5-15 [facility] Comment on above: Performed By: #### L 100.0500, L500.2500 #### [facility] [address] [place], [address] GFR/1.73 sq M.predicted among non-blacks MDRD (S/P/Bld) [Vol rate/Area] 86 mL/min/{1.73_m2} Normal >60 [facility] Comment on above: Result Comment: Non- GFR Calc Performed By: #### L 100.0500, L500.2500 #### [facility] [address] [place], [address] Glucose [Mass/Vol] 93 mg/dL Normal 74-106 [facility] Comment on above: Performed By: #### L 100.0500, L500.2500 #### [facility] [address] [place], [address] Potassium [Moles/Vol] 4.3 mmol/L Normal 3.5-5.1 [facility] Comment on above: Performed By: #### L 100.0500, L500.2500 #### [facility] [address] [place], [address] Sodium [Moles/Vol] 140 mmol/L Normal 136-145 [facility] Comment on above: Performed By: #### L 100.0500, L500.2500 #### [facility] [address] [place], [address] Urea nitrogen [Mass/Vol] 18 mg/dL Normal 7-18 [facility] Comment on above: Performed By: #### L 100.0500, L500.2500 #### [facility] [address] [place], [address] CBC-Complete Blood Cnt No Di ffon 02-11-2024 Erythrocyte distribution width (RBC) [Ratio] 11.9 % Normal 11.6-14.6 [facility] Comment on above: Performed By: #### L 100.0500, L500.2500 #### [facility] [address] [place], [address] Hematocrit (Bld) [Volume fraction] 39.6 % Normal 37-47 [facility] Comment on above: Performed By: #### L 100.0500, L500.2500 #### [facility] [address] [place], [address] Hemoglobin (Bld) [Mass/Vol] 13.5 g/dL Normal 12.0-15.0 [facility] Comment on above: Performed By: #### L 100.0500, L500.2500 #### [facility] [address] [place], [address] MCH (RBC) [Entitic mass] 32.1 pg High 27.0-32.0 [facility] Comment on above: Performed By: #### L 100.0500, L500.2500 #### [facility] [address] [place], [address] MCHC (RBC) [Mass/Vol] 34.1 g/dL Normal 32-36 [facility] Comment on above: Performed By: #### L 100.0500, L500.2500 #### [facility] [address] [place], [address] MCV (RBC) [Entitic vol] 94.1 fL Normal 81-99 [facility] Comment on above: Performed By: #### L 100.0500, L500.2500 #### [facility] [address] [place], [address] Platelet mean volume (Bld) [Entitic vol] 9.0 fL Normal 6.2-12.0 [facility] Comment on above: Performed By: #### L 100.0500, L500.2500 #### [facility] [address] [place], [address] Platelets (Bld) [#/Vol] 283 10*3/uL Normal 150-450 [facility] Comment on above: Performed By: #### L 100.0500, L500.2500 #### [facility] [address] [place], [address] RBC (Bld) [#/Vol] 4.21 10*6/uL Normal 4.2-5.4 [facility] Comment on above: Performed By: #### L 100.0500, L500.2500 #### [facility] [address] [place], [address] RDW SD 40.9 fl Normal 35.1-43.9 [facility] Comment on above: Performed By: #### L 100.0500, L500.2500 #### [facility] [address] [place], [address] WBC (Bld) [#/Vol] 7.1 10*3/uL Normal 4.4-11.0 [facility] Comment on above: Performed By: #### L 100.0500, L500.2500 #### [facility] [address] [place], [address] Cardiology Visit Reporton Cardiology Visit Report [facility] [address] [place], [place] [address] OFFICE VISIT Date of Service: 02/11/24 MR#: [id number] Acct: [id number] Name: ROSE MARY NARANJO Rep #: [id number] : 1960 Provider: RENE Carrion rts Age/Sex: 63/F Location: [facility] Status: Signed HPI HPI History of Present Illness Details: This is a 63-year-old lady who presents to the office for a cardiovascular follow-up visit. She has a history of metabolic syndrome, hypertension, diabetes mellitus, hyperlipidemia who recently experienced some chest discomfort while at work. She went to the emergency room she had blood test done which demonstrated no evidence of ischemia. She did have a CAT scan performed and coronary calcification was noticed. From a cardiac standpoint, the patient is doing well. She denies any palpitations, chest pain, pressure or heaviness. She denies SOB, Orthopnea, and PND. She does not have bleeding issues; no blood in urine, stool or nosebleeds. She does acknowledge fatigue-she attributes this to her recent surgery. She denies myalgias, or claudication. She does not have edema, or sudden weight gain. She denies dizziness, lightheadedness, syncopal or near syncopal episodes, and headaches. Intake Vital Signs 02/18/23 14:40 01/07/24 06:29 02/11/24 13:33 Height 5 ft 9 in 5 ft 9 in 5 ft 9 in Weight: 232 lb BMI 34.2 BP 157/89 H Blood Pressure Location Lt brachial Position Sitting Respiration 18 Pulse 73 Pulse Source Monitor Pulse Oximetry (%) 97 Intake Visit Reasons: 1 Y FU [employer] Required: No Is patient in pain?: No Allergies aspirin Allergy (Mild, Verified 02/11/24 13:45) Nausea gluten Allergy (Mild, Verified 02/11/24 13:45) Nausea Sulfa (Sulfonamide Antibiotics) Allergy (Mild, Verified 02/11/24 13:45) Nausea Medications ???Medication ???Instructions ???Recorded ???Confirmed ???Type cyanocobalamin (vitamin B-12) 5,000 mcg PO DAILY 08/09/20 02/11/24 History 1,000 mcg capsule esomeprazole magnesium 20 mg 20 mg PO BID 08/09/20 02/11/24 History capsule,delayed release magnesium glycinate 100 mg (as 500 mg PO DAILY 08/09/20 02/11/24 History glycinate) tablet losartan 100 mg tablet 100 mg PO DAILY #90 tabs 08/29/23 02/11/24 Rx rosuvastatin 5 mg tablet 5 mg PO DAILY #90 tabs 08/29/23 02/11/24 Rx Juice Plus OMEGA 3 BLEND 3 ea PO DAILY 12/17/23 02/11/24 History Juice Plus VEGETABLE BLEND 4 ea PO DAILY 12/17/23 02/11/24 History melatonin 10 mg capsule 20 mg PO QHS 12/17/23 02/11/24 History tirzepatide 7.5 mg/0.5 mL 7.5 mg (0.5 mL) subcut QWEEK #2 mL 12/18/23 02/11/24 Rx subcutaneous pen injector (Joe) acetaminophen 500 mg tablet 1,000 mg (2 x 500 mg) PO Q6H pain 01/07/24 02/11/24 Rx #90 tabs tramadol 50 mg tablet 50 - 100 mg (1 - 2 x 50 mg) PO Q8H 01/20/24 02/11/24 Rx PRN pain #42 tabs Have you fallen in the past year?: Yes PFSH Medical History Wears glasses Post-menopausal Alcohol use Ambulates with cane Arthritis High cholesterol Gastric reflux Former smoker CPAP (continuous positive airway pressure) dependence Sleep apnea History of stress test History of echocardiogram Cardiology follow-up encounter Obesity Mixed hyperlipidemia Vitamin deficiency GERD (gastroesophageal reflux disease) Pneumonia Hormone deficiency Hypertriglyceridemia Hypercholesterolemia Hypertension Diabetes Carpal tunnel syndrome UTI (urinary tract infection) History of back problems Adrenal disorder Surgical History History of total right hip replacement H/O: hysterectomy History of tonsillectomy Family History Mother Angina pectoris, unspecified Arthritis Heart disease Parkinson disease Grandfather Angina pectoris, unspecified Myocardial infarction Heart disease Father Asthma Respiratory disease Skin cancer Grandmother Asthma Arthritis Cancer Cervical cancer Diabetes Hypertension Hypercholesterolemia Ovarian cancer H/O ulcer disease Sister Lung cancer Skin cancer Other Thyroid disorder Uterine cancer Social History Smoking Status: Former smoker alcohol intake: current alcohol intake frequency: a few times a week Alcohol type: wine substance use type: does not use what type of physical activity do you participate in: other details: gardening ROS Const Const: Positive for fatigue; Negative for weakness, fever(s), headache(s), chills, frequent falls, weight gain or weight loss Eyes Eyes: Negative for blind spots, loss of peripheral vision, transient loss of vision, blurry (more content not included)... [facility] Office Visit (SHAISTA ) ----- ROSE MARY NARANJO ([id number]) 1960 F Date Time Provider Department 06/12/23 9:50 AM ALISIA POWERS During your visit today, we recorded the following information about you: Temperature Pulse Blood pressure Weight 100.7 degrees 84/minute 143/77 102.9 kg Alisia Powers APRN.MOLD SANDER 06/12/2023 10:20 AM Addendum [facility] ADDRESS: [address] [place] [address] PHONE: [phone] FOLLOW UP: Call your primary care provider [...] above: Performed By: #### C VFLRS #### [facility] CLIA [id number] [address] [place] [address] OF [facility] COVID & INFLUENZA A/B & RSV NAAT, ROUTINEon 06-12-2023 FLUAV RNA DARELL+probe Ql (Unsp spec) Not detected Not Detected [facility] FLUBV RNA DARELL+probe Ql (Unsp spec) Not detected Not Detected [facility] RSV A RNA DARELL+probe Ql (Unsp spec) Not detected Not Detected [facility] SARS-CoV-2 (COVID-19) RNA DARELL+probe Ql (Resp) Not detected See comment [facility] CNOVon 02-15-2023 CNOV Office Visit (CASEYWA ) ----- ROSE MARY NARANJO ([id number]) 1960 F Date Time Provider Department 02/15/23 11:25 AM LYDIA PETTY During your visit today, we recorded the following information about you: Temperature Pulse Respiration Blood pressure 96.9 degrees 57/minute 18/minute 151/84 Weight Height 106.4 kg 1.753 m Lydia Petty APRN.CNP 02/15/2023 11:48 AM Addendum (H66.91) Acute otitis [...] in mental status, or other concerns. Lydia Petty APRN.DOREEN 02/15/2023 12:01 PM Signed This note was created using Corimmunriter. Subjective Rose Mary Naranjo is a 62 [...] Tympanic) Resp 18 Ht 175.3 cm (5' 9) Wt 106.4 kg (234 lb 9.6 oz) [...] and p (more content not included)... Normal [facility] 12-26-2022 [facility] HNO ID: [id number] Author: Mimi Marx RT(R) Service: Radiology Author Type: Technologist Type: Allied Health Filed: 12/26/2022 12:41 PM Note Text: Radiology Service Progress Note PATIENT NAME: Rose Mary Naranoj DATE OF SERVICE: December 26, 2022 TIME: [...] RT Crystal(R) December 26, 2022 12:[address] [facility] HNO ID: [id number] Author: Shani Tariq Tech Service: ? Author Type: Plant Equipment Engineer Type: Allied Health Filed: 12/26/2022 11:35 AM [...] Alvino Corbin December 26, 2022 11:35 AM Normal [facility] CBC W Auto Differential pane l (Bld)on 12-26-2022 Basophils (Bld) [#/Vol] 10*3/uL Normal <0.11 [facility] Comment on above: Order Comment: Speci men Type: BLOOD SPECIMENOrdering Facility: [facility] Address: [address] [address] Performed By: #### 5 7021-8 ####[facility] [id number] [place] [address] [place] Basophils/100 WBC (Bld) 0.3 % Normal [facility] Comment on above: Order Comment: Speci men Type: BLOOD SPECIMENOrdering Facility: [facility] Address: [address] [place] [address] Performed By: #### 5 7021-8 ####[facility] [id number] [place] [address] [place] Differential cell count method Nom (Bld) Auto Normal [facility] Comment on above: Order Comment: Speci men Type: BLOOD SPECIMENOrdering Facility: [facility] Address: [address] [address] Performed By: #### 5 7021-8 ####[facility] [id number] [place] [address] [place] Eosinophils (Bld) [#/Vol] 0.14 10*3/uL Normal <0.46 [facility] Comment on above: Order Comment: Speci men Type: BLOOD SPECIMENOrdering Facility: [facility] Address: [address] [address] Performed By: #### 5 7021-8 ####[facility] [id number] [place] [address] [place] Eosinophils/100 WBC (Bld) 2.0 % Normal [facility] Comment on above: Order Comment: Speci men Type: BLOOD SPECIMENOrdering Facility: [facility] Address: [address] [address] Performed By: #### 5 7021-8 ####[facility] [id number] [address] [place] Erythrocyte distribution width (RBC) [Ratio] 11.9 % Normal 11.5-15.0 [facility] Comment on above: Order Comment: Speci men Type: BLOOD SPECIMENOrdering Facility: [facility] Address: [address] [place] [address] Performed By: #### 5 7021-8 ####[facility] [id number] [address] [place] Hematocrit (Bld) [Volume fraction] 40.1 % Normal 36.0-46.0 [facility] Comment on above: Order Comment: Speci men Type: BLOOD SPECIMENOrdering Facility: [facility] Address: [address] [place] [address] Performed By: #### 5 7021-8 ####[facility] [id number] [address] [place] Hemoglobin (Bld) [Mass/Vol] 14.1 g/dL Normal 11.5-15.5 [facility] Comment on above: Order Comment: Speci men Type: BLOOD SPECIMENOrdering Facility: [facility] Address: [address] [place] [address] Performed By: #### 5 7021-8 ####[facility] [id number] [address] [place] Immature granulocytes (Bld) [#/Vol] 10*3/uL Normal <0.10 [facility] Comment on above: Order Comment: Speci men Type: BLOOD SPECIMENOrdering Facility: [facility] Address: [address] [address] Performed By: #### 5 7021-8 ####[facility] [id number] [address] Immature granulocytes/100 WBC (Bld) 0.3 % Normal [facility] Comment on above: Order Comment: Speci men Type: BLOOD SPECIMENOrdering Facility: [facility] Address: [address] [place] [address] Performed By: #### 5 7021-8 ####[facility] [id number] [address] Lymphocytes (Bld) [#/Vol] 1.69 10*3/uL Normal 1.00-4.00 [facility] Comment on above: Order Comment: Speci men Type: BLOOD SPECIMENOrdering Facility: [facility] Address: [address] [place] [address] Performed By: #### 5 7021-8 ####[facility] [id number] [address] Lymphocytes/100 WBC (Bld) 24.1 % Normal [facility] Comment on above: Order Comment: Speci men Type: BLOOD SPECIMENOrdering Facility: [facility] Address: [address] [place] [address] Performed By: #### 5 7021-8 ####[facility]ORYCL[facility] [id number] [address] MCH (RBC) [Entitic mass] 32.9 pg Normal 26.0-34.0 [facility] Comment on above: Order Comment: Speci men Type: BLOOD SPECIMENOrdering Facility: [facility] Address: [address] [place] [address] Performed By: #### 5 7021-8 ####[facility]ORYCL[facility] [id number] [address] MCHC (RBC) [Mass/Vol] 35.2 g/dL Normal 30.5-36.0 [facility] Comment on above: Order Comment: Speci men Type: BLOOD SPECIMENOrdering Facility: [facility] Address: [address] [place] [address] Performed By: #### 5 7021-8 ####[facility]ORYCLIA [id number] [address] MCV (RBC) [Entitic vol] 93.7 fL Normal 80.0-100.0 [facility] Comment on above: Order Comment: Speci men Type: BLOOD SPECIMENOrdering Facility: [facility] Address: [address] [address] Performed By: #### 5 7021-8 ####[facility]ORYCLIA [id number] [place] [address] [place] [facility] [place] Monocytes (Bld) [#/Vol] 0.39 10*3/uL Normal <0.87 [facility] Comment on above: Order Comment: Speci men Type: BLOOD SPECIMENOrdering Facility: [facility] Address: [address] [place] [address] Performed By: #### 5 7021-8 ####[facility]ORYCLIA [id number] [address] [place] Monocytes/100 WBC (Bld) 5.6 % Normal [facility] Comment on above: Order Comment: Speci men Type: BLOOD SPECIMENOrdering Facility: [facility] Address: [address] [place] [address] Performed By: #### 5 7021-8 ####[facility]ORYCLIA [id number] [address] [place] Neutrophils (Bld) [#/Vol] 4.75 10*3/uL Normal 1.45-7.50 [facility] Comment on above: Order Comment: Speci men Type: BLOOD SPECIMENOrdering Facility: [facility] Address: [address] [place] [address] Performed By: #### 5 7021-8 ####[facility]ORYCLIA [id number] [address] [place] Neutrophils/100 WBC (Bld) 67.7 % Normal [facility] Comment on above: Order Comment: Speci men Type: BLOOD SPECIMENOrdering Facility: [facility] Address: [address] [place] [address] Performed By: #### 5 7021-8 ####[facility]ORYCLIA [id number] [address] [place] Nucleated RBC (Bld) [#/Vol] 10*3/uL Normal <0.01 [facility] Comment on above: Order Comment: Speci men Type: BLOOD SPECIMENOrdering Facility: [facility] Address: [address] [address] Performed By: #### 5 7021-8 ####[facility]ATORYCLIA [id number] [place] [address] [place] Nucleated RBC/100 WBC (Bld) [Ratio] 0.0 /100 WBC Normal [facility] Comment on above: Order Comment: Speci men Type: BLOOD SPECIMENOrdering Facility: [facility] Address: [address] [address] Performed By: #### 5 7021-8 ####[facility]ATORYCLIA [id number] [place] [address] [place] Platelet mean volume (Bld) [Entitic vol] 9.1 fL Normal 9.0-12.7 [facility] Comment on above: Order Comment: Speci men Type: BLOOD SPECIMENOrdering Facility: [facility] Address: [address] [address] Performed By: #### 5 7021-8 ####[facility]ATORYCLIA [id number] [place] [address] [place] Platelets (Bld) [#/Vol] 274 10*3/uL Normal 150-400 [facility] Comment on above: Order Comment: Speci men Type: BLOOD SPECIMENOrdering Facility: [facility] Address: [address] [address] Performed By: #### 5 7021-8 ####[facility]ATORYCLIA [id number] [place] [address] [place] RBC (Bld) [#/Vol] 4.28 10*6/uL Normal 3.90-5.20 [facility] Comment on above: Order Comment: Speci men Type: BLOOD SPECIMENOrdering Facility: [facility] Address: [address] Performed By: #### 5 7021-8 ####[facility]ATORYCLIA [id number] [place] [address] [place] WBC (Bld) [#/Vol] 7.01 10*3/uL Normal 3.70-11.00 [facility] Comment on above: Order Comment: Speci men Type: BLOOD SPECIMENOrdering Facility: [facility] Address: [address] [address] [address] Performed By: #### 5 7021-8 ####[facility]ORYCLIA [id number] [place] [address] [facility] [place] CK SerPl-cCncon 12-26-2022 CK [Catalytic activity/Vol] 54 U/L Normal 42-196 [facility] Comment on above: Order Comment: Speci men Type: BLOOD SPECIMEN [facility] Address: [address] [address] Performed By: #### 2 157-6, 02609-5, [id number], 50879-2 #### [facility] CLIA [id number] [address] [place], [place] [address] [place] [address] [place] [address] CHEST W IVCON PEon 2022 CT CHEST W IVCON PE * * *Final Report* * * DATE OF EXAM: Dec 26 2022 12:44PM [facility] 0540 - CT CHEST W IVCON PE [...] No abnormality in the imaged upper abdomen. Assistant Field Hockey Coach (topogram) images: No additional findings. IMPRESSION: No CT evidence of pulmonary embolism. Credit Controller: PSCB Transcribe Date/Time: Dec 26 2022 1:02P Dictated by : JOSEFINA MILES MD This examination was interpreted and the report reviewed and electronically signed by: JOSEFINA MILES MD on Dec 26 2022 1:07PM EST [id number] Normal [facility] Comprehensive metabolic 2000 panelon 12-26-2022 Albumin [Mass/Vol] 4.1 g/dL Normal 3.9-4.9 [facility] Comment on above: Order Comment: Speci men Type: BLOOD SPECIMEN [facility] Address: [address] [place] [address] Performed By: #### 2 157-6, 96381-8, [id number], 90358-7 #### [facility] CLIA [id number] [address] OF [facility] ALP [Catalytic activity/Vol] 67 U/L Normal 34-123 [facility] Comment on above: Order Comment: Speci men Type: BLOOD SPECIMEN [facility] Address: [address] [address] Performed By: #### 2 157-6, 02110-6, [id number], 19538-8 #### [facility] CLIA [id number] [address] STATES [facility] ALT [Catalytic activity/Vol] 15 U/L Normal 7-38 [facility] Comment on above: Order Comment: Speci men Type: BLOOD SPECIMEN [facility] Address: [address] [address] Performed By: #### 2 157-6, 79112-3, [id number], 66643-8 #### [facility] CLIA [id number] [address] OF [facility] Anion gap [Moles/Vol] 8 mmol/L Low 9-18 [facility] Comment on above: Order Comment: Speci men Type: BLOOD SPECIMEN [facility] Address: [address] [address] Performed By: #### 2 157-6, 97607-7, [id number], 65455-2 #### [facility] CLIA [id number] [address] [place] [address] [place] AST [Catalytic activity/Vol] 17 U/L Normal 13-35 [facility] Comment on above: Order Comment: Speci men Type: BLOOD SPECIMEN [facility] Address: [address] [address] Performed By: #### 2 157-6, 13470-8, [id number], 21303-4 #### [facility] CLIA [id number] [address] [place] Bilirubin [Mass/Vol] 0.6 mg/dL Normal 0.2-1.3 [facility] Comment on above: Order Comment: Speci men Type: BLOOD SPECIMEN Ordering Facility: [facility] Address: [address] [address] Performed By: #### 2 157-6, 92162-6, [id number], 98112-3 #### [facility] CLIA [id number] [address] [place] Calcium [Mass/Vol] 9.3 mg/dL Normal 8.5-10.2 [facility] Comment on above: Order Comment: Speci men Type: BLOOD SPECIMEN Ordering Facility: [facility] Address: [address] [address] Performed By: #### 2 157-6, 72796-6, [id number], 05707-0 #### [facility] CLIA [id number] [address] [place] [address] [place] Chloride [Moles/Vol] 105 mmol/L Normal 97-105 [facility] Comment on above: Order Comment: Isak bales Type: BLOOD SPECIMEN Ordering Facility: [facility] Address: [address] [place] [address] Performed By: #### 2 157-6, 92043-6, [id number], 22492-4 #### [facility] CLIA [id number] [address] [place] [address] [place] CO2 [Moles/Vol] 26 mmol/L Normal 22-30 [facility] Comment on above: Order Comment: Isak bales Type: BLOOD SPECIMEN Ordering Facility: [facility] Address: [address] [place] [address] Performed By: #### 2 157-6, 03145-2, [id number], 99159-2 #### [facility] CLIA [id number] [address] [place] [address] [place] Creatinine [Mass/Vol] 0.79 mg/dL Normal 0.58-0.96 [facility] Comment on above: Order Comment: Isak bales Type: BLOOD SPECIMEN Ordering Facility: [facility] Address: [address] [place] [address] Performed By: #### 2 157-6, 91700-9, [id number], 97600-1 #### [facility] CLIA [id number] [address] Creatinine and Glomerular filtration rate.predicted panel (S/P/Bld) 84 mL/min/1.73m??? Normal >=60 [facility] Comment on above: Order Comment: Isak bales Type: BLOOD SPECIMEN Ordering Facility: [facility] Address: [address] [place] [address] Result Comment: Radha mated Glomerular Filtration Rate [...] actual GFR. Performed By: #### 2 157-6, 94328-3, [id number], 54452-1 #### [facility] CLIA [id number] [address] [place] [address] [place] Glucose [Mass/Vol] 103 mg/dL High 74-99 [facility] Comment on above: Order Comment: Isak bales Type: BLOOD SPECIMEN Ordering Facility: [facility] Address: [address] [place], [place] [id number] Result Comment: The [place] Diabetes Association (ADA) provides guidance for cutoff [...] Standards of Medical Care in Diabetes 2016, [place] [employer]. Diabetes Care. 2016.39(Suppl 1). Performed By: #### 2 157-6, 33421-3, [id number], 30745-7 #### [facility] CLIA [id number] [address] [place] [address] [place] Potassium [Moles/Vol] 4.2 mmol/L Normal 3.7-5.1 [facility] Comment on above: Order Comment: Isak bales Type: BLOOD SPECIMEN Ordering Facility: [facility] Address: [address] [place] [address] Performed By: #### 2 157-6, 76714-3, [id number], 16797-1 #### [facility] CLIA [id number] [address] [place] [address] [place] Protein [Mass/Vol] 6.9 g/dL Normal 6.3-8.0 [facility] Comment on above: Order Comment: Isak bales Type: BLOOD SPECIMEN Ordering Facility: [facility] Address: [address] [phone] Performed By: #### 2 157-6, 24523-5, [id number], 05443-3 #### [facility] CLIA [id number] [address] STATES OF [facility] Sodium [Moles/Vol] 139 mmol/L Normal 136-144 [facility] Comment on above: Order Comment: Speci men Type: BLOOD SPECIMEN Ordering Facility: [facility] Address: [address] [place] [address] Performed By: #### 2 157-6, 92244-7, [id number], 34774-9 #### [facility] CLIA [id number] [address] Urea nitrogen [Mass/Vol] 17 mg/dL Normal 7-21 [facility] Comment on above: Order Comment: Speci men Type: BLOOD SPECIMEN Ordering Facility[facility] Address: [address] [place] [address] Performed By: #### 2 157-6, 60369-0, [id number], 66102-2 #### [facility] CLIA [id number] [address] [place] D dimer FEU PPP-mCncon 12-26 Fibrin D-dimer FEU (PPP) [Mass/Vol] 800 ng/mL FEU High <500 [facility] Comment on above: Order Comment: Speci men Type: BLOOD SPECIMENOrdering Facility: [facility] Address: [address] [place] [address] Performed By: #### 4 8065-7, 95392-7 ####[facility] [id number] [address] [place] ECG COMPLETEon 12-26-2022 ECG COMPLETE Ventricular Rate : 6 9 BPM Atrial Rate : 69 BPM P-R Interval : 192 ms QRS Duration : 90 ms Q-T Interval : 392 ms QTC Calculation(Bazett) : 420 ms Calculated P Garwood : 15 degrees Calculated R Garwood : -17 degrees Calculated T Garwood : -3 degrees NORMAL SINUS RHYTHM POSSIBLE ANTERIOR INFARCT , AGE UNDETERMINED ABNORMAL ECG 1125 12/26/22 NO OLD EKGS Confirmed by DO CHISHOLM ALAN ([id number]), assignment editor LARA RAMON ([id number]) on 12/27/2022 6:21:58 AM NAME : ROSE MARY NARANJO PID : [id number] : 1960 Gender : Female Race : ORD : [id number] Procedure Date : Dec 26 2022 11:20:44 Edit Date : Dec 27 2022 06:22:01 Diagnosis: NORMAL SINUS RHYTHM POSSIBLE ANTERIOR INFARCT , AGE UNDETERMINED ABNORMAL ECG 1125 12/26/22 NO OLD EKGS Confirmed by DO CHISHOLM ALAN ([id number]), assignment editor LARA RAMON ([id number]) on 12/27/2022 6:21:58 AM Test Reason : Chest Pain Location : 1 : ER ED Overread By : DO CHISHOLM ALAN Edited By : LARA RAMON Referred By : , Acquired by : , [facility] ED NOTEon 12-26-2022 ED NOTE HNO ID: [id number] Author: Jay Rutledge RN Service: ? Author [...] to her back. Denies SOB with it. [facility] ED PROV NOTEon 12-26-2022 ED PROV NOTE HNO ID: [id number] Author: Shima Chisholm DO Service: Emergency Medicine Author Type: Physician Type: ED Provider Notes Filed: 12/26/2022 1:30 PM Note Text: ED Provider Note Patient Name: Rose Mary Naranjo : 1960 SERVICE DATE: 12/26/22 History No chief complaint on file. This pleasant 62-year-old female patient referred to ED from [facility] for chest pain. She actually is a [...] type Influenza-like illness COVID-19 test performed per [facility] [place] policy for suspected COVID community exposure. MDM / Disposition / Plan 62-year-old female patient presents ED. Referred to ED from [facility] for evaluation. She has influenza-like illness. But [...] 21 m (more content not included)... Normal [facility] FLUABV+SARS-CoV-2+RSV Pnl Re sp DARELL+probeon 12-26-2022 FLUABV+SARS-CoV-2+RSV Pnl Resp DARELL+probe COVID 19 RESULT: Not detected The method used is RT-PCR or an equivalent NAAT method. Reference Range(the expected result in uninfected individuals): Not detected INFLUENZA A PCR: Not detected INFLUENZA B PCR: Not detected RSV PCR: Not detected Normal [facility] Comment on above: Performed By: #### 9 5941-1 #### [facility] CLIA [id number] [address] [place] [address] [place] Fibrin D-dimer FEU (PPP) [Ma ss/Vol]on 12-26-2022 D DIMER AGE-RELATED CUTOFF 640 ng/mL FEU Normal [facility] Comment on above: Order Comment: Speceleuterio men Type: BLOOD SPECIMENOrdering Facility: [facility] Address: [address] [place] [address] Performed By: #### 4 8065-7, 96332-0 ####[facility] [id number] [place] [address] [place] HIGH SENSITIVITY TROPONIN T (INITIAL)on 12-26-2022 Troponin T.cardiac High sensitivity method [Mass/Vol] <6 Normal <12 [facility] Comment on above: Order Comment: Isak bales Type: BLOOD SPECIMEN Order[facility] Address: [address] [place] [address] Result Comment: When assessing risk for acute [...] day MACE. Performed By: #### 2 157-6, 87422-9, [id number], 67284-6 #### [facility] CLIA [id number] [address] [place] [address] [place] HIGH SENSITIVITY TROPONIN T (SECOND)on 12-26-2022 Troponin T.cardiac High sensitivity method [Mass/Vol] <6 Normal <12 [facility] Comment on above: Order Comment: Isak men Type: BLOOD SPECIMENOrdering Facility: [facility] Address: [address] [place] [address] Result Comment: When assessing risk for acute [...] 30 day MACE. Performed By: #### L [id number] ####[facility] [id number] [address] OF [facility] Magnesium SerPl-mCncon 12-26 Magnesium [Mass/Vol] 2.1 mg/dL Normal 1.7-2.3 [facility] Comment on above: Order Comment: Isak bales Type: BLOOD SPECIMEN Order[facility] Address: [address] [place] [address] Performed By: #### 2 157-6, 38600-3, EWE4813, 31377-6 #### [facility] CLIA [id number] [address] OF [facility] PT panel Coag (PPP)on 2022 INR Coag (PPP) [Relative time] 1.0 {INR} Normal 0.9-1.3 [facility] Comment on above: Order Comment: Isak bales Type: BLOOD SPECIMENOrdering Facility: [facility] Address: [address] [place] [address] Result Comment: Loida min K Antagonist (VKA) Therapeutic Range: INR 2 to 3 (Target INR of 2.5) Note: For patients treated with VKA drugs, such as warfarin, the [place] [employer] 2012 Guideline recommends [...] GH, et al. Chest 2012, 141:7S-47S Poli ROD et al. [facility] 2017, 70: 252-289 Performed By: #### 4 8065-7, 88703-5 ####[facility] [id number] [place] [address] [facility] PT Coag (PPP) [Time] 10.9 s Normal 9.7-13.0 [facility] Comment on above: Order Comment: Speci men Type: BLOOD SPECIMENOrdering Facility: [facility] Address: [address] [phone] Performed By: #### 4 8065-7, 31642-3 ####[facility] [id number] [address] [id number] [facility] XR CHEST 1V FRONTAL PORTon 1 XR [...] cardiomediastinal silhouette. IMPRESSION: No acute radiographic abnormality Credit Controller: PSCB Transcribe Date/Time: Dec 26 2022 11:50A Dictated by : JOSEFINA MILES MD This examination was interpreted and the report reviewed and electronically signed by: JOSEFINA MILES MD on Dec 26 2022 11:50AM EST [id number] Normal [facility] Basophil percentageOrdered B y: Flaco Lopez on 06-11-2022 Bilirubin [Mass/Vol] 0.50 mg/dL 0.20-1.00 [facility] Comment on above: For patients on eltr ombopag therapy, use of Dimension [place] TBIL is not recommended. Chloride [Moles/Vol] 97 mmol/L 98-107 [facility] Cholesterol [Mass/Vol] 264 mg/dL <200 [facility] Comment on above: <200 mg/dL Desirable 200-240 mg/dL Borderline >240 mg/dL High Risk Glucose [Mass/Vol] 390 mg/dL 74-106 [facility] Comment on above: Glucose result great er than or equal to 200 mg/dLsuggests DIABETES MELLITUS per A.D.A. criteria. Potassium [Moles/Vol] 4.7 mmol/L 3.5-5.1 [facility] Protein [Mass/Vol] 7.8 g/dL 6.4-8.2 [facility] Sodium [Moles/Vol] 132 mmol/L 136-145 [facility] Triglyceride [Mass/Vol] 281 mg/dL <199 [facility] Comment on above: The drugs N-Acetylcy steine and Metamizole may falsely depress this assay.Serum Triglycerides Reference Interval Normal <150 mg/dL Borderline high 150 - 199 mg/dL High 200 - 499 mg/dL Very High > or = 500 mg/dL Laboratory - Chemistry and C hemistry - challengeOrdered By: Flaco Lopez on 06-11-2022 ALP [Catalytic activity/Vol] 133 U/L 45-117 [facility] ALT [Catalytic activity/Vol] 40 U/L 13-56 [facility] CO2 [Moles/Vol] 26.0 mmol/L 21.0-32.0 [facility] Globulin (S) [Mass/Vol] 3.8 g/dL 2.2-4.2 [facility] Urea nitrogen/Creatinine [Mass ratio] 25.0 mg/mg 10-20 [facility] Laboratory - Hematology and Cell countson 06-11-2022 HbA1c (Bld) [Mass fraction] 10.0 % [facility] No Panel InformationOrdered By: Flaco Lopez on 06-11-2022 Estimated GFR (MDRD) Amer 79 mL/min >60 [facility] Comment on above: GFR Calc Estimated GFR (MDRD) Non-Af Amer 65 mL/min >60 [facility] Comment on above: Non- GFR Calc Thyroid Stimulating Hormone (TSH) 2.57 uIU/mL 0.358-3.74 [facility] Urine Microalbumin/Creatini ne Ratio 42.1 mg/g CRE <30 [facility] Vitamin D 25-Hydroxy 46.9 ng/mL [facility] Comment on above: Vitamin D 25(OH) Sta tus Range Deficiency <20 ng/mL (50nmol/L) Insufficiency 20 - 30 ng/mL (50 - 75 nmol/L) Sufficiency 30 - 100 ng/mL (75 - 250 nmol/L) Toxicity >100 ng/mL (>250 nmol/L) Serum or plasma albumin sharon urement (mass/volume)Ordered By: Flaco Lopez on 06-11-2022 Albumin [Mass/Vol] 4.0 g/dL 3.2-5.0 [facility] Serum or plasma albumin/glob ulin mass ratioOrdered By: Flaco Lopez on 06-11-2022 Albumin/Globulin [Mass ratio] 1.1 {ratio} 0.9-2.4 [facility] Serum or plasma calcium sharon urement (mass/volume)Ordered By: Flaco Lopez on 06-11-2022 Calcium [Mass/Vol] 9.8 mg/dL 8.5-10.1 [facility] Serum or plasma cholesterol in HDL measurement (mass/volume)Ordered By: Flaco Lopez on 06-11-2022 Cholesterol in HDL [Mass/Vol] 60 mg/dL >40 [facility] Comment on above: The drugs N-Acetylcy steine and Metamizole may falsely depress this assay. Reference Range HDL <40 mg/dL Low HDL Cholesterol HDL >or= 60 mg/dL High HDL Cholesterol Serum or plasma cholesterol in VLDL measurement (mass/volume)Ordered By: Flaco Lopez on 06-11-2022 Cholesterol in VLDL [Mass/Vol] 56 mg/dL 5-40 [facility] Serum or plasma creatinine m easurement (mass/volume)Ordered By: Flaco Lopez on 06-11-2022 Creatinine [Mass/Vol] 0.92 mg/dL 0.55-1.02 [facility] Comment on above: The validity of the calculated GFR & GFRAA in patients over 70 years has not been determined. Clinical correlation is essential. Serum or plasma low density lipoprotein (LDL) cholesterol measurement (mass/volume)Ordered By: Flaco Lopez on 06-11-2022 Cholesterol in LDL [Mass/Vol] 148 mg/dL 0-130 [facility] Serum or plasma urea nitroge n measurement (mass/volume)Ordered By: Flaco Lopez on 06-11-2022 Urea nitrogen [Mass/Vol] 23 mg/dL 7-18 [facility] Thin prep Papanicolaou smear with manual screeningOrdered By: Flaco Lopez on 06-11-2022 Thin prep Papanicolaou smear with manual screening 19 U/L 15-37 [facility] Thin prep Papanicolaou smear with manual screening 9 5-15 [facility] Thin prep Papanicolaou smear with manual screening 27.6 mg/L NO RANGE EST. [facility] Urine creatinine measurement (mass/volume)Ordered By: Flaco Lopez on 06-11-2022 Creatinine (U) [Mass/Vol] 65.60 mg/dL NO RANGE EST. [facility] - Hematology and Cell countson 12-11-2021 HbA1c (Bld) [Mass fraction] 6.2 % 4.2-6.3 [facility] Work Phone: THYROXINE,FREEon 04-01-2020 THYROXINE,FREE 1.03 ng/dL Normal 0.78 - 1.48 [facility] Comment on above: Result Comment: Thyr oxine Free testing is performed using different testing methodology at [facility] than at other [facility]. Direct result comparisons should only be made within the same method. Performed By: #### T 4FRE #### [facility] [address] [place] [address] TRIIODOTHYRONINE,FREEon TRIIODOTHYRONINE,FREE 3.3 pg/mL Normal 2.3 - 4.2 [facility] Comment on above: Performed By: #### T 3FRE #### [facility] [address] [place] [address] HM 50+ Yearson 03-07-2020 HM 50+ Years Diagnoses/Problems Assessed Annual physical exam [...] Colón; Effective Date:07Mar2020; Administered by: Carol Oleary YEAST FERMENTATION ATTENDANT: 03/07/2020 4:56:00 PM; Last Updated By: Carol Oleary; 03/07/2020 5:01:23 PM Administered: Pneumococcal polysaccharide vaccine, 23 valent For: PMH: Flu vaccine need; Ordered By:Lambert Colón; Effective Date:07Mar2020; Administered by: Carol Oleary YEAST FERMENTATION ATTENDANT: 03/07/2020 4:58:00 PM; Last Updated By: Carol Oleary; 03/07/2020 5:01:23 PM Administered: Tdap (Boostrix) For: PMH: Flu vaccine need; Ordered By:Lambert Colón; Effective Date:07Mar2020; Administered by: Carol Oleary YEAST FERMENTATION ATTENDANT: 03/07/2020 4:57:00 PM; Last Updated By: Carol [...] Tdap today UTD on colonoscopy - last 2018 - follows w/ Dr Gonzales UTD [...] neear shoulder, thru to back-post prandial -checking [facility] History of cough Resolved Date: 07 Oct [...] 1ppd for 5-6 years, stopped in the 1979' Occasional alcohol use Confucianism Affiliation Judaism does not want a blood transfusion-will bring [...] 1 TABLET DAILY.. Vitamin D3 50 MCG (1999) Oral CapsuleTAKE 1 CAPSULE Daily Vitals Vital Signs Recorded: [id number] 03:22PM Heart Rate60 Fxlegvhf381 Cxiodudjk45 Height5 ft 7.75 in Lietyl929 lb BMI Rbjjuwciuf46.35 BSA Calculated2.36 Physical Exam Documented vital signs: [...] Normal strength. Normal gait. Integumentary: Warm, Dry, Boling, No rash. Neurologic: Alert, Oriented, No focal deficits. Cognition and Speech: Speech clear and coherent. Psychiatric: Cooperative, Appropriate mood AND affect. Results/Data Comprehensive Metabolic Ycykr12Umf5478 10:14NTry-CVSYPG-JdnrdPrasanna Edwards Test NameResultFlagReference Glucose, Excqs056 mg/dLH74 - 99 Sodium, Nxnam478 mmol/L136 - 145 POTASSIUM4.9 mmol/L3.5 - 5.3 Chloride, Fddxz001 mmol/L98 - 107 Bicarbonate, Serum24 mmol/L21 - 32 Anion Gap, Serum16 mmol/L10 - 20 Blood Urea Nitrogen, Serum18 mg/dL6 - 23 CREATININE0.62 mg/dLSee Below Reference Range: 0.50 - 1.05 Calcium, Serum9.7 mg/dL8.6 - 10.6 Albumin, Serum4.5 g/dL3.4 - 5.0 ALKALINE KPOCNTXRQPG01 U/L33 - 136 Protein, Total Serum7.0 g/dL6.4 - 8.2 Bilirubin, Serum Total0.5 mg/dL0.0 - 1.2 ALT (SGPT), Serum42 U/L7 - 45 Patients treated with Sulfasalazine may generate falsely decreased results for ALT. GFR Non >60 mL/min/1.73m2>60 GFR >60 mL/min/1.73m2>60 CALCULATIONS OF ESTIMATED GFR ARE PERFORMED USING THE MDRD STUDY EQUATION FOR THE IDMS-TRACEABLE CREATININE METHODS. CLIN CHEM 2007;53:766-72 AST27 U/L9 - 39 Hemoglobin G2U99Fdw5501 10:53TFqm-TADIZS-VadqfPrasanna Edwards Test NameResultFlagReference Hemoglobin A1C, Level7.2 % Diagnosis of Diabetes-Adults Non-Diabetic: < or = 5.6% Increased risk for developing diabetes: 5.7-6.4% Diagnostic of diabetes: > or = 6.5% . Monitoring of Diabetes Age (y) Therapeutic Goal (%) Adults: >18 <7.0 Pediatrics: 13-18 <7.5 7-12 <8.0 0- 6 7.5-8.5 [place] [employer]. Diabetes Care 33(S1), Mar 2009. Estimated Average Qadtuuu620 MG/DL Lipid Brmeg27Lya8714 10:87YTij-KVELPK-CgycaPrasanna Edwards Test NameResultFlagReference Cholesterol, Vljlj373 mg/dL0 - 199 . AGE DESIRABLE BORDERLINE [...] < 3.4 HIGH RISK > 5.0 LDL, Hywhn402 mg/dLH0 - 99 . NEAR BORD AGE DESIRABLE OPTIMAL HIGH HIGH VERY HIGH 0-19 Y 0 - 109 --- 110-129 >/= 130 ---- 20-24 Y 0 - 119 --- 120-159 >/= 160 ---- >24 Y 0 - 99 100-129 130-159 160-189 >/=190 . VLDL, Serum25 mg/dL0 - 40 Triglycerides, Posfd109 mg/dL0 - 149 . AGE DESIRABLE BORDERLINE [...] TSH WITH REFLEX TO FREE T4 IF INKDRWLQ44Vhg1974 10:20VZwp-MJBPTQ-IfujnPrasanna Edwards Test NameResultFlagReference Thyroid Stimulating Hormone, Serum2.19 mIU/LSee Below Reference Range: 0.44 - 3.98 TSH testing is performed using different testing methodology at [facility] than at other [facility]. Direct result comparisons should only be made within the same method. Complete Blood Count + Zzaebadvhfid89Xar1406 10:99FScf-OFFPOT-GyfokPrasanna Edwards Test NameResultFlagReference White Blood Cell Count6.6 x10E9/L4.4 - 11.3 Red Blood Cell Count4.30 x10E12/LSee Below Reference Range: 4.00 - 5.20 Nucleated Erythrocyte Count0.0 /100 WBC0.0-0.0 Psqyawufor54.8 g/dLSee Below Reference Range: 12.0 - 16.0 HCT42.7 %See Below Reference Range: 36.0 - 46.0 MCV99 fL80 - 100 MCHC32.3 g/dLSee Below Reference Range: 32.0 - 36.0 Platelet Yokue475 x10E9/L150 - 450 RDW-CV12.1 %See Below Reference [...] Reference Range: 0.00 - 0.10 Vitamin D 25-Lhcwznq41Ryx6773 10:83WPzc-KOTXAO-JkalgPrasanna Edwards Test NameResultFlagReference Vitamin D 25-Hydroxy, Level73 ng/mL . DEFICIENCY: < 20 NG/ML INSUFFICIENCY: 20-29 NG/ML SUFFICIENCY: 30-100 NG/ML THIS ASSAY ACCURATELY QUANTIFIES THE SUM OF VITAMIN D3, 25-HYDROXY AND VIT D2,25-HYDROXY. Comprehensive Metabolic Cqcss98Ywb7316 10:79VPxi-XWZKOR-OkizdPrasanna Edwards Test NameResultFlagReference Glucose, Fscnr194 mg/dLH74 - 99 Sodium, Uwcqk094 mmol/L136 - 145 POTASSIUM4.9 mmol/L3.5 - 5.3 Chloride, Jszwv010 mmol/L98 - 107 Bicarbonate, Serum24 mmol/L21 - 32 Anion Gap, Serum16 mmol/L10 - 20 Blood Urea Nitrogen, Serum18 mg/dL6 - 23 CREATININE0.62 mg/dLSee Below Reference Range: 0.50 - 1.05 Calcium, Serum9.7 mg/dL8.6 - 10.6 Albumin, Serum4.5 g/dL3.4 - 5.0 ALKALINE RFHVVXNCJYW33 U/L33 - 136 Protein, Total Serum7.0 g/dL6.4 - 8.2 Bilirubin, Serum Total0.5 mg/dL0.0 - 1.2 ALT (SGPT), Serum42 U/L7 - 45 Patients treated with Sulfasalazine may generate falsely decreased results for ALT. GFR Non >60 mL/min/1.73m2>60 GFR >60 mL/min/1.73m2>60 CALCULATIONS OF ESTIMATED GFR ARE PERFORMED USING THE MDRD STUDY EQUATION FOR THE IDMS-TRACEABLE CREATININE METHODS. CLIN CHEM 2007;53:766-72 AST27 U/L9 - 39 Hemoglobin C5O10Lfh9653 10:07WEfa-MTSPQM-NjttvPrasanna Edwards Test NameResultFlagReference Hemoglobin A1C, Level7.2 % Diagnosis of Diabetes-Adults Non-Diabetic: < or = 5.6% Increased risk for developing diabetes: 5.7-6.4% Diagnostic of diabetes: > or = 6.5% . Monitoring of Diabetes Age (y) Therapeutic Goal (%) Adults: >18 <7.0 Pediatrics: 13-18 <7.5 7-12 <8.0 0- 6 7.5-8.5 [place] [employer]. Diabetes Care 33(S1), Mar 2009. Estimated Average Xevbsdb211 MG/DL Lipid Gjvdz40Oxy4051 10:32KNju-GWDERU-DjkkxPrasanna Edwards Test NameResultFlagReference Cholesterol, Hijbo011 mg/dL0 - 199 . AGE DESIRABLE BORDERLINE [...] < 3.4 HIGH RISK > 5.0 LDL, Yfvfg156 mg/dLH0 - 99 . NEAR BORD AGE DESIRABLE OPTIMAL HIGH HIGH VERY HIGH 0-19 Y 0 - 109 --- 110-129 >/= 130 ---- 20-24 Y 0 - 119 --- 120-159 >/= 160 ---- >24 Y 0 - 99 100-129 130-159 160-189 >/=190 . VLDL, Serum25 mg/dL0 - 40 Triglycerides, Lhdxg283 mg/dL0 - 149 . AGE DESIRABLE BORDERLINE [...] TSH WITH REFLEX TO FREE T4 IF UUROGVET81Wpr4528 10:74SRuh-OEBFTF-IsgjgPrasanna Edwards Test NameResultFlagReference Thyroid Stimulating Hormone, Serum2.19 mIU/LSee Below Reference Range: 0.44 - 3.98 TSH testing is performed using different testing methodology at [facility] than at other [facility]. Direct result comparisons should only be made within the same method. Complete Blood Count + Ipaishwdsptj03Oxg0701 10:88GVwi-VAILLN-UgfaqPrasanna Edwards Test NameResultFlagReference White Blood Cell Count6.6 x10E9/L4.4 - 11.3 Red Blood Cell Count4.30 x10E12/LSee Below Reference Range: 4.00 - 5.20 Nucleated Erythrocyte Count0.0 /100 WBC0.0-0.0 Ggegvvsqxn97.8 g/dLSee Below Reference Range: 12.0 - 16.0 HCT42.7 %See Below Reference Range: 36.0 - 46.0 MCV99 fL80 - 100 MCHC32.3 g/dLSee Below Reference Range: 32.0 - 36.0 Platelet Hrqvi205 x10E9/L150 - 450 RDW-CV12.1 %See Below Reference [...] Reference Range: 0.00 - 0.10 Vitamin D 25-Mpohnvd59Qcq7064 10:79XZed-ODDOAX-YypsqPrasanna Sanderson Test NameResultFlagReference Vitamin D 25-Hydroxy, Level73 [...] GRAN 0.8 % Normal 0.0 - 0.9 [facility] Comment on above: Result Comment: Olga ture Granulocyte Count (IG) includes promyelocytes, myelocytes and metamyelocytes but does not include bands. Percent differential counts (%) should be interpreted in the context of the absolute cell counts (cells/L). Performed By: #### C BCDF #### [facility] [address] [place] [address] Basophils (Bld) [#/Vol] 0.08 10*3/uL Normal 0.00 - 0.10 [facility] Comment on above: Performed By: #### C BCDF #### [facility] [address] [place] [address] Basophils/100 WBC (Bld) 1.2 % Normal 0.0 - 2.0 [facility] Comment on above: Performed By: #### C BCDF #### [facility] [address] [place] [address] Eosinophils (Bld) [#/Vol] 0.59 10*3/uL Normal 0.00 - 0.70 [facility] Comment on above: Performed By: #### C BCDF #### [facility] [address] [place] [address] Eosinophils/100 WBC (Bld) 8.9 % Normal 0.0 - 6.0 [facility] Comment on above: Performed By: #### C BCDF #### [facility] [address] [place] [address] Erythrocyte distribution width (RBC) [Ratio] 12.1 % Normal 11.5 - 14.5 [facility] Comment on above: Performed By: #### C BCDF #### [facility] [address] [place] [address] Hematocrit (Bld) [Volume fraction] 42.7 % Normal 36.0 - 46.0 [facility] Comment on above: Performed By: #### C BCDF #### [facility] [address] [place] [address] Hemoglobin (Bld) [Mass/Vol] 13.8 g/dL Normal 12.0 - 16.0 [facility] Comment on above: Performed By: #### C BCDF #### [facility] [address] [place] [address] Lymphocytes (Bld) [#/Vol] 2.31 10*3/uL Normal 1.20 - 4.80 [facility] Comment on above: Performed By: #### C BCDF #### [facility] [address] [place] [address] Lymphocytes/100 WBC (Bld) 35.0 % Normal 13.0 - 44.0 [facility] Comment on above: Performed By: #### C BCDF #### [facility] [address] [place] [address] MCHC (RBC) [Mass/Vol] 32.3 g/dL Normal 32.0 - 36.0 [facility] Comment on above: Performed By: #### C BCDF #### [facility] [address] [place] [address] MCV (RBC) [Entitic vol] 99 fL Normal 80 - 100 [facility] Comment on above: Performed By: #### C BCDF #### [facility] [address] [place] [address] Monocytes (Bld) [#/Vol] 0.38 10*3/uL Normal 0.10 - 1.00 [facility] Comment on above: Performed By: #### C BCDF #### [facility] [address] [place] [address] Monocytes/100 WBC (Bld) 5.8 % Normal 2.0 - 10.0 [facility] Comment on above: Performed By: #### C BCDF #### [facility] [address] [place] [address] Neutrophils (Bld) [#/Vol] 3.19 10*3/uL Normal 1.20 - 7.70 [facility] Comment on above: Performed By: #### C BCDF #### [facility] [address] [place] [address] Neutrophils/100 WBC (Bld) 48.3 % Normal 40.0 - 80.0 [facility] Comment on above: Performed By: #### C BCDF #### [facility] [address] [place] [address] Nucleated RBC/100 WBC (Bld) [Ratio] 0.0 /100 WBC Normal 0.0-0.0 [facility] Comment on above: Performed By: #### C BCDF #### [facility] [address] [place] [address] Platelets (Bld) [#/Vol] 284 10*3/uL Normal 150 - 450 [facility] Comment on above: Performed By: #### C BCDF #### [facility] [address] [place] [address] RBC (Bld) [#/Vol] 4.30 x10E12/L Normal 4.00 - 5.20 [facility] Comment on above: Performed By: #### C BCDF #### [facility] [address] [place] [address] WBC (Bld) [#/Vol] 6.6 10*3/uL Normal 4.4 - 11.3 [facility] [place] Comment on above: Performed By: #### C BCDF #### [facility] [address] [place] [address] COMPREHENSIVE PANELon 2019 Albumin [Mass/Vol] 4.5 g/dL Normal 3.4 - 5.0 [facility] [place] Comment on above: Performed By: #### T HYDS #### [facility] [address] [place] [address] ALP [Catalytic activity/Vol] 68 U/L Normal 33 - 136 [facility] Comment on above: Performed By: #### T HYDS #### [facility] [address] [place] [address] ALT [Catalytic activity/Vol] 42 U/L Normal 7 - 45 [facility] Comment on above: Result Comment: Sera ents treated with Sulfasalazine may generate falsely decreased results for ALT. Performed By: #### T HYDS #### [facility] [address] [place] [address] Anion gap [Moles/Vol] 16 mmol/L Normal 10 - 20 [facility] Comment on above: Performed By: #### T HYDS #### [facility] [address] [place] [address] AST [Catalytic activity/Vol] 27 U/L Normal 9 - 39 [facility] Comment on above: Performed By: #### T HYDS #### [facility] [address] [place] [address] Bilirubin [Mass/Vol] 0.5 mg/dL Normal 0.0 - 1.2 [facility] Comment on above: Performed By: #### T HYDS #### [facility] [address] [place] [address] Calcium [Mass/Vol] 9.7 mg/dL Normal 8.6 - 10.6 [facility] [place] Comment on above: Performed By: #### T HYDS #### [facility] [address] [place] [address] Chloride [Moles/Vol] 104 mmol/L Normal 98 - 107 [facility] Comment on above: Performed By: #### T HYDS #### [facility] [address] [place] [address] Creatinine [Mass/Vol] 0.62 mg/dL Normal 0.50 - 1.05 [facility] Comment on above: Performed By: #### T HYDS #### [facility] [address] [place] [address] GFR- AM. >60 Normal >60 [facility] Comment on above: Result Comment: CALC ULATIONS OF ESTIMATED GFR ARE PERFORMED USING THE MDRD STUDY EQUATION FOR THE IDMS-TRACEABLE CREATININE METHODS. CLIN CHEM 2007;53:766-72 Performed By: #### T HYDS #### [facility] [address] [place] [address] GFR-NON AM. >60 Normal >60 [facility] Comment on above: Performed By: #### T HYDS #### [facility] [address] [place] [address] Glucose [Mass/Vol] 139 mg/dL High 74 - 99 [facility] [place] Comment on above: Performed By: #### T HYDS #### [facility] [address] [place] [address] HCO3 (Bld) [Moles/Vol] 24 mmol/L Normal 21 - 32 [facility] Comment on above: Performed By: #### T HYDS #### [facility] [address] [place] [address] Potassium [Moles/Vol] 4.9 mmol/L Normal 3.5 - 5.3 [facility] Comment on above: Performed By: #### T HYDS #### [facility] [address] [place] [address] Protein [Mass/Vol] 7.0 g/dL Normal 6.4 - 8.2 [facility] [place] Comment on above: Performed By: #### T HYDS #### [facility] [address] [place] [address] Sodium [Moles/Vol] 139 mmol/L Normal 136 - 145 [facility] [place] Comment on above: Performed By: #### T HYDS #### [facility] [address] [place] [address] Urea nitrogen [Mass/Vol] 18 mg/dL Normal 6 - 23 [facility] Comment on above: Performed By: #### T HYDS #### [facility] [address] [place] [address] HEMOGLOBIN A1Con 02-27-2020 HbA1c (Bld) [Mass fraction] 7.2 % Normal [facility] Comment on above: Result Comment: Diag nosis of Diabetes-Adults Non-Diabetic: < or = 5.6% Increased risk for developing diabetes: 5.7-6.4% Diagnostic of diabetes: > or = 6.5% . Monitoring of Diabetes Age (y) Therapeutic Goal (%) Adults: >18 <7.0 Pediatrics: 13-18 <7.5 7-12 <8.0 0- 6 7.5-8.5 [place] [employer]. Diabetes Care 33(S1), Mar 2009. Performed By: #### H BA1E #### [facility] [address] [place] [address] HbA1c (Bld) [Mass fraction] 160 MG/DL Normal [facility] Comment on above: Performed By: #### H BA1E #### [facility] [address] [place] [address] LIPID PANEL (CORONARY RISK 2 )on 02-27-2020 Cholesterol [Mass/Vol] 194 mg/dL Normal 0 - 199 [facility] Comment on above: Result Comment: [...] Performed By: #### L IPID #### [facility] [address] [place] [address] Cholesterol in HDL [Mass/Vol] 61.4 mg/dL Normal [facility] Comment on above: Result Comment: . AGE VERY LOW LOW NORMAL HIGH 0-19 Y < 35 < 40 40-45 ---- 20-24 Y ---- < 40 >45 ---- >24 Y ---- < 40 40-60 >60 . Performed By: #### L IPID #### [facility] [address] [place] [address] Cholesterol in LDL [Mass/Vol] 108 mg/dL High 0 - 99 [facility] Comment on above: Result Comment: . NEAR BORD AGE DESIRABLE OPTIMAL HIGH HIGH VERY HIGH 0-19 Y 0 - 109 --- 110-129 >/= 130 ---- 20-24 Y 0 - 119 --- 120-159 >/= 160 ---- >24 Y 0 - 99 100-129 130-159 160-189 >/=190 . Performed By: #### L IPID #### [facility] [address] [place] [address] Cholesterol in VLDL [Mass/Vol] 25 mg/dL Normal 0 - 40 [facility] Comment on above: Performed By: #### L IPID #### [facility] [address] [place] [address] Cholesterol.total/Cho lesterol in HDL [Mass ratio] 3.2 {ratio} Normal [facility] Comment on above: Result Comment: REF VALUES DESIRABLE < 3.4 HIGH RISK > 5.0 Performed By: #### L IPID #### [facility] [address] [place] [address] Triglyceride [Mass/Vol] 125 mg/dL Normal 0 - 149 [facility] Comment on above: Result Comment: [...] dosing. Performed By: #### L IPID #### [facility] [address] [place] [address] TSH WITH REFLEX TO FREE T4 I F ABNORMALon 02-27-2020 TSH Qn 2.19 m[IU]/L Normal 0.44 - 3.98 [facility] Comment on above: Result Comment: TSH testing is performed using different testing methodology at [facility] than at other [facility]. Direct result comparisons should only be made within the same method. Performed By: #### T HYDS #### [facility] [address] [place] [address] VITAMIN D, 25-HYDROXYon VITAMIN D, 25-HYDROXY 73 ng/mL Normal [facility] Comment on above: Result Comment: . DEFICIENCY: < 20 NG/ML INSUFFICIENCY: 20-29 NG/ML SUFFICIENCY: 30-100 NG/ML THIS ASSAY ACCURATELY QUANTIFIES THE SUM OF VITAMIN D3, 25-HYDROXY AND VIT D2,25-HYDROXY. Performed By: #### V TDOH #### [facility] [address] [place] [address] COMPREHENSIVE PANELon 2019 Albumin [Mass/Vol] 4.4 g/dL Normal 3.4 - 5.0 [facility] [place] Comment on above: Performed By: #### C MP #### [facility] [address] [place] [address] ALP [Catalytic activity/Vol] 57 U/L Normal 33 - 136 [facility] Comment on above: Performed By: #### C MP #### [facility] [address] [place] [address] ALT [Catalytic activity/Vol] 30 U/L Normal 7 - 45 [facility] Comment on above: Result Comment: Sera ents treated with Sulfasalazine may generate falsely decreased results for ALT. Performed By: #### C MP #### [facility] [address] [place] [address] Anion gap [Moles/Vol] 14 mmol/L Normal 10 - 20 [facility] Comment on above: Performed By: #### C MP #### [facility] [address] [place] [address] AST [Catalytic activity/Vol] 21 U/L Normal 9 - 39 [facility] Comment on above: Performed By: #### C MP #### [facility] [address] [place] [address] Bilirubin [Mass/Vol] 0.6 mg/dL Normal 0.0 - 1.2 [facility] Comment on above: Performed By: #### C MP #### [facility] [address] [place] [address] Calcium [Mass/Vol] 10.1 mg/dL Normal 8.6 - 10.6 [facility] [place] Comment on above: Performed By: #### C MP #### [facility] [address] [place] [address] Chloride [Moles/Vol] 104 mmol/L Normal 98 - 107 [facility] Comment on above: Performed By: #### C MP #### [facility] [address] [place] [address] Creatinine [Mass/Vol] 0.76 mg/dL Normal 0.50 - 1.05 [facility] Comment on above: Performed By: #### C MP #### [facility] [address] [place] [address] GFR- AM. >60 Normal >60 [facility] Comment on above: Result Comment: CALC ULATIONS OF ESTIMATED GFR ARE PERFORMED USING THE MDRD STUDY EQUATION FOR THE IDMS-TRACEABLE CREATININE METHODS. CLIN CHEM 2007;53:766-72 Performed By: #### C MP #### [facility] [address] [place] [address] GFR-NON AM. >60 Normal >60 [facility] Comment on above: Performed By: #### C MP #### [facility] [address] [place] [address] Glucose [Mass/Vol] 106 mg/dL High 74 - 99 [facility] [place] Comment on above: Performed By: #### C MP #### [facility] [address] [place] [address] HCO3 (Bld) [Moles/Vol] 28 mmol/L Normal 21 - 32 [facility] Comment on above: Performed By: #### C MP #### [facility] [address] [place] [address] Potassium [Moles/Vol] 4.5 mmol/L Normal 3.5 - 5.3 [facility] Comment on above: Performed By: #### C MP #### [facility] [address] [place] [address] Protein [Mass/Vol] 6.7 g/dL Normal 6.4 - 8.2 [facility] [place] Comment on above: Performed By: #### C MP #### [facility] [address] [place] [address] Sodium [Moles/Vol] 141 mmol/L Normal 136 - 145 [facility] [place] Comment on above: Performed By: #### C MP #### [facility] [address] [place] [address] Urea nitrogen [Mass/Vol] 21 mg/dL Normal 6 - 23 [facility] Comment on above: Performed By: #### C MP #### [facility] [address] [place] [address] HEMOGLOBIN A1Con 08-28-2019 HbA1c (Bld) [Mass fraction] 6.2 % Normal [facility] Comment on above: Result Comment: Diag nosis of Diabetes-Adults Non-Diabetic: < or = 5.6% Increased risk for developing diabetes: 5.7-6.4% Diagnostic of diabetes: > or = 6.5% . Monitoring of Diabetes Age (y) Therapeutic Goal (%) Adults: >18 <7.0 Pediatrics: 13-18 <7.5 7-12 <8.0 0- 6 7.5-8.5 [place] [employer]. Diabetes Care 33(S1), Mar 2009. Performed By: #### H BA1E #### [facility] [address] [place] [address] HbA1c (Bld) [Mass fraction] 131 MG/DL Normal [facility] Comment on above: Performed By: #### H BA1E #### [facility] [address] [place] [address] Hemoglobin A1Con 08-28-2019 HbA1c (Bld) [Mass fraction] 6.2 % [facility] Work Phone: Comment on above: Diagnosis of Diabete s-Adults Non-Diabetic: < or = 5.6% Increased risk for developing diabetes: 5.7-6.4% Diagnostic of diabetes: > or = 6.5%. Monitoring of Diabetes Age (y) Therapeutic Goal (%) Adults: >18 <7.0 Pediatrics: 13-18 <7.5 7-12 <8.0 0- 6 7.5-8.5 [place] [employer]. Diabetes Care 33(S1), Mar 2009. HbA1c (Bld) [Mass fraction] 131 {MG/DL} [facility] Work Phone: LIPID PANEL (CORONARY RISK 2 )on 08-28-2019 Cholesterol [Mass/Vol] 202 mg/dL High 0 - 199 [facility] Comment on above: Result Comment: [...] Performed By: #### L IPID #### [facility] [address] [place] [address] Cholesterol in HDL [Mass/Vol] 62.8 mg/dL Normal [facility] Comment on above: Result Comment: . AGE VERY LOW LOW NORMAL HIGH 0-19 Y < 35 < 40 40-45 ---- 20-24 Y ---- < 40 >45 ---- >24 Y ---- < 40 40-60 >60 . Performed By: #### L IPID #### [facility] [address] [place] [address] Cholesterol in LDL [Mass/Vol] 123 mg/dL High 0 - 99 [facility] Comment on above: Result Comment: . NEAR BORD AGE DESIRABLE OPTIMAL HIGH HIGH VERY HIGH 0-19 Y 0 - 109 --- 110-129 >/= 130 ---- 20-24 Y 0 - 119 --- 120-159 >/= 160 ---- >24 Y 0 - 99 100-129 130-159 160-189 >/=190 . Performed By: #### L IPID #### [facility] [address] [place] [address] Cholesterol in VLDL [Mass/Vol] 16 mg/dL Normal 0 - 40 [facility] Comment on above: Performed By: #### L IPID #### [facility] [address] [place] [address] Cholesterol.total/Cho lesterol in HDL [Mass ratio] 3.2 {ratio} Normal [facility] Comment on above: Result Comment: REF VALUES DESIRABLE < 3.4 HIGH RISK > 5.0 Performed By: #### L IPID #### [facility] [address] [place] [address] Triglyceride [Mass/Vol] 80 mg/dL Normal 0 - 149 [facility] Comment on above: Result Comment: [...] dosing. Performed By: #### L IPID #### [facility] [address] [place] [address] Lipid Panelon 08-28-2019 Cholesterol [Mass/Vol] 202 mg/dL above high threshold 0 - 199 [facility] Work Phone: Comment on above: . AGE [...] guidelines reference: NCEP ATPIII Guidelines, SUZANNE 2001, 258:1696-97. Venipuncture immediately after or during the administration of Metamizole may lead to falsely low results. Testing should be performed immediately prior to Metamizole dosing. Cholesterol in HDL [Mass/Vol] 62.8 mg/dL [facility] Work Phone: Comment on above: . AGE VERY LOW LOW N ORMAL HIGH 0-19 Y < 35 < 40 40-45 ---- 20- 24 Y ---- < 40 >45 ---- >24 Y ---- < 40 40-60 >60. Cholesterol in LDL [Mass/Vol] 123 mg/dL above high threshold 0 - 99 [facility] Work Phone: Comment on above: . NEAR BORD AGE DEAN RABLE OPTIMAL HIGH HIGH VERY HIGH 0-19 Y 0 - 109 --- 110-129 >/= 130 ---- 20-24 Y 0 - 119 --- 120-159 >/= 160 ---- >24 Y 0 - 99 100-129 130-159 160-189 >/=190. Cholesterol.total/Cho lesterol in HDL [Mass ratio] 3.2 {ratio} [facility] Work Phone: Comment on above: REF VALUESDESIRABLE < 3.4HIGH RISK > 5.0 Triglyceride [Mass/Vol] 80 mg/dL 0 - 149 [facility] Work Phone: Comment on above: . AGE [...] Lipid Panel 16 mg/dL 0 - 40 [facility] Work Phone: Metabolic Panelon 08-28-2019 ALP [Catalytic activity/Vol] 57 U/L 33 - 136 [facility] Work Phone: Anion gap [Moles/Vol] 14 mmol/L 10 - 20 [facility] Work Phone: Bilirubin [Mass/Vol] 0.6 mg/dL 0.0 - 1.2 [facility] Work Phone: Calcium [Mass/Vol] 10.1 mg/dL 8.6 - 10.6 [facility] Work Phone: Chloride [Moles/Vol] 104 mmol/L 98 - 107 [facility] Work Phone: CO2 [Moles/Vol] 28 mmol/L 21 - 32 [facility] Work Phone: Creatinine [Mass/Vol] 0.76 mg/dL See Below [facility] Work Phone: Comment on above: Reference Range: 0.5 0 - 1.05 Glucose [Mass/Vol] 106 mg/dL above high threshold 74 - 99 [facility] Work Phone: Potassium [Moles/Vol] 4.5 mmol/L 3.5 - 5.3 [facility] Work Phone: Protein [Mass/Vol] 6.7 g/dL 6.4 - 8.2 [facility] Work Phone: Sodium [Moles/Vol] 141 mmol/L 136 - 145 [facility] Work Phone: Urea nitrogen [Mass/Vol] 21 mg/dL 6 - 23 [facility] Work Phone: Otheron 08-28-2019 Albumin BCP dye [Mass/Vol] 4.4 g/dL 3.4 - 5.0 [facility] Work Phone: ALT With P-5'-P [Catalytic activity/Vol] 30 U/L 7 - 45 [facility] Work Phone: Comment on above: Patients treated wit h Sulfasalazine may generate falsely decreased results for ALT. AST With P-5'-P [Catalytic activity/Vol] 21 U/L 9 - 39 [facility] Work Phone: >60 >60 [facility] Work Phone: Comment on above: CALCULATIONS OF RADHA MATED GFR ARE PERFORMED USING THE MDRD STUDY EQUATION FOR THE IDMS-TRACEABLE CREATININE METHODS. CLIN CHEM 2007;53:766-72 Operative Reporton [address] [facility] OPERATIVE RECORD ROSE MARY NARANJO [facility] [id number] ASC JÚNIOR MORENO MD [id number] SURGEON: Júnior Moreno MD DATE OF OPERATION: 11/25/2018 PREOPERATIVE DIAGNOSIS: [...] to the recovery room in stable condition. JÚNIOR MORENO MD VD/Martha /[id number] Normal [facility] Anesthesiaon 11-25-2018 Anesthesia Patient: SHRUTI NARANJO [facility]: [id number] Age: 57 years Sex: Female : 1960 [...] Management ECG interpretation: REVIEWED. Assessment and Plan [place] [employer] (ASA) physical status classification: Class III. Anesthetic Preoperative Plan Premedication: intravenous. Anesthetic technique: General anesthesia, balanced technique.. Induction: intravenously, Balanced technique. Maintenance airway: Laryngeal mask airway. Special techniques: Warming device. Special monitoring: Standard ASA monitors.. Postoperative pain management: Per surgeon. Risks discussed: all listed but not limited to.. Informed consent: signed by patient. Notes: Ethnicity: Non , white Language: [place] Email: Refused Smoking:NONE Betablocker:NONE. Normal [facility] OR Nursing Record - Main Trinh n 11-25-2018 OR Nursing Record - Main OR OR Nursing Record - Main OR Summary Primary Physician: JÚNIOR MORENO MD Finalized Date/Time: 11/25/18 17:41:29 Pt. Name: ROSE MARY NARANJO /Sex: 1960 Female Med Rec #: [id number] Physician: Financial #: [id number] Pt. Type: A Room/Bed: / Admit/Disch: 11/25/18 [...] Time 11/25/18 15:49:00 Stop Time 11/25/18 16:19:00 [place] Protocol Yes Completed Surgery Start Time 11/25/18 16:07:00 Stop Time 11/25/18 16:19:00 Last Modified By: Flaco Stone RN 11/25/18 16:25:19 Surgical Procedures - Main OR Entry 1 Procedure Rectal Procedure Modifiers None Surgeon Procedure RECTAL EXAM UNDER Primary Procedure Yes Description ANESTHESIA WITH BOTOX INJECTION, Primary Surgeon JÚNIOR MORENO MD Start 11/25/18 16:07:00 Stop 11/25/18 16:19:00 Anesthesia Type General Surgical Service SN - General Last Modified By: Aspen Wyatt RN 11/25/18 17:41:26 Case Attendance - Main OR Entry 1 Entry 2 Entry 3 Case Attendee JÚNIOR MORENO MD, MD, DAVID HAYES PA-C, JOAN Role Performed Surgeon Primary Anesthesiologist Primary TAMIR Primary Time In 11/25/18 15:48:00 11/25/18 15:48:00 11/25/18 15:48:00 Time Out 11/25/18 16:20:00 11/25/18 16:20:00 11/25/18 16:20:00 Procedure Rectal Procedure(None) Rectal Procedure(None) Rectal Procedure(None) Last Modified By: Flaco Stone RN 11/25/18 Flaco Stone RN 11/25/18 Flaco Stone RN 11/25/18 16:25:21 16:25:21 16:25:21 Entry 4 Entry 5 Case Attendee Flaco Stone RN, Emilee Role Performed Cavalry Officer Primary Scrub Primary Time In 11/25/18 15:48:00 [...] MD, Snow Positioning Devices SCDs Knee High, Chelsey RNFlaco under Head, Stirrups, Candy Cane, Padded Armboard [...] Final Closing Count Participants Flaco Stone RN, Bertha BAUER, Flaco, [facility], [facility], [place] Count Status Correct Correct Items Counted [...] See Comments Dose 100 units By JÚNIOR MORENO MD Last Modified By: Flaco Stone RN [...] RN 11/25/18 16:25:27 Case Comments Finalized By: Aspen Wyatt RN Document Signatures Signed By: Flaco Stone RN 11/25/18 16:25 Aspen Wyatt RN 11/25/18 17:41 Normal [facility] PACU Phase I - Main ORon PACU Phase I - Main OR PACU Phase I - Main OR Summary Primary Physician: JÚNIOR MORENO MD Finalized Date/Time: 11/25/18 17:26:53 Pt. Name: ROSE MARY NARANJO/Sex: 1960 Female Med Rec #: [id number] Physician: Financial #: [id number] Pt. Type: A Room/Bed: / Admit/Disch: 11/25/18 13:39:07 - Institution: PACU I - Case Times - Main OR Entry 1 In PACU I 11/25/18 16:23:00 Ready for Transfer 11/25/18 17:25:00 Last Modified By: Anju Bryant RN 11/25/18 17:26:51 Finalized By: Anju Bryant RN Document Signatures Signed By: Anju Bryant RN 11/25/18 17:26 Normal [facility] - Main [facility] PACU Phase II - Main OR Summary Primary Physician: JÚNIOR MORENO MD Finalized Date/Time: 11/25/18 18:57:37 Pt. Name: ROSE MARY NARANJO/Sex: 1960 Female Med Rec #: [id number] Physician: Financial #: [id number] Pt. Type: A Room/Bed: / Admit/Disch: 11/25/18 13:39:07 - Institution: PACU II - Case Times - Main OR Entry 1 In PACU II 11/25/18 17:26:00 Ready for PACU II 11/25/18 18:50:00 Discharge Discharge from PACU 11/25/18 18:57:00 II Last Modified By: Klaudia Rashid RN 11/25/18 18:57:35 Finalized By: Klaudia Rashid RN Document Signatures Signed By: Klaudia Rashid RN 11/25/18 18:57 Normal [facility] POC Glucoseon 11-25-2018 Glucose [Mass/Vol] 98 mg/dL Normal 72-100 [facility] Comment on above: Performed By: #### [id number] #### [facility] [address] [place] [address] Senior Attorney: Rustam Howard MD Glucose [Mass/Vol] 93 mg/dL Normal 72-100 [facility] Comment on above: Performed By: #### 1 [id number] #### [facility] [address] [place] [id number] Senior Attorney: Rustam Howard MD Preop - Main ORon 11-25-2018 Preop - Main OR Preop - Main OR [place] Primary Physician: JÚNIOR MORENO MD Finalized Date/Time: 11/25/18 14:14:32 Pt. Name: MARCELLA ROSE MARY Yoselyn/Sex: 1960 Female Med Rec #: [id number] Physician: Financial #: [id number] Pt. Type: A Room/Bed: / Admit/Disch: 11/25/18 13:39:07 - Institution: Preop - Case Times - Main OR Entry 1 Patient Arrival Time 11/25/18 13:48:00 Patient Ready for 11/25/18 14:14:00 Surgery Last Modified By: Rachael Patrick RN 11/25/18 14:14:31 Finalized By: Rachael Patrick RN Document Signatures Signed By: Rachael Patrick RN 11/25/18 14:14 Normal [facility] Hematologyon 08-05-2018 Hematocrit (Bld) [Volume fraction] 44.2 % See Below [facility] Work Phone: Comment on above: Reference Range: 36. 0 - 46.0 Hemoglobin (Bld) [Mass/Vol] 14.6 g/dL See Below [facility] Work Phone: Comment on above: Reference Range: 12. 0 - 16.0 MCV (RBC) [Entitic vol] 97 fL 80 - 100 [facility] Work Phone: Platelets (Bld) [#/Vol] 280 {x10E9/L} 150 - 450 [facility] Work Phone: RBC (Bld) [#/Vol] 4.56 {x10E12/L} See Below [facility] Work Phone: Comment on above: Reference Range: 4.0 0 - 5.20 WBC (Bld) [#/Vol] 6.9 {x10E9/L} 4.4 - 11.3 [facility] Work Phone: WBC (Bld) [#/Vol] 0.0 {/100_WBC} 0.0-0.0 [facility] Work Phone: IO Hgb A1Con 08-05-2018 HbA1c (Bld) [Mass fraction] 5.8 % Significant change down 4.4-6.4% [facility] Work Phone: Lipid Panelon 08-05-2018 Cholesterol [Mass/Vol] 180 mg/dL 0 - 199 [facility] Work Phone: Comment on above: . AGE [...] dosing. Cholesterol in HDL [Mass/Vol] 69.5 mg/dL [facility] Work Phone: Comment on above: . AGE VERY LOW LOW N ORMAL HIGH 0-19 Y < 35 < 40 40-45 ---- 20- 24 Y ---- < 40 >45 ---- >24 Y ---- < 40 40-60 >60. Cholesterol in LDL [Mass/Vol] 91 mg/dL 0 - 99 [facility] Work Phone: Comment on above: . NEAR BORD AGE DEAN RABLE OPTIMAL HIGH HIGH VERY HIGH 0-19 Y 0 - 109 --- 110-129 >/= 130 ---- 20-24 Y 0 - 119 --- 120-159 >/= 160 ---- >24 Y 0 - 99 100-129 130-159 160-189 >/=190. Cholesterol.total/Cho lesterol in HDL [Mass ratio] 2.6 {ratio} [facility] Work Phone: Comment on above: REF VALUESDESIRABLE < 3.4HIGH RISK > 5.0 Triglyceride [Mass/Vol] 96 mg/dL 0 - 149 [facility] Work Phone: Comment [...] Lipid Panel 19 mg/dL 0 - 40 [facility] Work Phone: Metabolic Panelon 08-05-2018 ALP [Catalytic activity/Vol] 60 U/L 33 - 110 [facility] Work Phone: Anion gap [Moles/Vol] 13 mmol/L 10 - 20 [facility] Work Phone: Bilirubin [Mass/Vol] 0.8 mg/dL 0.0 - 1.2 [facility] Work Phone: Calcium [Mass/Vol] 10.0 mg/dL 8.6 - 10.6 -[facility] Work Phone: Chloride [Moles/Vol] 103 mmol/L 98 - 107 [facility] Work Phone: CO2 [Moles/Vol] 28 mmol/L 21 - 32 -[facility] Work Phone: Creatinine [Mass/Vol] 0.74 mg/dL See Below [facility] Work Phone: Comment on above: Reference Range: 0.5 0 - 1.05 Glucose [Mass/Vol] 112 mg/dL above high threshold 74 - 99 [facility] Work Phone: Potassium [Moles/Vol] 4.7 mmol/L 3.5 - 5.3 [facility] Work Phone: Protein [Mass/Vol] 7.4 g/dL 6.4 - 8.2 [facility] Work Phone: Sodium [Moles/Vol] 139 mmol/L 136 - 145 [facility] Work Phone: Urea nitrogen [Mass/Vol] 18 mg/dL 6 - 23 [facility] Work Phone: Otheron 08-05-2018 Albumin BCP dye [Mass/Vol] 4.3 g/dL 3.4 - 5.0 [facility] Work Phone: ALT With P-5'-P [Catalytic activity/Vol] 34 U/L 7 - 45 [facility] Work Phone: Comment on above: Patients treated wit h Sulfasalazine may generate falsely decreased results for ALT. AST With P-5'-P [Catalytic activity/Vol] 21 U/L 9 - 39 [facility] Work Phone: Erythrocyte distribution width (RBC) [Ratio] 12.9 % See Below [facility] Work Phone: Comment on above: Reference Range: 11. 5 - 14.5 MCHC (RBC) [Mass/Vol] 33.0 g/dL See Below [facility] Work Phone: Comment on above: Reference Range: 32. 0 - 36.0 >60 >60 [facility] Work Phone: Comment on above: CALCULATIONS OF RADHA MATED GFR ARE PERFORMED USING THE MDRD STUDY EQUATION FOR THE IDMS-TRACEABLE CREATININE METHODS. CLIN CHEM 2007;53:[id number] Vitamin B12, Serumon 019 Cobalamin (Vitamin B12) [Mass/Vol] 782 pg/mL 211 - 911 [facility] Work Phone: Vitamin D 25-Hydroxyon 08-05 Calcidiol [Mass/Vol] 24 ng/mL Abnormal -[facility] Work Phone: Comment on above: .DEFICIENCY: < 20 NG /MLINSUFFICIENCY: 20-29 NG/MLOPTIMUM LEVEL: 30-80 NG/MLPOSSIBLE TOXICITY: > 80 NG/MLTHIS ASSAY ACCURATELY QUANTIFIES THE SUM OFVITAMIN D3, 25-HYDROXY AND VIT D2,25-HYDROXY. DIGITAL MAMM SCREENING W/ TO [place] 04-07-2018 DIGITAL MAMM SCREENING W/ [place] Patient Name: ROSE MARY NARANJO STUDY: DIGITAL MAMM SCREENING W/ CHULA; 04/07/2018 7:51 am ACCESSION NUMBER(S): [id number] ORDERING CLINICIAN: VAL WILLAMS INDICATION: Screening. Benign right core biopsy. COMPARISON: 05/29/2016, 12/07/2013 FINDINGS: 2D and tomosynthesis images were reviewed at 1 mm slice thickness. The breast tissue is almost entirely fatty. No suspicious masses or calcifications are identified. IMPRESSION: No mammographic evidence of malignancy. BI-RADS CATEGORY: Category: 1 - Negative. Recommendation: 1 Year Screening. For any future breast imaging appointments, please call [phone] ([phone]). Patient letter sent SNORM Electronically signed by: ALLYSON SCHOFIELD MD [facility] Vital Signs Date Time Vital Sign Value Performing Clinician Facility 05-04-2024 15:17-0500 Body height 175.26 cm Isabela Blank MD Work Phone: [facility] 05-04-2024 15:17-0500 Body mass index (BMI) [Ratio] 35.5 kg/m2 Isabela Blank MD Work Phone: [facility] 05-04-2024 15:17-0500 Body weight 109.08 kg Isabela Blank MD Work Phone: [facility] 05-04-2024 15:17-0500 Diastolic blood pressure 85 mm[Hg] Isabela Blank MD Work Phone: [facility] 05-04-2024 15:17-0500 Heart rate 68 /min Isabela Blank MD Work Phone: [facility] 05-04-2024 15:17-0500 SaO2% (BldA) [Mass fraction] 97 % Isabela Blank MD Work Phone: [facility] 05-04-2024 15:17-0500 Systolic blood pressure 136 mm[Hg] Isabela Blank MD Work Phone: [facility] 06-12-2023 10:01-0400 Body temperature 100.71 [degF] Alisia Sroka DUDE RANCH MANAGER.MOLD SANDER Work Phone: [facility] 06-12-2023 10:01-0400 Body weight 102.9 kg Alisia Sroka DUDE RANCH MANAGER.MOLD SANDER Work Phone: [facility] 06-12-2023 10:01-0400 Diastolic blood pressure 77 mm[Hg] Alisia Sroka DUDE RANCH MANAGER.MOLD SANDER Work Phone: [facility] 06-12-2023 10:01-0400 Heart rate 84 /min Aliisa Sroka DUDE RANCH MANAGER.MOLD SANDER Work Phone: [facility] 06-12-2023 10:01-0400 SaO2% (BldA) [Mass fraction] 99 % Alisia Sroka DUDE RANCH MANAGER.MOLD SANDER Work Phone: [facility] 06-12-2023 10:01-0400 Systolic blood pressure 143 mm[Hg] Alisia brandi DUDE RANCH MANAGER.MOLD SANDER Work Phone: [facility] 02-18-2023 14:40-0500 Body height 175.26 cm No Primary Care Physician [facility] 02-18-2023 14:37-0500 Body mass index (BMI) [Ratio] 34.4 kg/m2 No Primary Care Physician [facility] 02-18-2023 14:37-0500 Body weight 105.68 kg No Primary Care Physician [facility] 02-18-2023 14:37-0500 Diastolic blood pressure 90 mm[Hg] No Primary Care Physician [facility] 02-18-2023 14:37-0500 Heart rate 68 /min No Primary Care Physician [facility] 02-18-2023 14:37-0500 Respiratory rate 16 /min No Primary Care Physician [facility] 02-18-2023 14:37-0500 Systolic blood pressure 132 mm[Hg] No Primary Care Physician [facility] 02-15-2023 11:29-0500 Body height 175.3 cm Lydia Petty DUDE RANCH MANAGER.MOLD SANDER Work Phone: [facility] 02-15-2023 11:29-0500 Body temperature 96.91 [degF] Lydia Petty DUDE RANCH MANAGER.MOLD SANDER Work Phone: [facility] 02-15-2023 11:29-0500 Body weight 106.41 kg Lydia Petty DUDE RANCH MANAGER.MOLD SANDER Work Phone: [facility] 02-15-2023 11:29-0500 Diastolic blood pressure 84 mm[Hg] Lydia Petty DUDE RANCH MANAGER.MOLD SANDER Work Phone: [facility] 02-15-2023 11:29-0500 Heart rate 57 /min Lydia Petty DUDE RANCH MANAGER.MOLD SANDER Work Phone: [facility] 02-15-2023 11:29-0500 Respiratory rate 18 /min Lydia Petty DUDE RANCH MANAGER.MOLD SANDER Work Phone: [facility] 02-15-2023 11:29-0500 SaO2% (BldA) [Mass fraction] 97 % Lydia Petty APRN.CNP Work Phone: [facility] 02-15-2023 11:29-0500 Systolic blood pressure 151 mm[Hg] Lydia Petty APRN.CNP Work Phone: [facility] 01-16-2023 08:34-0400 Body mass index (BMI) [Ratio] 34.7 kg/m2 No Primary Care Physician [facility] 01-16-2023 08:34-0400 Body weight 106.59 kg No Primary Care Physician [facility] 01-07-2023 09:05-0400 Body mass index (BMI) [Ratio] 35.1 kg/m2 No Primary Care Physician [facility] 01-07-2023 09:05-0400 Body weight 107.95 kg No Primary Care Physician [facility] 06-11-2022 08:27-0400 Body height 173.99 cm No Primary Care Physician [facility] 06-11-2022 08:27-0400 Body mass index (BMI) [Ratio] 42.1 kg/m2 No Primary Care Physician [facility] 06-11-2022 08:27-0400 Body temperature 96 [degF] No Primary Care Physician [facility] 06-11-2022 08:27-0400 Body weight 127.51 kg No Primary Care Physician [facility] 06-11-2022 08:27-0400 Diastolic blood pressure 105 mm[Hg] No Primary Care Physician [facility] 06-11-2022 08:27-0400 Heart rate 82 /min No Primary Care Physician [facility] 06-11-2022 08:27-0400 Respiratory rate 18 /min No Primary Care Physician [facility] 06-11-2022 08:27-0400 SaO2% (BldA) [Mass fraction] 94 % No Primary Care Physician [facility] 06-11-2022 08:27-0400 Systolic blood pressure 148 mm[Hg] No Primary Care Physician [facility] 12-11-2021 08:19-0400 Body height 173.99 cm RENE Lopez Work Phone: [facility] Work Phone: 12-11-2021 08:19-0400 Body mass index (BMI) [Ratio] 40.6 kg/m2 TASSEL CLIPPER-Lyndsey Lopez Work Phone: [facility] Work Phone: 12-11-2021 08:19-0400 Body temperature 95.5 [degF] TASSEL CLIPPER-Lyndsey Lopez Work Phone: [facility] Work Phone: 12-11-2021 08:19-0400 Body weight 123.15 kg TASSEL CLIPPER-Lyndsey Lopez Work Phone: [facility] Work Phone: 12-11-2021 08:19-0400 Diastolic blood pressure 84 mm[Hg] TASSEL CLIPPER-Lyndsey Lopez Work Phone: [facility] Work Phone: 12-11-2021 08:19-0400 Heart rate 62 /min TASSEL CLIPPER-Lyndsey Lopez Work Phone: [facility] Work Phone: 12-11-2021 08:19-0400 Respiratory rate 18 /min TASSEL CLIPPER-Lyndsey Lopez Work Phone: [facility] Work Phone: 12-11-2021 08:19-0400 SaO2% (BldA) [Mass fraction] 94 % TASSEL CLIPPER-Lyndsey Lopez Work Phone: [facility] Work Phone: 12-11-2021 08:19-0400 Systolic blood pressure 143 mm[Hg] TASSEL CLIPPER-Lyndsey Lopez Work Phone: [facility] Work Phone: 09-09-2019 18:21-0400 BMI (Body Mass Index) 40.63 kg/m2 [facility] Work Phone: 09-09-2019 18:21-0400 Body Temperature 98.5 [degF] [facility] Work Phone: 09-09-2019 18:21-0400 Body weight 121.2 kg Rosamaria [place] [facility] [facility] Work Phone: 09-09-2019 18:21-0400 BP Diastolic 70 mm[Hg] Rosamaria [place] [facility] [facility] Work Phone: 09-09-2019 18:21-0400 BP Systolic 142 mm[Hg] Rosamaria [place] [facility] [facility] Work Phone: 09-09-2019 18:21-0400 BSA (Body Surface Area) 2.31 m2 Rosamaria Dalton [facility] Work Phone: 09-09-2019 18:21-0400 Pulse (Heart Rate) 68 /min Rosamaria Dalton [facility] [facility] Work Phone: 05-29-2019 13:13-0500 BMI (Body Mass Index) 42.27 kg/m2 Rosamaria [place] [facility] Work Phone: 05-29-2019 13:13-0500 Body Temperature 97.3 [degF] Rosamaria [place] [facility] Work Phone: 05-29-2019 13:13-0500 Body weight 126.1 kg Rosamaria [place] [facility] Work Phone: 05-29-2019 13:13-0500 BP Diastolic 78 mm[Hg] Rosamaria [place] [facility] Work Phone: 05-29-2019 13:13-0500 BP Systolic 124 mm[Hg] Rosamaria [place] [facility] Work Phone: 05-29-2019 13:13-0500 BSA (Body Surface Area) 2.35 m2 Rosamaria Hoffman MP-[facility] Work Phone: 05-29-2019 13:13-0500 Pulse (Heart Rate) 72 /min Rosamaria Hoffman [facility] Work Phone: 08-05-2018 14:09-0400 BP Diastolic 84 mm[Hg] Rosamaria Hoffman MP-[facility] Work Phone: Comment on above: Location: LUE; Position: Sitting 08-05-2018 14:09-0400 BP Systolic 128 mm[Hg] Rosamaria Dalton MP-[facility] Work Phone: Comment on above: Location: LUE; Position: Sitting 08-05-2018 13:05-0400 BMI (Body Mass Index) 38.47 kg/m2 Rosamaria [place] MP-[facility] Work Phone: 08-05-2018 13:05-0400 Body weight 118.16 kg Rosamaria Datlon MP-[facility] Work Phone: 08-05-2018 13:05-0400 BP Diastolic 68 mm[Hg] Rosamaria [place] MP-[facility] Work Phone: 08-05-2018 13:05-0400 BP Systolic 102 mm[Hg] Rosamaria [place] MP-[facility] Work Phone: 08-05-2018 13:05-0400 BSA (Body Surface Area) 2.31 m2 Rosamaria [place] MP-[facility] Work Phone: 08-05-2018 13:05-0400 Height 175.26 cm Rosamaria Dalton MP-[facility] Work Phone: 08-05-2018 13:05-0400 Pulse (Heart Rate) 60 /min Rosamaria [place] MP-[facility] Work Phone: Comment on above: Quality: Regular 08-05-2018 13:05-0400 Respiratory Rate 20 /min Rosamaria [place] MP-[facility] Work Phone: 08-05-2018 13:050400 1 1 Rosamaria Dalton -[facility] Work Phone: Comment on above: Pain Scale 07-14-2018 15:34-0400 Height 175.26 cm Roasmaria Dalton -[facility] Work Phone: Encounters Encounter Date Encounter Type Care Provider Facility Start: 03-05-2025 ambulatory Andre Grover Facility: [facility] Start: 12-21-2024 End: 12-21-2024 ambulatory Isabela Blank MD Work Phone: -Outpatient Breast Imaging Start: 12-21-2024 End: 12-21-2024 Patient encounter procedure Pedro Barajas TASSEL CLIPPER-C -[facility] Work Phone: Start: 12-21-2024 End: 12-21-2024 ambulatory Isabela Blank Facility:[facility] Start: 07-07-2024 End: 07-07-2024 ambulatory Isabela Blank MD Work Phone: [facility] Work Phone: Start: 07-07-2024 End: 07-07-[address] Isabela Blank MD -Outpatient Bone Densitometry Work Phone: Start: 07-07-2024 End: 07-07-2024 ambulatory Isabela Blank Facility:[facility] Start: 05-04-2024 End: 05-04-2024 Patient encounter procedure Flaco Lopez TASSEL CLIPPER-C -[facility] Work Phone: Start: 05-04-2024 End: 05-04-2024 ambulatory Isabela Blank Facility:[facility] Start: 02-17-2024 End: 02-17-2024 ambulatory Gus Marquez Facility:[facility] Start: 02-11-2024 End: 02-11-2024 ambulatory No Primary Care Physician Facility:[facility] Start: 02-11-2024 End: 02-11-2024 ambulatory Arin Dong NP Facility:[facility] Start: 06-12-2023 End: 06-12-2023 ambulatory SELF Facility:[facility] Start: 06-12-2023 End: 06-12-2023 Patient encounter procedure Alisia Powers [facility] Work Phone: [facility] Comment on above: URI with cough and c ongestion (Primary Dx) Start: 04-03-2023 Non-patient / Non-visit No Primary Care Physician [facility] Start: 04-03-2023 End: 04-03-2023 ambulatory No Primary Care Physician [facility] Work Phone: Start: 04-03-2023 End: 04-03-2023 Patient encounter procedure No Primary Care Physician [facility]Cardi[facility] Work Phone: Start: 03-26-2023 Non-patient / Non-visit No Primary Care Physician [facility] Work Phone: Start: 03-20-2023 Non-patient / Non-visit No Primary Care Physician [facility] Start: 03-20-2023 End: 03-20-2023 ambulatory No Primary Care Physician [facility] Work Phone: Start: 03-20-2023 End: 03-20-2023 Patient encounter procedure No Primary Care Physician [facility] Work Phone: Start: 03-07-2023 End: 03-07-2023 ambulatory No Primary Care Physician [facility] Work Phone: Start: 03-07-2023 End: 03-07-2023 Discharged Recurring No Primary Care Physician [facility]Physical Therapy Work Phone: Start: 03-07-2023 Registered Recurring No Primar y Care Physician [facility] Work Phone: Start: 02-18-2023 End: 02-18-2023 Patient encounter procedure No Primary Care Physician [facility] Work Phone: Start: 02-15-2023 End: 02-15-2023 ambulatory [facility] Facility:[facility] Start: 02-15-2023 End: 02-15-2023 Patient encounter procedure Lydia Petty APRN.MOLD SANDER Work Phone: [facility] Comment on above: Acute otitis media, right (Primary Dx); Scaly skin Start: 01-21-2023 Non-patient / Non-visit No Primary Care Physician [facility] Work Phone: Start: 01-16-2023 End: 01-16-2023 Patient encounter procedure No Primary Care Physician [facility] Work Phone: Start: 01-07-2023 End: 01-07-2023 Patient encounter procedure No Primary Care Physician [facility] Work Phone: Start: 12-26-2022 End: 12-26-2022 Emergency department patient visit FLACO LOPEZ Facility:[facility] Start: 06-11-2022 End: 06-11-2022 ambulatory No Primary Care Physician [facility] Work Phone: Start: 06-11-2022 End: 06-11-2022 Patient encounter procedure No Primary Care Physician [facility] Start: 01-10-2022 End: 01-10-2022 ambulatory TASSEL CLIPPER-C Flaco Lopez Work Phone: [facility] Work Phone: Start: 01-10-2022 End: 01-10-2022 Patient encounter procedure TASSEL CLIPPER-Lyndsey Lopez Work Phone: [facility]-Outpatient Bone Densitometry Start: 12-11-2021 End: 12-11-2021 Patient encounter procedure TASSEL CLIPPER-C Flaco Lopez Work Phone: [facility] Start: 09-22-2020 Rx Renewal Lambert [facility]in [facility] Work [facility]: Start: 08-25-2020 AUDIT Lambert chapin [facility] Work [facility]: Start: 09-09-2019 Patient encounter procedure Rosamaria Dalton -[facility] Work Phone: Start: 05-29-2019 Patient encounter procedure Rosamaria Dalton -[facility] Work Phone: Start: 03-11-2019 Patient encounter procedure Rosamaria Dalton -[facility] Work Phone: Start: 01-21-2019 Patient encounter procedure Rosamaria [place] -[facility] Work Phone: Start: 12-24-2018 Patient encounter procedure Rosamaria Dalton -[facility] Work Phone: Start: 12-10-2018 Patient encounter procedure Rosamaria Dalton [facility] Work Phone: Start: 11-19-2018 Patient encounter procedure Rosamaria Dalton [facility] Work Phone: Start: 08-05-2018 Patient encounter procedure Rosamaria [place] [facility] Work Phone: Start: 06-10-2018 Patient encounter procedure Rosamaria [place] -[facility] Work Phone: Start: 05-05-2018 Patient encounter procedure Rosamaria [place] -[facility] Work Phone: Start: 04-07-2018 Patient encounter procedure Val Lao Rory Facility:[id number] Start: 02-03-2018 Patient encounter procedure Rosamaria [place] -[facility] Work Phone: Start: 10-07-2017 Patient encounter procedure [facility]aria [place] [facility] Work Phone: Start: 05-22-2017 Patient encounter procedure Rosamaria [place] [facility] Work Phone: Start: 03-14-2017 Patient encounter procedure Rosamaria [place] [facility] Work Phone: Start: 02-04-2017 Patient encounter procedure Rosamaria Dalton [facility] Work Phone: Patient encounter procedure Lambert Colón Work Phone: -[facility] Work Phone: Procedures Date Procedure Procedure Detail Performing Clinician Start: 12-21-2024 Screening mammography C caren Blank MD Work Phone: Start: 07-07-2024 Dual energy X-ray absorptiometry Isabela Blank MD Work Phone: Start: 06-12-2023 COVID & INFLUENZA A/ B & RSV NAAT, ROUTINE Alisia Sroka DUDE RANCH MANAGER.M[employer] SANDER Work Phone: Start: 04-03-2023 Cardiovascular stres s test using pharmacologic stress agent No Primary Care Physician Start: 01-07-2023 Plain x-ray of pelvi s and lower extremity No Primary Care Physician Start: 01-07-2023 X-ray of lumbar spin e, two or three views No Primary Care Physician Start: 01-10-2022 Dual energy X-ray absorptiometry TASSEL CLIPPER-C Flaco Lopez Work Phone: Start: 02-26-2020 Lipid 1996 panel - S isaiah or Plasma Lydia Petty DUDE RANCH MANAGER.M[employer] SANDER Work Phone: Start: 09-09-2019 Follow-up visit Start: 09-09-2019 25 hydroxy includes fractions if performed Rosamaria [place] Start: 09-09-2019 Albumin, Urine Spot Ali ce [place] Start: 09-09-2019 Blood count complete auto&auto difrntl wbc Rosamaria [place] Start: 09-09-2019 Comprehensive metabo lic 2000 panel Rosamaria Dalton Start: 09-09-2019 Hemoglobin glycosylated a1c Rosamaria [place] Start: 09-09-2019 Lipid panel Rosamaria [place] on Start: 09-09-2019 MG Breast screening Ali ce Dalton Start: 09-09-2019 TSH WITH REFLEX TO F REE T4 IF ABNORMAL Rosamaria [place] Start: 09-09-2019 Urnls dip stick/tabl et rgnt auto w/o microscopy Rosamaria Dalton Start: 05-29-2019 Follow-up visit Anal fissurectomy Rosamaria Enriquez on Biopsy of breast Rosamaria Michael n Colonoscopy Rosamaria Enriquezon Hysterectomy Rosamaria Hoffman Comment on above: Total - everyone sergey e per pt - due to fibroids; Tonsillectomy Rosamaria Hoffman Plan of Treatment Date Care Activity Detail Author Start: 03-07-2030 Urine microalbumin profile DTaP,Tdap,Td Vaccine (2 - Td or Tdap) [facility] Start: 12-26-2025 Diabetes Screening Diabetes Screenin g [facility] Start: 02-25-2025 Lipid 1996 panel - Serum or Plasma Lipid Screening [facility] Start: 02-25-2025 Lipid panel Lipid Screening [facility] Start: 03-25-2023 Depression Assessment Depression Ass [facility] Start: 01-16-2023 Patient referral [facility] Work Phone: Start: 11-23-2022 Covid-19 Vaccine () Covid-19 Vaccine () [facility] Start: 11-23-2022 Influenza vaccination Influenza Vacc ine (#1) [facility] Start: 03-25-2022 Depression Assessment Depression Ass [facility] Start: 09-09-2019 MG Breast screening Mamm - Scr eening Mammogram w/ Tomosynthesis -[facility] Work Phone: Start: 2018 RSV Vaccine (1 - 1-d ose 60+ series) RSV Vaccine (1 - 1-dose 60+ series) [facility] Start: 2008 Shingrix Vaccine (1 of 2) Shingrix Vaccine (1 of 2) [facility] Start: 11-27-2003 Cologuard (FIT-DNA) Cologuard (FIT-D NA) [facility] Start: 11-27-2003 Colonoscopy Colonoscopy [facility] Start: 11-27-2003 Colorectal Cancer Screening Colorectal Cancer Screening [facility] Start: 11-27-[address] [facility] Start: 11-27-2003 Fecal Occult Blood Fecal Occult Bloo d [facility] Start: 11-27-2003 Screening for malign ant neoplasm of colon [facility] Start: 11-27-[address] [facility] Start: 1998 Mammography Mammogram Screening [facility] Start: 1998 Screening for malign ant neoplasm of breast Mammogram Screening [facility] Start: 1988 HPV Testing HPV Testing [facility] Start: 1988 Screening for malign ant neoplasm of cervix HPV Testing [facility] Start: 11-27-1979 Pap Testing Pap Testing [facility] Start: 11-27-1979 Screening for malign ant neoplasm of cervix Pap Testing [facility] Start: 1976 Hepatitis C Screening Hepatitis C [facility] Start: 1976 Hepatitis C screening Hepatitis C [facility] Start: 1976 HIV Screening HIV Screening [facility] Start: 1976 HIV screening HIV Screening [facility] NM Heart Views W str ess and W radionuclide IV [facility] Patient referral [facility] Work Phone: [facility] [employer] Work Phone: NEGATED: Highlighted row has been ruled out! Planned Goals not documented [facility] Work Phone: Immunizations Immunization Date Immunization Notes Care Provider Fa rj 04-05-2022 Covid (Pfizer) No Primary Ca re Physician [facility] 04-05-2022 influenza, injectabl e, quadrivalent, preservative free No Primary Care Physician [facility] 04-05-2022 influenza, seasonal, injectable No Primary Care Physician [facility] 04-05-2022 influenza virus vaccine, unspecified formulation Lydia Petty APRN.CNP Work Phone: [facility] 03-07-2020 influenza, injectabl e, quadrivalent, preservative free; Translations: [Fluarix Quadrivalent 0.5 ML Intramuscular Suspension Prefilled Syringe] Lambert Colón Work Phone: [facility] Work Phone: Comment on above: Series: 03-07-2020 pneumococcal polysaccharide vaccine, 23 valent; Translations: [Pneumococcal polysaccharide vaccine, 23 valent] Lambert Colón Work Phone: [facility] Work Phone: Comment on above: Series: 03-07-2020 tetanus toxoid, redu princess diphtheria toxoid, and acellular pertussis vaccine, adsorbed; Translations: [Tdap (Boostrix)] Lambert Colón Work Phone: [facility] Work Phone: Comment on above: Series: 12-10-2018 influenza, injectabl e, quadrivalent, preservative free; Translations: [Fluzone Quadrivalent 0.5 ML Intramuscular Suspension] Rosamaria Dalton [facility] Work Phone: Comment on above: Series: 02-03-2018 influenza, injectabl e, quadrivalent, preservative free; Translations: [Flulaval Quadrivalent 0.5 ML Intramuscular Suspension Prefilled Syringe] Rosamaria Hoffman [facility] Work Phone: Comment on above: Series: 02-04-2017 influenza, injectabl e, quadrivalent, preservative free; Translations: [Fluzone Quadrivalent 0.5 ML Intramuscular Suspension] Rosamaria Hoffman [facility] Work Phone: Comment on above: Series: 01-12-2016 influenza, injectabl e, quadrivalent, preservative free; Translations: [Fluzone Quadrivalent 0.5 ML Intramuscular Suspension] Rosamaria Hoffman [facility] Work Phone: Comment on above: Series: 01-14-2015 influenza, injectabl e, quadrivalent, preservative free; Translations: [Flulaval Quadrivalent 0.5 ML SUSP] Rosamaria Hoffman [facility] Work Phone: Comment on above: Series: 12-22-2013 influenza, injectabl e, quadrivalent, preservative free; Translations: [Fluarix Quadrivalent 0.5 ML SUSP] Rosamaria Hoffman [facility] Work Phone: Comment on above: Series: Payers Date Payer Category Payer Self-pay [id number] 2023 Medicare [id number] 2023 Medicare [id number] 2020 Unknown 2020 Unknown [id number] 1960 Unknown [id number] 2.16. [id number] Private Health Insurance [id number] Unknown [id number] Unknown [id number] 2.16.8 [id number] Unknown [id number] 2.16.8 [id number] Unknown [id number] 2.16.8 [id number] Unknown [id number] 2.16.8 [id number] Unknown [id number] 2.16.8 [id number] Unknown [id number] 2.16.8 [id number] Unknown [id number] 2.16.8 [id number] Unknown [id number] 2.16.8 [id number] Social History Date Type Detail Facility Start: 12-27-2022 End: 02-15-2023 Confucianism Affiliation Judaism Confucianism Affiliation Judaism [facility] Work Phone: Comment on above: does not want a bloo d transfusion-will bring in paper; Start: 12-11-2021 End: 02-18-2023 Tobacco smoking status NHIS Unknown if ever smoked [facility] Start: 1960 Sex Assigned At Female W [facility] Start: 03-11-2022 End: 12-17-2023 Tobacco smoking status NHIS Ex-smoker [facility] History of tobacco use Current smoker [facility] History of tobacco use Cigarette Smoker [facility] Start: 03-11-2022 Tobacco use and exposure Smokeless tobacco non-user [facility] Start: 12-27-2022 End: 02-15-2023 Tobacco use panel [facility] National Score (1-100), lower number is lower risk 51 [facility] Start: 1960 Sex Assigned At Not on file C [facility] Start: 07-10-2024 Sex Female (finding) [facility] NEGATED: Highlighted row - - [facility] Work Phone: Medical Equipment Procedure Code Equipment Code Equipment Origin al Text Equipment Identifier Dates Arthroplasty, hip, total, using robot-assisted navigation ([id number]) Ceramic femoral head prosthesis ()[id number] FDA Start: 01-07-2024 Arthroplasty, hip, total, using robot-assisted navigation ([id number]) Coated hip femur prosthesis, modular ()[id number] FDA Start: 01-07-2024 Arthroplasty, hip, total, using robot-assisted navigation ([id number]) Non-constrained polyethylene acetabular liner ()[id number] FDA Start: 01-07-2024 Arthroplasty, hip, total, using robot-assisted navigation ([id number]) Acetabular shell ()[id number] FDA Start: 01-07-2024 Arthroplasty, hip, total, using robot-assisted navigation ([id number]) Orthopaedic bone screw, non-bioabsorbable, sterile ()[id number] FDA Start: 01-07-2024 OneTouch Verio I n Vitro Strip Refills: [...] documented [facility] Work Phone: Clinical Notes 01-05-2023 to 05-04-2024 Note Date & Type Note Facility 05-04-2024 Evaluation note Diagnosis Onset Date Resolution Diabetes chronic May 04, 2024 3:14pm Hypertension chronic April 3:14pm Mixed hyperlipidemia chronic Febr 2024 3:14pm Obesity chronic May 04, 2024 3:14pm [facility] Work Phone: 1(695) 443-875003-20-2024 NoteHNO ID: [id number] Author: ALISIA POWERS APRN.MOLD SANDER Service: ? Author Type: Nurse Practitioner Type: [...] plan Follow up with PCP Alisia Powers APRN.[facility]03-20-2024 History of Present illness Narrative* Alisia Powers APRN.MOLD SANDER - 06/12/2023 10:08 AM EDT HPI Rose Mary Naranjo is a 62 year [...] plan Follow up with PCP Alisia Powers APRN.DOREEN [facility] Instructions* Patient Instructions* Alisia Powers APRN.CNP - 06/12/2023 9:55 AM EDT [facility] ADDRESS: [address] [place] [address] PHONE: [phone] FOLLOW UP: Call your primary care provider [...] the common cold? -- These symptoms are usuallycaused by a viral infection. Lots of viruses [...] occasionally higher, especially in young children); lasts 3to 4 days Headache Rare Common General aches, [...] or nurse any time you get a long-lastingcough. Take your child to the emergency room [...] sure to follow the directions on the label.Do not combine 2 or more medicines that have acetaminophen in them. If you take too much acetaminophen, the drug can damage your liver. Also, if you have a heart condition, or you take prescription me dicines, ask your pharmacist if it is safe to take the cold medicine you have in mind. What should I know if my child has a cold? -- In children, the common cold is often more severe than it is in adults. It also lasts longer. Plus, children often get a fever during the first 3 days ofa cold. Are cough and cold medicines safe [...] least 2 hours. You never know when youmight be touching germs. That's why it's so important to clean your hands often. [facility] Discharge summary Author Sylvain Nguyen [facility] May 03, 2023 12:54pm Note Date/Time May 03, 2023 1 2:54pm [facility] [address] [place] [address] [address] [place] [id number] / REHABILITATION SERVICES DISCHARGE SUMMARY MR#: [id number] Acct: [id number] Name: ROSE MARY NARANJO Rep #: [id number] : 1960 62 From: Sylvain Nguyen DPT, OCS, CSCS Referring Dr.: Dr. Gus Marquez, DO Status: REG RCR Insurance: [employer]URANCE Patient Information Patient Information: ROSE MARY NARANJO was seen in my office for initial evaluation on 01/21/23. The following Plan of Care was established for this patient: POC Established Initial Frequency: 2x /Week Initial Duration: 4-6 Weeks Anticipated Interventions Patient/Client Instruction: Educate patient on: Condition and Plan of Care For the Purpose of:: To decrease pain, To improve nutrient delivery to tissue, To improve muscle performance and motor function, To increase tolerance to activity/condition/position, To improve ability of physical actions for home/community/work/leisure and To improve gait and locomotor functions Therapeutic Exercise to Include: Strength training, Flexibilty training, Gait and locomotor training, In an aquatic setting, Passive ROM and Active ROM For the Purpose of:: To decrease pain, To increase ROM, To improve nutrient delivery to tissue, To improve muscle performance and motor function, To increase tolerance to activity/condition/position, To improve ability of physical actions for home/community/work/leisure, To improve gait and locomotor functions and To improve health of tissue Manual Therapy Techniques to Include: Mobilization and Passive ROM For the Purpose of:: To decrease pain, To increase ROM and To improve nutrient delivery to tissue Last Seen Last Seen: This patient was last seen in our office 03/04/23. Pertinent comments regardingtheir Physical therapy will appear below: Pt seen 9 visits of plan of care for aquatic therapy. She did not schedule or attend any further visits or her re-assessment. at this point, it has been over6 weeks and I will discontinue due to nonattendance. At this point I will be discontinuing this patient from physical therapy. I would be happy to see this patient again in the future if found appropriate by the physician. Thank you! Sylvain Nguyen, BECKY, OCS, CSCS Balance/Gait/Functional tests Balance/Special Test Scores Lower Extremity Functional Score: 41 <Electronically signed by Sylvain Nguyen DPT, OCS, CSCS> 05/03/23 1254 CC: Dr. Gus Marquez, DO; No Primary Care Physician ~ EBG Signed [facility] Work Phone: 1(285) 889-766711-24-2023 NoteHNO ID: [id number] Author: Daria Daniels Service: ? Author Type: ? Type: Progress Notes Filed: 02/15/2023 12:01 PM Note Text: This note was created using Corimmunriter. Subjective Rose Mary Naranjo is a 62 [...] Tympanic) Resp 18 Ht 175.3 cm (5' 9) Wt 106.4 kg (234 lb 9.6 oz) [...] which included preparing to see the patient, [id number] patient care, completing clinical documentation, and communicating results to the patient/family/caregiver. Remove COVID19 [facility]-2023 NoteHNO ID: [id number] Author: Lydia Ptety APRN.[facility] Service: ? Author Type: Nurse Practitioner Type: Progress Notes Filed: 02/15/2023 12:01 PM Note Text: This note was created using Corimmunriter. Subjective Rose Mary Naranjo is a 62 [...] Tympanic) Resp 18 Ht 175.3 cm (5' 9) Wt 106.4 kg (234 lb 9.6 oz) [...] which included preparing to see the patient, [id number] patient care, completing clinical documentation, obta (more content not included)...[facility]11-24-2023 History of Present illness Narrative* Daria Daniels - 02/15/2023 11:53 AM EST This note was created using NoteWriter. Subjective Rose Mary Naranjo is a 62 year old female. HPI by patient: Rose Mary is a 62r year old presenting to the office with the complaint of right ear pain for 2 days Associated symptoms include fullness, pain, headache, ear burning, and recent blood on her pillow Denies Loss of hearing Covid Immunization Dates Overdue - Covid-19 Vaccine (2022- season) Overdue since 11/23/2022 04/05/2022 Imm Admin: [...] Tympanic) Resp 18 Ht 175.3 cm (5' 9) Wt 106.4 kg (234 lb 9.6 oz) [...] summary. The patient is agreeable to this planof care and follow-up instructions have been explained [...] of dehydration, fever greater than 102 F thatis not responding to Tylenol or ibuprofen (Motrin, [...] which included preparing to see the patient, [id number] patient care, completing clinical documentation, and communicating results to the patient/family/caregiver. Remove COVID19 association * Lydia Petty APRN.MOLD SANDER - 02/15/2023 11:38 AM EST This note was created using NoteWriter. Subjective Rose Mary Naranjo is a 62 [...] Covid Immunization Dates Overdue - Covid-19 Vaccine (2022- season) Overdue since 11/23/2022 04/05/2022 Imm Admin: [...] Tympanic) Resp 18 Ht 175.3 cm (5' 9) Wt 106.4 kg (234 lb 9.6 oz) [...] of dehydration, fever greater than 102 F thatis not responding to Tylenol or ibuprofen (Motrin, [...] summary. The patient is agreeable to this planof care and follow-up instructions have been explained in detail. The patient has received these instructions in written format and have expressed an understanding of the after visit summary. Medical Decision Making: Level: 4 - Moderate I spent a total of 20 minutes on the date of the service which included preparing to see the patient, [id number] patient care, completing clinical documentation, obtaining and/or reviewing separately obtained history, performing a medically appropriate examination, counseling and educating the pat ient/family/caregiver, and ordering medications, tests, or procedures. [facility] Instructions* Patient Instructions* Lydia Petty APRN.CNP - 02/15/2023 11:38 AM EST (H66.91) [...] of dehydration, fever greater than 102 F thatis not responding to Tylenol or ibuprofen (Motrin, Advil), drooling, difficulty swallowing, difficulty breathing, shortness of breath, chest pain, evidence of airway compromise (tripod position, neck extension, retractions), seizures, changes in mental status, or other concerns. [facility]10-14-2023 NoteHNO ID: [id number] Author: Note, Interface Service: ? Author Type: ? Type: Progress Notes Filed: 01/05/2023 2:56 AM Note Text: Epic Scheduled Downtime: 01/05/2023 1:00:00 AM to 01/05/2023 1:28:00 [facility]Med[facility]* Diagnosis Onset Date Resolution Status Diabetes chronic Hypertension chronic Obesity chronic Post-menopausal [facility] Work Phone: Evaluation note* Diagnosis Onset Date Resolution Status Diabetes chronic Hypertension chronic Obesity [facility] Work Phone: Evaluation note* Diagnosis Acute otitis media, right- Primary Unspecified otitis media Scaly skin [facility] encounter [facility]* Diagnosis Onset Date Resolution Status Degenerative disc disease at L5-S1 level acute OA (osteoarthritis) of hip a cute Right hip pain acute OA (osteoarthritis) of hip a cute Coronary artery calcification of minto artery acute Hypercholesterolemia chronic Hypertension chronic [facility] Work Phone: Evaluation note* Diagnosis URI with cough and congestion- Primary [facility] noteNo assessment information availableW[facility] Work Phone: Reason for referral (narrative)No reason for referral information availableWSelect [facility] Work Phone: Summary Purpose Family History No Family History [...] Status:Active Parkinson's disease dementia : Mother Status:Active Relationship Condition Age at Onset Recorded Date/T romario Not Specified Malignant neoplasm of uterus Unknown Disorder of thyroid Unknown mother Angina pectoris Unknown Arthritis Unknown Cardiac disease Unknown Parkinson's disease Unknown grandfather Angina pectoris Unknown Myocardial infarction Unknown father Asthma Unknown Disorder of respiratory system Unknown Malignant neoplasm of skin Unknown grandmother Asthma Unknown Malignant neoplasm Unknown Malignant neoplasm of cervix Unknown Diabetes mellitus Unknown Hypertension Unknown Hypercholesterolemia Unknown Malignant neoplasm of ovary Unknown History of ulcer disease Unknown sister Malignant neoplasm of lung Unknown Advance Directives No Advanced Directives Records FoundNo Advanced Directives Records FoundNo Advanced Directives Records FoundNo Advanced Directives Records FoundNo Advanced Directives Records FoundNo Advanced Directives Records FoundNo Advanced Directives Records Found Chief Complaint and Reason for Visit Chief Complaint 6 M FU POST SOURAV Reason for Visit Diabetes Hypertension Obesity Post-menopausal Chief Complaint 6 M FU EORDER Reason for Visit Diabetes Hypertension Obesity Chief Complaint LUMBER SPINE Room 3 Room 3 RIGHT HIP Amb Documentation CP (SELF) OSTEOARTHRITIS OF HIP. RX HERE CAD/ASHD Amb Documentation Reason for Visit Degenerative disc di sease at L5-S1 level OA (osteoarthritis) of hip Right hip pain OA (osteoarthritis) of hip Coronary artery calcification of minto artery Hypercholesterolemia Hypertension Chief Complaint LUMBER SPINE Room 3 Room 3 RIGHT HIP Amb Documentation CP (SELF) OSTEOARTHRITIS OF HIP. RX HERE CAD/ASHD Amb Documentation CAD Coronary artery disease Reason for Visit Degenerative disc di sease at L5-S1 level OA (osteoarthritis) of hip Right hip pain OA (osteoarthritis) of hip Coronary artery calcification of minto artery Hypercholesterolemia Hypertension Chief Complaint Admit Date 6 M FU May 04, 2024 3:14pm POSTMENOPAUSAL July 07, 2024 11: 58am Reason for Visit Admit Date Diabetes May 04, 2024 3:14pm Hypertension May 04, 2024 3:14pm Mixed hyperlipidemia May 04, 2024 3:14pm Obesity May 04, 2024 3:14pm Chief Complaint Admit Date SCREENING December 21, 2024 2:22pm Additional Source Comments INFORMATION SOURCE (unrecogn ized section and content) DATE CREATED AUTHOR 04/26/2018 [facility] DATE CREATED AUTHOR AUTHOR'S ORGANIZ ATION 11/28/2018 [facility] DATE CREATED AUTHOR AUTHOR'S ORGANIZ ATION 03/15/2020 [employer] DATE CREATED AUTHOR AUTHOR'S ORGANIZ ATION 04/01/2020 [facility] DATE CREATED AUTHOR AUTHOR'S ORGANIZ ATION 01/06/2023 [facility] DATE CREATED AUTHOR AUTHOR'S ORGANIZ ATION 06/13/2023 [facility] DATE CREATED AUTHOR AUTHOR'S ORGANIZ ATION 01/24/2025 [facility] Goals (unrecognized section and content) Goals may be documented in a n alternate sectionGoals may be documented in an alternate sectionGoals may be documented in an alternate sectionGoals may be documented in an alternate sectionGoals may be documented in an alternate sectionGoals may be documented in an alternate sectionGoals may be documented in an alternate section Care Teams (unrecognized sec tion and content) Team Status: Active Member Role Status Dates No Primary Care Physician Primary Care Provider Active Team Status: Inactive Member Role Status Dates RENE Chaney Attending Provider Active No Primary Care Physician Primary Care Provider, Refer ring Provider Active Team Status: Inactive Member Role Status Dates No Primary Care Physician Primary Care Provider Active Flaco Lopez NP-C Attending Provider, Referring Pr ovider Active Nurse Case Management Relationship Specialty Start Date End Date Flaco Lopez, BERNY.MOLD SANDER [address] [facility] [address] [place] [address] PCP - General Internal Medicine 12/26/22 Team Status: Active Member Role Status Dates Dr. Bear Joshua MD Primary Care Provider Active Team Status: Inactive Member Role Status Dates No Primary Care Physician Primary Care Provider, Refer ring Provider Active Dr. Franc Villela DO Attending Provider Active Team Status: Inactive Member Role Status Dates No Primary Care Physician Primary Care Provider Active Dr. Guerrero Vera MD Attending Provider Active Team Status: Inactive Member Role Status Dates No Primary Care Physician Primary Care Provider, Refer ring Provider Active Dr. Gus Marquez DO Attending Provider Active Team Status: Active Member Role Status Dates No Primary Care Physician Primary Care Provider Active Janet Givens RN Attending Provider Active Team Status: Inactive Member Role Status Dates No Primary Care Physician Primary Care Provider, Refer ring Provider Active Dr. Guerrero Vera MD Attending Provider Active Team Status: Active Member Role Status Dates Dr. Bear Joshua MD Primary Care Provider Active Dr. Guerrero Vera MD Attending Provider Active Team Status: Active Member Role Status Dates Dr. Bear Joshua MD Primary Care Provider Active Arin Dong TASSEL CLIPPER, TASSEL CLIPPER-C Attending Provider Active Team Status: Inactive Member Role Status Dates Dr. Guerrero Vera MD Attending Provider, Referring Pro vider Active Dr. Bear Joshua MD Primary Care Provider Active Team Status: Active Member Role Status Dates No Primary Care Physician Primary Care Provider Active Dr. Gus Marquez DO Attending Provider, Referring Provider Active Team Status: Active Member Role Status Dates Dr. Bear Joshua MD Primary Care Provider Active Dr. Guerrero Vera MD Attending Provider, Referring Pro vider Active Team Status: Active Member Role Status Dates Dr. Guerrero Vera MD Attending Provider, Referring Provider, Other Provider Active Dr. Bear Joshua MD Primary Care Provider Active Team Status: Inactive Member Role Status Dates No Primary Care Physician Primary Care Provider Active Dr. Gus Marquez DO Attending Provider, Referring Provider Active Nurse Case Management Relationship Specialty Start Date End Date HarpreetFlaco DUDE RANCH MANAGER.MOLD SANDER [address] [facility] [address] [place] [address] PCP - General Internal Medicine 12/26/22 Team Status: Active Member Role Status Dates Isabela Blank MD Primary Care Provider Active Team Status: Inactive Member Role Status Dates SABAS ChaneyC Attending Provider Active Start: May 04, 2024 End: May 04, 2024 Isabela Blank MD Primary Care Provider Active St art: May 04, 2024 End: May 04, 2024 Isabela Blank MD Referring Provider Active Start : May 04, 2024 End: May 04, 2024 Team Status: Inactive Member Role Status Dates Isabela Blank MD Primary Care Provider Active St art: July 07, 2024 End: July 07, 2024 Isabela Blank MD Attending Provider Active Start : July 07, 2024 End: July 07, 2024 Isabela Blank MD Referring Provider Active Start : July 07, 2024 End: July 07, 2024 Team Status: Active Member Role/Relationship Status Joey Blank MD Primary care physician Active Team Status: Inactive Member Role/Relationship Status Dates Isabela Blank MD Primary care physician Active S tart: December 21, 2024 End: December 21, 2024 Pedro Barajas TASSEL CLIPPER, TASSEL CLIPPER-C Attending physician Active Start: December 21, 2024 End: December 21, 2024 Pedro Braajas TASSEL CLIPPER, TASSEL CLIPPER-C Referring Provider Active Start: December 21, 2024 End: December 21, 2024 Source Comments (unrecognize d section and content) In the event this informatio n is protected by the Federal Confidentiality of Alcohol and Drug Abuse Patient Records regulations: The Federal rules restrict any use of the information to criminally investigate or prosecute any alcohol or drug abuse patient.[facility] the event this information is protected by the Federal Confidentiality of Alcohol and Drug Abuse Patient Records regulations: The Federal rules restrict any use of the information to criminally investigate or prosecute any alcohol or drug abuse patient.[facility] Reason for Visit (unrecogniz ed section and content) Reason Comments Ear Pain Started a couple day s ago, right ear pain with blood, pain level 10/10, has taken tylenol and ibuprofen, sinus congestion, Reason Comments Viral Syndrome Symptoms for 4 days cough and sore throat 4 weeks but today the symptoms are worse, otc mucinex X3 days daytime cold and flu. FOR RECORDS PERTAINING TO PATIENTS WHO ARE [...] BE BASED ON THE PRIMARY CLINICAL RECORDS. [facility]. provides no warranty or guarantee of the accuracy or completeness of information in this document.
== END | disposition home or self-care (01) ==
LOC: LAB 15:14
PROVIDERS: PCP Family Medicine; Referring Provider Podiatrist Foot & Ankle Surgery; Visit Provider Podiatrist Foot & Ankle Surgery
DX: Z01.818 Encounter for other preprocedural examination (principal)
CPT/HCPCS: 36415; 82306

== ENCOUNTER 2025-03-05 10:09 | Day surgery (SDC) | payer MEDICARE, OTHER, SELFPAY ==
[2025-02-16 10:59] LABS: Hematocrit 39.3 % (37-47); Hemoglobin 13.9 g/dL (12.0-15.0); Mean Corp Hgb Conc 35.4 g/dL (32-36); Mean Corpuscular Volume 91.8 fL (81-99); Mean Platelet Vol. 8.8 fl (6.2-12.0); Platelet Count 274 K/mm3 (150-450); RBC Distribution Width CV 11.6 % (11.6-14.6); RBC Distribution Width SD 39.0 fl (35.1-43.9); Red Blood Count 4.28 M/mm3 (4.2-5.4); White Blood Count 4.7 K/mm3 (4.4-11.0)
[2025-02-16 12:06] LABS: AST(SGOT) 19 U/L (<=31); Alanine Aminotransfer ALT/SGPT 14 U/L (<=34); Albumin, Serum 4.1 g/dL (3.4-4.8); Alkaline Phosphatase 74 U/L (35-104); Anion Gap 9 (5-15); BUN 14 mg/dL (4-19); BUN/Creat Ratio 17.4 RATIO (10-20); Calcium,Total 9.0 mg/dL (7.6-11.0); Carbon Dioxide 25.9 mmol/L (21.0-32.0); Chloride 106 mmol/L (98-108); Cholesterol 214 mg/dL (<=200); Globulin 2.7 g/dL (2.2-4.2); Glucose 98 mg/dL (70-99); Low Density Lipoprotein Calc. 123 mg/dL; Potassium 4.7 mmol/L (3.3-5.1); Triglycerides 77 mg/dL; Very Low Density Lipoprotein 15 mg/dL (5-40); cholesterol:hdl ratio screen 2.76
--- NOTE | 2025-02-26 12:46 | PAT.ANESEVAL ---
Pre-Assessment Diagnosis/Proposed Procedure Planned Operative Procedure(s): (L) Left Achilles tendon debridement and repair, Bone Marrow aspirate concentrate harvest, Partial excision of the calcaneus, Possible Flexor hallucis longus tendon transfer, application of a graft jacket, excision of a bursa, advancement flap closure and application of a posterior splint. 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 When Was Last Pacemaker Check QUESTION #4 FULL TEXT: You/Your Family Experience fever (hyperthermia) with Anesthesia Last Oral Intake Last Oral intake: Last Oral Intake NPO since Meds taken in AM with sips of water? 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 Female Yes 02/26/25 09:53 HX of Motion Sickness Yes 02/26/25 09:53 HX of N/V After Surgery No 02/26/25 09:53 Non-Smoker Yes 02/26/25 09:53 Duration of Surgery greater Yes 02/26/25 09:53 than 60 minutes Number of Risk Factors 4 02/26/25 09:53 PONV Score Severe Risk 02/26/25 09:53 Height & Weight Height & Weight: Anesthesia: Height & Weight Height 5 ft 9 in 05/04/24 15:17 Respiratory Assessment Respiratory Assessment - property maintenance supervisor: Respiratory Tract Infection Hx - property maintenance supervisor Hx Respiratory Tract Infection No 02/26/25 09:53 STOP Sleep Apnea STOP Sleep Apnea - property maintenance supervisor: STOP Sleep Apnea - property maintenance supervisor Hx Hypertension Yes 02/26/25 09:53 Hx Sleep Apnea Yes 02/26/25 09:53 CPAP Yes: NON COMPLIANT 02/26/25 09:53 BIPAP No 02/26/25 09:53 Do you snore loudly (louder than talking or can be heard Do you often feel tired/ fatigued/ sleepy during daytime? Has anyone observed you stop breathing during sleep? STOP Results Positive 02/26/25 09:53 QUESTION #5 FULL TEXT : Do you snore loudly (louder than talking or can be heard through closed doors)? 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 Specify any problems Hx of Preganancy in last 3 No 02/26/25 09:53 Months Nurse Filling Out Transfusion JZOLLINGE 02/26/25 09:53 & Questions: Date: 02/26/25 02/26/25 09:53 Time: 09:54 02/26/25 09:53 Patient unable to answer at this time (ie. confused, unrespo /Reproduction History /Reproductive History - property maintenance supervisor: /Reproductive Hx- property maintenance supervisor Hx Now No 02/26/25 09:53 Gestational Age (in weeks): EDC: Hx Hx Para Hx Section SAB No 02/26/25 09:53 Does the father of the baby or his family experience fever w Father of the baby Malignant Hypertension history comment [facility] Medical History (Updated 02/26/25 @ 09:53 by Sloane Yu) Dietary restriction Wears glasses Post-menopausal Alcohol use Ambulates with cane Arthritis High cholesterol Gastric reflux Former smoker CPAP (continuous positive airway pressure) dependence Sleep apnea History of stress test History of echocardiogram Cardiology follow-up encounter Obesity Mixed hyperlipidemia Vitamin deficiency GERD (gastroesophageal reflux disease) Pneumonia Hormone deficiency Hypertriglyceridemia Hypercholesterolemia Hypertension Diabetes Carpal tunnel syndrome UTI (urinary tract infection) History of back problems Adrenal disorder Home Medications ?Medication ?Instructions ?Recorded ?Last Taken ?Type cyanocobalamin (vitamin B-12) 5,000 mcg PO DAILY 08/09/20 01/04/24 History 1,000 mcg capsule esomeprazole magnesium 20 mg 20 mg PO BID 08/09/20 01/06/24 History capsule,delayed release magnesium glycinate 100 mg (as 500 mg PO DAILY 08/09/20 01/06/24 History glycinate) tablet tirzepatide 12.5 mg/0.5 mL 12.5 mg (0.5 mL) subcut QWEEK #2 mL 12/09/24 Unknown Rx subcutaneous pen injector (Bismarkundarlyn) rosuvastatin 5 mg tablet 5 mg PO DAILY #90 tabs 02/22/25 Unknown Rx OMEGA BLEND 1 tab PO .QD 02/26/25 Unknown History losartan 100 1 tab PO .QD 02/26/25 Unknown History mg-hydrochlorothiazide 25 mg tablet Allergy/AdvReac Type Severity Reaction Status Date / Time aspirin Allergy Mild Nausea Verified 02/26/25 09:43 gluten Allergy Mild Nausea Verified 02/26/25 09:43 Sulfa (Sulfonamide Allergy Mild Nausea Verified 02/26/25 09:43 Antibiotics) Family History Mother Angina pectoris, unspecified Arthritis Heart disease Parkinson disease Grandfather Angina pectoris, unspecified Myocardial infarction Heart disease Father Asthma Respiratory disease Skin cancer Grandmother Asthma Arthritis Cancer Cervical cancer Diabetes Hypertension Hypercholesterolemia Ovarian cancer H/O ulcer disease Sister Lung cancer Skin cancer Other Thyroid disorder Uterine cancer Surgical History History of total right hip replacement H/O: hysterectomy History of tonsillectomy Social History Smoking Status: Former smoker alcohol intake: current alcohol intake frequency: a few times a week Alcohol type: wine substance use type: does not use what type of physical activity do you participate in: other details: gardening Audit: Pertinent Findings Pertinent Findings EKG Perinent findings: 12/19/2023. Sinus bradycardia 57 bpm. Otherwise normal EKG. Stress test pertinent findings: 04/03/2023. Normal myocardial perfusion stress test. EF 74%. Echo (EF%) pertinent findings: 03/20/2023. Normal size function EF 65%. Consult pertinent findings: Cardiology 02/22/2025. Coronary artery calcification [place] artery. Did have stress test 04/03/2023 which was negative for ischemia. Stable at this time continue current medical therapy. Hypertension. Well-controlled. Preoperative cardiovascular exam. EKG today sinus bradycardia rate of 56. Patient may proceed with surgery from cardiac standpoint. Recommendation Anesthesia Recommendation Anesthesia recommendation: OPTIMIZED for anesthesia
[2025-03-03 13:58] LABS: Vitamin D,25 Hydroxy 44.7 ng/mL (30-100)
[2025-03-05] VITALS (10 sets, daily range): BP systolic 116–150; BP diastolic 74–89; PULSE 46–63; RESP 16–20; TEMP 36.1–36.5; O2SAT 92–99; BMI 34.4
[2025-03-05] MEDS: Lactated Ringers 1,000 ML 15 ML IV (10:34)
--- NOTE | 2025-03-05 10:59 | PRE.ANES_ITS ---
ASA Classification* ASA Classification ASA Classification: 2 Assessment & Plan Anesthesia* Anesthesia Assessment Anesthesia Assessment: Discussed sedation and/or anesthesia options, risks, benefits, and alternatives with patient/parents/legal guardian/POA. Questions invited. The patient/parents/legal guardian/POA seems to understand and agrees to proceed with anesthesia plan. Reviewed the physical assessment, medical history, allergy history and patient home medications list prior to surgery/procedure/anesthetic and documented any changes. Performed airway and anesthesia risk assessments. Anesthesia Type Anesthesia Type: General and Block Anesthesia Focused Assessment* Temperature: 97.7 F Pulse Rate: 63 Blood Pressure: 150/86 Respiratory Rate: 16 Pulse Ox: 98 Airway Assessment Mouth opens: >3 cm Mallampati Score: II Labs Anesthesia Preop lab: CBC WBC, (4.4-11.0) 4.7 K/mm3 02/16/25, 10:06 RBC, (4.2-5.4) 4.28 M/mm3 02/16/25, 10:06 Hgb, (12.0-15.0) 13.9 g/dL 02/16/25, 10:06 Hct, (37-47) 39.3 % 02/16/25, 10:06 Plt Count, (150-450) 274 K/mm3 02/16/25, 10:06 CHEMISTRY Potassium, (3.3-5.1) 4.7 mmol/L 02/16/25, 10:06 Sodium, (133-145) 141 mmol/L 02/16/25, 10:06 Magnesium, (1.6-2.6) 2.3 mg/dL 12/19/23, 10:58 BUN, (4-19) 14 mg/dL 02/16/25, 10:06 Creatinine, (0.70-1.20) 0.82 mg/dL 02/16/25, 10:06 Glucose, (70-99) 98 mg/dL 02/16/25, 10:06 POC Glucose, (74-106) 106 mg/dL 01/07/24, 10:02 TSH, (0.358-3.74) 2.72 uIU/mL 11/04/23, 09:26 COAG PT, (11.7-14.9) 13.8 SECONDS 12/19/23, 10:58 Pre-Assessment Diagnosis/Proposed Procedure Planned Operative Procedure(s): (L) Left Achilles tendon debridement and repair, Bone Marrow aspirate concentrate harvest, Partial excision of the calcaneus, Possible Flexor hallucis longus tendon transfer, application of a graft jacket, excision of a bursa, advancement flap closure and application of a posterior splint. 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 When Was Last Pacemaker Check QUESTION #4 FULL TEXT: You/Your Family Experience fever (hyperthermia) with Anesthesia Last Oral Intake Last Oral intake: Last Oral Intake NPO since 21:00 03/05/25 10:26 Meds taken in AM with sips of Yes 03/05/25 10:26 water? 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 Female Yes 02/26/25 09:53 HX of Motion Sickness Yes 02/26/25 09:53 HX of N/V After Surgery No 02/26/25 09:53 Non-Smoker Yes 02/26/25 09:53 Duration of Surgery greater Yes 02/26/25 09:53 than 60 minutes Number of Risk Factors 4 02/26/25 09:53 PONV Score Severe Risk 02/26/25 09:53 Height & Weight Height & Weight: Anesthesia: Height & Weight Height 5 ft 9 in 03/05/25 10:26 Weight: 106 kg 03/05/25 10:26 Body Mass Index (BMI) 34.4 03/05/25 10:26 Respiratory Assessment Respiratory Assessment - office technology instructor: Respiratory Tract Infection Hx - office technology instructor Hx Respiratory Tract Infection No 02/26/25 09:53 STOP Sleep Apnea STOP Sleep Apnea - office technology instructor: STOP Sleep Apnea - office technology instructor Hx Hypertension Yes 02/26/25 09:53 Hx Sleep Apnea Yes 02/26/25 09:53 CPAP Yes: NON COMPLIANT 02/26/25 09:53 BIPAP No 02/26/25 09:53 Do you snore loudly (louder than talking or can be heard Do you often feel tired/ fatigued/ sleepy during daytime? Has anyone observed you stop breathing during sleep? STOP Results Positive 02/26/25 09:53 QUESTION #5 FULL TEXT : Do you snore loudly (louder than talking or can be heard through closed doors)? 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 Specify any problems Hx of Preganancy in last 3 No 02/26/25 09:53 Months Nurse Filling Out Transfusion [email or web address] 02/26/25 09:53 & Questions: Date: 02/26/25 02/26/25 09:53 Time: 09:54 02/26/25 09:53 Patient unable to answer at this time (ie. confused, unrespo /Reproduction History /Reproductive History - office technology instructor: /Reproductive Hx- office technology instructor Hx Now No 02/26/25 09:53 Gestational Age (in weeks): EDC: Hx Hx Para Hx Section SAB No 02/26/25 09:53 Does the father of the baby or his family experience fever w Father of the baby Malignant Hypertension history comment Active Medications Active Medications: Current Medications Generic Name Dose Route Start Last Admin Trade Name Freq PRN Reason Stop Dose Admin Lactated Ringer's 1,000 mls @ 15 mls/hr 03/05/25 10:15 03/05/25 10:34 IV 15 mls/hr .Q48H HAILEY Administration PFSH Medical History Dietary restriction Wears glasses Post-menopausal Alcohol use Ambulates with cane Arthritis High cholesterol Gastric reflux Former smoker CPAP (continuous positive airway pressure) dependence Sleep apnea History of stress test History of echocardiogram Cardiology follow-up encounter Obesity Mixed hyperlipidemia Vitamin deficiency GERD (gastroesophageal reflux disease) Pneumonia Hormone deficiency Hypertriglyceridemia Hypercholesterolemia Hypertension Diabetes Carpal tunnel syndrome UTI (urinary tract infection) History of back problems Adrenal disorder Home Medications ?Medication ?Instructions ?Recorded ?Last Taken ?Type cyanocobalamin (vitamin B-12) 5,000 mcg PO DAILY 08/0901/04/24 History 1,000 mcg capsule esomeprazole magnesium 20 mg 20 mg PO BID 08/09/20 History capsule,delayed release magnesium glycinate 100 mg (as 500 mg PO DAILY 1 01/06/24 History glycinate) tablet tirzepatide 12.5 mg/0.5 mL 12.5 mg (0.5 mL) subcut QWE EK #2 mL 12/09/24 02/24/25 Rx subcutaneous pen injector (Bismarkunchristianro) rosuvastatin 5 mg tablet 5 mg PO DAILY #90 tabs 02/2203/05/25 09:00 Rx OMEGA BLEND 1 tab PO .QD 02/26/25 Unknow n History losartan 100 1 tab PO .QD 02/26/25 09:00 History mg-hydrochlorothiazide 25 mg tablet Allergy/AdvReac Type Severity Reaction Status Date / Time aspirin Allergy Mild Nausea Verified 03/05/25 10:24 gluten Allergy Mild Nausea Verified 03/05/25 10:24 Sulfa (Sulfonamide Allergy Mild Nausea Verified 03/05/25 10:24 Antibiotics) Family History Mother Angina pectoris, unspecified Arthritis Heart disease Parkinson disease Grandfather Angina pectoris, unspecified Myocardial infarction Heart disease Father Asthma Respiratory disease Skin cancer Grandmother Asthma Arthritis Cancer Cervical cancer Diabetes Hypertension Hypercholesterolemia Ovarian cancer H/O ulcer disease Sister Lung cancer Skin cancer Other Thyroid disorder Uterine cancer Surgical History History of total right hip replacement H/O: hysterectomy History of tonsillectomy Social History Smoking Status: Former smoker alcohol intake: current alcohol intake frequency: a few times a week Alcohol type: wine substance use type: does not use what type of physical activity do you participate in: other details: gardening Review of Systems (Anesthesia) ROS Narrative System reviewed and no additional complaints, except as documented.
--- NOTE | 2025-03-05 11:00 | RAD_ITS ---
PROCEDURE: CALCANEUS MIN 2 VIEWS 03/05/2025 REASON FOR EXAM: LT ACHILLES TENDON REPAIR Left TECHNIQUE: Procedure Code: RADHE Modality: DX Procedure: CALCANEUS MIN 2 VIEWS Laterality: Left COMPARISON: None FINDINGS: Intraoperative fluoroscopy. Reference air kerma 0.5 mGy. This demonstrates surgical changes of the Achilles of the left foot. RAD/Calcaneus min 2 Views IMPRESSION: Surgical changes left Achilles tendon. Reading Location: [id number]
[2025-03-05] MEDS: Midazolam 2 MG/2 ML Syringe IV (11:07)
--- NOTE | 2025-03-05 11:20 | OP.PCM_ITS ---
Operative Report (Standard) Operative Information Date of Procedure: 03/05/25 Pre-Operative Diagnosis: 1. Achilles tendon-itis, left lower extremity 2. Tight Achilles tendon, left lower extremity 3. Calcaneal spur, left lower extremity 4. Pain, left foot 5. Pain, left leg Post-Operative Diagnosis: Same as preoperative diagnosis Surgery/Procedure Performed: Procedure #1: [place] of bone marrow aspirate concentrate, left lower extremity Procedure #2: Excision of bursa, left lower extremity Procedure #3: Partial excision of calcaneus, left lower extremity Procedure #4: Achilles tendon debridement repair, left lower extremity Procedure #5: Application of graft jacket, left lower extremity Procedure #6: Advancement flap closure, left lower extremity Procedure #7: Application of posterior splint, left lower supervisor pit and auxiliaries: Yes Boat Mechanic: Moraima Sanchez PGY2 Tasks completed by physician assistant psychiatry: Closing and Retracting Additional assistant football coach?: Yes Additional Management Lecturer #2: Margie Sawyer PGY2 Tasks completed by assistant football coach #2: Closing and Retracting Additional assistant football coach?: No Type of Anesthesia: General/Regional RN Documented Start/Stop Times: Operation Date: 03/05/25 12:00 Case Time Into Pre-Op 03/05/25 10:11 Anesthesia Start 03/05/25 12:11 Into Room 03/05/25 12:11 Procedure Start 03/05/25 12:45 Procedure End 03/05/25 14:26 Anesthesia End 03/05/25 14:32 Out of Room 03/05/25 14:32 Into Recovery 03/05/25 14:35 Out of Recovery 03/05/25 15:17 Into Phase II Recovery 03/05/25 15:18 Out of Phase II 03/05/25 17:07 Procedure Start Time: 12:45 Procedure Stop Time: 14:26 Select all DRAINS/GRAFTS/IMPLANTS that apply: None, Graft Graft details: Aflex graft, Arthrex , Tissue Tissue details: Bone marrow aspirate concentrate, platelet poor plasma and Implanted device Implanted device details: 3.9 swivelock (x4) knottless kit Special Medications: For anesthesia Estimated Blood Loss: 30 mL Fluids Replaced: Per anesthesia Specimen collected: Yes Description of specimen(s) removed: Achilles tendinosis, left lower extremity Description of surgery: Indications For Operation: Mrs. Lemos is a who was admitted to [facility] for left lower extremity surgery of Achilles tendinitis and retrocalcaneal bursitis with calcaneal spur. The patient is well-known to my office and has been seen for conservative treatment for the past year due to the pain to the Achilles tendon, and heel bone for the past year to the left lower extremity. Patient has failed all conservative treatment consisting of shoe gear modification, home physical therapy, oral nonsteroidal anti-inflammatories and oral Tylenol. Patient did have surgical consultation and all risk and benefits were discussed with her in great detail. Chart review consent signed. Due to continued pain to the left heel it was deemed necessary at this time to take the patient to the operating room to perform the above procedure to help reduce her constant pain.. The nature of the problem, anticipated procedures, postop recovery/convalences and risk/complications include but not limited to infection, wound healing complications, digital amputation, hypertrophic scarring, numbness, tingling, chronic pain, CRPS, over and under correction, recurrence of deformity, DVT and or PE and the need for further surgery have been discussed in great detail with the patient. All questions have been answered to the patient's satisfaction. There are no guarantees given as to the outcome of the procedure. Description of Procedure: Under mild sedation, the patient was brought into the operating room and placed on the operating table in prone position. Once the patient was under general anesthesia with endotracheal tube, the left lower extremity was blocked prior to the procedure by anesthesia in the PACU with a popliteal and saphenous left lower extremity block. Please see anesthesia notes for further detail. Next, a well-padded thigh tourniquet was applied to the left lower extremity. Next, the left lower extremity was prepped and draped in normal aseptic manner. Next, a t imeout was then undertaken verifying the correct patient, extremity, visibility of preoperative markings, availability of the equipment. Procedure #1: [place] of bone marrow aspirate concentrate, left lower extremity (CPT code: 64778) Next, attention was directed to the lateral aspect of the left heel. Using a Jamshidi needle and mallet, advancement of the trocar was performed without incident. Approximately 60 cc of bone marrow aspirate concentrate was harvested and passed the back table to be spun down for injection and platelet poor plasma and to be used later in the case. The harvest site was flushed with copious pamela of normal saline and closed with 3-0 nylon in simple interrupted suture technique. Next, attention was directed to the left lower extremity. Using a foreign Esmarch, left lower extremity was exsanguinated and elevated to 60 degrees for 1 minute at 275 mmHg Procedure #2: Excision of retrocalcaneal bursa, left lower extremity (CPT code: 84583) Next, attention was directed to the level of the Achilles tendon, sterile skin marker was used to aleyda out the incision and a posterior medial location. Using a #15 blade, a full-thickness incision was carried down to level of subcutaneous tissue. Continued blunt dissection was carried down to the level of the peritenon using a moist Ray-Juani. Next, using a deep blade #15 blade, the Achilles tendon was incised centrally all the way down to the level of the enthesophyte and retrocalcaneal bursa. The retrocalcaneal bursa was identified and removed at this time with sharp dissection and rongeur. The area was flushed with copious amounts normal saline. Procedure #3: Partial excision of calcaneus, left lower extremity (CPT code: 97892) Next, using a sagittal saw and 111 blade, the enthesophyte and calcaneal spur were cut and removed without incident. It was noted that there was a large depression after removal of the enthesophyte and bone spur to the level of the left heel. Using the sagittal saw and 111 blade, the Corey's deformity was removed via partial excision of calcaneus. All sharp edges were smoothed down with a power reciprocating rasp. Next, the area was flushed with copious pamela of normal saline. Procedure #4: Achilles tendon debridement and repair, left lower extremity (CPT code: 73587) / Procedure #5: Application of graft jacket, left lower extremity (CPT code: 36484) Next, attention was directed back to the Achilles tendon, there showed evidence of Achilles tendinitis on the operating room table. Using a #15 blade, the tendinosis throughout the Achilles tendon was debrided down to and including the tendon which was removed and sent to the back table to be sent off for pathology. Again the incision was flushed with copious pamela of normal saline. Next, the Achilles tendon was reattached into its insertion using a combination of four 3.9 mm swivel lock knotless suture provided by Arthrex with the rep in the room per the manufactures recommendation. Once the Achilles tendon was secured in place a Cee test was performed and the left lower extremity was elevated to 90 degrees with the knee flexed, squeezing the gastrocnemius and soleus complex there was evidence of plantarflexion at the level of the foot while in the air. Next, 2-0 FiberWire was ran through the Achilles tendon incision and running suture technique. Again the incision was flushed with copious of normal saline. Next, the left thigh tourniquet was deflated and reperfusion was noted instantly to the left lower extremity. All bleeders were cauterized and ligated as necessary. Next a 2 x 4 cm aflex graft was applied over the Achilles tendon and sutured in place with 4-0 Monocryl in running suture technique. The peritenon was reapproximated closed with 3-0 Vicryl in running locking suture technique. Procedure #6: Advancement flap closure, left lower extremity (CPT code: 20757) Next, due to the large defect after removing the bone the skin was undermined and remodeled to allow for a more tight closure at the level of the calcaneal bone. Next, the skin was advanced and closed with the subcutaneous layer being reapproximated and closed with 3 oh vinyl and running suture technique. The skin was reapproximated and closed with 4-0 Monocryl in subcuticular suture technique. The left lower extremity was wiped clean and patted dry. Skin-Prep was applied and half inch Steri-Strips cut in half were placed across the incision for additional support. Procedure #7: Application of posterior splint, left lower extremity (CPT code: 22219?LT) Next, 4 cc of bone marrow aspirate concentrate were injected throughout the Achilles tendon to aid in healing and decrease adhesions. Platelet poor plasma was sprayed throughout the incision. Betadine soaked Adaptic was applied to all incision followed by a double layer Buck AO splint at plantarflexion to the left lower extremity The patient tolerated the procedure and anesthesia well and apparent satisfactory condition and was transported to the PACU for further monitoring prior to discharge home. Vital signs stable and vascular status intact to all digits bilateral. Post Operative Plan: Weightbearing: Nonweightbearing to left lower extremity with crutches and or knee scooter. Full weightbearing right lower extremity. Antibiotics: 2 g Ancef through the IV DVT Prophylaxis: Lovenox 40 mg daily for 30 days Ramirez: None Dressing: Platelet poor plasma, Betadine soaked Adaptic, double layer Buck AO splint at 90 degrees, left lower extremity X-Rays: Post-operative films taken on the operating room. Pain Medication: Oxycodone 5 mg, Tylenol 650 mg, cyclobenzaprine 10 mg Follow-up: Patient will follow-up at her already scheduled postoperative appointment. Surgical Findings: 1. Evidence of tenosynovitis of the Achilles tendon that was removed and sent off for pathology for evaluation. 2. After fixation of the Achilles tendon the patient had great plantarflexion attitude with compression of the gastrocnemius soleus muscle group, left lower extremity. Complications Complications: No Admit VTE Documentation VTE Present on Admission: No VTE Mechan Device Prophylaxis: SCD's VTE Pharm Prophylaxis ordered?: Yes
--- NOTE | 2025-03-05 12:00 | TESH_PTH ---
PATIENT: JESSICA NARANJO LOC: [facility] – [place] U#:[id number] AGE/SX: 64/F ROOM: RE03/05/[address]: Dr. Andre Grover DPM : 1960 BED: DIS: 03/05/2025 SPEC #: [id number] RECD: 03/05/25 15:33 STATUS: DONNA REQ #: [id number] NICK: 03/05/25 12:[address]: Andre Grover DEPT: SURGICAL PATHOLOGY RECD BY: Jessica Crews ENTERED: 03/08/25 09:19 SP TYPE: TENDON OTHR DR: Isabela Blank MD Tissues: Tendon and tendon sheath, NOS Procedures: Surgery Specimen Level III HEADER OPERATION: Left Achilles tendon debridement and repair, bone marrow aspirate PRE-OP DIAGNOSIS: Achilles tendonitis left, calcaneal spur left TISSUE SUBMITTED: A- Left Achilles tenosynovitis MICROSCOPIC DIAGNOSIS A. Left Achilles tendon, debridement and repair: - Dense fibrous tissue and synovium with reactive and degenerative changes. MICROSCOPIC DESCRIPTION Slides are reviewed. GROSS DESCRIPTION A. Received in formalin labeled with the patient's name and date of . Designated as left Achilles tenosynovitis is a 3.7 x 2.4 x 1.0 cm aggregate of murphy-white to yellow, firm to soft tissue fragments. Equipment Engineer sections are submitted in 1 cassette. NV 03/08/2025 CPT:[id number]
[2025-03-05] MEDS: fentaNYL 100 MCG/2 ML Ampul IV (12:20)
[2025-03-05] MEDS: Lidocaine 1% (5 ml sdv) 5 ML Vial IV (12:20)
[2025-03-05] MEDS: Cefazolin 1 GM/5 ML Vial 2 GM IV (12:22)
[2025-03-05] MEDS: Thrombin 5,000 IU Kit (PSA) 5,000 IU Vial 5000 IU TOPICAL (12:45)
[2025-03-05] MEDS: Lactated Ringers 2,000 ML 2000 ML IV (13:13)
--- NOTE | 2025-03-05 14:39 | PCM.POST.ANE ---
Anesthesia: Postop Eval I Current Vital Signs Temperature: 97.0 F Pulse Rate: 58 Blood Pressure: 142/89 Respiratory Rate: 20 Pulse Ox: 95 Oxygen Delivery Method: Room Air Assessment Airway patent: Yes Spontaneous unlabored respirations: Yes Mental status: Awake and Calm nausea: No Vomiting: No Anesthesia Complication: No Fluid Hydration Crystalloid volume administer (ml): 1,800 Total IV fluid infused: 1,800 Progress Note Anesthesia document: Postop Eval 1 completed: Yes
--- NOTE | 2025-03-05 15:19 | POSTOPAN2_ITS ---
Anesthesia Postop Eval I Sum Postop Eval Completion status Anesthesia document: Postop Eval 1 completed: Yes Anesthesia Postop Eval I Summary Anesthesia Postop Eval I Summary: Anesthesia Postop Eval I: Assessment Summary Airway patent Yes 03/05/25 14:40 MEDICAL COST [email or web address] Spontaneous unlabored Yes 03/05/25 14:40 MEDICAL COST [email or web address] respirations Mental status Awake,Calm 03/05/25 14:40 MEDICAL COST [email or web address] nausea No 03/05/25 14:40 MEDICAL COST [email or web address] Vomiting No 03/05/25 14:40 MEDICAL COST [email or web address] Anesthesia Postop Eval I: Fluid Summary Crystalloid volume administer 1,800 03/05/25 14:40 MEDICAL COST [email or web address] (ml) Colloids volume administered ( ml) Blood Product volume administered (ml) Total IV fluid infused 1,800 03/05/25 14:40 MEDICAL COST [email or web address] Anesthesia Postop Eval I: Summary Notes Anesthesia Complication No 03/05/25 14:40 MEDICAL COST [email or web address] Anesthesia Complication Comment: Post-operative progress note Anesthesia: Postop Eval II Evaluation Mental status: Awake Pain Level: 0 nausea: No Vomiting: No
--- NOTE | 2025-03-05 15:19 | PCM.POSTANE2 ---
Anesthesia Postop Eval I Sum Postop Eval Completion status Anesthesia document: Postop Eval 1 completed: Yes Anesthesia Postop Eval I Summary Anesthesia Postop Eval I Summary: Anesthesia Postop Eval I: Assessment Summary Airway patent Yes 03/05/25 14:40 TREATMENT [email or web address] Spontaneous unlabored Yes 03/05/25 14:40 TREATMENT SPECIALIST.[email or web address] respirations Mental status Awake,Calm 03/05/25 14:40 TREATMENT [email or web address] nausea No 03/05/25 14:40 TREATMENT [email or web address].[email or web address] Vomiting No 03/05/25 14:40 TREATMENT [email or web address].[email or web address] Anesthesia Postop Eval I: Fluid Summary Crystalloid volume administer 1,800 03/05/25 14:40 TREATMENT [email or web address] (ml) Colloids volume administered ( ml) Blood Product volume administered (ml) Total IV fluid infused 1,800 03/05/25 14:40 TREATMENT [email or web address] Anesthesia Postop Eval I: Summary Notes Anesthesia Complication No 03/05/25 14:40 TREATMENT [email or web address].[email or web address] Anesthesia Complication Comment: Post-operative progress note Anesthesia: Postop Eval II Evaluation Mental status: Awake Pain Level: 0 nausea: No Vomiting: No
== END 2025-03-05 17:06 | disposition home or self-care (01) ==
LOC: SDC 10:09 → AC 10:10
PROVIDERS: PCP Family Medicine; Referring Provider Podiatrist Foot & Ankle Surgery; Visit Provider Podiatrist Foot & Ankle Surgery
PROC: (CPT 27650; principal; 2025-03-05 11:45)
DX: M76.62 Achilles tendinitis, left leg (principal); E11.9 Type 2 diabetes mellitus without complications; M77.32 Calcaneal spur, left foot; M65.972 Unspecified synovitis and tenosynovitis, left ankle and foot; I10 Essential (primary) hypertension; E55.9 Vitamin D deficiency, unspecified; E78.00 Pure hypercholesterolemia, unspecified; Z01.818 Encounter for other preprocedural examination; G47.30 Sleep apnea, unspecified; Z87.891 Personal history of nicotine dependence; Z90.710 Acquired absence of both cervix and uterus
CPT/HCPCS: 38206; 28090; 28120; 27652; 14040; 01470; 36415; 73650; 76000; 80053; 80061; 82306; 82962; 83036; 85027; 88304; C1713; J2405